=== PATIENT | female | born 1965 | race Caucasian/White ===

== ENCOUNTER 2019-04-19 10:48 | Emergency (ER) | payer BC, SELFPAY ==
[2019-04-19 10:52] VITALS: BP 185/75; PULSE 90; RESP 20; TEMP 36.4; O2SAT 97; BMI 39.1
--- NOTE | 2019-04-19 11:04 | ED_ITS ---
Entered by Malia Gaviria, acting as scribe for Leandra Rodriges MD Apr 19, 2019 10:48 HPI - Chest Pain General: Chief Complaint: Chest Pain Stated Complaint: CP Time Seen by Provider: 04/19/19 11:04 Source: patient and RN notes reviewed Mode of arrival: ambulatory Limitations: no limitations History of Present Illness: HPI narrative: 54 yo female presents to ED with complaints of chest pain. The patient was at work when she suddenly became hot from the feet up, her fingers began tingling, short of breath, chest tightness, headache, and very weak. She said this occurred at about 1015. She said her symptoms stopped but then they returned. She denies nausea. She gets panic attacks but she said this feels different. The patient has no personal cardiac h istory (only high blood pressure) but she has a strong family history cardiac disease. She states she smoked for 30 years but she vapes now. She said she pre- diabetic. She said at present she has dizziness and chest discomfort. MD complaint: chest pain and chest heaviness Pertinent past history: other (prior smoker, current vaper) Onset (ago): minute(s) (45 (at 1020)) Timing of current episode: episodic Prior episodes: No Onset: during rest Pain location: substernal Pain radiation: none Severity: moderate Quality: tightness Relieving factors: nothing Exacerbating factors: nothing Associated symptoms: Reports dyspnea; Deny abdominal pain, diaphoresis, fever(s), nausea or vomiting Treatment prior to arrival: none Risk Factors: Coronary artery disease risk factors: diabetes (pre-diabetic), smoking history (smoked in the past, vapes now), hypertension and family history of CAD before age 50 Thoracic aortic dissection risk factors: none Review of Systems Const: Denies: fever, chills, change in appetite, night sweats or diaphoresis Eyes: Denies: change in vision ENMT: Denies: throat pain or ear pain Card: Denies: swelling of feet/ankles, shortness of breath on exertion or shortness of breath when lying down Resp: Reports: shortness of breath GI: Denies: abdominal pain, nausea, vomiting, diarrhea or constipation : Denies: flank pain or difficulty urinating Musc: Denies: back pain Skin/Breast: Denies: rash Neuro: Denies: headache, numbness in extremities or weakness in extremities Psych: Denies: depression Endo: Denies: excessive thirst Alfonso/Lymph: Denies: easy bruising PFSH ED PFSH: Social History Smoking and tobacco status: never smoked Physical Exam Const: COMMON NORMALS: no apparent distress, oriented x3 and alert GENERAL APPEARANCE: cooperative and well developed; not in distress and not diaphoretic ORIENTATION/CONSCIOUSNESS: Yes awake, Yes oriented to person, Yes oriented to place and Yes oriented to time HENMT: COMMON NORMALS: normocephalic, head/scalp atraumatic, external ears normal, external nose normal and moist oral mucous membranes HEAD & SCALP: normocephalic and atraumatic FACE & SINUS: normal facial exam; no facial tenderness NOSE: external nose normal EXTERNAL EAR: Yes external ears normal MOUTH: oral and palatal mucosa normal, lip normal and tongue normal TEETH & GINGIVA: no abnormal tooth and associated gingiva THROAT: posterior oropharynx normal and uvula midline Eye: COMMON NORMALS: PERRL and EOMs intact bilaterally PUPIL: Yes PERRL Neck/C-Spine: COMMON NORMALS: full ROM, supple and no JVD GENERAL: Yes normal visual inspection and Yes trachea midline CERVICAL SPINE: No cervical spine tenderness Lymph: LYMPHATIC: no lymphadenopathy noted Chest: COMMONS NORMALS: inspection of chest normal Resp: COMMON NORMALS: normal respiratory effort, no use of accessory muscles and clear to auscultation bilaterally EFFORT & INSPECTION: Yes able to speak in complete sentences and Yes symmetric chest movement AUSCULTATION: clear to auscultation bilaterally Cardio: COMMON NORMALS: no JVD, regular rate, regular rhythm, no gallops, no murmurs and peripheral pulses 2+ throughout RATE: regular rate RHYTHM: regular rhythm PERIPHERAL PULSES: pulses 2+ throughout GI: COMMON NORMALS: normal to inspection, nondistended, normoactive bowel sounds, soft to palpation and non-tender PALPATION: Yes soft Back/Pelvis: COMMON NORMALS: thoracic and lumbar spine normal to inspection and thoraco-lumbar ROM normal Extremity: COMMON NORMALS: normal to inspection, full ROM and normal capillary refill Neuro: COMMON NORMALS: oriented x3, CN's II-XII intact bilaterally, moves all extremities, no focal motor deficits and no sensory deficits noted SENSORIUM/ORIENTATION: Yes alert, Yes oriented to person, Yes oriented to place and Yes oriented to time Psych: COMMON NORMALS: mental status grossly normal, thought process normal, cooperative, affect normal, speech normal and activity/motor behavior normal SPEECH: Yes normal speech THOUGHT PROCESS: normal thought process Skin: COMMON NORMALS: no rashes or lesions noted and skin turgor normal GENERAL SKIN EXAM: no rashes or lesions noted and turgor normal Course ED course: Patient with atypical chest pain but multiple risk factors. Work up neg including delta troponin. She wants to go home and will follow up with her doctor. Vital Signs: Vital signs: Vital Signs Temperature 97.5 F L 04/19/19 10:52 Pulse Rate 79 04/19/19 14:30 Respiratory Rate 18 04/19/19 14:30 Blood Pressure 137/66 04/19/19 14:30 Pulse Oximetry 95 04/19/19 14:30 MDM - Chest Pain Lab Data: Labs: Lab Results 04/19/19 04/19/19 04/19/19 Range/Units 11:15 11:39 11:39 WBC 10.8 H (4.0-10.0) 10^3/ uL RBC 4.73 (4.1-5.3) 10^6/u L Hgb 13.9 (11.5-15.3) g/dL Hct 41.6 (37.0-47.0) % MCV 87.9 (81-99) fL MCH 29.4 (28.0-34.0) pg MCHC 33.4 (30.0-36.0) g/dL RDW 11.7 L (12.1-15.1) % Plt Count 433 H (130-400) 10^3/c mm MPV 9.0 (7.4-10.4) fL Neut % (Auto) 62.4 % Lymph % (Auto) 26.6 % [place] % (Auto) 6.9 % Eos % (Auto) 2.9 % Baso % (Auto) 0.7 % Neut # (Auto) 6.7 (1.8-7.7) 10^3/u L Lymph # (Auto) 2.9 (0.8-4.8) 10^3/u L [place] # (Auto) 0.8 (0.2-0.9) 10^3/u L Eos # (Auto) 0.3 (0.0-0.8) 10^3/u L Baso # (Auto) 0.1 (0.0-0.1) 10^3/u L Nucleated RBC % (a uto) 0 % Nucleated RBCs # 0.0 /100WBC PT (10.5-13.3) SECO NDS INR (0.8-1.2) D-Dimer (0-0.59) ug/mIFE U Sodium 136 (136-145) mmol/L Potassium 4.2 (3.5-5.1) mmol/L Chloride 98 (98-107) mmol/L Carbon Dioxide 25 (22-29) mmol/L Anion Gap 17.2 (5-19) BUN 11 (6-20) mg/dL Creatinine 0.7 (0.5-0.9) mg/dL GFR Calculation 86.9 L (90-130) mL/min Glucose 94 (65-115) mg/dL Calcium 9.8 (8.5-10.5) mg/dL Total Bilirubin 0.4 (0.15-1.2) mg/dL AST 23 (0-32) U/L ALT 26 (0-33) U/L Alkaline Phosphata se 80 (35-105) IU/L Troponin T Baselin e 7 (0-10) ng/mL Troponin T 120 Min [place] (0-10) ng/mL Delta Troponin T (0-10) ABS# NT-Pro-B Natriuret Pep 26 (0-125) pg/mL Total Protein 7.8 (6.6-8.7) g/dL Albumin 4.8 (3.5-5.2) g/dL Globulin 3.0 (1.3-4.6) g/dL Lipase 33 (13-60) U/L Urine Color (Yellow) Urine Appearance (CLEAR) Urine pH (5-7) Ur Specific Gravit y (1.005-1.030) Urine Protein (Negative) Urine Glucose (UA) (Normal) Urine Ketones (Negative) Urine Occult Blood (Negative) Urine Nitrate (Negative) Urine Bilirubin (NEGATIVE) Urine Urobilinogen (Negative) mg/dL Ur Leukocyte Jeanne ase (Negative) 04/19/19 04/19/19 04/19/19 Range/Units 11:39 12:50 13:54 WBC (4.0-10.0) 10^3/ uL RBC (4.1-5.3) 10^6/u L Hgb (11.5-15.3) g/dL Hct (37.0-47.0) % MCV (81-99) fL MCH (28.0-34.0) pg MCHC (30.0-36.0) g/dL RDW (12.1-15.1) % Plt Count (130-400) 10^3/c mm MPV (7.4-10.4) fL Neut % (Auto) % Lymph % (Auto) % [place] % (Auto) % Eos % (Auto) % Baso % (Auto) % Neut # (Auto) (1.8-7.7) 10^3/u L Lymph # (Auto) (0.8-4.8) 10^3/u L [place] # (Auto) (0.2-0.9) 10^3/u L Eos # (Auto) (0.0-0.8) 10^3/u L Baso # (Auto) (0.0-0.1) 10^3/u L Nucleated RBC % (a uto) % Nucleated RBCs # /100WBC PT 13.30 (10.5-13.3) SECO NDS INR 0.98 (0.8-1.2) D-Dimer <= 0.27 (0-0.59) ug/mIFE U Sodium (136-145) mmol/L Potassium (3.5-5.1) mmol/L Chloride (98-107) mmol/L Carbon Dioxide (22-29) mmol/L Anion Gap (5-19) BUN (6-20) mg/dL Creatinine (0.5-0.9) mg/dL GFR Calculation (90-130) mL/min Glucose (65-115) mg/dL Calcium (8.5-10.5) mg/dL Total Bilirubin (0.15-1.2) mg/dL AST (0-32) U/L ALT (0-33) U/L Alkaline Phosphata se (35-105) IU/L Troponin T Baselin e (0-10) ng/mL Troponin T 120 Min [place] 6.68 (0-10) ng/mL Delta Troponin T -0.32 L (0-10) ABS# NT-Pro-B Natriuret Pep (0-125) pg/mL Total Protein (6.6-8.7) g/dL Albumin (3.5-5.2) g/dL Globulin (1.3-4.6) g/dL Lipase (13-60) U/L Urine Color Yellow (Yellow) Urine Appearance Clear (CLEAR) Urine pH 6.0 (5-7) Ur Specific Gravit y 1.010 (1.005-1.030) Urine Protein Neg (Negative) Urine Glucose (UA) Norm (Normal) Urine Ketones Negative (Negative) Urine Occult Blood Neg (Negative) Urine Nitrate Negative (Negative) Urine Bilirubin Neg (NEGATIVE) Urine Urobilinogen Norm (Negative) mg/dL Ur Leukocyte Jeanne ase Negative (Negative) Imaging Data^: CXR: Radiologist's impression: [place] [address] XRay Report Signed Patient: Tristan Yusuf #: [id number] : 1965Acct#:[id number] Age/Sex: 54 / FADM Date: 04/19/19 [facility] Attending Dr: Ordering Provider/Ordering MD: Leandra Rodriges MD Date of Service: 04/19/19 Procedure(s): XR chest 1V portable [id number] Accession Number(s): [id number] Report Number: [id number] WS: [id number] PORTABLE CHEST HISTORY: chest pain COMPARISON: 05/09/2015 Lungs are clear and well expanded. No pleural effusion or pneumothorax. Cardiac size: Normal. Mediastinum/Aorta: Normal mediastinum. No osseous abnormality seen. XR/XR chest 1V portable [id number] IMPRESSION: Unremarkable portable chest. Dictated By:Bibiana Sandy DO Signed By:Bibiana Sandy DOSigned Date/Time:04/19/19 1131 DD/ EKG Data^: EKG 1: EKG interpretation date: 04/19/19 EKG interpretation time: 11:06 Interpretation: Normal EKG, [address] changes Discharge Plan Discharge Patient Disposition: Home, Self-Care Clinical Impression: Chest pain, Panic attack Condition: Stable Prescriptions: No Action losartan 50 mg tablet 50 mg PO DAILY RF: 0 citalopram 40 mg tablet 40 mg PO DAILY RF: 0 tizanidine 4 mg tablet 4 mg PO BEDTIME RF: 0 hydroxyzine HCl 25 mg tablet 25 mg PO TID PRN (Reason: Anxiety) RF: 0 aripiprazole 5 mg tablet 5 mg PO DAILY RF: 0 Discharge Orders: Discharge Order (Routine); Ordered 04/19/19 Ordered By: Leandra Rodriges Referrals: Karine Mckenna MD [Referring] - 4-7 days Patient Instructions: Chest Pain (ED), Panic Attack Discharge Date/Time: 04/19/19 14:31 Coding Level of Care Code 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
--- NOTE | 2019-04-19 11:11 | ECG_ITS ---
Measurements Intervals [place] Rate: 81 P: 34 MN: 153 QRS: 46 QRSD: 90 T: 36 QT: 370 QTc: 430 SINUS RHYTHM INTERPRETATION BASED ON A DEFAULT AGE OF 40 YEARS No previous ECG available for comparison Electronically Signed On 04-19-2019 20:47:49 TERRAZZO MECHANIC by Beatrice Newman M.D. [id number]
--- NOTE | 2019-04-19 11:11 | XR_ITS ---
WS: [id number] PORTABLE CHEST HISTORY: chest pain COMPARISON: 05/09/2015 Lungs are clear and well expanded. No pleural effusion or pneumothorax. Cardiac size: Normal. Mediastinum/Aorta: Normal mediastinum. No osseous abnormality seen. XR/XR chest 1V portable [id number] IMPRESSION: Unremarkable portable chest.
[2019-04-19 11:22] VITALS: BP 156/71; PULSE 85; RESP 18; O2SAT 94
[2019-04-19 11:23] LABS: Basophils # 0.1 10^3/uL (0.0-0.1); Basophils % 0.7 %; Eosinophils # 0.3 10^3/uL (0.0-0.8); Eosinophils % 2.9 %; Hematocrit 41.6 % (37.0-47.0); Hemoglobin 13.9 g/dL (11.5-15.3); Lymphocytes # 2.9 10^3/uL (0.8-4.8); Lymphocytes % 26.6 %; Mean Corpuscular HGB Conc 33.4 g/dL (30.0-36.0); Mean Corpuscular Hemoglobin 29.4 pg (28.0-34.0); Mean Corpuscular Volume 87.9 fL (81-99); Monocytes # 0.8 10^3/uL (0.2-0.9); Monocytes % 6.9 %; Neutrophils # 6.7 10^3/uL (1.8-7.7); Neutrophils % 62.4 %; Nucleated Red Blood Cells % 0 %; Platelet Count 433 10^3/cmm (130-400); Red Blood Count 4.73 10^6/uL (4.1-5.3); Red Cell Distribution Width 11.7 % (12.1-15.1); White Blood Count 10.8 10^3/uL (4.0-10.0)
[2019-04-19 11:58] LABS: INR 0.98 (0.8-1.2)
[2019-04-19 12:01] LABS: D Dimer <= 0.27 ug/mIFEU (0-0.59)
[2019-04-19 12:09] LABS: Troponin(5th) Baseline 7 ng/mL (0-10)
[2019-04-19 12:18] LABS: Alanine Aminotransferase 26 U/L (0-33); Albumin Level 4.8 g/dL (3.5-5.2); Alkaline Phosphatase 80 IU/L (35-105); Anion Gap 17.2 (5-19); Aspartate Amino Transferase 23 U/L (0-32); Blood Urea Nitrogen 11 mg/dL (6-20); Calcium 9.8 mg/dL (8.5-10.5); Carbon Dioxide 25 mmol/L (22-29); Chloride 98 mmol/L (98-107); Glomerular Filtration Rate 86.9 mL/min (90-130); Glucose 94 mg/dL (65-115); Lipase 33 U/L (13-60); NT Pro B Type Natriuretic Pept 26 pg/mL (0-125); Potassium 4.2 mmol/L (3.5-5.1); Sodium 136 mmol/L (136-145); Total Bilirubin 0.4 mg/dL (0.15-1.2); Total Protein 7.8 g/dL (6.6-8.7)
[2019-04-19] MEDS: aspirin 81 mg Chew Tablet 324 MG PO (12:23)
[2019-04-19 12:59] LABS: Add Urine Microscopic? NO
[2019-04-19 13:06] LABS: Bilirubin Urine Neg (NEGATIVE); Blood Urine Neg (Negative); Glucose Urine UA Norm (Normal); Ketones Urine Negative (Negative); Leukocyte Esterase Urine Negative (Negative); Nitrate Urine Negative (Negative); Protein Urine Neg (Negative); Urine Appearance Clear (CLEAR); Urine Color Yellow (Yellow); Urobilinogen Urine Norm (Negative)
[2019-04-19 14:05] VITALS: BP 139/73; PULSE 78; RESP 18; O2SAT 95
[2019-04-19 14:15] LABS: Troponin 5 2HR 6.68 ng/mL (0-10)
[2019-04-19 14:22] LABS: Troponin 5 2HR Delta -0.32 ABS# (0-10)
[2019-04-19 14:30] VITALS: BP 137/66; PULSE 79; RESP 18; O2SAT 95
--- NOTE | 2019-04-19 17:11 | ECG_ITS ---
Measurements Intervals [place] Rate: 73 P: 171 UT: 151 QRS: 149 QRSD: 89 T: 173 QT: 396 QTc: 437 SINUS RHYTHM ARM LEADS REVERSED [INVERTED P AND QRS IN I] ATYPICAL ECG No previous ECG available for comparison Electronically Signed On 04-19-2019 20:51:57 SALES AND SERVICE SPECIALIST by Beatrice Newman M.D. [id number]
== END 2019-04-19 14:31 | disposition home or self-care (01) ==
PROVIDERS: Emergency Provider Emergency Medicine
DX: R07.9 Chest pain, unspecified (principal); F41.0 Panic disorder [episodic paroxysmal anxiety]; R73.03 Prediabetes; I10 Essential (primary) hypertension; Z87.891 Personal history of nicotine dependence; Z82.49 Family history of ischemic heart disease and other diseases of the circulatory system
CPT/HCPCS: 36415; 71045; 80053; 81003; 83690; 83880; 84484; 85025; 85378; 85610; 93005; 99282; 99284

== ENCOUNTER 2019-07-23 17:20 | Outpatient (CLI) | payer BC, SELFPAY ==
--- NOTE | 2019-07-23 | XRR_ITS ---
PROCEDURE INFORMATION: Exam: XR Right Foot Complete Exam date and time: 07/23/2019 5:50 PM Age: 54 years old Clinical indication: Injury or trauma; Fall; Initial encounter; Sprain or strain; Ankle and foot; Right; Injury date: 07/20/19; Additional info: Foot pain TECHNIQUE: Imaging protocol: XR Right foot. Views: 3 or more views. COMPARISON: No relevant prior studies available. FINDINGS: Bones/joints: Hindfoot -midfoot and midfoot-forefoot articulations normal. Metatarsals and phalanges without an acute process. Subtalar and tibiotalar joint normal. Moderate degenerative changes at the first metatarsal phalangeal joint. Spur formation at the insertion of the Achilles' tendon and plantar aponeurosis. Soft tissues: Normal. XR/XR foot RT min 3V* [id number] IMPRESSION: 1. Moderate degenerative changes at the first metatarsal phalangeal joint. 2. Spur formation at the insertion of the Achilles' tendon and plantar aponeurosis.
--- NOTE | 2019-07-23 | XRR_ITS ---
PROCEDURE INFORMATION: Exam: XR Right Ankle Exam date and time: 07/23/2019 5:50 PM Age: 54 years old Clinical indication: Injury or trauma; Injury history: Fall and twisted ankle; Initial encounter; Sprain or strain; Ankle and foot; Right; Injury date: 07/20/19; Additional info: Joint pain TECHNIQUE: Imaging protocol: XR Right ankle. Views: 3 or more views. COMPARISON: No relevant prior studies available. FINDINGS: Bones/joints: Medial and lateral malleoli are normal. Ankle mortise is symmetrical. No fracture. Hindfoot is unremarkable. Tibiotalar joint and the subtalar joint appears normal. Spur formation at the insertion of the Achilles' tendon and plantar aponeurosis. Soft tissues: Normal. XR/XR ankle RT min 3V* [id number] IMPRESSION: Spur formation at the insertion of the Achilles' tendon and plantar aponeurosis.
== END 2019-07-23 17:21 | disposition home or self-care (01) ==
LOC: RAD 17:22
PROVIDERS: Visit Provider Nurse Practitioner Family
DX: M25.571 Pain in right ankle and joints of right foot (principal); M79.671 Pain in right foot; M76.61 Achilles tendinitis, right leg
CPT/HCPCS: 73610; 73630

== ENCOUNTER 2020-01-19 11:12 | Emergency (ER) | payer BC, SELFPAY ==
[2020-01-19] VITALS (12 sets, daily range): BP systolic 149–167; BP diastolic 62–77; PULSE 77–98; RESP 16–30; TEMP 36.3; O2SAT 89–93; BMI 41.3
--- NOTE | 2020-01-19 11:15 | XRR_ITS ---
PROCEDURE INFORMATION: Exam: XR Chest, 1 View Exam date and time: 01/19/2020 1:28 PM Age: 54 years old Clinical indication: Pain; Pleuordynia; Additional info: Cp TECHNIQUE: Imaging protocol: XR of the chest Views: 1 view. COMPARISON: CR XR chest 1V portable [id number] 04/19/2019 11:18 AM FINDINGS: Lungs: Unremarkable. No consolidation. Pleural space: Unremarkable. No pleural effusion. No pneumothorax. Heart/Mediastinum: Unremarkable. No cardiomegaly. Bones/joints: Unremarkable. XR/XR chest 1V portable [id number] IMPRESSION: No acute findings.
--- NOTE | 2020-01-19 11:15 | ECG_ITS ---
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 Measurements Intervals [place] Rate: 95 P: 35 CA: 150 QRS: 65 QRSD: 84 T: 44 QT: 328 QTc: 413 Interpretive Statements SINUS RHYTHM WITH OCCASIONAL VENTRICULAR PREMATURE COMPLEXES LOW QRS VOLTAGE IN PRECORDIAL LEADS [QRS DEFLECTION < 1.0 mV IN CHEST LEADS] Compared to ECG 04/19/2019 13:03:54 Ventricular premature complex(es) now present Low QRS voltage now present Electronically Signed On 01-19-2020 21:12:56 LADIES LOCKER ROOM ATTENDANT by Dawit Walls M.D. [email or web address][id number]
[2020-01-19 11:40] LABS: Basophils # 0.1 10^3/uL (0.0-0.1); Basophils % 0.7 %; Eosinophils # 0.3 10^3/uL (0.0-0.8); Hematocrit 36.2 % (37.0-47.0); Hemoglobin 11.7 g/dL (11.5-15.3); Lymphocytes # 2.5 10^3/uL (0.8-4.8); Lymphocytes % 20.6 %; Mean Corpuscular HGB Conc 32.3 g/dL (30.0-36.0); Mean Corpuscular Hemoglobin 28.7 pg (28.0-34.0); Mean Corpuscular Volume 88.7 fL (81-99); Mean Platelet Volume 9.3 fL (7.4-10.4); Monocytes # 0.8 10^3/uL (0.2-0.9); Monocytes % 6.6 %; Neutrophils # 8.53 10^3/uL (1.8-7.7); Neutrophils % 69.7 %; Nucleated Red Blood Cells % 0 %; Platelet Count 469 10^3/cmm (130-400); Red Blood Count 4.08 10^6/uL (4.1-5.3); Red Cell Distribution Width 12.7 % (12.1-15.1); White Blood Count 12.2 10^3/uL (4.0-10.0)
[2020-01-19 12:03] LABS: Alanine Aminotransferase 20 U/L (0-33); Albumin Level 4.2 g/dL (3.5-5.2); Alkaline Phosphatase 102 IU/L (35-105); Anion Gap 14.3 (5-19); Aspartate Amino Transferase 15 U/L (0-32); Blood Urea Nitrogen 14 mg/dL (6-20); Calcium 9.2 mg/dL (8.5-10.5); Carbon Dioxide 26 mmol/L (22-29); Chloride 104 mmol/L (98-107); Globulin 2.3 g/dL (1.3-4.6); Glomerular Filtration Rate 86.9 mL/min (90-130); Glucose 106 mg/dL (65-115); Osmolality Calculated 291 mOsm/kg (285-295); Potassium 4.3 mmol/L (3.5-5.1); Sodium 140 mmol/L (136-145); Total Bilirubin 0.3 mg/dL (0.15-1.2); Total Protein 6.5 g/dL (6.6-8.7)
[2020-01-19 12:05] LABS: Troponin(5th) Baseline 6 ng/L (0-10)
--- NOTE | 2020-01-19 12:11 | W.ED.CHESTPA ---
HPI - Chest Pain General: Chief Complaint: Chest Pain Stated Complaint: CP Time Seen by Provider: 01/19/20 11:16 Source: patient Mode of arrival: ambulatory Limitations: no limitations History of Present Illness: HPI narrative: 54-year-old female states she has been having chest pain started today. States the center of her chest and radiates to her back. She states it is a pressure type pain. She states is not severe in nature and rates it a 5 out of 10. She states that pretty much only when she has a deep inspirations. She states that she has no pain without inspiration. Associated symptoms: Deny abdominal pain, dyspnea, fever(s), nausea or vomiting Review of Systems Const: Denies: fever(s), chills, body aches or change in appetite Eyes: Denies: blurry vision or eye discomfort ENMT: Denies: throat pain or dental pain Card: Reports: chest pain Resp: Denies: dyspnea GI: Denies: abdominal pain, nausea, vomiting or diarrhea : Denies: dysuria Musc: Denies: neck pain or back pain Skin/Breast: Denies: rash Neuro: Denies: headache(s) Psych: Denies: depression Alfonso/Lymph: Denies: easy bruising All/Imm: Denies: urticaria PFSH ED PFSH: Social History Smoking and tobacco status: never smoked Physical Exam Const: COMMON NORMALS: no acute distress, patient oriented x3 and healthy appearing HENMT: COMMON NORMALS: normocephalic and atraumatic HEAD & SCALP: normocephalic and atraumatic Eye: COMMON NORMALS: Equal, round and reactive pupils present and EOMs intact bilaterally PUPIL: Yes Equal, round and reactive pupils present Neck/C-Spine: COMMON NORMALS: full ROM and supple Chest: COMMONS NORMALS: normal inspection of the chest and normal palpation of entire chest wall Resp: COMMON NORMALS: normal respiratory effort, No retractions, No use of accessory muscles and clear to auscultation bilaterally AUSCULTATION: clear to auscultation bilaterally Cardio: COMMON NORMALS: regular rate, regular rhythm and No murmurs present (Cardio) RATE: regular rate RHYTHM: regular rhythm GI: COMMON NORMALS: Normal to inspection, nondistended, normoactive bowel sounds present, Soft to palpation, non-tender and no masses PALPATION: Yes Soft to palpation Extremity: COMMON NORMALS: normal to inspection and full ROM Neuro: COMMON NORMALS: patient oriented x3, moves all extremities and no focal motor deficits Psych: COMMON NORMALS: mental status grossly normal, Normal thought process present and cooperative THOUGHT PROCESS: Normal thought process present Skin: COMMON NORMALS: no rashes or lesions noted and no wounds GENERAL SKIN EXAM: no rashes or lesions noted Course Vital Signs: Vital signs: Vital Signs Temperature 97.3 F L 01/19/20 11:19 Pulse Rate 96 01/19/20 11:19 Respiratory Rate 18 01/19/20 11:19 Blood Pressure 167/62 01/19/20 11:19 Pulse Oximetry 91 01/19/20 11:19 MDM - Chest Pain MDM Narrative: Medical decision making narrative: Patient presents here with chest pain that is atypical in nature. Likely pleuritic pain as it is inspirational. Patient's x-ray and blood work here are all normal. She has no signs of acute coronary syndrome or pulmonary bruising. Patient is stable for discharge is to follow-up with PCP in 3 to 5 days return if worsening. Lab Data: Labs: Lab Results 01/19/20 01/19/20 01/19/20 Range/Units 11:31 11:31 11:31 WBC 12.2 H (4.0-10.0) 10^3/ uL RBC 4.08 L (4.1-5.3) 10^6/u L Hgb 11.7 (11.5-15.3) g/dL Hct 36.2 L (37.0-47.0) % MCV 88.7 (81-99) fL MCH 28.7 (28.0-34.0) pg MCHC 32.3 (30.0-36.0) g/dL RDW 12.7 (12.1-15.1) % Plt Count 469 H (130-400) 10^3/c mm MPV 9.3 (7.4-10.4) fL Neut % (Auto) 69.7 % Lymph % (Auto) 20.6 % [place] % (Auto) 6.6 % Eos % (Auto) 2.0 % Baso % (Auto) 0.7 % Neut # (Auto) 8.53 H (1.8-7.7) 10^3/u L Lymph # (Auto) 2.5 (0.8-4.8) 10^3/u L [place] # (Auto) 0.8 (0.2-0.9) 10^3/u L Eos # (Auto) 0.3 (0.0-0.8) 10^3/u L Baso # (Auto) 0.1 (0.0-0.1) 10^3/u L Nucleated RBC % (a uto) 0 % Nucleated RBCs # 0.0 /100WBC D-Dimer (0-0.59) ug/mIFE U Sodium 140 (136-145) mmol/L Potassium 4.3 (3.5-5.1) mmol/L Chloride 104 (98-107) mmol/L Carbon Dioxide 26 (22-29) mmol/L Anion Gap 14.3 (5-19) BUN 14 (6-20) mg/dL Creatinine 0.7 (0.5-0.9) mg/dL GFR Calculation 86.9 L (90-130) mL/min Glucose 106 (65-115) mg/dL Calculated Osmolal ity 291 (285-295) mOsm/k g Calcium 9.2 (8.5-10.5) mg/dL Total Bilirubin 0.3 (0.15-1.2) mg/dL AST 15 (0-32) U/L ALT 20 (0-33) U/L Alkaline Phosphata se 102 (35-105) IU/L Troponin T Baselin e 6 (0-10) ng/L Troponin T 120 Min [place] (0-10) ng/L Delta Troponin T (0-10) ABS# Total Protein 6.5 L (6.6-8.7) g/dL Albumin 4.2 (3.5-5.2) g/dL Globulin 2.3 (1.3-4.6) g/dL 01/19/20 01/19/20 Range/Units 11:31 13:52 WBC (4.0-10.0) 10^3/ uL RBC (4.1-5.3) 10^6/u L Hgb (11.5-15.3) g/dL Hct (37.0-47.0) % MCV (81-99) fL MCH (28.0-34.0) pg MCHC (30.0-36.0) g/dL RDW (12.1-15.1) % Plt Count (130-400) 10^3/c mm MPV (7.4-10.4) fL Neut % (Auto) % Lymph % (Auto) % [place] % (Auto) % Eos % (Auto) % Baso % (Auto) % Neut # (Auto) (1.8-7.7) 10^3/u L Lymph # (Auto) (0.8-4.8) 10^3/u L [place] # (Auto) (0.2-0.9) 10^3/u L Eos # (Auto) (0.0-0.8) 10^3/u L Baso # (Auto) (0.0-0.1) 10^3/u L Nucleated RBC % (a uto) % Nucleated RBCs # /100WBC D-Dimer 0.30 (0-0.59) ug/mIFE U Sodium (136-145) mmol/L Potassium (3.5-5.1) mmol/L Chloride (98-107) mmol/L Carbon Dioxide (22-29) mmol/L Anion Gap (5-19) BUN (6-20) mg/dL Creatinine (0.5-0.9) mg/dL GFR Calculation (90-130) mL/min Glucose (65-115) mg/dL Calculated Osmolal ity (285-295) mOsm/k g Calcium (8.5-10.5) mg/dL Total Bilirubin (0.15-1.2) mg/dL AST (0-32) U/L ALT (0-33) U/L Alkaline Phosphata se (35-105) IU/L Troponin T Baselin e (0-10) ng/L Troponin T 120 Min [place] 6.00 (0-10) ng/L Delta Troponin T 0 (0-10) ABS# Total Protein (6.6-8.7) g/dL Albumin (3.5-5.2) g/dL Globulin (1.3-4.6) g/dL Imaging Data^: CXR: Attestation: I personally reviewed and interpreted this imaging study as follows: Radiologist's impression: no acute abnormality EKG Data^: EKG 1: Attestation: I personally reviewed and interpreted this EKG as follows: EKG interpretation date: 01/19/20 EKG interpretation time: 11:20 Interpretation: nsr hr [address] or t wave abnormalities qrs 84 qtc 380 EKG 2: Attestation: I personally reviewed and interpreted this EKG as follows: EKG interpretation date: 01/19/20 EKG interpretation time: 13:39 Interpretation: nsr hr [address] or t wave abnormalties qrs 88 qtc 404 Discharge Plan Discharge Patient Disposition: Home Clinical Impression: Chest pain Qualifiers: Chest pain type: unspecified Qualified Code(s): R07.9 - Chest pain, unspecified Condition: Stable Prescriptions: New Naprosyn 500 mg tablet 500 mg PO BID PRN (Reason: pain) Qty: 20 RF: 0 No Action losartan 50 mg tablet 50 mg PO DAILY RF: 0 citalopram 40 mg tablet 40 mg PO DAILY RF: 0 tizanidine 4 mg tablet 4 mg PO BEDTIME RF: 0 hydroxyzine HCl 25 mg tablet 25 mg PO TID PRN (Reason: Anxiety) RF: 0 aripiprazole 5 mg tablet 5 mg PO DAILY RF: 0 Discharge Orders: Discharge Order (Routine); Ordered 01/19/20 Ordered By: Erinn Oscar Discharge Diet: Advance as tolerated Discharge Activity: Resume usual activity Patient Instructions: Chest Pain (ED) Stand Alone Forms: Work/School Release Coding Level of Care Code ED Medical Assisting Instructor for Rasheedag Fwd Exam Comprehensive
--- NOTE | 2020-01-19 13:15 | ECG_ITS ---
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 Measurements Intervals [place] Rate: 75 P: 33 IA: 148 QRS: 49 QRSD: 88 T: 12 QT: 375 QTc: 421 Interpretive Statements SINUS RHYTHM Compared to ECG 01/19/2020 11:20:26 Ventricular premature complex(es) no longer present Electronically Signed On 01-19-2020 21:23:44 FLARE MAN by Dawit Walls M.D. [email or web address] hospitalGousto/store/OM/[id number]
[2020-01-19] MEDS: ketorolac 30 mg/mL INJ 15 MG IVP (13:20)
[2020-01-19 14:41] LABS: Troponin 5 2HR Delta 0 ABS# (0-10)
--- NOTE | 2020-01-19 15:08 | PC.NURSE ---
Read and agree with assessment.
== END 2020-01-19 15:07 | disposition home or self-care (01) ==
PROVIDERS: Emergency Provider Emergency Medicine
DX: R07.9 Chest pain, unspecified (principal)
CPT/HCPCS: 12345; 71045; 80053; 84484; 85025; 85378; 93005; 96374; 99282; 99284; J1885

== ENCOUNTER 2020-02-26 15:08 | Outpatient (CLI) | payer BC, SELFPAY ==
--- NOTE | 2020-02-26 15:12 | MM_ITS ---
WS: [id number] SCREENING DIGITAL MAMMOGRAM WITH CAD HISTORY: SCREENING COMPARISON: None available. Bilateral CC and MLO views submitted. Computer aided detection analyzed. Breast composition: There are scattered areas of fibroglandular density. No suspicious masses, microc alcifications or architectural distortion. Benign calcification in the central LEFT breast. MM/[id number] IMPRESSION: BI-RADS: 2-Benign FOLLOW UP: 1 Year Follow-up
== END 2020-02-26 15:09 | disposition home or self-care (01) ==
LOC: RADSHAW 15:10
PROVIDERS: PCP Nurse Practitioner Family; Visit Provider Nurse Practitioner Family
DX: Z12.31 Encounter for screening mammogram for malignant neoplasm of breast (principal)
CPT/HCPCS: 77067

== ENCOUNTER → 2020-03-26 10:08 | Outpatient (BNVA) | payer BC, SELFPAY | PROVIDERS: PCP Nurse Practitioner Family; Visit Provider Specialist | DX: G43.711 Chronic migraine without aura, intractable, with status migrainosus (principal); G47.30 Sleep apnea, unspecified; R01.1 Cardiac murmur, unspecified | CPT/HCPCS: 99204; J1885 ==

== ENCOUNTER → 2020-06-04 14:33 | Outpatient (BNVA) | payer BC, SELFPAY | PROVIDERS: PCP Nurse Practitioner Family; Visit Provider Specialist | DX: G43.711 Chronic migraine without aura, intractable, with status migrainosus (principal); G47.33 Obstructive sleep apnea (adult) (pediatric); R01.1 Cardiac murmur, unspecified | CPT/HCPCS: 99213; 99214 ==

== ENCOUNTER → 2020-06-24 14:53 | Outpatient (BNVA) | payer BC, SELFPAY | PROVIDERS: PCP Nurse Practitioner Family; Visit Provider Specialist | DX: G43.711 Chronic migraine without aura, intractable, with status migrainosus (principal) | CPT/HCPCS: 96372; J1885 ==

== ENCOUNTER → 2020-09-10 14:13 | Outpatient (BNVA) | payer BC, SELFPAY | PROVIDERS: PCP Nurse Practitioner Family; Visit Provider Specialist | DX: G43.711 Chronic migraine without aura, intractable, with status migrainosus (principal); G47.33 Obstructive sleep apnea (adult) (pediatric); R01.1 Cardiac murmur, unspecified; F17.290 Nicotine dependence, other tobacco product, uncomplicated | CPT/HCPCS: 96372; 99214; 99215; J1885 ==

== ENCOUNTER 2020-10-01 20:00 | Outpatient (CLI) | payer BC, SELFPAY | END 2020-10-01 20:01 | disposition home or self-care (01) | LOC: SLEEP 10-02 09:15 | PROVIDERS: PCP Nurse Practitioner Family; Visit Provider Specialist | DX: G47.30 Sleep apnea, unspecified (principal) | CPT/HCPCS: 95810 ==

== ENCOUNTER → 2020-10-06 13:34 | Outpatient (BNVA) | payer BC, SELFPAY | PROVIDERS: PCP Nurse Practitioner Family; Visit Provider Specialist | DX: G43.711 Chronic migraine without aura, intractable, with status migrainosus (principal); G47.33 Obstructive sleep apnea (adult) (pediatric); R01.1 Cardiac murmur, unspecified | CPT/HCPCS: 64615; 96372; J0585; J1885; J2405 ==

== ENCOUNTER → 2020-10-26 09:30 | Outpatient (BNVA) | payer BC, SELFPAY | PROVIDERS: PCP Nurse Practitioner Family; Visit Provider Specialist | DX: G43.711 Chronic migraine without aura, intractable, with status migrainosus (principal) | CPT/HCPCS: 96372 ==

== ENCOUNTER → 2020-12-31 14:50 | Outpatient (BNVA) | payer BC, SELFPAY | PROVIDERS: PCP Nurse Practitioner Family; Visit Provider Specialist | DX: G43.711 Chronic migraine without aura, intractable, with status migrainosus (principal); G47.33 Obstructive sleep apnea (adult) (pediatric); R01.1 Cardiac murmur, unspecified; E66.9 Obesity, unspecified; Z68.41 Body mass index [BMI] 40.0-44.9, adult; F17.290 Nicotine dependence, other tobacco product, uncomplicated | CPT/HCPCS: 64615; 99213; 99214; J0585 ==

== ENCOUNTER → 2021-02-02 15:32 | Outpatient (BNVA) | payer BC, SELFPAY | PROVIDERS: PCP Nurse Practitioner Family; Visit Provider Specialist | DX: G43.711 Chronic migraine without aura, intractable, with status migrainosus (principal); Z71.89 Other specified counseling | CPT/HCPCS: 96372; J1885; J2405 ==

== ENCOUNTER 2021-04-05 07:00 | Emergency (ER) | payer BC, SELFPAY ==
[2021-04-05 07:07] VITALS: BP 154/92; BP 163/68; BP 170/91; PULSE 81; PULSE 83; PULSE 93
--- NOTE | 2021-04-05 07:07 | ECG_ITS ---
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 f
[2021-04-05 07:20] VITALS: BP 162/86; PULSE 85; RESP 18; TEMP 36.7; O2SAT 91; BMI 38.9
--- NOTE | 2021-04-05 07:54 | ED_ITS ---
HPI - Dizziness General: Chief Complaint: Dizziness Stated Complaint: DIZZY, CONFUSED, H/A Time Seen by Provider: 04/05/21 07:06 Source: patient Mode of arrival: ambulatory Limitations: no limitations History of Present Illness: HPI Narrative: 56-year-old female presents emergency room complaining of headaches confusion and dizziness. She has a history of chronic migraine she has gotten Botox for months seem to have been effective they have not really done it on a regular b asis yet. She states she woke up this morning with a bit of a headache confusion just states she is generally kind of feels off. The only focal mention she makes is she feels like she has a little difficult time with speech. She does not take any blood thinners or aspirin. She does have a history of hypertension. Is not noticed anything that exacerbates or worsens her symptoms. She been very unsteady on her feet but no vertiginous-like symptoms. No vomiting. MD elicited complaint: lightheadedness Pertinent past history: other (headache) Onset (ago): hour(s) Timing: sudden onset Severity: moderate Description: lightheadedness and off-balance History of similar symptoms: Yes Exacerbating factors: nothing Relieving factors: nothing Associated symptoms: Reports headache(s) and weakness; Denies change in hearing, chest pain, chills, cough, diaphoresis, ear discharge, ear pressure, fevers/chills, malaise, nausea, nasal congestion, palpitations, rash, short of breath, syncope, tinnitus or vomiting Associated neuro symptoms: Reports confusion and difficulty speaking; Deny dysphagia, diplopia, extremity weakness, facial numbness, facial weakness, gait changes, numbness in extremities or visual changes Review of Systems Const: Denies: chills, malaise or diaphoresis ENMT: Denies: ear discharge, change in hearing, tinnitus or nasal congestion Card: Denies: chest pain, palpitations or syncope Resp: Denies: dyspnea, productive cough or non-productive cough GI: Denies: nausea, vomiting or dysphagia : Denies: flank pain, difficulty voiding, dysuria, urinary frequency or urinary urgency Skin/Breast: Denies: rash or pruritus Neuro: Reports: headache(s) and confusion; Denies: numbness in extremities PFSH ED PFSH: Medical History Chronic migraine without aura, intractable, with status migrainosus Heart murmur, systolic Obstructive sleep apnea Social History Smoking and tobacco status: current every day smoker (Vape) History of recent travel: No Physical Exam Const: COMMON NORMALS: no acute distress and patient oriented x3 GENERAL APPEARANCE: cooperative, comfortable and well kempt NUTRITIONAL APPEARANCE: obese ORIENTATION/CONSCIOUSNESS: Yes awake, Yes oriented to person, Yes oriented to place and Yes oriented to time HENMT: COMMON NORMALS: normocephalic, atraumatic, hearing grossly normal bilaterally, external ears normal, EAC's normal, TM's normal bilaterally, Normal nasal mucous membranes and turbinates present, moist oral mucous membranes and oropharynx normal HEAD & SCALP: normocephalic and atraumatic NOSE: Normal nasal mucous membranes and turbinates present EXTERNAL EAR: Yes external ears normal EXTERNAL AUDITORY CANAL: EAC's normal TYMPANIC MEMBRANE: TM's normal bilaterally MOUTH: Normal oral and palatal mucosa present, lip normal and tongue normal THROAT: posterior oropharynx normal and tonsils normal Eye: COMMON NORMALS: Equal, round and reactive pupils present, EOMs intact bilaterally, conjunctivae normal and no scleral icterus CONJUNCTIVA: Yes conjunctivae normal PUPIL: Yes Equal, round and reactive pupils present Neck/C-Spine: COMMON NORMALS: full ROM, no lymphadenopathy, supple, no meningeal signs, no JVD and Thyroid normal THYROID: Thyroid normal and asymmetrical Lymph: LYMPHATIC: no lymphadenopathy noted Resp: COMMON NORMALS: normal respiratory effort, No retractions, No use of accessory muscles and clear to auscultation bilaterally AUSCULTATION: clear to auscultation bilaterally Cardio: COMMON NORMALS: no JVD, regular rate, regular rhythm and No murmurs present (Cardio) RATE: regular rate RHYTHM: regular rhythm HEART SOUNDS: no murmurs GI: COMMON NORMALS: Soft to palpation and No hepatosplenomegaly present AUSCULTATION: Yes normoactive bowel sounds PALPATION: Yes Soft to palpation, No Tenderness to palpation present (GI), No Guarding due to palpation present (GI) and Yes No hepatosplenomegaly present : COMMON NORMALS: Yes no CVA tenderness BLADDER/KIDNEY EXAM: Yes no CVA tenderness Back/Pelvis: COMMON NORMALS: no CVA tenderness LUMBAR SPINE/LOWER BACK: Yes normal to inspection Extremity: COMMON NORMALS: normal to inspection, capillary refill normal, no clubbing, cyanosis or edema, no calf tenderness and no pedal edema Neuro: COMMON NORMALS: patient oriented x3 SENSORIUM/ORIENTATION: Yes oriented to person, Yes oriented to place and Yes oriented to time MENINGEAL SIGNS: Yes no meningeal signs Psych: APPEARANCE: Yes well kempt Skin: COMMON NORMALS: no rashes or lesions noted GENERAL SKIN EXAM: no rashes or lesions noted Course Vital Signs: Vital signs: Vital Signs Temperature 98.1 F 04/05/21 07:20 Pulse Rate 80 04/05/21 09:15 Respiratory Rate 16 04/05/21 09:15 Blood Pressure 170/88 04/05/21 09:15 Pulse Oximetry 91 04/05/21 09:15 MDM - Dizziness MDM Narrative Medical decision making narrative: Patient still improving. She has no focal neurologic deficits her NIH score would be 0. Blood pressure is slightly elevated gave her promethazine and ketorolac as well as some IV fluids for headache we will discharge her home increase her amlodipine meclizine to use as needed follow-up with your primary care return if worsens. Medical Records Attestation: I reviewed the patient's medical records. Lab Data Attestation: I reviewed the patient's lab results. Result diagrams: 04/05/21 07:50 04/05/21 07:50 Labs: Radiology Impressions Chest X-Ray 04/05/21 07:57 IMPRESSION: No acute chest abnormality. Head CT 04/05/21 07:57 IMPRESSION: 1. No evidence of intracranial hemorrhage or mass effect. 2. Normal hernandez-white differentiation 3. Incidental cerebellar tonsillar ectopia. 4. No acute intracranial findings. Laboratory Results WBC 10.8 10^3/uL (4.0-10.0) H 04/05/21 07:50 RBC 5.28 10^6/uL (4.1-5.3) 04/05/21 07:50 Hgb 13.2 g/dL (11.5-15.3) 04/05/21 07:50 Hct 42.5 % (37.0-47.0) 04/05/21 07:50 MCV 80.5 fl (81-99) L 04/05/21 07:50 MCH 25.0 pg (28.0-34.0) L 04/05/21 07:50 MCHC 31.1 g/dL (30.0-36.0) 04/05/21 07:50 RDW 16.4 % (12.1-15.1) H 04/05/21 07:50 Plt Count 483 10^3/cmm (130-400) H 04/05/21 07:50 MPV 9.3 fL (7.4-10.4) 04/05/21 07:50 Neut % (Auto) 77.3 % 04/05/21 07:50 Lymph % (Auto) 13.1 % 04/05/21 07:50 Thurston % (Auto) 7.1 % 04/05/21 07:50 Eos % (Auto) 1.5 % 04/05/21 07:50 Baso % (Auto) 0.5 % 04/05/21 07:50 Neut # (Auto) 8.35 10^3/uL (1.8-7.7) H 04/05/21 07:50 Lymph # (Auto) 1.4 10^3/uL (0.8-4.8) 04/05/21 07:50 Thurston # (Auto) 0.8 10^3/uL (0.2-0.9) 04/05/21 07:50 Eos # (Auto) 0.2 10^3/uL (0.0-0.8) 04/05/21 07:50 Baso # (Auto) 0.1 10^3/uL (0.0-0.1) 04/05/21 07:50 Nucleated RBC % (auto) 0 % 04/05/21 07:50 Nucleated RBCs # 0.0 /100WBC 04/05/21 07:50 Sodium 138 mmol/L (136-145) 04/05/21 07:50 Potassium 4.2 mmol/L (3.5-5.1) 04/05/21 07:50 Chloride 101 mmol/L (98-107) 04/05/21 07:50 Carbon Dioxide 24 mmol/L (22-29) 04/05/21 07:50 Anion Gap 17.2 (5-19) 04/05/21 07:50 BUN 12 mg/dL (6-20) 04/05/21 07:50 Creatinine 0.8 mg/dL (0.5-0.9) 04/05/21 07:50 GFR Calculation 73.9 mL/min (90-130) L 04/05/21 07:50 Glucose 139 mg/dL (65-115) H 04/05/21 07:50 Calculated Osmolality 288 mOsm/kg (285-295) 04/05/21 07:50 Calcium 9.9 mg/dL (8.5-10.5) 04/05/21 07:50 Total Bilirubin 0.5 mg/dL (0.15-1.2) 04/05/21 07:50 AST 15 U/L (0-32) 04/05/21 07:50 ALT 13 U/L (0-33) 04/05/21 07:50 Alkaline Phosphatase 101 IU/L (35-105) 04/05/21 07:50 Total Protein 7.3 g/dL (6.6-8.7) 04/05/21 07:50 Albumin 4.4 g/dL (3.5-5.2) 04/05/21 07:50 Globulin 2.9 g/dL (1.3-4.6) 04/05/21 07:50 Discharge Plan Discharge Patient Disposition: Home Clinical Impression: Headache, Dizziness, Hypertension Condition: Stable Prescriptions: New meclizine 25 mg tablet 25 mg PO QID PRN (Reason: dizziness) Qty: 24 0RF Changed amlodipine 5 mg tablet 10 mg PO BEDTIME Qty: 0 0RF No Action rizatriptan [Maxalt] 10 mg tablet See Rx Instructions PO .COMPLEX Qty: 9 3RF Rx Instructions: take 1 tab at onset of headache; if no relief may repeat 1 tab after at least 2 hrs; max = 3 tabs/24 hr PO simvastatin 20 mg tablet 20 mg PO DAILY 0RF Benadryl Allergy 25 mg Tablet 25 mg PO Q6H PRN (Reason: Allergy Symptoms) 0RF albuterol sulfate 90 mcg/actuation HFA aerosol inhaler 2 puff INHALATION QID PRN (Reason: Shortness Of Breath) 0RF losartan 100 mg tablet 100 mg PO BEDTIME 0RF citalopram 40 mg tablet 40 mg PO BEDTIME 0RF tizanidine 4 mg tablet 4 mg PO BEDTIME 0RF aripiprazole 5 mg tablet 5 mg PO BEDTIME 0RF naproxen [Naprosyn] 500 mg tablet 500 mg PO BID PRN (Reason: pain) Qty: 20 0RF Discharge Orders: Discharge ED (Routine); Ordered 04/05/21 Ordered By: Ayaan Maldonado Referrals: Toñito Edgar NP [Primary Care Provider] - Discharge Diet: Usual diet Patient Instructions: Opioid Safety Activity Restrictions/Additional Instructions: Use meclizine as needed. May use Tylenol or ibuprofen or the rizatriptan. Follow-up with your primary care doctor within the next week. Coding Level of Care Code ED Craps Manager for Chg Fwd Exam Comprehensive
--- NOTE | 2021-04-05 07:57 | XR_ITS ---
WS: [id number] XR chest 1V portable [id number] REASON FOR EXAM: dyspnea/cough FINDINGS: The chest is unchanged compared to 01/19/2020. The heart and mediastinum are within normal limits. Calcified granulomatous disease in both hemithoraces. No acute pulmonary parenchymal or pleural disease. Mild changes of degenerative spondylosis in the mid and lower thoracic spine. XR/XR chest 1V portable [id number] IMPRESSION: No acute chest abnormality.
--- NOTE | 2021-04-05 07:57 | CT_ITS ---
WS: [id number] CT HEAD TECHNIQUE: Noncontrast CT of the head obtained from the skullbase to the vertex. CLINICAL INFORMATION: headache/htn/confusion COMPARISON: None. DLP: 839.[address] scans at [facility] use at least one of these dose optimization techniques: automated e xposure control; mA and/or kV adjustment per patient size (includes targeted exams where dose is matc hed to clinical indication); or iterative reconstruction. FINDINGS: No evidence of intracranial hemorrhage or mass effect. Ventricular system and basal cisterns are laws nt. No extra-axial fluid collections. No evidence of mass or mass effect. Normal hernandez-white different iation. Incidental slightly low-lying cerebellar tonsils. No hydrocephalus. Paranasal sinuses and mastoid air cells are well aerated. .Normal visualized soft tissues. CT/CT head wo con* [id number] IMPRESSION: 1. No evidence of intracranial hemorrhage or mass effect. 2. Normal hernandez-white differentiation 3. Incidental cerebellar tonsillar ectopia. 4. No acute intracranial findings.
[2021-04-05 08:00] VITALS: O2SAT 93
[2021-04-05 08:05] LABS: Basophils # 0.1 10^3/uL (0.0-0.1); Basophils % 0.5 %; Eosinophils # 0.2 10^3/uL (0.0-0.8); Eosinophils % 1.5 %; Hematocrit 42.5 % (37.0-47.0); Hemoglobin 13.2 g/dL (11.5-15.3); Lymphocytes # 1.4 10^3/uL (0.8-4.8); Lymphocytes % 13.1 %; Mean Corpuscular HGB Conc 31.1 g/dL (30.0-36.0); Mean Corpuscular Volume 80.5 fl (81-99); Mean Platelet Volume 9.3 fL (7.4-10.4); Monocytes # 0.8 10^3/uL (0.2-0.9); Monocytes % 7.1 %; Neutrophils # 8.35 10^3/uL (1.8-7.7); Neutrophils % 77.3 %; Nucleated Red Blood Cells % 0 %; Platelet Count 483 10^3/cmm (130-400); Red Blood Count 5.28 10^6/uL (4.1-5.3); Red Cell Distribution Width 16.4 % (12.1-15.1); White Blood Count 10.8 10^3/uL (4.0-10.0)
[2021-04-05 08:31] LABS: Alanine Aminotransferase 13 U/L (0-33); Albumin Level 4.4 g/dL (3.5-5.2); Alkaline Phosphatase 101 IU/L (35-105); Anion Gap 17.2 (5-19); Aspartate Amino Transferase 15 U/L (0-32); Blood Urea Nitrogen 12 mg/dL (6-20); Calcium 9.9 mg/dL (8.5-10.5); Carbon Dioxide 24 mmol/L (22-29); Chloride 101 mmol/L (98-107); Globulin 2.9 g/dL (1.3-4.6); Glomerular Filtration Rate 73.9 mL/min (90-130); Glucose 139 mg/dL (65-115); Osmolality Calculated 288 mOsm/kg (285-295); Potassium 4.2 mmol/L (3.5-5.1); Sodium 138 mmol/L (136-145); Total Bilirubin 0.5 mg/dL (0.15-1.2); Total Protein 7.3 g/dL (6.6-8.7)
[2021-04-05 09:15] VITALS: BP 170/88; PULSE 80; RESP 16; O2SAT 91
[2021-04-05] MEDS: ketorolac 30 mg/mL INJ IVP (10:55)
[2021-04-05] MEDS: LORazepam 2 mg/mL INJ 1 mL 1 MG IVP (10:56)
[2021-04-05] MEDS: sodium chloride 0.9% 500 ML 999 ML IV (11:01)
[2021-04-05] MEDS: promethazine 25 mg/mL SDV 1 mL IM (11:02)
[2021-04-05 17:28] LABS: Hepatitis B Surface Antigen Non-Reactive (Nonreactive); Hepatitis C Virus Antibody Non-Reactive (Nonreactive)
--- NOTE | 2021-04-05 19:11 | PC.NURSE ---
Gave pt. 05.ml Ativan at 1056am. Wasted 0.5ml with Francis Manzanares RN.
[2021-04-05 20:02] LABS: HIV 1 & 2 Antibody Non-Reactive (Non-Reactiv); HIV 1 & 2 Antigen Non-Reactive (Non-Reactiv)
== END 2021-04-05 13:55 | disposition home or self-care (01) ==
PROVIDERS: Emergency Provider Family Medicine; PCP Nurse Practitioner Family
DX: R51.9 Headache, unspecified (principal); R42 Dizziness and giddiness; I10 Essential (primary) hypertension; G47.33 Obstructive sleep apnea (adult) (pediatric); F17.290 Nicotine dependence, other tobacco product, uncomplicated
CPT/HCPCS: 70450; 71045; 80053; 85025; 86803; 87340; 87806; 93005; 96372; 96374; 96375; 99284; J1885; J2060; J2550; J7040

== ENCOUNTER 2021-07-01 09:02 | Outpatient (CLI) | payer BC, SELFPAY ==
--- NOTE | 2021-07-01 09:30 | MR_ITS ---
WS: [id number] MRI HEAD WITHOUT CONTRAST TECHNIQUE: Sagittal T1, T2 axial, T2 axial FLAIR, axial and coronal T1 images, axial susceptibility w eighted imaging, axial diffusion weighted images, and coronal T2 images were obtained. CLINICAL INFORMATION: G45.9 - Transient cerebral ischemic attack, unspecified COMPARISON: CT April 05, 2021 FINDINGS: No evidence of restricted diffusion to suggest acute ischemia. Ventricular system and basal cisterns are patent. Mild periventricular supratentorial white matter changes likely due to small vessel disea se in a patient this age. This can also be seen with migraine headaches and demyelinating disease. Co rpus callosum is normal in appearance. Low-lying cerebellar tonsils unchanged from the prior CT. Mild crowding at the foramen magnum. Brain stem signal is normal. Normal 4th ventricle. Normal vascular flow voids at the skull base. No extra-axial fluid collections. No mass or mass effec t. Mild mucosal thickening in the paranasal sinuses. Mastoid air cells well aerated. No hemosiderin o n the susceptibly weighted images. Normal optic chiasm and pituitary infundibulum. Temporal lobes and hippocampal formations are normal in appearance. Normal cavernous sinuses and Meckel's cave. MR/MR head wo con* [id number] IMPRESSION: 1. No evidence of restricted diffusion to suggest acute ischemia. 2. Mild mainly periventricular supratentorial white matter changes likely smal l vessel in a patient this age. This can also be seen with migraine headaches a nd demyelinating disease. No significant parenchymal volume loss. 3. Cerebellar tonsillar ectopia. Mild crowding at the foramen magnum. Brain st em signal is normal. 4. Normal optic chiasm and pituitary infundibulum. 5. No hemosiderin on the susceptibly weighted images. 6. Mild inflammatory changes in the paranasal sinuses. 7. No other significant findings.
== END 2021-07-01 09:03 | disposition home or self-care (01) ==
PROVIDERS: PCP Nurse Practitioner Family; Visit Provider Specialist
DX: G45.9 Transient cerebral ischemic attack, unspecified (principal)
CPT/HCPCS: 70551

== ENCOUNTER 2021-10-11 20:00 | Outpatient (CLI) | payer BC, SELFPAY | END 2021-10-11 20:01 | disposition home or self-care (01) | LOC: SLEEP 10-12 08:07 | PROVIDERS: PCP Nurse Practitioner Family; Visit Provider Pediatrics | DX: G47.33 Obstructive sleep apnea (adult) (pediatric) (principal) | CPT/HCPCS: 95811 ==

== ENCOUNTER → 2022-01-30 18:15 | Outpatient (BNVA) | payer BC, SELFPAY | PROVIDERS: PCP Family Medicine; Visit Provider Registered Nurse Neonatal Intensive Care | DX: R50.9 Fever, unspecified (principal) | CPT/HCPCS: 87400 ==

== ENCOUNTER 2022-06-03 15:20 | Outpatient (CLI) | payer BC, SELFPAY ==
--- NOTE | 2022-06-03 15:28 | MM_ITS ---
WS: [id number] BILATERAL 3D TOMOSYNTHESIS DIGITAL SCREENING MAMMOGRAPHY WITH CAD CLINICAL INFORMATION: SCREENING HISTORY: Screening mammogram. No current complaints. COMPARISON: 2020 TECHNIQUE: Bilateral CC and MLO views. FINDINGS: Scattered fibroglandular densities bilaterally. No suspicious focal mass, asymmetry, calcifications, or architectural distortion. No evidence of malignancy. A few incidental punctate calcifications. MM/[place] [id number] IMPRESSION: BI-RADS: 2-Benign FOLLOW UP: 1 Year Follow-up Recommend return to annual screening mammography.
--- NOTE | 2022-06-03 15:56 | XR_ITS ---
WS: [id number] XR knee LT 3V* [id number] REASON FOR EXAM: PAIN IN LEFT KNEE FINDINGS: No fracture or focal bone lesion. Mild narrowing of the medial knee joint space with mild subchondral sclerosis and small osteophytosis . Lateral knee joint space intact and well preserved. Patellofemoral joint space is intact and well preserved. XR/XR knee LT 3V* [id number] IMPRESSION: Mild osteoarthritis of the left knee as above.
== END 2022-06-03 15:21 | disposition home or self-care (01) ==
PROVIDERS: PCP Family Medicine; Visit Provider Family Medicine
DX: Z12.31 Encounter for screening mammogram for malignant neoplasm of breast (principal); M17.12 Unilateral primary osteoarthritis, left knee
CPT/HCPCS: 73562; 77063; 77067

== ENCOUNTER 2022-06-13 14:39 | Outpatient (CLI) | payer BC, SELFPAY ==
--- NOTE | 2022-06-13 14:49 | USCV_ITS ---
Rosenda Yusuf Age: 57 Gender: F : 1965 Exam Date: 06/13/2022 15:05 Ordering Phys: Samanta Kapoor DO Technologist: Exam Location: [facility] [place] Indication: sob BP: 135 / 75 HR: 88 Rhythm: Sinus Technical Quality: Adequate MEASUREMENTS (Male / Female) Normal Values 2D ECHO LV Diastolic Diameter PLAX 4.3 cm 4.2 - 5.9 / 3.9 - 5.3 cm LV Systolic Diameter PLAX 2.4 cm IVS Diastolic Thickness 1.2 cm 0.6 - 1.0 / 0.6 - 0.9 cm IVS Systolic Thickness 1.6 cm LVPW Diastolic Thickness 1.0 cm 0.6 - 1.0 / 0.6 - 0.9 cm LVPW Systolic Thickness 1.4 cm LVOT Diameter 2.1 cm LV Ejection Fraction 2D Teich 75.4 % LV Ejection Fraction MOD 2C 66.3 % LV Ejection Fraction 2C AL 66.3 % LA Diameter 4.5 cm Aorta at Sinotubular Diameter 2.4 cm DOPPLER AV Peak Velocity 244.0 cm/s LVOT Peak Velocity 117.0 cm/s AV Area Cont Eq vti 2.0 cm squared AV Area Cont Eq pk 1.7 cm squared MV Area PHT 4.0 cm squared Mitral E to A Ratio 0.9 MV E' Velocity 48.5 cm/s Mitral E to MV E' Ratio 7.0 Mitral E to LV E' Lateral Ratio 7.7 Mitral E to LV E' Septal Ratio 6.4 TR Peak Velocity 163.0 cm/s TR Peak Gradient 10.6 mmHg TV Peak E Velocity 103.0 cm/s Right Atrial Pressure 3.0 mmHg Pulmonary Artery Systolic Pressu 13.6 mmHg PV Peak Velocity 114.0 cm/s FINDINGS Left Ventricle Normal left ventricular size and systolic function, EF 69 %. No regional wall motion abnormalities. Right Ventricle The right ventricle is normal in size and function. Right Atrium The right atrium is normal in size. Left Atrium Mildly increased left atrial size. Mitral Valve Mild mitral annular calcification. Aortic Valve Thickened aortic valve. Mild aortic valve stenosis, mean gradient 10.6 mmHg, PETER 2 cm squared. Tricuspid Valve Trace tricuspid valve regurgitation. Pulmonic Valve Pulmonic valve not well visualized. Pericardium No pericardial effusion. Aorta Normal aortic annulus size. IVC The inferior vena cava appears normal. CONCLUSIONS Normal left ventricular size and systolic function, EF 69 %. No regional wall motion abnormalities. Mildly increased left atrial size. Thickened aortic valve. Mild aortic valve stenosis, mean gradient 10.6 mmHg, PETER 2 cm squared. Trace tricuspid valve regurgitation. Estimated pulmonary peak systolic pressure of 14 mmHg. There is no pericardial effusion. There are no intracardiac masses. Technically difficult study because of the poor ultrasonic window. Dr Dawit Walls MD FAC (Electronically Signed) Final Date: 13 June 2022 19:00 S
== END 2022-06-13 14:40 | disposition home or self-care (01) ==
LOC: RAD 14:43
PROVIDERS: PCP Family Medicine; Visit Provider Family Medicine
DX: R01.1 Cardiac murmur, unspecified (principal); I35.8 Other nonrheumatic aortic valve disorders
CPT/HCPCS: 93306

== ENCOUNTER 2022-08-11 21:05 | Emergency (ER) | payer BC, SELFPAY ==
[2022-08-11 21:11] VITALS: BP 149/74; PULSE 82; RESP 14; TEMP 36.7; O2SAT 94
[2022-08-11 21:14] VITALS: BP 166/83; PULSE 88; RESP 16; O2SAT 96
--- NOTE | 2022-08-11 21:35 | ED_ITS ---
HPI - Dizziness General: Chief Complaint: Dizziness Stated Complaint: migraine Time Seen by Provider: 08/11/22 21:11 History of Present Illness: HPI Narrative: Patient presents to the ER with complaints of migraine that started 2 days ago. Patient did go to her doctor today and got a shot which made her migraine ease of a little bit but since then she has had a sharp pain on the right side of her head felt nauseated dizzy and vomited x1. MD elicited complaint: dizziness (Nausea, migraine) Onset (ago): day(s) (2 to 3 days ago) Timing: gradual onset Severity: moderate History of similar symptoms: Yes Associated symptoms: Reports no associated symptoms Associated neuro symptoms: Reports no associated symptoms Review of Systems General: Reports: 10 or more systems reviewed and unremarkable except in HPI and below PFSH ED PFSH: Medical History Chronic migraine without aura, intractable, with status migrainosus Heart murmur, systolic Obstructive sleep apnea Social History Smoking and tobacco status: never smoked Physical Exam Const: COMMON NORMALS: no acute distress HENMT: COMMON NORMALS: normocephalic, atraumatic, hearing grossly normal raymundo aterally, external ears normal, Normal external nose present and moist oral mucous membranes HEAD & SCALP: normocephalic and atraumatic NOSE: Normal external nose present EXTERNAL EAR: Yes external ears normal Eye: COMMON NORMALS: Equal, round and reactive pupils present, EOMs intact bilaterally, conjunctivae normal and no scleral icterus CONJUNCTIVA: Yes conjunctivae normal PUPIL: Yes Equal, round and reactive pupils present Neck/C-Spine: COMMON NORMALS: full ROM, no lymphadenopathy, supple, no meningeal signs, no JVD and Thyroid normal THYROID: Thyroid normal Lymph: LYMPHATIC: no lymphadenopathy noted Chest: COMMONS NORMALS: normal inspection of the chest and normal palpation of entire chest wall Resp: COMMON NORMALS: normal respiratory effort, No retractions, No use of accessory muscles and clear to auscultation bilaterally AUSCULTATION: clear to auscultation bilaterally Cardio: COMMON NORMALS: no JVD, regular rate, regular rhythm, S1 normal heart sound present, S2 normal heart sound present, No gallops present (Cardio), No clicks present (Cardio) and No murmurs present (Cardio) RATE: regular rate RHYTHM: regular rhythm HEART SOUNDS: S1 normal heart sound present and S2 normal heart sound present GI: COMMON NORMALS: Normal to inspection, nondistended, normoactive bowel sounds present, Soft to palpation, non-tender, No hepatosplenomegaly present and no masses PALPATION: Yes Soft to palpation and Yes No hepatosplenomegaly present : COMMON NORMALS: Yes no CVA tenderness BLADDER/KIDNEY EXAM: Yes no CVA tenderness Back/Pelvis: COMMON NORMALS: no CVA tenderness Neuro: MENINGEAL SIGNS: Yes no meningeal signs Course Vital Signs: Vital signs: Vital Signs Temperature 98.1 F 08/11/22 21:11 Pulse Rate 83 08/12/22 00:30 Respiratory Rate 16 08/12/22 00:30 Blood Pressure 177/99 08/12/22 00:30 Pulse Oximetry 90 08/12/22 00:30 Oxygen Delivery Me thod Room Air 08/11/22 21:44 MDM - Dizziness Medical Decision Making Patient presents to the ER with a complaint of right-sided head pain. Patient does have a history of migraines and was seen today and given a shot of Toradol which helped. Patient said this pain is a little different this is int ermittently sharp and stabbing on the right side. Patient was given 1 L normal saline, 10 mg Reglan, 10 mg of Decadron, 50 mg of Benadryl IV with little relief. Patient was then given 4 mg of morphine IV along with 30 mg of Toradol IV and head CT was obtained. Plan discharge after head CT is resulted. Patient should follow back up with her neurologist and/or family practice doctor in the next week or sooner as needed. Differential Diagnosis Unlikely adverse reaction to drug, benign paroxysmal positional vertigo, orthostatic hypotension, vertebral basilar insufficiency, cerebrovascular accident, acute vestibular neuronitis or transient cerebral ischemia Medical Records I reviewed the patient's medical records. Lab Data I reviewed the patient's lab results. 08/11/22 21:45 08/11/22 21:[address] 08/11/22 22:55 IMPRESSION: 1. No acute intracranial findings. 2. Other chronic/incidental findings as described above. Laboratory Results WBC 12.2 10^3/uL (4.0-10.0) H 08/11/22 21:45 RBC 4.82 10^6/uL (4.1-5.3) 08/11/22 21:45 Hgb 13.6 g/dL (11.5-15.3) 08/11/22 21:45 Hct 41.3 % (37.0-47.0) 08/11/22 21:45 MCV 85.7 fl (81-99) 08/11/22 21:45 MCH 28.2 pg (28.0-34.0) 08/11/22 21:45 MCHC 32.9 g/dL (30.0-36.0) 08/11/22 21:45 RDW 12.4 % (12.1-15.1) 08/11/22 21:45 Plt Count 349 10^3/cmm (130-400) 08/11/22 21:45 MPV 9.3 fL (7.4-10.4) 08/11/22 21:45 Neut % (Auto) 60.9 % 08/11/22 21:45 Lymph % (Auto) 28.1 % 08/11/22 21:45 Grayson % (Auto) 7.5 % 08/11/22 21:45 Eos % (Auto) 2.6 % 08/11/22 21:45 Baso % (Auto) 0.6 % 08/11/22 21:45 Neut # (Auto) 7.41 10^3/uL (1.8-7.7) 08/11/22 21:45 Lymph # (Auto) 3.4 10^3/uL (0.8-4.8) 08/11/22 21:45 Grayson # (Auto) 0.9 10^3/uL (0.2-0.9) 08/11/22 21:45 Eos # (Auto) 0.3 10^3/uL (0.0-0.8) 08/11/22 21:45 Baso # (Auto) 0.1 10^3/uL (0.0-0.1) 08/11/22 21:45 Nucleated RBC % (auto) 0 % 08/11/22 21:45 Nucleated RBCs # 0.0 /100WBC 08/11/22 21:45 Sodium 137 mmol/L (136-145) 08/11/22 21:45 Potassium 3.8 mmol/L (3.5-5.1) 08/11/22 21:45 Chloride 102 mmol/L (98-107) 08/11/22 21:45 Carbon Dioxide 23 mmol/L (22-29) 08/11/22 21:45 Anion Gap 15.8 (5-19) 08/11/22 21:45 BUN 22 mg/dL (6-20) H 08/11/22 21:45 Creatinine 1.0 mg/dL (0.5-0.9) H 08/11/22 21:45 GFR Calculation 56.9 mL/min (90-130) L 08/11/22 21:45 Glucose 97 mg/dL (65-115) 08/11/22 21:45 Calculated Osmolality 287 mOsm/kg (285-295) 08/11/22 21:45 Calcium 9.1 mg/dL (8.5-10.5) 08/11/22 21:45 Total Bilirubin 0.5 mg/dL (0.15-1.2) 08/11/22 21:45 AST 21 U/L (0-32) 08/11/22 21:45 ALT 21 U/L (0-33) 08/11/22 21:45 Alkaline Phosphatase 104 U/L (35-105) 08/11/22 21:45 C-Reactive Protein 3.0 mg/L (0.0-4.9) 08/11/22 21:45 Total Protein 6.7 g/dL (6.6-8.7) 08/11/22 21:45 Albumin 4.1 g/dL (3.5-5.2) 08/11/22 21:45 Globulin 2.6 g/dL (1.3-4.6) 08/11/22 21:45 Discharge Plan Discharge Patient Disposition: Home Clinical Impression: Chronic migraine without aura, intractable, with status migrainosus Condition: Stable Prescriptions: No Action Ubrelvy 100 mg tablet 100 mg PO ONCE Qty: 16 3RF Rx Instructions: Take 1 tab as needed for migraine rizatriptan 10 mg tablet See Rx Instructions .ROUTE .COMPLEX Qty: 9 1RF Dose Instruction: TAKE 1 TAB AT ONSET OF HEADACHE IF NO RELIEF MAY REPEAT 1 TAB AFTER AT LEAST 2 HRS MAX3 TABS/24 HRS Rx Instructions: TAKE 1 TAB AT ONSET OF HEADACHE IF NO RELIEF MAY REPEAT 1 TAB AFTER AT LEAST 2 HRS MAX3 TABS/24 HRS simvastatin 20 mg tablet 20 mg PO DAILY Benadryl Allergy 25 mg Tablet 25 mg PO Q6H PRN (Reason: Allergy Symptoms) albuterol sulfate 90 mcg/actuation HFA aerosol inhaler 2 puff INHALATION QID PRN (Reason: Shortness Of Breath) losartan 100 mg tablet 100 mg PO BEDTIME meclizine 25 mg tablet 25 mg PO QID PRN (Reason: dizziness) Qty: 24 0RF amlodipine 5 mg tablet 10 mg PO BEDTIME Qty: 0 0RF citalopram 40 mg tablet 40 mg PO BEDTIME tizanidine 4 mg tablet 4 mg PO BEDTIME aripiprazole 5 mg tablet 5 mg PO BEDTIME naproxen [Naprosyn] 500 mg tablet 500 mg PO BID PRN (Reason: pain) Qty: 20 0RF Discharge Orders: Discharge ED (Routine); Ordered 08/11/22 Ordered By: Angel Mejia Referrals: Samanta Kapoor DO [Primary Care Provider] - Patient Instructions: Headache - Migraine (Adult) Activity Restrictions/Additional Instructions: Please follow-up with your family practice doctor and/or neurologist within the next 1 week or as needed. To the ER if your signs and symptoms worsen. Coding Level of Care Code ED Ekg Monitor Tech for Annette Cordova
[2022-08-11] MEDS: sodium chloride 0.9% 1,000 ML 999 ML IV (21:36)
[2022-08-11] MEDS: metoclopramide 5 mg/mL SDV 2 mL 10 MG IVP (21:38)
[2022-08-11] MEDS: dexamethasone 10 mg/mL INJ IVP (21:40)
[2022-08-11] MEDS: diphenhydrAMINE 50 mg/mL SDV 1mL IVP (21:40)
[2022-08-11 21:44] VITALS: BP 166/83; PULSE 86; RESP 16; O2SAT 94
[2022-08-11 21:59] LABS: Basophils # 0.1 10^3/uL (0.0-0.1); Basophils % 0.6 %; Eosinophils # 0.3 10^3/uL (0.0-0.8); Eosinophils % 2.6 %; Hematocrit 41.3 % (37.0-47.0); Hemoglobin 13.6 g/dL (11.5-15.3); Lymphocytes # 3.4 10^3/uL (0.8-4.8); Lymphocytes % 28.1 %; Mean Corpuscular HGB Conc 32.9 g/dL (30.0-36.0); Mean Corpuscular Hemoglobin 28.2 pg (28.0-34.0); Mean Corpuscular Volume 85.7 fl (81-99); Mean Platelet Volume 9.3 fL (7.4-10.4); Monocytes # 0.9 10^3/uL (0.2-0.9); Monocytes % 7.5 %; Neutrophils # 7.41 10^3/uL (1.8-7.7); Neutrophils % 60.9 %; Nucleated Red Blood Cells % 0 %; Platelet Count 349 10^3/cmm (130-400); Red Blood Count 4.82 10^6/uL (4.1-5.3); Red Cell Distribution Width 12.4 % (12.1-15.1); White Blood Count 12.2 10^3/uL (4.0-10.0)
[2022-08-11 22:14] LABS: Alanine Aminotransferase 21 U/L (0-33); Albumin Level 4.1 g/dL (3.5-5.2); Alkaline Phosphatase 104 U/L (35-105); Blood Urea Nitrogen 22 mg/dL (6-20); Calcium 9.1 mg/dL (8.5-10.5); Carbon Dioxide 23 mmol/L (22-29); Chloride 102 mmol/L (98-107); Globulin 2.6 g/dL (1.3-4.6); Glomerular Filtration Rate 56.9 mL/min (90-130); Glucose 97 mg/dL (65-115); Osmolality Calculated 287 mOsm/kg (285-295); Sodium 137 mmol/L (136-145); Total Bilirubin 0.5 mg/dL (0.15-1.2); Total Protein 6.7 g/dL (6.6-8.7)
[2022-08-11 22:34] LABS: Anion Gap 15.8 (5-19); Aspartate Amino Transferase 21 U/L (0-32); Potassium 3.8 mmol/L (3.5-5.1)
[2022-08-11 22:44] VITALS: BP 150/87; PULSE 85; RESP 18; O2SAT 96
--- NOTE | 2022-08-11 22:55 | CTR_ITS ---
PROCEDURE INFORMATION: Exam: CT Head Without Contrast Exam date and time: 08/11/2022 11:02 PM Age: 57 years old Clinical indication: Pain; Headache; Patient HX: RT sided migraine; Additional info: Right sided headache TECHNIQUE: Imaging protocol: Computed tomography of the head without contrast. Radiation optimization: All CT scans at this facility use at least one of these dose optimization techniques: automated exposure control; mA and/or kV adjustment per patient size (includes targeted exams where dose is matched to clinical indication); or iterative reconstruction. REPORTING DATA: Count of CT and Cardiac NM exams in prior 12 months: This patient has received 0 known CTs and 0 known cardiac nuclear medicine studies in the 12 months prior to the current study. COMPARISON: MR head wo con* [id number] 07/01/2021 9:26 AM RADIATION DOSE METRICS: Total DLP (mGy-cm): 1064.18 FINDINGS: Brain: No acute intracranial hemorrhage, abnormal extra-axial fluid collection, mass effect, or midline shift. Cerebral ventricles: The ventricular system is within normal limits of variation for the patient's age. Paranasal sinuses: Visualized paranasal sinuses are grossly unremarkable. No fluid levels. Mastoid air cells: Visualized mastoid air cells are well aerated. Bones/joints: No acute fracture. Soft tissues: Grossly unremarkable. Vasculature: Atheromatous changes are seen within the bilateral carotid siphons. CT/CT head wo con* [id number] IMPRESSION: 1. No acute intracranial findings. 2. Other chronic/incidental findings as described above.
[2022-08-11] MEDS: morphine 4 mg/mL SDV 1 mL IVP (23:13)
[2022-08-11] MEDS: ketorolac 30 mg/mL INJ IVP (23:14)
[2022-08-12] VITALS: BP 160/92; PULSE 83; O2SAT 89
[2022-08-12 00:30] VITALS: BP 177/99; PULSE 83; RESP 16; O2SAT 90
== END 2022-08-12 00:33 | disposition home or self-care (01) ==
PROVIDERS: Emergency Provider Emergency Medicine; PCP Family Medicine
DX: G43.011 Migraine without aura, intractable, with status migrainosus (principal)
CPT/HCPCS: 70450; 80053; 85025; 86140; 96361; 96374; 96375; 99285; J1100; J1200; J1885; J2270; J2765; J7030

== ENCOUNTER 2023-01-02 16:12 | Outpatient (CLI) | payer BC, SELFPAY ==
--- NOTE | 2023-01-02 16:18 | XRR_ITS ---
PROCEDURE INFORMATION: Exam: XR Left Ankle Exam date and time: 01/02/2023 4:36 PM Age: 57 years old Clinical indication: Pain; Ankle; Left; Additional info: Left ankle pain TECHNIQUE: Imaging protocol: Radiologic exam of the left ankle. Views: 3 or more views. COMPARISON: CR XR knee LT 3V* [id number] 06/03/2022 3:57 PM FINDINGS: Bones/joints: The ankle mortise is normally aligned. No acute fracture is seen. Calcaneal plantar and Achilles enthesophytes. Soft tissues: Unremakable. XR/XR ankle LT min 3V* [id number] IMPRESSION: 1. No fracture. 2. Calcaneal plantar and Achilles enthesophytes.
== END 2023-01-02 16:13 | disposition home or self-care (01) ==
LOC: RAD 16:15
PROVIDERS: PCP Family Medicine; Visit Provider Family Medicine
DX: M25.572 Pain in left ankle and joints of left foot (principal); M77.52 Other enthesopathy of left foot and ankle
CPT/HCPCS: 73610

== ENCOUNTER 2023-03-15 15:11 | Emergency (ER) | payer BC, SELFPAY ==
[2023-03-15 15:22] VITALS: BP 129/76; PULSE 72; RESP 16; TEMP 36.9; O2SAT 96; BMI 42.0
--- NOTE | 2023-03-15 17:32 | ED_ITS ---
HPI - Headache General: Chief Complaint: Headache Stated Complaint: headache Time Seen by Provider: 03/15/23 17:21 History of Present Illness: 58-year-old female comes in today with m igraine headache. Patient has a chronic history of migraine headaches. Patient had received a shot of Toradol yesterday in the office and a repeat injection today with minimal to no relief. Patient reports that the headache is similar to her prior migraines. Patient has been to the ER in the past for similar migraines. Patient reports no other significant illness. Patient appears nontoxic. Patient appears in moderate pain. Review of Systems General: Reports: 10 or more systems reviewed and unremarkable except in HPI and below Neuro: Reports: headache(s) PFSH ED PFSH: Medical History Chronic migraine without aura, intractable, with status migrainosus Heart murmur, systolic Obstructive sleep apnea Social History Smoking and tobacco/nicotine status: never used tobacco/nicotine Physical Exam Const: COMMON NORMALS: alert HENMT: COMMON NORMALS: normocephalic HEAD & SCALP: normocephalic Neck/C-Spine: COMMON NORMALS: full ROM Resp: COMMON NORMALS: normal respiratory effort and clear to auscultation raymundo aterally AUSCULTATION: clear to auscultation bilaterally Cardio: COMMON NORMALS: regular rate and regular rhythm RATE: regular rate RHYTHM: regular rhythm GI: COMMON NORMALS: non-tender : COMMON NORMALS: Yes no CVA tenderness BLADDER/KIDNEY EXAM: Yes no CVA tenderness Back/Pelvis: COMMON NORMALS: no CVA tenderness and thoracic and lumbar spine normal to inspection Extremity: COMMON NORMALS: normal to inspection and no pedal edema Neuro: SENSORIUM/ORIENTATION: Yes alert Skin: COMMON NORMALS: turgor normal GENERAL SKIN EXAM: turgor normal Course Vital Signs: Vital signs: Vital Signs Temperature 98.5 F 03/15/23 15:22 Pulse Rate 72 03/15/23 15:22 Respiratory Rate 18 03/15/23 17:49 Blood Pressure 129/76 03/15/23 15:22 Pulse Oximetry 96 03/15/23 15:22 Oxygen Delivery Me thod Room Air, Nasal C annula 03/15/23 15:22 MDM - Headache Medical Decision Making Patient comes in for persistent headache for 3 days. Patient has been seen in primary care office twice and given injections of ketorolac. Patient reports minimal relief. Last injection of ketorolac was this afternoon. On exam respirations are even lungs are clear to auscultation. No focal neural deficits. Vital signs are normal. Patient reports migraine is similar to prior episodes. Differential diagnosis includes but not limited to malingering, migraine headache, tension headache, sinusitis. Patient was treated for migraine headache with 10 dexamethasone, 4 morphine, and 10 Reglan. Patient tolerated well. Patient had resolution of symptoms and released to home. No radiology studies performed this visit Discharge Plan Discharge Patient Disposition: Home Clinical Impression: Migraine Qualifiers: Migraine type: unspecified Status migrainosus presence: without status migrainosus Intractability: intractable Qualified Code(s): G43.919 - Migraine, unspecified, intractable, without status migrainosus Condition: Stable Prescriptions: No Action Ubrelvy 100 mg tablet 100 mg PO ONCE Qty: 16 3RF Rx Instructions: Take 1 tab as needed for migraine rizatriptan 10 mg tablet See Rx Instructions .ROUTE .COMPLEX Qty: 9 1RF Dose Instruction: TAKE 1 TAB AT ONSET OF HEADACHE IF NO RELIEF MAY REPEAT 1 TAB AFTER AT LEAST 2 HRS MAX3 TABS/24 HRS Rx Instructions: TAKE 1 TAB AT ONSET OF HEADACHE IF NO RELIEF MAY REPEAT 1 TAB AFTER AT LEAST 2 HRS MAX3 TABS/24 HRS simvastatin 20 mg tablet 20 mg PO DAILY Benadryl Allergy 25 mg Tablet 25 mg PO Q6H PRN (Reason: Allergy Symptoms) albuterol sulfate 90 mcg/actuation HFA aerosol inhaler 2 puff INHALATION QID PRN (Reason: Shortness Of Breath) losartan 100 mg tablet 100 mg PO BEDTIME meclizine 25 mg tablet 25 mg PO QID PRN (Reason: dizziness) Qty: 24 0RF amlodipine 5 mg tablet 10 mg PO BEDTIME Qty: 0 0RF citalopram 40 mg tablet 40 mg PO BEDTIME tizanidine 4 mg tablet 4 mg PO BEDTIME aripiprazole 5 mg tablet 5 mg PO BEDTIME naproxen [Naprosyn] 500 mg tablet 500 mg PO BID PRN (Reason: pain) Qty: 20 0RF Discharge Orders: Discharge ED (Routine); Ordered 03/15/23 Ordered By: Gordy March Referrals: Samanta Kapoor DO [Primary Care Provider] - Discharge Diet: Usual diet Discharge Activity: Increase activity as tolerated Patient Instructions: Migraine Headache (ED) Activity Restrictions/Additional Instructions: Home and rest. Drink plenty water and fluids. Activity as tolerated. Follow- up with primary care. Coding Level of Care Code ED Balloon Sander for Annette Cordova
[2023-03-15 17:49] VITALS: RESP 18
[2023-03-15] MEDS: morphine 4 mg/mL SDV 1 mL IM (17:49)
[2023-03-15] MEDS: dexamethasone 10 mg/mL INJ IM (17:50)
[2023-03-15] MEDS: metoclopramide 5 mg/mL SDV 2 mL 10 MG IVP (17:53)
== END 2023-03-15 18:34 | disposition home or self-care (01) ==
PROVIDERS: Emergency Provider Nurse Practitioner Family; PCP Family Medicine
DX: G43.919 Migraine, unspecified, intractable, without status migrainosus (principal)
CPT/HCPCS: 96372; 96374; 99284; J1100; J2270; J2765

== ENCOUNTER 2023-04-07 05:36 | Emergency (ER) | payer BC, SELFPAY ==
[2023-04-07 05:41] VITALS: BP 159/69; PULSE 84; RESP 16; TEMP 36.9; O2SAT 96; BMI 42.0
--- NOTE | 2023-04-07 05:46 | ED_ITS ---
Documented by User: Angel Mejia DO 04/07/23 05:50 HPI - Headache General: Chief Complaint: Headache Stated Complaint: migraine, Nauses Time Seen by Provider: 04/07/23 05:39 History of Present Illness: Patient presents to the ER with complaints of a migraine headache. Patient states his headache started on the right side of her head and now developed all over her head. Patient has nausea but no vomiting. Patient does have photophobia. Patient does have a history of migraines and she said this is a similar migraine to the one she had in the past. Patient has tried rizatriptan and it did not help. Patient has been to the ER several times and gets various cocktails of medications which seem to work. Review of Systems General: Reports: 10 or more systems reviewed and unremarkable except in HPI and below PFSH ED PFSH: Medical History Heart murmur, systolic Obstructive sleep apnea Chronic migraine without aura, intractable, with status migrainosus Social History Smoking and tobacco/nicotine status: never used tobacco/nicotine Physical Exam Const: COMMON NORMALS: no acute distress, average body habitus, patient oriented x3, no limitations, healthy appearing, alert and well nourished HENMT: COMMON NORMALS: normocephalic, atraumatic, hearing grossly normal bilaterally, external ears normal, Normal external nose present, moist oral mucous membranes and oropharynx normal HEAD & SCALP: normocephalic and atraumatic NOSE: Normal external nose present EXTERNAL EAR: Yes external ears normal Eye: COMMON NORMALS: Equal, round and reactive pupils present, EOMs intact bilaterally, conjunctivae normal and no scleral icterus CONJUNCTIVA: Yes conjunctivae normal PUPIL: Yes Equal, round and reactive pupils present Neck/C-Spine: COMMON NORMALS: full ROM, no lymphadenopathy, supple, no meningeal signs, no JVD and Thyroid normal THYROID: Thyroid normal Chest: COMMONS NORMALS: normal inspection of the chest and normal palpation of entire chest wall Resp: COMMON NORMALS: normal respiratory effort, No retractions, No use of accessory muscles and clear to auscultation bilaterally AUSCULTATION: clear to auscultation bilaterally Cardio: COMMON NORMALS: no JVD, regular rate, regular rhythm, S1 normal heart sound present, S2 normal heart sound present, No gallops present (Cardio), No clicks present (Cardio), No murmurs present (Cardio) and No rub (Cardio) RATE: regular rate RHYTHM: regular rhythm HEART SOUNDS: S1 normal heart sound present and S2 normal heart sound present Neuro: COMMON NORMALS: patient oriented x3 SENSORIUM/ORIENTATION: Yes alert MENINGEAL SIGNS: Yes no meningeal signs Course Vital Signs: Vital signs: Vital Signs Temperature 98.4 F 04/07/23 05:41 Pulse Rate 76 04/07/23 07:36 Respiratory Rate 16 04/07/23 06:33 Blood Pressure 109/70 04/07/23 07:36 Pulse Oximetry 96 04/07/23 07:36 Oxygen Delivery Me thod Room Air 04/07/23 06:33 MDM - Headache Differential Diagnosis Likely migraine Discharge Plan Discharge Patient Disposition: Home Clinical Impression: Migraine Condition: Stable Prescriptions: No Action Ubrelvy 100 mg tablet 100 mg PO ONCE Qty: 16 3RF Rx Instructions: Take 1 tab as needed for migraine rizatriptan 10 mg tablet See Rx Instructions .ROUTE .COMPLEX Qty: 9 1RF Dose Instruction: TAKE 1 TAB AT ONSET OF HEADACHE IF NO RELIEF MAY REPEAT 1 TAB AFTER AT LEAST 2 HRS MAX3 TABS/24 HRS Rx Instructions: TAKE 1 TAB AT ONSET OF HEADACHE IF NO RELIEF MAY REPEAT 1 TAB AFTER AT LEAST 2 HRS MAX3 TABS/24 HRS simvastatin 20 mg tablet 20 mg PO DAILY Benadryl Allergy 25 mg Tablet 25 mg PO Q6H PRN (Reason: Allergy Symptoms) albuterol sulfate 90 mcg/actuation HFA aerosol inhaler 2 puff INHALATION QID PRN (Reason: Shortness Of Breath) losartan 100 mg tablet 100 mg PO BEDTIME meclizine 25 mg tablet 25 mg PO QID PRN (Reason: dizziness) Qty: 24 0RF amlodipine 5 mg tablet 10 mg PO BEDTIME Qty: 0 0RF citalopram 40 mg tablet 40 mg PO BEDTIME tizanidine 4 mg tablet 4 mg PO BEDTIME aripiprazole 5 mg tablet 5 mg PO BEDTIME naproxen [Naprosyn] 500 mg tablet 500 mg PO BID PRN (Reason: pain) Qty: 20 0RF Discharge Orders: Discharge ED (Routine); Ordered 04/07/23 Ordered By: Ayaan Maldonado Referrals: Samanta Kapoor DO [Primary Care Provider] - Discharge Diet: Usual diet Discharge Activity: Increase activity as tolerated Patient Instructions: Opioid Safety, Pain Management Activity Restrictions/Additional Instructions: Thank you for choosing [facility] for your healthcare needs today. Please realize this is an emergency room and that we are providing you with a medical screening exam and this may not be complete and all inclusive of all the testing and or work up that you may need to determine your ailment or severity of your illness. It is very important that you follow up as instructed or that you return to the Emergency Department should you have concerns or if your condition changes or worsens in any way. Continue current medications as previously prescribed Coding Level of Care Code ED Diet Assistant for Chg Fwd Documented by User: Ayaan Maldonado DO 04/07/23 09:23 HPI - Headache General: Chief Complaint: Headache Stated Complaint: migraine, Nauses Time Seen by Provider: 04/07/23 05:39 [facility] ED PFSH: Medical History Heart murmur, systolic Obstructive sleep apnea Chronic migraine without aura, intractable, with status migrainosus Social History Smoking and tobacco/nicotine status: never used tobacco/nicotine Course Vital Signs: Vital signs: Vital Signs Temperature 98.4 F 04/07/23 05:41 Pulse Rate 76 04/07/23 07:36 Respiratory Rate 16 04/07/23 06:33 Blood Pressure 109/70 04/07/23 07:36 Pulse Oximetry 96 04/07/23 07:36 Oxygen Delivery Me thod Room Air 04/07/23 06:33 MDM - Headache Medical Decision Making Care assumed from Dr. Mejia at change of shift. Patient states her headache is improved some. Repeat exam no focal neurologic deficits are noted we will discharge patient home continue take current medications follow-up with primary care return if has further problems Medical Records I reviewed the patient's medical records. Lab Data I reviewed the patient's lab results. No radiology studies performed this visit Discharge Plan Discharge Patient Disposition: Home Clinical Impression: Migraine Condition: Stable Prescriptions: No Action Ubrelvy 100 mg tablet 100 mg PO ONCE Qty: 16 3RF Rx Instructions: Take 1 tab as needed for migraine rizatriptan 10 mg tablet See Rx Instructions .ROUTE .COMPLEX Qty: 9 1RF Dose Instruction: TAKE 1 TAB AT ONSET OF HEADACHE IF NO RELIEF MAY REPEAT 1 TAB AFTER AT LEAST 2 HRS MAX3 TABS/24 HRS Rx Instructions: TAKE 1 TAB AT ONSET OF HEADACHE IF NO RELIEF MAY REPEAT 1 TAB AFTER AT LEAST 2 HRS MAX3 TABS/24 HRS simvastatin 20 mg tablet 20 mg PO DAILY Benadryl Allergy 25 mg Tablet 25 mg PO Q6H PRN (Reason: Allergy Symptoms) albuterol sulfate 90 mcg/actuation HFA aerosol inhaler 2 puff INHALATION QID PRN (Reason: Shortness Of Breath) losartan 100 mg tablet 100 mg PO BEDTIME meclizine 25 mg tablet 25 mg PO QID PRN (Reason: dizziness) Qty: 24 0RF amlodipine 5 mg tablet 10 mg PO BEDTIME Qty: 0 0RF citalopram 40 mg tablet 40 mg PO BEDTIME tizanidine 4 mg tablet 4 mg PO BEDTIME aripiprazole 5 mg tablet 5 mg PO BEDTIME naproxen [Naprosyn] 500 mg tablet 500 mg PO BID PRN (Reason: pain) Qty: 20 0RF Discharge Orders: Discharge ED (Routine); Ordered 04/07/23 Ordered By: Ayaan Maldonado Referrals: Samanta Kapoor DO [Primary Care Provider] - Discharge Diet: Usual diet Discharge Activity: Increase activity as tolerated Patient Instructions: Opioid Safety, Pain Management Activity Restrictions/Additional Instructions: Thank you for choosing [facility] for your healthcare needs today. Please realize this is an emergency room and that we are providing you with a medical screening exam and this may not be complete and all inclusive of all the testing and or work up that you may need to determine your ailment or severity of your illness. It is very important that you follow up as instructed or that you return to the Emergency Department should you have concerns or if your condition changes or worsens in any way. Continue current medications as previously prescribed Coding Level of Care Code ED Diet Assistant for Annette Cordova
[2023-04-07] MEDS: metoclopramide 5 mg/mL SDV 2 mL 10 MG IVP (06:09)
[2023-04-07] MEDS: ketorolac 30 mg/mL INJ IVP (06:09)
[2023-04-07] MEDS: diphenhydrAMINE 50 mg/mL SDV 1mL 25 MG IVP (06:09)
[2023-04-07] MEDS: sodium chloride 0.9% 1,000 ML 999 ML IV (06:10)
[2023-04-07 06:33] VITALS: BP 113/51; PULSE 68; RESP 16; O2SAT 94
[2023-04-07 07:36] VITALS: BP 109/70; PULSE 76; O2SAT 96
== END 2023-04-07 07:37 | disposition home or self-care (01) ==
PROVIDERS: Emergency Provider Family Medicine; PCP Family Medicine
DX: G43.909 Migraine, unspecified, not intractable, without status migrainosus (principal)
CPT/HCPCS: 96374; 96375; 99284; J1200; J1885; J2765; J7030

== ENCOUNTER 2023-06-17 22:16 | Emergency (ER) | payer BC, SELFPAY ==
[2023-06-17 22:23] VITALS: BP 177/80; PULSE 88; RESP 18; TEMP 36.6; O2SAT 94; BMI 40.4
--- NOTE | 2023-06-18 00:28 | W.ED.WOUNDLC ---
Documented by User: KARYN Freitas 06/18/23 00:32 HPI - Wound/Laceration General: Chief Complaint: Wound/Laceration Stated Complaint: animal bite Time Seen by Provider: 06/17/23 23:48 Source: patient Mode of arrival: ambulatory Limitations: no limitations History of Present Illness: Patient is a 58-year-old female presenting to the emergency department complaining of cat scratch to left lower extremity onset prior to arrival. Patient notes she was trying to break up a fight between her own cat and a feral cat, and was scratched in the left vicente and left middle finger in the process. She is not up-to-date on tetanus, and states the scratches are all superficial though painful. She is unable to quarantine the cat or monitor its rabies status. She denies any fevers, nausea or vomiting, or any other symptoms at this time. Onset (ago): hour(s) Extremity Location: Left: lower leg Place: home Patient tetanus UTD: No Context: accidental Associated symptoms: Reports no associated symptoms; Denies chills, fever(s), nausea or vomiting Review of Systems General: Reports: 10 or more systems reviewed and unremarkable except in HPI and below Const: Denies: fever(s), chills or fatigue Eyes: Denies: change in vision ENMT: Denies: throat pain, ear or mastoid pain or nasal discharge Card: Denies: chest pain, palpitations, swelling of feet/ankles or lightheadedness Resp: Denies: dyspnea, productive cough or wheezing GI: Denies: abdominal pain, nausea, vomiting, diarrhea or constipation : Denies: flank pain, difficulty voiding, dysuria or urinary frequency Musc: Denies: neck pain, back pain or joint pain Skin/Breast: Reports: new lesions (Abrasions to left lower extremity); Denies: rash Neuro: Denies: headache(s), numbness in extremities or weakness in extremities PFSH ED PFSH: Medical History Heart murmur, systolic Obstructive sleep apnea Chronic migraine without aura, intractable, with status migrainosus Social History Smoking and tobacco/nicotine status: never used tobacco/nicotine Alcohol intake: never Physical Exam Const: COMMON NORMALS: no acute distress, patient oriented x3 and no limitations GENERAL APPEARANCE: cooperative, comfortable and well developed ORIENTATION/CONSCIOUSNESS: Yes awake, Yes oriented to person, Yes oriented to place and Yes oriented to time HENMT: COMMON NORMALS: normocephalic, atraumatic and hearing grossly normal bilaterally HEAD & SCALP: normocephalic and atraumatic Eye: COMMON NORMALS: Equal, round and reactive pupils present, EOMs intact bilaterally and conjunctivae normal CONJUNCTIVA: Yes conjunctivae normal PUPIL: Yes Equal, round and reactive pupils present Neck/C-Spine: COMMON NORMALS: full ROM, supple and no JVD Resp: COMMON NORMALS: normal respiratory effort, No retractions, No use of accessory muscles and clear to auscultation bilaterally AUSCULTATION: clear to auscultation bilaterally Cardio: COMMON NORMALS: no JVD, regular rate, regular rhythm, No clicks present (Cardio), No murmurs present (Cardio) and No rub (Cardio) RATE: regular rate RHYTHM: regular rhythm Extremity: COMMON NORMALS: full ROM and capillary refill normal NARRATIVE EXTREMITY EXAM: Scattered linear abrasions noted to the lateral left vicente, giving the presence of cat scratch. No surrounding erythema or significant edema. No active bleeding or drainage. There is a small superficial cut to the finger pad of the left middle finger that is also not bleeding or draining. Neuro: COMMON NORMALS: patient oriented x3, moves all extremities, no focal motor deficits and no sensory deficits noted SENSORIUM/ORIENTATION: Yes oriented to person, Yes oriented to place and Yes oriented to time Psych: COMMON NORMALS: mental status grossly normal and Normal thought process present THOUGHT PROCESS: Normal thought process present Skin: NARRATIVE SKIN EXAM: See extremity exam Course Vital Signs: Vital signs: Vital Signs Temperature 97.9 F 06/17/23 22:23 Pulse Rate 88 06/17/23 22:23 Respiratory Rate 18 06/17/23 22:23 Blood Pressure 177/80 06/17/23 22:23 Pulse Oximetry 94 06/17/23 22:23 Oxygen Delivery Me thod Room Air 06/17/23 22:23 MDM - Wound/Laceration Medical Decision Making This patient was seen and evaluated in the emergency department due to cat scratch onset prior to arrival. Cat unable to be quarantined. Patient's vitals stable. Exam revealed the abrasions to the lateral left vicente. Her tetanus is not up-to-date so this will be updated for her. She will also begin rabies vaccination series with immunoglobulin and rabies vaccine. To treat for cat scratch disease prophylactically, she will be given doxycycline and informed to return if any signs of infection arise. Patient agrees with this plan and other return precautions given. No radiology studies performed this visit Discharge Plan Discharge Patient Disposition: Home Clinical Impression: Cat scratch of left lower leg Qualifiers: Encounter type: initial encounter Qualified Code(s): S80.812A - Abrasion, left lower leg, initial encounter Condition: Stable Prescriptions: New doxycycline hyclate 100 mg tablet 100 mg PO BID 10 Days Qty: 20 0RF No Action fluoxetine [Prozac] 40 mg capsule 40 mg PO DAILY Ubrelvy 100 mg tablet 100 mg PO ONCE Qty: 16 3RF Rx Instructions: Take 1 tab as needed for migraine rizatriptan 10 mg tablet See Rx Instructions .ROUTE .COMPLEX Qty: 9 1RF Dose Instruction: TAKE 1 TAB AT ONSET OF HEADACHE IF NO RELIEF MAY REPEAT 1 TAB AFTER AT LEAST 2 HRS MAX3 TABS/24 HRS Rx Instructions: TAKE 1 TAB AT ONSET OF HEADACHE IF NO RELIEF MAY REPEAT 1 TAB AFTER AT LEAST 2 HRS MAX3 TABS/24 HRS simvastatin 20 mg tablet 20 mg PO DAILY Benadryl Allergy 25 mg Tablet 25 mg PO Q6H PRN (Reason: Allergy Symptoms) albuterol sulfate 90 mcg/actuation HFA aerosol inhaler 2 puff INHALATION QID PRN (Reason: Shortness Of Breath) losartan 100 mg tablet 100 mg PO BEDTIME amlodipine 5 mg tablet 10 mg PO BEDTIME Qty: 0 0RF tizanidine 4 mg tablet 4 mg PO BEDTIME aripiprazole 5 mg tablet 5 mg PO BEDTIME naproxen [Naprosyn] 500 mg tablet 500 mg PO BID PRN (Reason: pain) Qty: 20 0RF Discharge Orders: Discharge ED (Routine); Ordered 06/18/23 Ordered By: Leon Lizarraga Referrals: Samanta Kapoor DO [Primary Care Provider] - Discharge Diet: Usual diet Discharge Activity: Increase activity as tolerated Patient Instructions: Cat Scratch Disease (ED) Activity Restrictions/Additional Instructions: Your tetanus was updated today. You were given first dose of rabies vaccination series, please return in 3 days for second dose. Doxycycline as prescribed. Please return if you develop any worsening signs of infection such as increased redness or pain. Otherwise, you may follow-up with your primary care provider as needed. Coding Level of Care Code ED [employer] Specialist for Annette Fwd Documented by User: Ayaan Maldonado DO 06/18/23 06:23 HPI - Wound/Laceration General: Chief Complaint: Wound/Laceration Stated Complaint: animal bite Time Seen by Provider: 06/17/23 23:48 [facility] ED PFSH: Medical History Heart murmur, systolic Obstructive sleep apnea Chronic migraine without aura, intractable, with status migrainosus Social History Smoking and tobacco/nicotine status: never used tobacco/nicotine Alcohol intake: never Course Vital Signs: Vital signs: Vital Signs Temperature 97.9 F 06/17/23 22:23 Pulse Rate 88 06/17/23 22:23 Respiratory Rate 18 06/17/23 22:23 Blood Pressure 177/80 06/17/23 22:23 Pulse Oximetry 94 06/17/23 22:23 Oxygen Delivery Me thod Room Air 06/17/23 22:23 MDM - Wound/Laceration Medical Decision Making This patient was seen and evaluated in the emergency department due to cat scratch onset prior to arrival. Cat unable to be quarantined. Patient's vitals stable. Exam revealed the abrasions to the lateral left vicente. Her tetanus is not up-to-date so this will be updated for her. She will also begin rabies vaccination series with immunoglobulin and rabies vaccine. To treat for cat scratch disease prophylactically, she will be given doxycycline and informed to return if any signs of infection arise. Patient agrees with this plan and other return precautions given. Chart reviewed Discharge Plan Discharge Patient Disposition: Home Clinical Impression: Cat scratch of left lower leg Qualifiers: Encounter type: initial encounter Qualified Code(s): S80.812A - Abrasion, left lower leg, initial encounter Condition: Stable Prescriptions: New doxycycline hyclate 100 mg tablet 100 mg PO BID 10 Days Qty: 20 0RF No Action fluoxetine [Prozac] 40 mg capsule 40 mg PO DAILY Ubrelvy 100 mg tablet 100 mg PO ONCE Qty: 16 3RF Rx Instructions: Take 1 tab as needed for migraine rizatriptan 10 mg tablet See Rx Instructions .ROUTE .COMPLEX Qty: 9 1RF Dose Instruction: TAKE 1 TAB AT ONSET OF HEADACHE IF NO RELIEF MAY REPEAT 1 TAB AFTER AT LEAST 2 HRS MAX3 TABS/24 HRS Rx Instructions: TAKE 1 TAB AT ONSET OF HEADACHE IF NO RELIEF MAY REPEAT 1 TAB AFTER AT LEAST 2 HRS MAX3 TABS/24 HRS simvastatin 20 mg tablet 20 mg PO DAILY Benadryl Allergy 25 mg Tablet 25 mg PO Q6H PRN (Reason: Allergy Symptoms) albuterol sulfate 90 mcg/actuation HFA aerosol inhaler 2 puff INHALATION QID PRN (Reason: Shortness Of Breath) losartan 100 mg tablet 100 mg PO BEDTIME amlodipine 5 mg tablet 10 mg PO BEDTIME Qty: 0 0RF tizanidine 4 mg tablet 4 mg PO BEDTIME aripiprazole 5 mg tablet 5 mg PO BEDTIME naproxen [Naprosyn] 500 mg tablet 500 mg PO BID PRN (Reason: pain) Qty: 20 0RF Discharge Orders: Discharge ED (Routine); Ordered 06/18/23 Ordered By: Leon Lizarraga Referrals: Samanta Kapoor DO [Primary Care Provider] - Discharge Diet: Usual diet Discharge Activity: Increase activity as tolerated Patient Instructions: Cat Scratch Disease (ED) Activity Restrictions/Additional Instructions: Your tetanus was updated today. You were given first dose of rabies vaccination series, please return in 3 days for second dose. Doxycycline as prescribed. Please return if you develop any worsening signs of infection such as increased redness or pain. Otherwise, you may follow-up with your primary care provider as needed. Coding Level of Care Code ED [employer] Specialist for Annette Cordova
[2023-06-18] MEDS: tetanus-dipt-pertussis 0.5 mL SDV IM (01:01)
[2023-06-18] MEDS: rabies vaccine 2.5 unit SDV IM (01:03)
[2023-06-18] MEDS: doxycycline 100 mg Tablet PO (01:07)
[2023-06-18] MEDS: rabies IG 300 unit/mL SDV 1 mL 2070 UNIT IM (01:08)
== END 2023-06-18 01:31 | disposition home or self-care (01) ==
PROVIDERS: Emergency Provider Physician Assistant; PCP Family Medicine
DX: S80.812A Abrasion, left lower leg, initial encounter (principal); S61.213A Laceration without foreign body of left middle finger without damage to nail, initial encounter; W55.03XA Scratched by cat, initial encounter; Z23 Encounter for immunization; Z20.3 Contact with and (suspected) exposure to rabies; Z29.14 Encounter for prophylactic rabies immune globulin
CPT/HCPCS: 90375; 90471; 90675; 90715; 96372; 99283

== ENCOUNTER → 2023-06-26 15:43 | Outpatient (BNVA) | payer BC, SELFPAY | PROVIDERS: PCP Family Medicine; Visit Provider Nurse Practitioner | DX: M25.522 Pain in left elbow (principal); M25.571 Pain in right ankle and joints of right foot; M25.471 Effusion, right ankle | CPT/HCPCS: 73070; 73610 ==

== ENCOUNTER 2023-06-30 08:05 | Oncology outpatient (recurring) (ONCR) | payer BC, SELFPAY ==
[2023-06-20] MEDS: rabies vaccine 2.5 unit SDV IM (14:45)
[2023-06-20 14:48] VITALS: BP 161/78; PULSE 88; RESP 16; O2SAT 93
[2023-06-23 07:45] VITALS: BP 146/76; PULSE 80; RESP 16; TEMP 36.5; O2SAT 98
[2023-06-23] MEDS: rabies vaccine 2.5 unit SDV IM (07:48)
[2023-06-30] MEDS: rabies vaccine 2.5 unit SDV IM (08:18)
[2023-06-30 08:19] VITALS: BP 146/78; PULSE 82; TEMP 36.4; O2SAT 94
== END 2023-07-04 23:59 | disposition home or self-care (01) ==
PROVIDERS: PCP Family Medicine; Visit Provider Emergency Medicine
DX: Z53.9 Procedure and treatment not carried out, unspecified reason (principal); Z23 Encounter for immunization; Z29.14 Encounter for prophylactic rabies immune globulin
CPT/HCPCS: 90471; 90675

== ENCOUNTER → 2023-07-13 15:50 | Outpatient (BNVA) | payer BC, SELFPAY | PROVIDERS: PCP Family Medicine; Visit Provider Podiatrist Foot & Ankle Surgery | DX: S82.56 Nondisplaced fracture of medial malleolus of unspecified tibia; X58.XXXD Exposure to other specified factors, subsequent encounter | CPT/HCPCS: 73610 ==

== ENCOUNTER 2023-07-13 16:37 | Outpatient (CLI) | payer BC, SELFPAY | END 2023-07-13 16:38 | disposition home or self-care (01) | LOC: SPT 16:37 | PROVIDERS: PCP Family Medicine; Visit Provider Podiatrist Foot & Ankle Surgery | DX: Z46.89 Encounter for fitting and adjustment of other specified devices (principal); S82.56 Nondisplaced fracture of medial malleolus of unspecified tibia; X58.XXXD Exposure to other specified factors, subsequent encounter | CPT/HCPCS: 97760; L1902 ==

== ENCOUNTER 2023-10-05 15:05 | Outpatient (CLI) | payer BC, SELFPAY ==
--- NOTE | 2023-10-05 15:17 | XR_ITS ---
WS: [id number] Right knee, 3 views, 10/05/2023 Clinical Data: PAIN IN RIGHT KNEE Comparison: None. Findings: No fractures or dislocations are seen. There is medial joint compartment narrowing with spurs of the medial tibial plateau and medial femoral condyle. The patella is intact with no spurs. The soft tiss ues are unremarkable. XR/XR knee RT 3V* [id number] Impression: Minimal narrowing of medial joint compartment of the right knee. Kellgren-Zain Classification: grade 1 (doubtful): doubtful joint space narr owing and possible osteophytic lipping
== END 2023-10-05 15:06 | disposition home or self-care (01) ==
PROVIDERS: PCP Family Medicine; Visit Provider Family Medicine
DX: M25.861 Other specified joint disorders, right knee (principal); M25.761 Osteophyte, right knee; M25.561 Pain in right knee
CPT/HCPCS: 73562

== ENCOUNTER 2023-11-04 06:14 | Emergency (ER) | payer BC, SELFPAY ==
[2023-11-04 06:19] VITALS: BP 148/63; PULSE 76; RESP 18; TEMP 36.7; O2SAT 97; BMI 39.4
[2023-11-04 06:40] VITALS: RESP 16
[2023-11-04 06:52] VITALS: BP 131/70; PULSE 70; RESP 18; O2SAT 94
[2023-11-04] MEDS: diphenhydrAMINE 50 mg/mL SDV 1mL IVP (07:08)
[2023-11-04] MEDS: ketorolac 30 mg/mL INJ IVP (07:09)
[2023-11-04] MEDS: dexamethasone 10 mg/mL INJ IM (07:09)
[2023-11-04] MEDS: sodium chloride 0.9% 1,000 ML 999 ML IV (07:10)
[2023-11-04] MEDS: valproic acid inj 500 MG in sodium chloride 0.9% 50 ML 55 MG IV (07:11)
--- NOTE | 2023-11-04 07:13 | W.ED.HA ---
HPI - Headache General: Chief Complaint: Headache Stated Complaint: Headache Time Seen by Provider: 11/04/23 06:20 History of Present Illness: 58-year-old female presents to the emergency room complaining of frontal headache. She has a history of migraines. She states that this is similar to migraines that she has had in the past slightly more intense she has tried the regular medications that she usually takes at home such as rizatriptan without relief. Patient has photophobia and photophobia and no nausea or vomiting. Associated symptoms: Deny chest pain, fever(s) or rash Related Data Home Medications Medication Instructions Recorded Confirmed aripiprazole 5 mg tablet 5 mg PO BEDTIME 04/19/19 08/01/23 tizanidine 4 mg tablet 4 mg PO BEDTIME 04/19/19 08/01/23 albuterol sulfate 90 mcg/actuation 2 puff inhalation QID PRN 04/05/21 08/01/23 aerosol inhaler Shortness Of Breath diphenhydramine HCl 25 mg tablet 25 mg PO Q6H PRN Allergy Symptoms 04/05/21 08/01/23 (Benadryl Allergy) losartan 100 mg tablet 100 mg PO BEDTIME 04/05/21 08/01/23 simvastatin 20 mg tablet 20 mg PO DAILY 04/05/21 08/01/23 fluoxetine 40 mg capsule (Prozac) 40 mg PO DAILY 06/11/23 08/01/23 Previous Rx's Medication Instructions Recorded naproxen 500 mg tablet (Naprosyn) 500 mg PO BID PRN pain #20 tabs 01/19/20 amlodipine 5 mg tablet 10 mg (2 x 5 mg) PO BEDTIME #0 tabs 04/05/21 ubrogepant 100 mg tablet (Ubrelvy) 100 mg PO ONCE #16 tabs 08/09/21 rizatriptan 10 mg tablet See Rx Instructions .Route 11/15/21 .COMPLEX #9 tabs Walking Boot #1 ea 06/26/23 ASO brace #1 ea 07/13/23 Allergies Allergy/AdvReac Type Severity Reaction Status Date / Time cephalexin [From Keflex] Allergy ADR-Itching Verified 08/01/23 15:11 ciprofloxacin [From Cipro] Allergy ALGY-Difficulty Verified 08/01/23 15:11 Breathing erythromycin base Allergy ALGY-Difficulty Verified 08/01/23 15:11 Breathing Penicillins Allergy ALGY-Difficulty Verified 08/01/23 15:11 Breathing Review of Systems Const: Denies: fever(s) or chills Card: Denies: chest pain Resp: Denies: dyspnea GI: Denies: abdominal pain : Denies: dysuria, urinary frequency or urinary urgency Musc: Denies: neck pain or back pain Skin/Breast: Denies: rash Neuro: Reports: headache(s) PFSH ED PFSH: Medical History Heart murmur, systolic Obstructive sleep apnea Chronic migraine without aura, intractable, with status migrainosus Social History Smoking and tobacco/nicotine status: never used tobacco/nicotine Alcohol intake: never Physical Exam Const: GENERAL APPEARANCE: cooperative ORIENTATION/CONSCIOUSNESS: Yes awake, Yes oriented to person, Yes oriented to place and Yes oriented to time HENMT: COMMON NORMALS: normocephalic, atraumatic and hearing grossly normal bilaterally HEAD & SCALP: normocephalic and atraumatic Resp: COMMON NORMALS: normal respiratory effort, No retractions, No use of accessory muscles and clear to auscultation bilaterally AUSCULTATION: clear to auscultation bilaterally Cardio: COMMON NORMALS: regular rate, regular rhythm and No murmurs present (Cardio) RATE: regular rate RHYTHM: regular rhythm GI: COMMON NORMALS: Soft to palpation and No hepatosplenomegaly present AUSCULTATION: Yes normoactive bowel sounds PALPATION: Yes Soft to palpation, No Tenderness to palpation present (GI), No Guarding due to palpation present (GI) and Yes No hepatosplenomegaly present Extremity: COMMON NORMALS: normal to inspection, capillary refill normal, no clubbing, cyanosis or edema, no calf tenderness and no pedal edema Neuro: SENSORIUM/ORIENTATION: Yes oriented to person, Yes oriented to place and Yes oriented to time Skin: COMMON NORMALS: no rashes or lesions noted GENERAL SKIN EXAM: no rashes or lesions noted Course Vital Signs: Vital signs: Vital Signs Temperature 98.0 F 11/04/23 06:19 Pulse Rate 73 11/04/23 09:03 Respiratory Rate 18 11/04/23 06:52 Blood Pressure 133/80 11/04/23 09:03 Pulse Oximetry 93 11/04/23 09:03 Oxygen Delivery Me thod Room Air 11/04/23 06:52 MDM - Headache Medical Decision Making Headache improved with medications given. This from a recurring issue for her. This is similar to previous headaches just more intense when she has these she usually ends up seeking out assistance emergency room. She has been seen by her primary care has maintenance medicines for headache prophylaxis as well as rescue meds that just were not adequate at this time. After medications given she has significantly is discharged home follow-up with her family care doctor. Medical Records I reviewed the patient's medical records. Lab Data I reviewed the patient's lab results. All radiology interpretation(s) finalized by discharge Discharge Plan Discharge Patient Disposition: Home Clinical Impression: Migraine Condition: Stable Prescriptions: No Action (DME) Walking Boot See Rx Instructions .Route .MEDSUPPLY Qty: 1 0RF Rx Instructions: As directed (DME) ASO brace See Rx Instructions .Route .MEDSUPPLY Qty: 1 0RF Rx Instructions: As directed promethazine [Phenergan] 25 mg/mL solution 25 mg IM ONCE Qty: 1 0RF ketorolac 30 mg/mL solution 60 mg IM ONCE Qty: 2 0RF fluoxetine [Prozac] 40 mg capsule 40 mg PO DAILY Ubrelvy 100 mg tablet 100 mg PO ONCE Qty: 16 3RF Rx Instructions: Take 1 tab as needed for migraine rizatriptan 10 mg tablet See Rx Instructions .ROUTE .COMPLEX Qty: 9 1RF Dose Instruction: TAKE 1 TAB AT ONSET OF HEADACHE IF NO RELIEF MAY REPEAT 1 TAB AFTER AT LEAST 2 HRS MAX3 TABS/24 HRS Rx Instructions: TAKE 1 TAB AT ONSET OF HEADACHE IF NO RELIEF MAY REPEAT 1 TAB AFTER AT LEAST 2 HRS MAX3 TABS/24 HRS simvastatin 20 mg tablet 20 mg PO DAILY Benadryl Allergy 25 mg Tablet 25 mg PO Q6H PRN (Reason: Allergy Symptoms) albuterol sulfate 90 mcg/actuation HFA aerosol inhaler 2 puff INHALATION QID PRN (Reason: Shortness Of Breath) losartan 100 mg tablet 100 mg PO BEDTIME amlodipine 5 mg tablet 10 mg PO BEDTIME Qty: 0 0RF tizanidine 4 mg tablet 4 mg PO BEDTIME aripiprazole 5 mg tablet 5 mg PO BEDTIME naproxen [Naprosyn] 500 mg tablet 500 mg PO BID PRN (Reason: pain) Qty: 20 0RF Discharge Orders: Discharge ED (Routine); Ordered 11/04/23 Ordered By: Ayaan Maldonado Referrals: Samanta Kapoor DO [Primary Care Provider] - Discharge Diet: Usual diet Discharge Activity: Resume usual activity Patient Instructions: Migraine Headache (ED), Opioid Safety, Pain Management Activity Restrictions/Additional Instructions: Thank you for choosing [facility] for your healthcare needs today. It is very important that you follow up as instructed or that you return to the Emergency Department should you have concerns or if your condition changes or worsens in any way. Coding Level of Care Code ED Ward Assistant for Annette Cordova
[2023-11-04 07:43] VITALS: BP 116/63; PULSE 63; O2SAT 95
[2023-11-04 09:03] VITALS: BP 133/80; PULSE 73; O2SAT 93
== END 2023-11-04 09:06 | disposition home or self-care (01) ==
PROVIDERS: Emergency Provider Family Medicine; PCP Family Medicine
DX: G43.909 Migraine, unspecified, not intractable, without status migrainosus (principal)
CPT/HCPCS: 96365; 96375; 99284; J1100; J1200; J1885; J3490; J7030

== ENCOUNTER → 2023-12-22 17:06 | Outpatient (BNVA) | payer BC, SELFPAY | PROVIDERS: PCP Family Medicine; Visit Provider Nurse Practitioner | DX: J02.9 Acute pharyngitis, unspecified (principal) | CPT/HCPCS: 87880 ==

== ENCOUNTER 2024-03-29 14:55 | Outpatient (CLI) | payer BC, SELFPAY ==
--- NOTE | 2024-03-29 14:56 | MM_ITS ---
WS: [id number] BILATERAL 3D TOMOSYNTHESIS DIGITAL SCREENING MAMMOGRAPHY WITH CAD CLINICAL INFORMATION: SCREENING HISTORY: Screening mammogram. No current complaints. COMPARISON: 2022 TECHNIQUE: Bilateral CC and MLO views. FINDINGS: Scattered fibroglandular densities bilaterally. No suspicious focal mass, asymmetry, calcifications, or architectural distortion. No evidence of malignancy. Incidental punctate calcifications. MM/MM [facility] tomosynthesis [id number] IMPRESSION: DENSITY: There are scattered areas of fibroglandular density. BI-RADS: 2 - Benign. FOLLOW UP: 1 Year Follow-up Recommend return to annual screening mammography.
== END 2024-03-29 14:56 | disposition home or self-care (01) ==
LOC: RAD 14:55
PROVIDERS: PCP Family Medicine; Visit Provider Family Medicine
DX: Z12.31 Encounter for screening mammogram for malignant neoplasm of breast (principal); R92.323 Mammographic fibroglandular density, bilateral breasts; R92.1 Mammographic calcification found on diagnostic imaging of breast
CPT/HCPCS: 77063; 77067

== ENCOUNTER 2024-04-02 08:08 | Emergency (ER) | payer BC, SELFPAY ==
[2024-04-02] VITALS (7 sets, daily range): BP systolic 136–178; BP diastolic 63–87; PULSE 64–82; RESP 14–16; TEMP 36.4; O2SAT 90–95; BMI 39.4
--- NOTE | 2024-04-02 08:13 | XR_ITS ---
WS: [id number] Exam: XR chest 1V portable [id number] Date/Time of Exam: 04/02/2024 8:25 AM Reason For Exam: dyspnea/cough Comparison 04/05/2021. Lungs are fully expanded and clear. Normal cardiomediastinal silhouette and regional bony elements. N o pleural effusion. XR/XR chest 1V portable [id number] IMPRESSION: 1. Negative chest.
--- NOTE | 2024-04-02 08:14 | ECG_ITS ---
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 Measurements Intervals [place] Rate: 67 P: 52 NC: 151 QRS: 80 QRSD: 92 T: 16 QT: 374 QTc: 395 Interpretive Statements SINUS RHYTHM LOW QRS VOLTAGE IN PRECORDIAL LEADS [QRS DEFLECTION < 1.0 mV IN CHEST LEADS] Compared to ECG 04/05/2021 07:36:11 Low QRS voltage now present Electronically Signed On 04-04-2024 11:24:48 [employer] by Dariusz English M.D. [email or web address]
--- NOTE | 2024-04-02 08:15 | ED_ITS ---
HPI - Chest Pain 2 General: Chief Complaint: Chest Pain Stated Complaint: chest pain Time Seen by Provider: 04/02/24 08:13 History of Present Illness: 59-year-old female presents emergency ro om complaining of right-sided chest pain. It has been going on for the last couple of hours since she first woke up and then she continued to notice it while she was at work she has a rather sedentary job and not been doing anything exertional. She has had some shortness of breath no diaphoresis pain radiates to the right side of her chest from the right parasternal area it also radiates into her right arm. She does have a history of some mild aortic stenosis. About 10 years ago she tells me that she had a stress test while she lived in [place] that with reported to her as normal she has no known heart disease. She does vape when she has impaired glucose tolerance. No recent fever sweats chills cough or flulike symptoms Associated symptoms: Deny abdominal pain, dyspnea or fever(s) Related Data Home Medications Medication Instructions Recorded Confirmed tizanidine 4 mg tablet 4 mg PO BEDTIME 04/19/19 04/02/24 losartan 100 mg tablet 100 mg PO BEDTIME 04/05/21 04/02/24 fluoxetine 40 mg capsule (Prozac) 40 mg PO DAILY 06/11/23 04/02/24 amlodipine 10 mg tablet 10 mg PO DAILY 04/02/24 04/02/24 aripiprazole 2 mg tablet 2 mg PO DAILY 04/02/24 04/02/24 hydroxyzine HCl 25 mg tablet 25 mg PO DAILY 04/02/24 04/02/24 simvastatin 40 mg tablet 40 mg PO QPM 04/02/24 04/02/24 topiramate 100 mg tablet 100 mg PO BID 04/02/24 04/02/24 Previous Rx's Medication Instructions Recorded naproxen 500 mg tablet (Naprosyn) 500 mg PO BID PRN pain #20 tabs 01/19/20 rizatriptan 10 mg tablet See Rx Instructions .Route 11/15/21 .COMPLEX #9 tabs Walking Boot #1 ea 06/26/23 ASO brace #1 ea 07/13/23 metoprolol succinate 25 mg 12.5 mg (1/2 x 25 mg) PO DAILY #45 12/25/23 tablet,extended release 24 hr tabs ranolazine 500 mg tablet,extended 500 mg PO BID #60 tabs 03/28/24 release,12 hr Allergies Allergy/AdvReac Type Severity Reaction Status Date / Time cephalexin [From Keflex] Allergy ADR-Itching Verified 03/26/24 10:40 ciprofloxacin [From Cipro] Allergy ALGY-Difficulty Verified 03/26/24 10:40 Breathing erythromycin base Allergy ALGY-Difficulty Verified 03/26/24 10:40 Breathing Penicillins Allergy ALGY-Difficulty Verified 03/26/24 10:40 Breathing Review of Systems 2 Const: Denies: fever(s) or chills Card: Reports: chest pain Resp: Denies: dyspnea GI: Denies: abdominal pain : Denies: dysuria, urinary frequency or urinary urgency Musc: Reports: extremity pain; Denies: neck pain or back pain Skin/Breast: Denies: rash PFSH ED 2 PFSH: Medical History Heart murmur, systolic Obstructive sleep apnea Chronic migraine without aura, intractable, with status migrainosus Social History Smoking and tobacco/nicotine status: current every day tobacco/nicotine user Alcohol intake: never Physical Exam 2 Const: COMMON NORMALS: no acute distress GENERAL APPEARANCE: cooperative and comfortable ORIENTATION/CONSCIOUSNESS: Yes awake, Yes oriented to person, Yes oriented to place and Yes oriented to time HENMT: COMMON NORMALS: normocephalic, atraumatic and hearing grossly normal bilaterally HEAD & SCALP: normocephalic and atraumatic Resp: COMMON NORMALS: normal respiratory effort, No retractions, No use of accessory muscles and clear to auscultation bilaterally AUSCULTATION: clear to auscultation bilaterally Cardio: COMMON NORMALS: regular rate, regular rhythm and No murmurs present (Cardio) RATE: regular rate RHYTHM: regular rhythm GI: COMMON NORMALS: Soft to palpation and No hepatosplenomegaly present A USCULTATION: Yes normoactive bowel sounds PALPATION: Yes Soft to palpation, No Tenderness to palpation present (GI), No Guarding due to palpation present (GI) and Yes No hepatosplenomegaly present Extremity: COMMON NORMALS: normal to inspection, capillary refill normal, no clubbing, cyanosis or edema, no calf tenderness and no pedal edema Neuro: SENSORIUM/ORIENTATION: Yes oriented to person, Yes oriented to place and Yes oriented to time Skin: COMMON NORMALS: no rashes or lesions noted GENERAL SKIN EXAM: no rashes or lesions noted Course 2 Vital Signs: Vital signs: Vital Signs Temperature 97.6 F 04/02/24 08:13 Pulse Rate 74 04/02/24 08:50 Respiratory Rate 15 04/02/24 08:50 Blood Pressure 136/87 04/02/24 08:50 Pulse Oximetry 93 04/02/24 08:50 Oxygen Delivery Me thod Room Air 04/02/24 08:13 MDM - Chest Pain Medical Decision Making Patient's symptoms have resolved. Her cardiac enzymes are negative. She has not been tachycardic she is not having any further pain or discomfort chest x- ray is normal EKG does not show any acute changes. Will discharge her home have her follow-up with her outpatient stress test as scheduled return if she has further chest pain Medical Records I reviewed the patient's medical records. Lab Data I reviewed the patient's lab results. 04/02/24 08:41 04/02/24 08:41 Radiology Impressions Chest X-Ray 04/02/24 08:13 IMPRESSION: 1. Negative chest. Laboratory Results WBC 8.74 10^3/uL (3.29-11.43) 04/02/24 08:41 RBC 4.96 10^6/uL (3.85-5.65) 04/02/24 08:41 Hgb 14.70 g/dL (11.27-16.99) 04/02/24 08:41 Hct 44.2 % (36-47) 04/02/24 08:41 MCV 89.1 fl (85-98) 04/02/24 08:41 MCH 29.6 pg (27-33) 04/02/24 08:41 MCHC 33.3 g/dL (30-55) 04/02/24 08:41 RDW 12.3 % (12.1-15.1) 04/02/24 08:41 Plt Count 340 10^3/cmm (157-399) 04/02/24 08:41 MPV 8.8 fL (7.4-10.4) 04/02/24 08:41 Neut % (Auto) 69.5 % 04/02/24 08:41 Lymph % (Auto) 20.3 % 04/02/24 08:41 [place] % (Auto) 6.1 % 04/02/24 08:41 Eos % (Auto) 3.0 % 04/02/24 08:41 Baso % (Auto) 0.8 % 04/02/24 08:41 Neut # (Auto) 6.08 10^3/uL (1.8-7.7) 04/02/24 08:41 Lymph # (Auto) 1.8 10^3/uL (0.8-4.8) 04/02/24 08:41 [place] # (Auto) 0.5 10^3/uL (0.2-0.9) 04/02/24 08:41 Eos # (Auto) 0.3 10^3/uL (0.0-0.8) 04/02/24 08:41 Baso # (Auto) 0.1 10^3/uL (0.0-0.1) 04/02/24 08:41 Nucleated RBC % (auto) 0 % 04/02/24 08:41 Nucleated RBCs # 0.0 /100WBC 04/02/24 08:41 Sodium 139 mmol/L (136-145) 04/02/24 08:41 Potassium 4.2 mmol/L (3.5-5.1) 04/02/24 08:41 Chloride 103 mmol/L (98-107) 04/02/24 08:41 Carbon Dioxide 22 mmol/L (22-29) 04/02/24 08:41 Anion Gap 18.2 (5-19) 04/02/24 08:41 BUN 15 mg/dL (8-23) 04/02/24 08:41 Creatinine 0.9 mg/dL (0.5-0.9) 04/02/24 08:41 GFR Calculation 63.9 mL/min (90-130) L 04/02/24 08:41 Glucose 109 mg/dL (65-115) 04/02/24 08:41 Calculated Osmolality 289 mOsm/kg (285-295) 04/02/24 08:41 Calcium 9.2 mg/dL (8.5-10.5) 04/02/24 08:41 Total Bilirubin 0.6 mg/dL (0.15-1.2) 04/02/24 08:41 AST 21 U/L (0-32) 04/02/24 08:41 ALT 24 U/L (0-33) 04/02/24 08:41 Alkaline Phosphatase 86 U/L (35-105) 04/02/24 08:41 Troponin T Baseline 7 ng/L (0-10) 04/02/24 08:41 Troponin T 120 Minute 6.00 ng/L (0-10) 04/02/24 10:56 Delta Troponin T -1.00 ABS# (0-10) L 04/02/24 10:56 Total Protein 7.0 g/dL (6.6-8.7) 04/02/24 08:41 Albumin 4.5 g/dL (3.5-5.2) 04/02/24 08:41 Globulin 2.5 g/dL (1.3-4.6) 04/02/24 08:41 All radiology interpretation(s) finalized by discharge Discharge Plan Discharge Patient Disposition: Home Clinical Impression: Atypical chest pain Condition: Stable Prescriptions: No Action (DME) Walking Boot See Rx Instructions .Route .MEDSUPPLY Qty: 1 0RF Rx Instructions: As directed (DME) ASO brace See Rx Instructions .Route .MEDSUPPLY Qty: 1 0RF Rx Instructions: As directed metoprolol succinate 25 mg tablet extended release 24 hr 12.5 mg PO DAILY Qty: 45 1RF ranolazine 500 mg tablet extended release 12 hr 500 mg PO BID Qty: 60 1RF fluoxetine [Prozac] 40 mg capsule 40 mg PO DAILY rizatriptan 10 mg tablet See Rx Instructions .ROUTE .COMPLEX Qty: 9 1RF Dose Instruction: TAKE 1 TAB AT ONSET OF HEADACHE IF NO RELIEF MAY REPEAT 1 TAB AFTER AT LEAST 2 HRS MAX3 TABS/24 HRS Rx Instructions: TAKE 1 TAB AT ONSET OF HEADACHE IF NO RELIEF MAY REPEAT 1 TAB AFTER AT LEAST 2 HRS MAX3 TABS/24 HRS losartan 100 mg tablet 100 mg PO BEDTIME tizanidine 4 mg tablet 4 mg PO BEDTIME naproxen [Naprosyn] 500 mg tablet 500 mg PO BID PRN (Reason: pain) Qty: 20 0RF simvastatin 40 mg tablet 40 mg PO QPM amlodipine 10 mg tablet 10 mg PO DAILY hydroxyzine HCl 25 mg tablet 25 mg PO DAILY topiramate 100 mg tablet 100 mg PO BID aripiprazole 2 mg tablet 2 mg PO DAILY Discharge Orders: Discharge ED (Routine); Ordered 04/02/24 Ordered By: Ayaan Maldonado Referrals: Samanta Kapoor DO [Primary Care Provider] - Discharge Diet: Usual diet Discharge Activity: Increase activity as tolerated Patient Instructions: Opioid Safety, Pain Management Activity Restrictions/Additional Instructions: Thank you for choosing [facility] for your healthcare needs today. It is very important that you follow up as instructed or that you return to the Emergency Department should you have concerns or if your condition changes or worsens in any way. You were seen in the emergency room with complaints of chest discomfort. Your cardiac enzymes were negative and EKG does not show any acute changes. Keep the appointment with Dr. Regan as planned including a stress test she is scheduled as an outpatient. 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
[2024-04-02] MEDS: aspirin 81 mg Chew Tablet 324 MG PO (08:39)
[2024-04-02 08:59] LABS: Basophils # 0.1 10^3/uL (0.0-0.1); Basophils % 0.8 %; Eosinophils # 0.3 10^3/uL (0.0-0.8); Hematocrit 44.2 % (36-47); Lymphocytes # 1.8 10^3/uL (0.8-4.8); Lymphocytes % 20.3 %; Mean Corpuscular HGB Conc 33.3 g/dL (30-55); Mean Corpuscular Hemoglobin 29.6 pg (27-33); Mean Corpuscular Volume 89.1 fl (85-98); Mean Platelet Volume 8.8 fL (7.4-10.4); Monocytes # 0.5 10^3/uL (0.2-0.9); Monocytes % 6.1 %; Neutrophils # 6.08 10^3/uL (1.8-7.7); Neutrophils % 69.5 %; Nucleated Red Blood Cells % 0 %; Platelet Count 340 10^3/cmm (157-399); Red Blood Count 4.96 10^6/uL (3.85-5.65); Red Cell Distribution Width 12.3 % (12.1-15.1); White Blood Count 8.74 10^3/uL (3.29-11.43)
[2024-04-02 09:21] LABS: Troponin(5th) Baseline 7 ng/L (0-10)
[2024-04-02 09:57] LABS: Alanine Aminotransferase 24 U/L (0-33); Albumin Level 4.5 g/dL (3.5-5.2); Alkaline Phosphatase 86 U/L (35-105); Anion Gap 18.2 (5-19); Aspartate Amino Transferase 21 U/L (0-32); Blood Urea Nitrogen 15 mg/dL (8-23); Calcium 9.2 mg/dL (8.5-10.5); Carbon Dioxide 22 mmol/L (22-29); Chloride 103 mmol/L (98-107); Globulin 2.5 g/dL (1.3-4.6); Glomerular Filtration Rate 63.9 mL/min (90-130); Glucose 109 mg/dL (65-115); Osmolality Calculated 289 mOsm/kg (285-295); Potassium 4.2 mmol/L (3.5-5.1); Sodium 139 mmol/L (136-145); Total Bilirubin 0.6 mg/dL (0.15-1.2)
--- NOTE | 2024-04-02 10:21 | ECG_ITS ---
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 Measurements Intervals [place] Rate: 67 P: 54 LA: 166 QRS: 77 QRSD: 90 T: 33 QT: 405 QTc: 428 Interpretive Statements SINUS RHYTHM LOW QRS VOLTAGE IN PRECORDIAL LEADS [QRS DEFLECTION < 1.0 mV IN CHEST LEADS] Compared to ECG 04/02/2024 08:13:11 No significant changes Electronically Signed On 04-06-2024 13:49:22 INFORMATICA by Dariusz English M.D. [id number]
== END 2024-04-02 12:46 | disposition home or self-care (01) ==
PROVIDERS: Emergency Provider Family Medicine; PCP Family Medicine
DX: R07.89 Other chest pain (principal); Z72.0 Tobacco use
CPT/HCPCS: 36415; 71045; 80053; 84484; 85025; 93005; 99285

== ENCOUNTER 2024-04-19 08:41 | Outpatient (CLI) | payer BC, SELFPAY ==
[2024-04-19 08:44] VITALS: BMI 38.0
--- NOTE | 2024-04-19 08:45 | ECG_ITS ---
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 Interpretive Statements Lung unchanged pre/post procedure; Intraprocedure shortess of breath; Symptoms resoled by discharge PROCEDURE: At the baseline, the EKG revealed normal sinus rhythm with a normal ST Ts.. The baseline heart was 70 bpm with a blood pressue of 162/77 mm of Hg Lexiscan was infused over a period of 20 seconds. A total of 0.4 milligrams of Lexiscan was infused. The stress phase was continued for a total of 5 minutes. Heart rate at the end of the stress phase was 80 bpm with a blood pressure 163/64 mm of Hg. The EKG at the peak infusion revealed no significant changes. Sestamibi was injected 20 seconds after the Lexiscan infusion. Heart rate at the end of the recovery phase was 85 bpm with a blood pressure of 150/60 mm of Hg. CONCLUSION: 1. No significant EKG changes with the LexiScan infusion 2. No LexiScan induced chest pain or cardiac arrhythmia 3. Normal blood pressure and heart rate response 4. Sestamibi/sestamibi perfusion scan pending; see separate report. Electronically Signed On 04-22-2024 06:57:39 REVIEW RN by Dawit Walls M.D. [id number]
--- NOTE | 2024-04-19 08:45 | NMCV_ITS ---
NM nita perf SPECT r/s* [id number] Rosenda Yusuf Age: 59 Gender: F : 1965 Exam Date: 04/19/2024 08:45 Ordering Phys: Maria Teresa Parada NP Technologist: ANGELIQUE Stephens Exam Location: [facility] Indications: cp STRESS TEST Please see separate stress test report in [facility] for full findings IMAGE PROTOCOL Rest/Stress 1 Lexiscan Day Radiopharmaceutical Dose (mCi) Administration Site Administered by Rest: Tc-99m 11 IV Vianey Facundo, ROTARY FURNACE TENDER Sestamibi Stress:Tc-99m 37.7 IV Vianey Facundo, ROTARY FURNACE TENDER Sestamibi Rest: 19-Apr-2024 60 Discovery 630 Stress: 19-Apr-2024 30 Discovery 630 0.4mg Lexiscan. Images obtained in supine and prone position. SPECT RESULTS Technical Quality: Good Raw Data Analysis: Breast attenuation Image Corrections: No attenuation or motion correction applied Summed Stress Score: 3 Summed Rest Score: 0 Summed Difference Score: 3 PERFUSION FINDINGS Small area of minimal to moderate decrease tracer uptake involving the mid inferolateral and apical lateral region. Significant reversibility was noted with the supine imaging however with the prone imaging, no significant perfusion abnormalities were noted FUNCTIONAL RESULTS (calculated via Gated SPECT) Stress Image LV EF (%): 86 Stress EDV (mL):63 TID: 0.96 Stress ESV (mL):9 FUNCTIONAL FINDINGS: Segmental wall motion analysis revealing no gross wall motion abnormalities IMPRESSIONS 1. Myocardial perfusion imaging revealing small area of minimal to moderate ischemia involving the mid inferolateral and apical lateral segments suggesting ischemia in the distribution of the left circumflex artery. However because of the inconsistency with the prone imaging, reliability is questionable. Clinical correlation is recommended 2. Normal LV ejection fraction 86% 3. LV wall motion analysis revealing no gross wall motion abnormalities. 4. Normal LV volume No similar previous studies are available for comparison Dr Dawit Walls MD [facility] (Electronically Signed) Final Date: 19 April 2024 13:40 S
[2024-04-19] MEDS: regadenoson 0.4 Mg/5 ml Syringe IVP (10:29)
[2024-04-19 10:44] VITALS: BP 150/60; PULSE 85
--- NOTE | 2024-04-19 13:30 | USCV_ITS ---
Rosenda Yusuf Age: 59 Gender: F : 1965 Exam Date: 04/19/2024 13:29 Ordering Phys: Maria Teresa Parada NP Technologist: Maurilio Zarate [place] [facility] [place]: chf BP: 176 / 76 HR: 77 Rhythm: Sinus Technical Quality: Adequate MEASUREMENTS (Male / Female) Normal Values 2D ECHO LV Diastolic Diameter PLAX 5.2 cm 4.2 - 5.9 / 3.9 - 5.3 cm IVS Diastolic Thickness 1.1 cm 0.6 - 1.0 / 0.6 - 0.9 cm IVS Systolic Thickness 1.8 cm LVPW Diastolic Thickness 1.4 cm 0.6 - 1.0 / 0.6 - 0.9 cm LVPW Systolic Thickness 1.8 cm LVOT Diameter 2.1 cm LV Ejection Fraction 2D Teich 67.5 % LV Ejection Fraction MOD 4C 74.1 % LV Ejection Fraction MOD 2C 71.4 % LV Ejection Fraction 2C AL 73.3 % LA Diameter 3.3 cm RA Systolic Volume 4C AL 19.0 ml RA Systolic Volume 4C MOD 19.7 ml LA Sys Volume AL 35.2 cm cubed LA Sys Volume Index AL 16.0 cm cubed/m squared Aorta at Sinotubular Diameter 1.7 cm IVC Diameter 1.6 cm M-MODE LA Ao Ratio MM 1.8 AV Cusp Separation MM 1.3 cm DOPPLER AV Peak Velocity 276.0 cm/s LVOT Peak Velocity 129.0 cm/s AV Area Cont Eq vti 1.6 cm squared AV Area Cont Eq pk 1.7 cm squared MV Peak Velocity 111.0 cm/s MV Area PHT 5.9 cm squared Mitral E to A Ratio 0.8 TV Peak Velocity 264.5 cm/s TR Peak Velocity 302.0 cm/s TR Peak Gradient 36.5 mmHg TR Mean Velocity 234.0 cm/s TR Mean Gradient 24.0 mmHg TR Velocity Time Integral 63.5 cm PV Peak Velocity 143.0 cm/s RV Ejection Time 0.3 s FINDINGS Left Ventricle Normal left ventricular size, systolic function and wall thickness, with no regional wall motion abnormalities. Left ventricular ejection fraction is estimated at 60 %. Grade I/IV diastolic dysfunction (abnormal relaxation filling pattern), normal to mildly elevated filling pressures. Right Ventricle The right ventricle is normal in size and function. Right Atrium The right atrium is normal in size. Left Atrium The left atrium is normal in size. Mitral Valve Mildly thickened mitral valve. No mitral valve stenosis. Mild mitral valve regurgitation. Aortic Valve Moderate aortic valve calcification. No aortic valve stenosis. Trace aortic valve regurgitation. Tricuspid Valve Structurally normal tricuspid valve without significant stenosis or regurgitation. Pulmonary artery systolic pressure is normal. Pulmonic Valve Structurally normal pulmonic valve without significant stenosis. There is no pulmonic regurgitation. Pericardium Normal pericardium without effusion. Aorta Normal ascending aorta dimension. IVC The inferior vena cava appears normal. CONCLUSIONS Normal left ventricular size, systolic function and wall thickness, with no regional wall motion abnormalities. Left ventricular ejection fraction is estimated at 60 %. Grade I/IV diastolic dysfunction (abnormal relaxation filling pattern), normal to mildly elevated filling pressures. Moderate aortic valve calcification. No aortic valve stenosis. Trace aortic valve regurgitation. Mildly thickened mitral valve. No mitral valve stenosis. Mild mitral valve regurgitation. There is no pericardial effusion. Right atrial pressure is around 5 mm of mercury. Beatrice Newman MD (Electronically Signed) Final Date: 19 April 2024 17:16 S
== END 2024-04-19 08:42 | disposition home or self-care (01) ==
PROVIDERS: PCP Family Medicine; Visit Provider Nurse Practitioner Family
DX: R01.1 Cardiac murmur, unspecified (principal); R07.9 Chest pain, unspecified; R93.1 Abnormal findings on diagnostic imaging of heart and coronary circulation; I34.0 Nonrheumatic mitral (valve) insufficiency; I35.8 Other nonrheumatic aortic valve disorders
CPT/HCPCS: 36415; 78452; 93017; 93306; 96374; A9500; J2785

== ENCOUNTER 2024-05-29 13:47 | Outpatient (CLI) | payer BC, SELFPAY ==
--- NOTE | 2024-05-29 13:52 | CT_ITS ---
WS: [id number] CT ABDOMEN PELVIS TECHNIQUE: Contrast-enhanced CT of the abdomen and pelvis with coronal and sagittal reformatted images. CLINICAL INFORMATION: PELVIC PAIN COMPARISON: None. DLP: 898.[address] scans at [facility] [place] use at least one of these dose optimization techniques: automated exposure control; mA and/or kV adjustment per patient size (includes targeted exams where dose is matched to clinical indication); or iterative reconstruction. FINDINGS: Hepatomegaly. Hepatic steatosis. Normal portal vein and splenic vein. Normal GE junction. Mild fatty atrophy of the pancreas. Adrenal glands are normal. Normal renal parenchymal enhancement. No hydronephrosis in either kidney. Lung bases are well aerated. Celiac and SMA are patent. Moderate aortic atheromatous disease. No aneurysm. Mural thrombus with mild to moderate narrowing of the distal abdominal aorta. Fat-containing RIGHT periumbilical hernia. Prior cholecystectomy and hysterectomy. Prior appendectomy. CT/CT abdomen pelvis w con* [id number] IMPRESSION: 1. Hepatomegaly with fatty infiltration. 2. Cholecystectomy. 3. No hydronephrosis in either kidney. 4. Fat-containing umbilical and RIGHT periumbilical hernias. No herniated andrew l. 5. Prior hysterectomy. Prior cholecystectomy. 6. Mural thrombus with mild to moderate narrowing of the distal abdominal aort a. No aneurysm. 7. No other acute findings.
[2024-05-29] MEDS: iohexol 350 mg/mL 500 mL Btl (per mL) PO (14:52)
[2024-05-29 15:50] LABS: Blood Urea Nitrogen 11 mg/dL (8-23); Glomerular Filtration Rate 63.9 mL/min (90-130)
[2024-05-29] MEDS: iohexol 350 mg/mL 500 mL Btl (per mL) IV (16:15)
== END 2024-05-29 13:48 | disposition home or self-care (01) ==
PROVIDERS: PCP Family Medicine; Visit Provider Family Medicine
DX: R10.2 Pelvic and perineal pain (principal); R16.0 Hepatomegaly, not elsewhere classified; K76.0 Fatty (change of) liver, not elsewhere classified; Z90.49 Acquired absence of other specified parts of digestive tract; K42.9 Umbilical hernia without obstruction or gangrene; Z90.710 Acquired absence of both cervix and uterus; I74.19 Embolism and thrombosis of other parts of aorta; K86.89 Other specified diseases of pancreas; I70.0 Atherosclerosis of aorta; Z98.890 Other specified postprocedural states
CPT/HCPCS: 74177; 82565; 84520

== ENCOUNTER 2024-05-31 10:48 | Outpatient (CLI) | payer BC, SELFPAY ==
--- NOTE | 2024-05-31 10:52 | CT_ITS ---
WS: [id number] CTA ABDOMINAL AORTA WITH RUNOFF TECHNIQUE: Contrast enhanced CTA of the abdominal aorta with bilateral lower extremity runoff. Multiplanar reformatted images were obtained. MIP reformats were also reviewed. CLINICAL INFORMATION: AORTIC MURAL THROMBUS/LOWER ABDOMINAL PAIN COMPARISON: None. DLP: 1694.[address] scans at [facility] use at least one of these dose optimization techniques: automated exposure control; mA and/or kV adjustment per patient size (includes targeted exams where dose is matched to clinical indication); or iterative reconstruction. FINDINGS: No abdominal aortic aneurysm. 50% narrowing in the mid abdominal aorta with peripheral mural thrombus. Distal aorta remains patent. Celiac and SMA are patent. Proximal renal arteries are patent. Fatty liver. Hepatomegaly. Cholecystectomy clips. Normal portal vein and splenic vein. Fat-containing umbilical and periumbilical hernias. RIGHT: RIGHT common iliac artery is patent with mild calcification. Internal/external iliac arteries are patent. Common femoral and superficial femoral arteries are patent. Deep femoral artery is patent. Normal popliteal artery. Normal three-vessel runoff to the ankle. Somewhat diminutive peroneal artery. LEFT: LEFT common iliac artery is patent. External and internal iliac arteries are patent. Common femoral and superficial femoral arteries are patent. Deep femoral artery and popliteal arteries are patent. Three-vessel runoff to the ankle. CT/CT angio abd aorta runof [id number] IMPRESSION: 1. Moderate aortic atheromatous disease. No aneurysm. 2. Peripheral mural thrombus in the mid and distal abdominal aorta with approx imately 50% narrowing in the mid infrarenal abdominal aorta.. Distal aorta teresita ins patent. 3. Celiac and SMA are patent. Proximal renal arteries are patent. 4. Normal bilateral lower extremity runoff.
[2024-05-31] MEDS: iohexol 350 mg/mL 500 mL Btl (per mL) IV (11:37)
== END 2024-05-31 10:49 | disposition home or self-care (01) ==
LOC: RAD 10:51
PROVIDERS: PCP Family Medicine; Visit Provider Family Medicine
DX: I51.3 Intracardiac thrombosis, not elsewhere classified (principal); I70.0 Atherosclerosis of aorta; I74.09 Other arterial embolism and thrombosis of abdominal aorta; K76.0 Fatty (change of) liver, not elsewhere classified; R16.0 Hepatomegaly, not elsewhere classified; Z90.49 Acquired absence of other specified parts of digestive tract; K42.9 Umbilical hernia without obstruction or gangrene; I70.8 Atherosclerosis of other arteries
CPT/HCPCS: 75635

== ENCOUNTER 2024-06-04 10:33 | Emergency (ER) | payer BC, SELFPAY ==
[2024-06-04 10:40] VITALS: BP 137/66; PULSE 84; RESP 18; TEMP 35.9; O2SAT 93; BMI 40.0
--- NOTE | 2024-06-04 11:24 | W.ED.EXTPRO ---
HPI - Extremity Problem General: Chief complaint: Extremity Problem,Nontraumatic Stated complaint: R hip and leg pain Time Seen by Provider: 06/04/24 11:03 History of Present Illness: 59-year-old female presents emergency room complaining of back and right leg pain pain radiating to the buttock down to the posterior thigh not to the level of the knee. No recent trauma or falls. Patient has had back problems in the past. She had an abdominal aortic runoff because of a previously abnormal CT of the abdomen showed a mural thrombus infrarenal with no occlusion of any arteries she is concerned that this may be precipitating her leg pain. She has no intermittent claudication or pain in the leg. No cyanosis in the leg now. No fecal incontinence no urinary retention. No claudication. Associated symptoms: Deny chest pain, fever(s) or rash Related Data Home Medications ?Medication ?Instructions ?Recorded ?Confirmed tizanidine 4 mg tablet 4 mg PO BEDTIME 04/19/19 06/04/24 losartan 100 mg tablet 100 mg PO BEDTIME 04/05/21 06/04/24 fluoxetine 40 mg capsule (Prozac) 40 mg PO DAILY 06/11/23 06/04/24 amlodipine 10 mg tablet 10 mg PO DAILY 04/02/24 06/04/24 aripiprazole 2 mg tablet 2 mg PO DAILY 04/02/24 06/04/24 hydroxyzine HCl 25 mg tablet 25 mg PO DAILY 04/02/24 06/04/24 simvastatin 40 mg tablet 40 mg PO QPM 04/02/24 06/04/24 topiramate 100 mg tablet 100 mg PO BID 04/02/24 06/04/24 albuterol sulfate 2.5 mg/3 mL 2.5 mg continuous nebulization Q6H 06/04/24 06/04/24 (0.083 %) solution for nebulization semaglutide 14 mg tablet (Rybelsus) 14 mg PO DAILY 06/04/24 06/04/24 Previous Rx's ?Medication ?Instructions ?Recorded rizatriptan 10 mg tablet See Rx Instructions .Route 11/15/21 .COMPLEX #9 tabs metoprolol succinate 25 mg 12.5 mg (1/2 x 25 mg) PO DAILY #45 12/25/23 tablet,extended release 24 hr tabs ranolazine 500 mg tablet,extended 500 mg PO BID #180 tabs 05/24/24 release,12 hr methylprednisolone 4 mg tablets in See Rx Instructions PO .COMPLEX 06/04/24 a dose pack (Medrol (Mainor)) #21 ea tizanidine 4 mg tablet 4 mg PO Q6H PRN muscle spasticity 06/04/24 #20 tabs tramadol 50 mg tablet 50 mg PO Q6H PRN pain #10 tabs 06/04/24 Allergies Allergy/AdvReac Type Severity Reaction Status Date / Time cephalexin (From Keflex) Allergy ADR-Itching Verified 06/04/24 10:44 ciprofloxacin (From Cipro) Allergy ALGY-Difficulty Verified 06/04/24 10:44 Breathing erythromycin base Allergy ALGY-Difficulty Verified 06/04/24 10:44 Breathing Penicillins Allergy ALGY-Difficulty Verified 06/04/24 10:44 Breathing Review of Systems Const: Denies: fever(s) or chills Card: Denies: chest pain Resp: Denies: dyspnea GI: Denies: abdominal pain : Denies: dysuria, urinary frequency or urinary urgency Musc: Denies: neck pain or back pain Skin/Breast: Denies: rash PFSH ED PFSH: Medical History Heart murmur, systolic Obstructive sleep apnea Chronic migraine without aura, intractable, with status migrainosus Social History Smoking and tobacco/nicotine status: current every day tobacco/nicotine user Alcohol intake: never Physical Exam Const: COMMON NORMALS: no acute distress GENERAL APPEARANCE: cooperative and comfortable ORIENTATION/CONSCIOUSNESS: Yes awake, Yes oriented to person, Yes oriented to place and Yes oriented to time HENMT: COMMON NORMALS: normocephalic, atraumatic and hearing grossly normal bilaterally HEAD & SCALP: normocephalic and atraumatic Resp: COMMON NORMALS: normal respiratory effort, No retractions, No use of accessory muscles and clear to auscultation bilaterally AUSCULTATION: clear to auscultation bilaterally Cardio: COMMON NORMALS: regular rate, regular rhythm and No murmurs present (Cardio) RATE: regular rate RHYTHM: regular rhythm GI: COMMON NORMALS: Soft to palpation and No hepatosplenomegaly present AUSCULTATION: Yes normoactive bowel sounds PALPATION: Yes Soft to palpation, No Tenderness to palpation present (GI), No Guarding due to palpation present (GI) and Yes No hepatosplenomegaly present Extremity: COMMON NORMALS: normal to inspection, capillary refill normal, no clubbing, cyanosis or edema, no calf tenderness and no pedal edema Neuro: SENSORIUM/ORIENTATION: Yes oriented to person, Yes oriented to place and Yes oriented to time OTHER: No foot drop lower extremities strength 5 of 5 in lower extremities Skin: COMMON NORMALS: no rashes or lesions noted GENERAL SKIN EXAM: no rashes or lesions noted Course Vital Signs: Vital signs: Vital Signs Temperature 96.7 F L 06/04/24 10:40 Pulse Rate 72 06/04/24 12:44 Respiratory Rate 16 06/04/24 12:44 Blood Pressure 172/102 06/04/24 12:44 Pulse Oximetry 98 06/04/24 12:44 Oxygen Delivery Me thod Room Air 06/04/24 10:40 MDM - Extremity (Nontraumatic) Medical Decision Making Patient has good pulses there is no sign of any shower of emboli no cyanotic digits. She is not having any claudication to her legs the pain she is referring to is more radicular in nature it radiates from the buttock along the posterior lateral right thigh nearly to the level of the knee. No recent trauma or fall she has had some back problems in the past and has some mild back discomfort now. She is able to stand and walk on exam she has no focal deficits no signs of any foot drop she has not had any fecal incontinence or urinary retention. Will treat with tramadol steroid taper and tizanidine keep her appointment with vascular surgery tomorrow. Patient has good pulses lower extremity this time I did review the case with Dr. English is on-call he does not recommend any anticoagulation recommends leave that to the vascular consultation tomorrow. Reviewed this with the patient she has no signs of thromboembolism at this time said and she understands plan she is comfortable with this plan Medical Records I reviewed the patient's medical records. Lab Data I reviewed the patient's lab results. 06/04/24 11:16 06/04/24 11:16 Laboratory Results WBC 9.28 10^3/uL (3.29-11.43) 06/04/24 11:16 RBC 4.86 10^6/uL (3.85-5.65) 06/04/24 11:16 Hgb 14.20 g/dL (11.27-16.99) 06/04/24 11:16 Hct 42.7 % (36-47) 06/04/24 11:16 MCV 87.9 fl (85-98) 06/04/24 11:16 MCH 29.2 pg (27-33) 06/04/24 11:16 MCHC 33.3 g/dL (30-55) 06/04/24 11:16 RDW 12.0 % (12.1-15.1) L 06/04/24 11:16 Plt Count 349 10^3/cmm (157-399) 06/04/24 11:16 MPV 9.0 fL (7.4-10.4) 06/04/24 11:16 Neut % (Auto) 67.0 % 06/04/24 11:16 Lymph % (Auto) 22.0 % 06/04/24 11:16 [place] % (Auto) 7.4 % 06/04/24 11:16 Eos % (Auto) 2.8 % 06/04/24 11:16 Baso % (Auto) 0.6 % 06/04/24 11:16 Neut # (Auto) 6.21 10^3/uL (1.8-7.7) 06/04/24 11:16 Lymph # (Auto) 2.0 10^3/uL (0.8-4.8) 06/04/24 11:16 [place] # (Auto) 0.7 10^3/uL (0.2-0.9) 06/04/24 11:16 Eos # (Auto) 0.3 10^3/uL (0.0-0.8) 06/04/24 11:16 Baso # (Auto) 0.1 10^3/uL (0.0-0.1) 06/04/24 11:16 Nucleated RBC % (auto) 0 % 06/04/24 11:16 Nucleated RBCs # 0.0 /100WBC 06/04/24 11:16 PT 11.80 SECONDS (12.1-14.9) L 06/04/24 11:16 INR 0.81 (0.8-1.2) 06/04/24 11:16 Sodium 139 mmol/L (136-145) 06/04/24 11:16 Potassium 4.0 mmol/L (3.5-5.1) 06/04/24 11:16 Chloride 104 mmol/L (98-107) 06/04/24 11:16 Carbon Dioxide 23 mmol/L (22-29) 06/04/24 11:16 Anion Gap 16.0 (5-19) 06/04/24 11:16 BUN 14 mg/dL (8-23) 06/04/24 11:16 Creatinine 0.9 mg/dL (0.5-0.9) 06/04/24 11:16 GFR Calculation 63.9 mL/min (90-130) L 06/04/24 11:16 Glucose 100 mg/dL (65-115) 06/04/24 11:16 Calculated Osmolality 289 mOsm/kg (285-295) 06/04/24 11:16 Calcium 8.9 mg/dL (8.5-10.5) 06/04/24 11:16 Total Bilirubin 0.4 mg/dL (0.15-1.2) 06/04/24 11:16 AST 15 U/L (0-32) 06/04/24 11:16 ALT 17 U/L (0-33) 06/04/24 11:16 Alkaline Phosphatase 85 U/L (35-105) 06/04/24 11:16 Total Protein 7.1 g/dL (6.6-8.7) 06/04/24 11:16 Albumin 4.4 g/dL (3.5-5.2) 06/04/24 11:16 Globulin 2.7 g/dL (1.3-4.6) 06/04/24 11:16 No radiology studies performed this visit Discharge Plan Discharge Patient Disposition: Home Clinical Impression: Lumbar radiculopathy, right, Aortic mural thrombus Condition: Stable Prescriptions: New tizanidine 4 mg tablet 4 mg PO Q6H PRN (Reason: muscle spasticity) Qty: 20 0RF Rx Instructions: do not exceed 3 doses per 24 hrs methylprednisolone [Medrol (Mainor)] 4 mg tablets,dose pack See Rx Instructions .ROUTE .COMPLEX Qty: 21 0RF Rx Instructions: orally per package directions tramadol 50 mg tablet 50 mg PO Q6H PRN (Reason: pain) Qty: 10 0RF No Action metoprolol succinate 25 mg tablet extended release 24 hr 12.5 mg PO DAILY Qty: 45 1RF fluoxetine [Prozac] 40 mg capsule 40 mg PO DAILY rizatriptan 10 mg tablet See Rx Instructions .ROUTE .COMPLEX Qty: 9 1RF Dose Instruction: TAKE 1 TAB AT ONSET OF HEADACHE IF NO RELIEF MAY REPEAT 1 TAB AFTER AT LEAST 2 HRS MAX3 TABS/24 HRS Rx Instructions: TAKE 1 TAB AT ONSET OF HEADACHE IF NO RELIEF MAY REPEAT 1 TAB AFTER AT LEAST 2 HRS MAX3 TABS/24 HRS ranolazine 500 mg tablet extended release 12 hr 500 mg PO BID Qty: 180 3RF losartan 100 mg tablet 100 mg PO BEDTIME tizanidine 4 mg tablet 4 mg PO BEDTIME albuterol sulfate 2.5 mg /3 mL (0.083 %) solution for nebulization 2.5 mg continuous nebulization Q6H Rybelsus 14 mg tablet 14 mg PO DAILY simvastatin 40 mg tablet 40 mg PO QPM amlodipine 10 mg tablet 10 mg PO DAILY hydroxyzine HCl 25 mg tablet 25 mg PO DAILY topiramate 100 mg tablet 100 mg PO BID aripiprazole 2 mg tablet 2 mg PO DAILY Discharge Orders: Discharge ED (Routine); Ordered 06/04/24 Ordered By: Ayaan Maldonado Referrals: Samanta Kapoor DO [Primary Care Provider] - Discharge Diet: Usual diet Discharge Activity: Resume usual activity Patient Instructions: Opioid Safety, Pain Management Activity Restrictions/Additional Instructions: Thank you for choosing [facility] [place] for your healthcare needs today. It is very important that you follow up as instructed or that you return to the Emergency Department should you have concerns or if your condition changes or worsens in any way. You were seen in the emergency room with complaints of pain radiating from the low back into the right leg. Your description of symptoms and exam are consistent with a L4 V nerve root irritation. There is no sign of compression of the spinal cord or nerve root at this time. Recommend a steroid taper you can also use muscle relaxers tizanidine as needed and tramadol as needed. Based on your exam and history the symptoms do not appear to be related to the CTA finding of the thrombus in the distal aorta that was done recently. I have reviewed that case with her on-call vp marketing he recommends no treatment at this time and follow-up with the vascular surgery consult tomorrow as planned. Print Language: Turkish Coding Level of Care Code ED Adjuster Arbitrator for Annette Cordova
[2024-06-04 11:25] LABS: Basophils # 0.1 10^3/uL (0.0-0.1); Basophils % 0.6 %; Eosinophils # 0.3 10^3/uL (0.0-0.8); Eosinophils % 2.8 %; Hematocrit 42.7 % (36-47); Mean Corpuscular HGB Conc 33.3 g/dL (30-55); Mean Corpuscular Hemoglobin 29.2 pg (27-33); Mean Corpuscular Volume 87.9 fl (85-98); Monocytes # 0.7 10^3/uL (0.2-0.9); Monocytes % 7.4 %; Neutrophils # 6.21 10^3/uL (1.8-7.7); Nucleated Red Blood Cells % 0 %; Platelet Count 349 10^3/cmm (157-399); Red Blood Count 4.86 10^6/uL (3.85-5.65); White Blood Count 9.28 10^3/uL (3.29-11.43)
[2024-06-04 11:28] VITALS: BP 137/66; PULSE 78; O2SAT 92
[2024-06-04 11:44] LABS: Alanine Aminotransferase 17 U/L (0-33); Albumin Level 4.4 g/dL (3.5-5.2); Alkaline Phosphatase 85 U/L (35-105); Aspartate Amino Transferase 15 U/L (0-32); Blood Urea Nitrogen 14 mg/dL (8-23); Calcium 8.9 mg/dL (8.5-10.5); Carbon Dioxide 23 mmol/L (22-29); Chloride 104 mmol/L (98-107); Creatinine Clr Calc Pharmacy 76.0223; Globulin 2.7 g/dL (1.3-4.6); Glomerular Filtration Rate 63.9 mL/min (90-130); Glucose 100 mg/dL (65-115); Osmolality Calculated 289 mOsm/kg (285-295); Sodium 139 mmol/L (136-145); Total Bilirubin 0.4 mg/dL (0.15-1.2); Total Protein 7.1 g/dL (6.6-8.7)
[2024-06-04 11:45] LABS: INR 0.81 (0.8-1.2)
[2024-06-04 12:44] VITALS: BP 172/102; PULSE 72; RESP 16; O2SAT 98
== END 2024-06-04 12:44 | disposition home or self-care (01) ==
PROVIDERS: Emergency Provider Family Medicine; PCP Family Medicine
DX: M54.16 Radiculopathy, lumbar region (principal); I21.9 Acute myocardial infarction, unspecified; Z72.0 Tobacco use
CPT/HCPCS: 36415; 80053; 85025; 85610; 99283

== ENCOUNTER 2024-06-18 14:51 | Outpatient (CLI) | payer BC, SELFPAY ==
--- NOTE | 2024-06-18 14:58 | XRR_ITS ---
PROCEDURE INFORMATION: Exam: XR Lumbosacral Spine Exam date and time: 06/18/2024 3:40 PM Age: 59 years old Clinical indication: Low back pain TECHNIQUE: Imaging protocol: Radiologic exam of the lumbosacral spine. Views: 2 or 3 views. COMPARISON: CT abdomen pelvis w con* [id number] 05/29/2024 4:04 PM FINDINGS: Bones/joints: Normal. No acute fracture. Normal alignment. Soft tissues: Unremarkable. XR/XR lumbar spine 2-3V* [id number] IMPRESSION: No acute findings.
== END 2024-06-18 14:52 | disposition home or self-care (01) ==
PROVIDERS: PCP Family Medicine; Visit Provider Family Medicine
DX: M54.50 Low back pain, unspecified (principal)
CPT/HCPCS: 72100

== ENCOUNTER → 2024-07-02 16:33 | Outpatient (BNVA) | payer BC, SELFPAY | PROVIDERS: PCP Family Medicine; Visit Provider Internal Medicine Cardiovascular Disease | DX: R01.1 Cardiac murmur, unspecified (principal); R06.02 Shortness of breath; R94.39 Abnormal result of other cardiovascular function study; R07.9 Chest pain, unspecified; R58 Hemorrhage, not elsewhere classified | CPT/HCPCS: 36415; 80048; 85025; 85610 ==

== ENCOUNTER 2024-07-09 08:18 | Outpatient (CLI) | payer BC, SELFPAY ==
[2024-07-09] VITALS (23 sets, daily range): BP systolic 93–184; BP diastolic 48–98; PULSE 59–96; RESP 14–25; TEMP 36.7–36.8; O2SAT 94–100; BMI 40.0
[2024-07-09] MEDS: diphenhydrAMINE 50 mg Capsule PO (08:55)
[2024-07-09] MEDS: aspirin 325 mg Tablet PO (08:55)
--- NOTE | 2024-07-09 09:00 | XACV_ITS ---
Exam Room: 2 Ht: 160 cm Wt: 103 kg BSA: 2.19 m2 Gender: Female : 1965 Any Known Allergies: Other Exam Priority: Routine Procedure(s): Procedure Description: Diagnostic procedure Procedure Description: PCI procedure Procedure Description: Drug Eluting Coronary Stent Procedure Description: PTCA Procedure Description: Miscellaneous Procedure Description: ACT Procedure Description: [facility]; Diagnostic Cath Status: Elective Diagnostic Findings * Left Anterior Descending has luminal irregularity. * Right Coronary Artery has luminal irregularity. * Left Main has no disease. * Proximal Circumflex: severe 90% stenosis, BENJI: 3 flow. * Coronary angiography shows right dominance. PCI Status: Elective PCI Indication: New Onset Angina <= 2 months Interventional Findings * Proximal Circumflex: 90% stenosis treated with a AB TREK 2.50X12 RX BALLOON, GIL Howard MARIPOSA 3.0X15 RICH, and MDVero RICE EUPHORA RX [id number] BALLOON. 0% residual stenosis, BENJI: 3 flow. Conclusions 1. There is severe coronary artery disease with one vessel disease. 2. Proximal Circumflex was treated with a Balloon, Drug Eluting Stent, and Balloon. Recommendations * 1-Return to inpatient for close monitoring and routine cath care 2-Risk factor modification for secondary prevention 3-Statin and aspirin 81 mg life-long, if tolerated 4-Patient was pre-loaded with 600 mg of Plavix, continue Plavix 75mg p.o. daily for at least one year. We will assess at the end of one year again to continue if further or not 5-Continue optimal medical management 6-Follow up with Dr. Newman in four weeks and your primary care in 10 days . Diagnostic RX Recommendation: PCI w/o planned CABG Pressures Phase:Rest AO : 130 / 75 ( 93 ) @ 11:59:00 AM 111 / 89 ( 100 ) @ 12:09:00 PM 129 / 93 ( 111 ) @ 12:16:00 PM Clinical Evaluation EBL: 5mL-10mL Procedural Details Procedure Consent Obtained. Pre-Procedure Time Out. Identified patient by full name and date of as verbalized by the patient/guarantor. Does the consent match the physician's order: Yes. Accurate & Complete Informed Consent: Yes. Inpatient/Outpatient History & Physical on Chart: Yes. If H&P is completed, is and addenduem needed: No. Visualize and Verify Site with Patient/Guarantor: N/A. Relevant Radiology Images available: Yes. The risks, benefits, and alternatives of sedation and/or procedure were discussed by physician. The patient agrees to continue. Procedure started. HA Clinical Fraility Score: 3: Managing Well. Doctor Of Medicine Indications: New Onset Angina/Positive stress test. Chest Pain Symptom Assessment: Typical Angina Symptoms. Cardiovascular Instability: No. Correct patient, site and procedure confirmed by cath team. PERRLA. Strong, equal hand cinnamon grinder bilaterally. Lungs clear x 5 lobes. IV Site on Arrival: 20 gauge in the right anticubital. IV Fluids: 0.9% NaCl at KVO. 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 Pre Procedural Pulses: bilateral dorsalis pedis was 3+. Pre Procedural Pulses: bilateral posterior tibial was 3+. Pre Procedural Pulses: bilateral radial was 3+. Oxygen started at 2liters/min via nasal canula. right groin was prepped with chloroprep then draped in the usual sterile fashion. right radial was prepped with chloroprep then draped in the usual sterile fashion. Physician notified. Baseline sample Acquired. HR: 72 BPM. Patient's family in CPRU room #4. Dr. Newman will update a the completion of the procedure. Equipment: 6F - Radial. Cardiac Cath Pack. ACIST Manifold Kit Model BT 2000. Heparinized Saline (2 units/mL), 1000 mL bag. Physician arrived. Physician scrubbed in. Immediate Pre-Procedure Time Out. Correct Patient: Yes; Correct Procedure: Yes; Correct Site: Yes; Correct Patient Position: Yes; Correct Supplies: Yes; Dried Flammable Prep: Yes; Blood Products Available: N/A;. Lidocaine 1% infiltrated to the right radial. Arterial access obtained. A 5 micronesian Eligio catheter in over the exchange J wire. Multiple views taken of right coronary artery. Catheter redirected to the LCA. Multiple views taken of left coronary artery. Catheter removed over the exchange J wire. 6 micronesian XB 3 guide catheter was inserted over the exchange J wire. Runthrough guidewire was advanced through the guide catheter to LAD. A 2nd Runthrough guidewire was advanced through the guide catheter to lesion in the prox Circ. Inflation number : 1 A AB TREK 2.50X12 RX BALLOON was prepped and advanced across the Prox CX , then inflated to 8 TAYA for 0:06 seconds. Inflation number: 2 The AB TREK 2.50X12 RX BALLOON was reinflated across the Prox CX, to 12 TAYA for 0:11 seconds. Inflation number: 3 The AB TREK 2.50X12 RX BALLOON was reinflated across the Prox CX, to 18 TAYA for 0:11 seconds. Inflation number: 4 The AB TREK 2.50X12 RX BALLOON was reinflated across the Prox CX, to 14 TAYA for 0:07 seconds. Inflation number: 5 The AB TREK 2.50X12 RX BALLOON was reinflated across the Prox CX, to 14 TAYA for 0:07 seconds. Inflation number: 6 The AB TREK 2.50X12 RX BALLOON was reinflated across the Prox CX, to 14 TAYA for 0:13 seconds. Balloon out. Inflation Number : 7 A GIL Howard MARIPOSA 3.0X15 RICH -Lot Number# [id number] Exp. was prepped and advanced across the Prox CX. The stent was deployed at 12 TAYA for 0:13 seconds. Stent balloon and wire out. Inflation number : 8 A GIL RICE EUPHORA RX [id number] BALLOON was prepped and advanced across the Prox CX , then inflated to 14 TAYA for 0:12 seconds. Inflation number: 9 The MDT NC EUPHORA RX [id number] BALLOON was reinflated across the Prox CX, to 14 TAYA for 0:11 seconds. Inflation number: 10 The MDT NC EUPHORA RX [id number] BALLOON was reinflated across the Prox CX, to 14 TAYA for 0:13 seconds. Balloon out. Results checked. Wire out. ACT drawn. Results 390 seconds. Therapeutic limits - pre-heparin administration 90-150 seconds and monitoring heparin during a vascular procedure >250 seconds. Guide catheter out over the exchange J wire. Dr. Newman scrubbed out. A TR Band was successful obtaining hemostatsis at the Right Radial artery insertion site. Post Procedure: Pulses reassessed and unchanged. PERRLA. Strong, equal hand cinnamon grinder bilaterally. No VTE prophylaxis required. Medication's Wasted: Lidocaine 1% = 18 mL. Medication's Wasted: Nitro = 49.75 mg. Medication's Wasted: Other = Fentanyl 75 mcg. Total IV fluids: 75 mL. Post-op diagnosis: Severe Prox CX disease S/P one RICH. Complications: none. Estimated blood loss: 5mL-10mL. Responsiveness - Normal response to verbal stimuli; alert and oriented, PERRLA. Airway - Unaffected, no intervention required; spontaneous ventilation. Circulation: W/N/L, pulses unchanged. Nausea/Vomiting: No. Procedure completed. Patient transferred by wheelchair to CPRU. Vital chart was stopped. Access Site Site: Right Radial artery Sheath Size: 6 Fr Hemostasis Method: TR Band Hemostasis Success: Successful Procedure Medications Start: 10:49 AM Stop: 10:49 AM Medication: Versed Amount: 1 mg Route: I.V. Start: 10:49 AM Stop: 10:49 AM Medication: Fentanyl Amount: 50 mcg Route: I.V. Start: 10:51 AM Stop: 10:51 AM Medication: Versed Amount: 1 mg Route: I.V. Start: 10:52 AM Stop: 10:52 AM Medication: Fentanyl Amount: 25 mcg Route: I.V. Start: 10:55 AM Stop: 10:55 AM Medication: Nitrogylcerin Amount: 50 mcg Route: S.Q. Start: 10:57 AM Stop: 10:57 AM Medication: Nitrogylcerin Amount: 200 mcg Route: I.A. Start: 11:01 AM Stop: 11:01 AM Medication: Heparin Amount: 5000 units Route: I.V. Start: 11:05 AM Stop: 11:05 AM Medication: Heparin Amount: 4000 units Route: I.V. Start: 11:10 AM Stop: 11:10 AM Medication: Versed Amount: 1 mg Route: I.V. Start: 11:10 AM Stop: 11:10 AM Medication: Fentanyl Amount: 25 mcg Route: I.V. Start: 11:09 AM Stop: 11:09 AM Medication: Plavix Amount: 600 mg Route: P.O. Start: 11:17 AM Stop: 11:17 AM Medication: Versed Amount: 1 mg Route: I.V. Start: 11:22 AM Stop: 11:22 AM Medication: Fentanyl Amount: 25 mcg Route: I.V. I, the attending physician, have reviewed and verified all procedure medications. Yes, all medications given per verbal order History/Risk Factors Hypertension: Yes Dyslipidemia: No Peripheral Arterial Disease (PAD): No Myocardial Infarction (CO): No Obesity: Yes Renal Disease: No Tobacco Use: Current/Recent(w/in 1 year) Prior Interventions PCI: No CABG: No Valve Surgery: No Report Signatures Finalized by Beatrice Newman MD on 07/09/2024 11:49 AM
--- NOTE | 2024-07-09 10:45 | W.PM.OPSUD ---
Surgery/Procedure H&P Update DATE OF PROCEDURE: July 09, 2024 DATE H&P PERFORMED: 07/02/24 H&P UPDATE INFORMATION: I have reviewed H&P completed within last 30 days, I have examined patient prior to procedure and No changes to prior documentation PREOP DIAGNOSIS: Chest pain/unstable angina PLANNED PROCEDURE: Operation Date: 07/09/24 10:00 Proposed Procedures p Cardiac Catheterization - C w/wo Lv & Coros(Left) - Beatrice Newman MD PATIENT REASSESSED PRIOR TO SEDATION, WITH NO CHANGE NOTED: Yes PHYSICAL EXAM: alert, oriented x 3, clear to auscultation bilaterally, regular rate & rhythm and operative site marked AIRWAY EVAL/ANESTHESIA PLAN: ASA II, Risks, benefits & alternatives of sedation and/or procedure discussed and Patient agrees to continue as planned ADDITIONAL INFORMATION: Patient has been explained all risk-benefit and alternative for the procedure patient understand 2% risk of stroke major bleed, patient understands explained risk of infection hematoma contrast-induced nephropathy urgent emergent vascular bypass surgery. Patient agrees to it.
[2024-07-09] MEDS: sodium chloride 0.9% 1,000 ML 100 ML IV (11:45)
[2024-07-09] MEDS: hyDRALAzine 20 mg/mL INJ 1 mL 10 MG IVP (11:50)
[2024-07-09] MEDS: amlodipine 10 mg Tablet PO (12:58)
[2024-07-09] MEDS: metoprolol succinate ER (24 HR) 25 mg Tablet 12.5 MG PO (13:00)
[2024-07-09] MEDS: FUROsemide 10 mg/mL SDV 4mL 40 MG IVP (13:24)
--- NOTE | 2024-07-09 13:26 | PC.NURSE ---
Patient c/o SOB and chronic headaches. Called Dr. Newman and was given order for lasix 40 mg IVP once and to give PRN hydrocodone for headache. Orders read back and verified.
[2024-07-09] MEDS: HYDROcodone-acetaminophen 5-325 mg Tablet 1 TAB PO (13:40)
[2024-07-09] MEDS: atorvastatin 40 mg Tablet 20 MG PO (17:40)
[2024-07-09] MEDS: topiramate 100 mg Tablet PO (17:41)
[2024-07-09] MEDS: ranolazine (12HR) 500 mg Tablet PO (17:41)
[2024-07-09] MEDS: acetaminophen 325 mg Tablet 650 MG PO (19:47)
[2024-07-09] MEDS: atorvastatin 40 mg Tablet 80 MG PO (21:10)
[2024-07-09] MEDS: temazepam 15 mg Capsule PO (21:10)
[2024-07-09] MEDS: tizanidine 4 mg Tablet PO (21:10)
[2024-07-09] MEDS: losartan 50 mg Tablet 100 MG PO (21:11)
[2024-07-09] MEDS: albuterol 2.5 MG/0.5 ML NEB INHALATION (21:46)
[2024-07-10 02:00] VITALS: PULSE 64; RESP 18; O2SAT 96
[2024-07-10 02:46] LABS: Basophils # 0.1 10^3/uL (0.0-0.1); Basophils % 0.8 %; Eosinophils # 0.3 10^3/uL (0.0-0.8); Eosinophils % 2.7 %; Hematocrit 39.6 % (36-47); Lymphocytes # 2.4 10^3/uL (0.8-4.8); Lymphocytes % 22.3 %; Mean Corpuscular HGB Conc 33.3 g/dL (30-55); Mean Corpuscular Hemoglobin 29.5 pg (27-33); Mean Corpuscular Volume 88.6 fl (85-98); Monocytes # 1.1 10^3/uL (0.2-0.9); Monocytes % 9.9 %; Neutrophils # 6.73 10^3/uL (1.8-7.7); Neutrophils % 63.8 %; Nucleated Red Blood Cells % 0 %; Platelet Count 322 10^3/cmm (157-399); Red Blood Count 4.47 10^6/uL (3.85-5.65); Red Cell Distribution Width 12.2 % (12.1-15.1); White Blood Count 10.56 10^3/uL (3.29-11.43)
[2024-07-10 03:18] LABS: Anion Gap 15.8 (5-19); Blood Urea Nitrogen 20 mg/dL (8-23); Carbon Dioxide 24 mmol/L (22-29); Chloride 104 mmol/L (98-107); Creatinine Clr Calc Pharmacy 57.0167; Glomerular Filtration Rate 45.8 mL/min (90-130); Glucose 100 mg/dL (65-115); Osmolality Calculated 293 mOsm/kg (285-295); Potassium 3.8 mmol/L (3.5-5.1); Sodium 140 mmol/L (136-145)
[2024-07-10] MEDS: albuterol 2.5 MG/0.5 ML NEB INHALATION ×2 (03:23→07:34)
[2024-07-10 04:15] VITALS: BP 116/46; PULSE 60; RESP 15; TEMP 36.6; O2SAT 95
[2024-07-10 07:36] VITALS: PULSE 71; RESP 16; O2SAT 100
--- NOTE | 2024-07-10 07:36 | ECG_ITS ---
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 Measurements Intervals [place] Rate: 68 P: 47 NE: 164 QRS: 66 QRSD: 93 T: 12 QT: 411 QTc: 438 Interpretive Statements SINUS RHYTHM Compared to ECG 04/02/2024 10:21:34 No significant changes Electronically Signed On 07-10-2024 17:43:04 CDT by Dawit Walls M.D. [email or web address]
[2024-07-10 07:44] VITALS: PULSE 78; O2SAT 95
[2024-07-10] MEDS: alum-mag-hydroxide-sime 30 mL UDC PO (07:44)
[2024-07-10] MEDS: nitroglycerin 0.4 mg sublingual Tablet SUBLINGUAL (08:05)
--- NOTE | 2024-07-10 08:05 | PC.NURSE ---
nitro sublingual given for chest pain. EKG performed - which showed NSR. Patient was also given Maalox because originally she thought it might be gastrointestinal pain.
[2024-07-10] MEDS: ARIPiprazole 2 mg Tablet PO (08:07)
[2024-07-10] MEDS: metoprolol succinate ER (24 HR) 25 mg Tablet 12.5 MG PO (08:07)
[2024-07-10] MEDS: topiramate 100 mg Tablet PO (08:08)
[2024-07-10] MEDS: ranolazine (12HR) 500 mg Tablet PO (08:08)
[2024-07-10] MEDS: fluoxetine 20 mg Capsule 40 MG PO (08:08)
[2024-07-10] MEDS: aspirin 81 mg EC Tablet PO (08:08)
[2024-07-10] MEDS: amlodipine 10 mg Tablet PO (08:08)
[2024-07-10] MEDS: ezetimibe 10 mg Tablet PO (08:08)
[2024-07-10] MEDS: clopidogrel 75 mg Tablet PO (08:08)
[2024-07-10] MEDS: hyDROXYzine 25 mg Capsule PO (08:08)
[2024-07-10 08:38] VITALS: BP 141/54; PULSE 87; RESP 14; TEMP 36.9; O2SAT 93
[2024-07-10] MEDS: isosorbide mononitrate ER 30 mg Tablet PO (09:53)
--- NOTE | 2024-07-10 10:46 | P.DS_ITS ---
<Statement entered by Beatrice Newman MD - 07/10/24 20:55> Patient was evaluated and cared for in conjunction with an advanced practice practitioner. I personally examined the patient and reviewed the chart and all pertinent data including imaging, telemetry, and laboratory results. I discussed the patient in detail with the advanced practice practitioner. Please see their note for complete H&P testing result and agreed upon plan of care for the patient. Discharge Providers Date of Admission: 07/09/2024 Date of Discharge: July 10, 2024 Attending Provider at Admission: Beatrice Newman MD Attending Provider at Discharge: Beatrice Newman MD Primary Care Provider: Samanta Kapoor DO Reason for Visit Reason for Visit: R079 Brief History: 58-year-old female past medical history significant up with hypertension hyperlipidemia strong family's of coronary disease TIA migraines continues tobacco abuse now vaping presenting with worsening of shortness of breath and chest pressure upon [id number] exertion. Patient was brought in for coronary angiogram today due to continued episodes of nocturnal chest pain relieved by nitroglycerin. Hospital Course Hospital Course Coronary angiogram yesterday showed significant stenosis of the left circumflex treated with RICH x 1. She had an episode of chest pain overnight, with no changes in her EKG, again relieved by nitroglycerin. She was then started on long-acting nitrate, and has not had any chest pain since. She did develop a small hematoma at the right radial site, has some mild swelling in the right hand this morning. Right radial pulse easily palpable, no pain noted. Physical Exam Const: COMMON NORMALS: no acute distress and patient oriented x3 GENERAL APPEARANCE: cooperative ORIENTATION/CONSCIOUSNESS: Yes awake, Yes oriented to person, Yes oriented to place and Yes oriented to time Chest: COMMONS NORMALS: normal inspection of the chest and normal palpation of entire chest wall CHEST: Yes Symmetrical chest wall rise Resp: COMMON NORMALS: normal respiratory effort, No retractions, No use of accessory muscles and clear to auscultation bilaterally AUSCULTATION: clear to auscultation bilaterally Cardio: COMMON NORMALS: regular rate, regular rhythm, S1 normal heart sound present, S2 normal heart sound present, No gallops present (Cardio), No clicks present (Cardio) and No rub (Cardio) RATE: regular rate RHYTHM: regular rhythm HEART SOUNDS: S1 normal heart sound present, S2 normal heart sound present and Murmur heart sound present systolic Intensity: II/ PERIPHERAL PULSES: radial pulses present positive right 2+ and femoral pulses present positive right 2+ Neuro: COMMON NORMALS: patient oriented x3 and moves all extremities SENSORIUM/ORIENTATION: Yes oriented to person, Yes oriented to place and Yes oriented to time Skin: WOUNDS: Yes surgical site (Small hematoma right radial site) Details: no odor Discharge Data Studies Completed and Pending Completed Studies During Hospitalization Category Date Time 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 Routine Exams 07/09/24 09:00 Completed Laboratory Results WBC 10.56 10^3/uL (3.29-11.43) 07/10/24 02:32 RBC 4.47 10^6/uL (3.85-5.65) 07/10/24 02:32 Hgb 13.20 g/dL (11.27-16.99) 07/10/24 02:32 Hct 39.6 % (36-47) 07/10/24 02:32 MCV 88.6 fl (85-98) 07/10/24 02:32 MCH 29.5 pg (27-33) 07/10/24 02:32 MCHC 33.3 g/dL (30-55) 07/10/24 02:32 RDW 12.2 % (12.1-15.1) 07/10/24 02:32 Plt Count 322 10^3/cmm (157-399) 07/10/24 02:32 MPV 9.0 fL (7.4-10.4) 07/10/24 02:32 Neut % (Auto) 63.8 % 07/10/24 02:32 Lymph % (Auto) 22.3 % 07/10/24 02:32 [place] % (Auto) 9.9 % 07/10/24 02:32 Eos % (Auto) 2.7 % 07/10/24 02:32 Baso % (Auto) 0.8 % 07/10/24 02:32 Neut # (Auto) 6.73 10^3/uL (1.8-7.7) 07/10/24 02:32 Lymph # (Auto) 2.4 10^3/uL (0.8-4.8) 07/10/24 02:32 [place] # (Auto) 1.1 10^3/uL (0.2-0.9) H 07/10/24 02:32 Eos # (Auto) 0.3 10^3/uL (0.0-0.8) 07/10/24 02:32 Baso # (Auto) 0.1 10^3/uL (0.0-0.1) 07/10/24 02:32 Nucleated RBC % (auto) 0 % 07/10/24 02:32 Nucleated RBCs # 0.0 /100WBC 07/10/24 02:32 Sodium 140 mmol/L (136-145) 07/10/24 02:32 Potassium 3.8 mmol/L (3.5-5.1) 07/10/24 02:32 Chloride 104 mmol/L (98-107) 07/10/24 02:32 Carbon Dioxide 24 mmol/L (22-29) 07/10/24 02:32 Anion Gap 15.8 (5-19) 07/10/24 02:32 BUN 20 mg/dL (8-23) 07/10/24 02:32 Creatinine 1.2 mg/dL (0.5-0.9) H 07/10/24 02:32 GFR Calculation 45.8 mL/min (90-130) L 07/10/24 02:32 Glucose 100 mg/dL (65-115) 07/10/24 02:32 Calculated Osmolality 293 mOsm/kg (285-295) 07/10/24 02:32 Calcium 9.0 mg/dL (8.5-10.5) 07/10/24 02:32 Vitals Last Vital Signs Temp 98.4 F 07/10/24 08:38 Pulse 87 07/10/24 08:38 Resp 14 07/10/24 08:38 BP 141/54 07/10/24 08:38 Pulse Ox 93 07/10/24 08:38 O2 Del Method Room Air 07/10/24 08:38 O2 Flow Rate 2 07/10/24 07:36 Discharge Plan Discharge Patient Disposition: Home Prescriptions: New furosemide 20 mg tablet 20 mg PO DAILY Qty: 30 3RF atorvastatin [Lipitor] 40 mg tablet 40 mg PO DAILY Qty: 30 3RF Discontinued simvastatin 40 mg tablet 40 mg PO QPM No Action metoprolol succinate 25 mg tablet extended release 24 hr 12.5 mg PO DAILY Qty: 45 1RF fluoxetine [Prozac] 40 mg capsule 40 mg PO DAILY ezetimibe [Zetia] 10 mg tablet 10 mg PO DAILY isosorbide mononitrate 30 mg tablet extended release 24 hr 30 mg PO DAILY Qty: 90 3RF nitroglycerin 0.4 mg tablet, sublingual 0.4 mg sublingual Q5M PRN (Reason: chest pain) Qty: 25 2RF Rx Instructions: do not exceed 3 doses per episode rizatriptan 10 mg tablet See Rx Instructions .ROUTE .COMPLEX Qty: 9 1RF Dose Instruction: TAKE 1 TAB AT ONSET OF HEADACHE IF NO RELIEF MAY REPEAT 1 TAB AFTER AT LEAST 2 HRS MAX3 TABS/24 HRS Rx Instructions: TAKE 1 TAB AT ONSET OF HEADACHE IF NO RELIEF MAY REPEAT 1 TAB AFTER AT LEAST 2 HRS MAX3 TABS/24 HRS ranolazine 500 mg tablet extended release 12 hr 500 mg PO BID Qty: 180 3RF losartan 100 mg tablet 100 mg PO BEDTIME tizanidine 4 mg tablet 4 mg PO BEDTIME albuterol sulfate 2.5 mg /3 mL (0.083 %) solution for nebulization 2.5 mg continuous nebulization Q6H Rybelsus 14 mg tablet 14 mg PO DAILY tizanidine 4 mg tablet 4 mg PO Q6H PRN (Reason: muscle spasticity) Qty: 20 0RF Rx Instructions: do not exceed 3 doses per 24 hrs albuterol sulfate 90 mcg/actuation Hfa Aerosol Inhaler 2 puff INHALATION 6XD PRN (Reason: Shortness Of Breath Or Wheezing) amlodipine 10 mg tablet 10 mg PO DAILY hydroxyzine HCl 25 mg tablet 25 mg PO DAILY topiramate 100 mg tablet 100 mg PO BID aripiprazole 2 mg tablet 2 mg PO DAILY Discharge Orders: Discharge Order (Routine); Ordered 07/10/24 Ordered By: Sandra Hernandez Referrals: Maria Teresa Parada NP [Nurse Practitioner, Cardiology] - 07/17/24 2:00 pm Diet: Advance as tolerated Activity: Resume usual activity Patient Instructions: Coronary Angioplasty (DC) Activity Restrictions/Additional Instructions: No lifting, pushing or pulling with the right arm for 1 week. If the swelling in the right hand gets worse, call our office. Please elevate the right hand on a pillow when seated for the next 2 days. Monitor for oozing or bleeding from the right radial access site. If noted, hold pressure on the site with your fingers. If it continues to bleed, call 911. Print Language: Croatian Discharge Attestations Time Spent in Discharge Care*: less than 30 min Quality Metrics Clinical Quality Measures [ No reported AMI, CVA or VTE this stay] Coding Level of Care Code Acute Code for Rasheeda Tasha
== END 2024-07-10 11:33 | disposition home or self-care (01) ==
LOC: CCL 08:19 → CSU 14:45
PROVIDERS: PCP Family Medicine; Visit Provider Internal Medicine Cardiovascular Disease
DX: I25.10 Atherosclerotic heart disease of native coronary artery without angina pectoris (principal); I10 Essential (primary) hypertension; E66.9 Obesity, unspecified; Z68.41 Body mass index [BMI] 40.0-44.9, adult; G47.33 Obstructive sleep apnea (adult) (pediatric); I71.9 Aortic aneurysm of unspecified site, without rupture; R01.1 Cardiac murmur, unspecified; Z82.49 Family history of ischemic heart disease and other diseases of the circulatory system; F17.290 Nicotine dependence, other tobacco product, uncomplicated; M79.81 Nontraumatic hematoma of soft tissue; E78.5 Hyperlipidemia, unspecified
CPT/HCPCS: 36415; 80048; 85025; 85347; 93005; 93454; 94640; 96374; 96376; 99152; 99153; C1725; C1769; C1874; C1887; C1894; C9600; J0360; J1644; J1938; J1940; J2250; J3010; J3490; J7030; J7611; J9999; Q0163; Q9967

== ENCOUNTER 2024-07-14 12:38 | Inpatient (IN) | payer BC, SELFPAY ==
[2024-07-14] VITALS (7 sets, daily range): BP systolic 128–183; BP diastolic 58–75; PULSE 81–94; RESP 16–24; TEMP 36.5–36.9; O2SAT 91–98; BMI 40.0; BMI 41.6
--- NOTE | 2024-07-14 12:38 | ECG_ITS ---
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 Measurements Intervals [place] Rate: 86 P: 62 FL: 154 QRS: 75 QRSD: 94 T: 55 QT: 381 QTc: 457 Interpretive Statements SINUS RHYTHM NONSPECIFIC ST & T-WAVE ABNORMALITY Compared to ECG 07/10/2024 07:39:55 T-wave abnormality now present Electronically Signed On 07-14-2024 21:08:59 CDT by Dawit Walls M.D. [email or web address]
--- NOTE | 2024-07-14 12:38 | XRR_ITS ---
PROCEDURE INFORMATION: Exam: XR Chest Exam date and time: 07/14/2024 1:06 PM Age: 59 years old Clinical indication: Pain; Chest pressure; Prior surgery; Surgery date: 3-7 days post-operative; Surgery type: Cardiac stent; Additional info: Cp TECHNIQUE: Imaging protocol: Radiologic exam of the chest. Views: 1 view. COMPARISON: CR XR chest 1V portable [id number] 04/02/2024 8:27 AM FINDINGS: Lungs: Streaky opacities at the lung bases, likely secondary to atelectasis and/or scarring. No consolidation. Pleural spaces: Unremarkable. No pleural effusion. No pneumothorax. Heart/Mediastinum: Unremarkable. No cardiomegaly. Bones/joints: No acute osseous abnormality. Mild degenerative changes. XR/XR chest 1V portable [id number] IMPRESSION: No acute radiographic findings.
--- NOTE | 2024-07-14 12:48 | PC.NURSE ---
PATIENT STATES ALSO TAKES PLAVIX.
--- NOTE | 2024-07-14 12:49 | USR_ITS ---
PROCEDURE INFORMATION: Exam: US Duplex Lower Extremity Veins, Bilateral Exam date and time: 07/14/2024 1:39 PM Age: 59 years old Clinical indication: Pain; Leg, lower; Bilateral; Additional info: Bilateral lower extremity pain and swelling. TECHNIQUE: Imaging protocol: Real-time duplex ultrasound of the bilateral extremities with 2-D hernandez scale, color Doppler flow and spectral waveform analysis including responses to compression and other maneuvers (when performed) with image documentation. Complete exam focused on the lower extremity veins. COMPARISON: CT angio abd aorta runof [id number] 05/31/2024 11:24 AM FINDINGS: Right deep veins: Unremarkable. The common femoral, femoral, proximal profunda femoral, popliteal, posterior tibial and peroneal veins are patent without thrombus. Normal Doppler waveforms. Normal compressibility and/or augmentation response. Left deep veins: Unremarkable. The common femoral, femoral, proximal profunda femoral, popliteal, posterior tibial and peroneal veins are patent without thrombus. Normal Doppler waveforms. Normal compressibility and/or augmentation response. Superficial veins: Greater saphenous veins at the saphenofemoral junctions are patent bilaterally without thrombus. Soft tissues: Unremarkable. US/[place] [id number] IMPRESSION: No sonographic evidence of deep venous thrombosis.
--- NOTE | 2024-07-14 12:53 | W.ED.CHESTPA ---
HPI - Chest Pain General: Chief Complaint: Chest Pain Stated Complaint: chest pain Time Seen by Provider: 07/14/24 12:47 History of Present Illness: 59-year-old female with a history of obesity, hypertension and hyperlipidemia and recently diagnosed coronary artery disease with a stent placed on Monday during an outpatient cardiac catheterization who presents to the emergency room with chest pain and lower extremity swelling. This started over the last couple days is a feels like a spasm in her central chest. She has been taking some nitro to relieve the pain. No increased work of breathing. No altered mental status. No fevers. No cough. She had a drug-eluting stent to the left circumflex. Related Data Home Medications ?Medication ?Instructions ?Recorded ?Confirmed tizanidine 4 mg tablet 4 mg PO BEDTIME 04/19/19 07/14/24 losartan 100 mg tablet 100 mg PO BEDTIME 04/05/21 07/14/24 fluoxetine 40 mg capsule (Prozac) 40 mg PO DAILY 06/11/23 07/14/24 amlodipine 10 mg tablet 10 mg PO DAILY 04/02/24 07/14/24 aripiprazole 2 mg tablet 2 mg PO DAILY 04/02/24 07/14/24 hydroxyzine HCl 25 mg tablet 25 mg PO BEDTIME PRN Sleep 04/02/24 07/14/24 topiramate 100 mg tablet 100 mg PO BID 04/02/24 07/14/24 albuterol sulfate 2.5 mg/3 mL 2.5 mg continuous nebulization Q6H 06/04/24 07/14/24 (0.083 %) solution for nebulization PRN Shortness Of Breath ezetimibe 10 mg tablet (Zetia) 10 mg PO QPM 07/02/24 07/14/24 albuterol sulfate 90 mcg/actuation 2 puff inhalation 6XD PRN 07/08/24 07/14/24 aerosol inhaler Shortness Of Breath Or Wheezing atorvastatin 40 mg tablet (Lipitor) 40 mg PO QPM 07/14/24 07/14/24 fluticasone propionate 50 2 spray intranasal DAILY PRN 07/14/24 07/14/24 mcg/actuation nasal allergies spray,suspension meloxicam 15 mg tablet 15 mg PO DAILY PRN Pain 07/14/24 07/14/24 promethazine 25 mg tablet 25 mg PO TID PRN Nausea And 07/14/24 07/14/24 Vomiting tizanidine 4 mg tablet 4 mg PO Q12H PRN muscle spasticity 07/14/24 07/14/24 Previous Rx's ?Medication ?Instructions ?Recorded rizatriptan 10 mg tablet See Rx Instructions .Route 11/15/21 .COMPLEX #9 tabs metoprolol succinate 25 mg 12.5 mg (1/2 x 25 mg) PO DAILY #45 12/25/23 tablet,extended release 24 hr tabs ranolazine 500 mg tablet,extended 500 mg PO BID #180 tabs 05/24/24 release,12 hr isosorbide mononitrate 30 mg 30 mg PO DAILY #90 tabs 07/02/24 tablet,extended release 24 hr nitroglycerin 0.4 mg sublingual 0.4 mg sublingual Q5M PRN chest 07/02/24 tablet pain #25 tabs clopidogrel 75 mg tablet 75 mg PO DAILY #90 tabs 07/10/24 furosemide 20 mg tablet 20 mg PO DAILY #30 tabs 07/10/24 Allergies Allergy/AdvReac Type Severity Reaction Status Date / Time cephalexin (From Keflex) Allergy ADR-Itching Verified 07/09/24 08:56 ciprofloxacin (From Cipro) Allergy ALGY-Difficulty Verified 07/09/24 08:56 Breathing erythromycin base Allergy ALGY-Difficulty Verified 07/09/24 08:56 Breathing Penicillins Allergy ALGY-Difficulty Verified 07/09/24 08:56 Breathing Review of Systems Narrative: Constitutional symptoms: Negative except as documented in HPI. Skin symptoms: Negative except as documented in HPI. Eye symptoms: Negative except as documented in HPI. ENMT symptoms: Negative except as documented in HPI. Respiratory symptoms: Negative except as documented in HPI. Cardiovascular symptoms: Negative except as documented in HPI. Gastrointestinal symptoms: Negative except as documented in HPI. Genitourinary symptoms: Negative except as documented in HPI. Musculoskeletal symptoms: Negative except as documented in HPI. Neurologic symptoms: Negative except as documented in HPI. Psychiatric symptoms: Negative except as documented in HPI. Endocrine symptoms: Negative except as documented in HPI. [facility] ED PFSH: Medical History Heart murmur, systolic Obstructive sleep apnea Chronic migraine without aura, intractable, with status migrainosus Social History Smoking and tobacco/nicotine status: current every day tobacco/nicotine user (vaping) Alcohol intake: never Physical Exam Narrative: EXAM NARRATIVE: General: Alert, no acute distress. Skin: Warm, dry. Head: Normocephalic, atraumatic. Neck: Supple, trachea midline. Eye: Extraocular movements are intact. Ears, nose, mouth and throat: mucosa moist. Cardiovascular: Regular, Normal peripheral perfusion. Respiratory: Lungs are clear to auscultation, respirations are non-labored, breath sounds are equal, Symmetrical chest wall expansion. Gastrointestinal: Soft, Nontender, Non distended Musculoskeletal: Normal ROM, no deformity. Neurological: Alert and oriented, No focal neurological deficit observed. Psychiatric: Cooperative, appropriate mood & affect. Course Vital Signs: Vital signs: Vital Signs Temperature 98.5 F 07/14/24 12:40 Pulse Rate 85 07/14/24 14:24 Respiratory Rate 17 07/14/24 14:24 Blood Pressure 128/58 07/14/24 14:24 Pulse Oximetry 93 07/14/24 14:24 Oxygen Delivery Me thod Room Air 07/14/24 12:40 MDM - Chest Pain Medical Decision Making Differential diagnosis for patient with chest pain includes but is not limited to and based on the above HPI, review of systems and physical exam: Pneumonia. unstable angina. angina. Acute coronary syndrome / DC. Pulmonary embolism. Costochondritis / musculoskeletal. Pleurisy. Pericarditis. Esophageal spasm. Pancreatis. Cholecystitis. Orders placed to evaluate differential diagnosis based on the above differential, HPI and physical exam Chest x-ray: No acute process. No infiltrate. No pneumothorax. This was reviewed and interpreted by myself the emergency room physician. I also reviewed the radiology report. Ultrasound of the lower extremities: No DVT. This was reviewed and interpreted by myself the emergency room physician. I also reviewed the radiology report. Lab Review: Laboratory results were reviewed and interpreted by myself the emergency room physician. No leukocytosis. No anemia. No renal failure. Initial troponin is 13. proBNP is mildly elevated at 165. D-dimer is negative. I reviewed the patient's medical record. Reviewed discharge summary after cardiac catheterization Consultation: I spoke with Dr. Newman who had The patient. He recommends admission and consultation to Dr. Walls who is on-call for inpatient cardiology at this time. Also recommends echo. Consultation: I spoke with Dr. Walls who is on-call for cardiology. He will evaluate the patient. Reexamination: Patient remained stable. No increased work of breathing. No altered mental status. No focal motor deficits. Consultation: I spoke with Dr. Lopez who is on-call for the hospitalist service who agrees to admission Assessment and plan: Chest pain Edema Coronary artery disease ?Echocardiogram ordered out of the emergency room. -I discussed the patient with the hospitalist on-call who is admitting the patient. - Discussed findings and plan with patient. Answered any questions. - All laboratory values were reviewed and interpreted personally by myself, the ER physician - All imaging was reviewed and interpreted personally by myself, the ER physician. - Evaluation and treatment of this problem were appropriate in the emergency setting Lab Data 07/14/24 12:54 07/14/24 12:54 Radiology Impressions Chest X-Ray 07/14/24 12:38 IMPRESSION: No acute radiographic findings. Venous Duplex 07/14/24 12:49 IMPRESSION: No sonographic evidence of deep venous thrombosis. Laboratory Results WBC 10.64 10^3/uL (3.29-11.43) 07/14/24 12:54 RBC 4.35 10^6/uL (3.85-5.65) 07/14/24 12:54 Hgb 12.70 g/dL (11.27-16.99) 07/14/24 12:54 Hct 38.1 % (36-47) 07/14/24 12:54 MCV 87.6 fl (85-98) 07/14/24 12:54 MCH 29.2 pg (27-33) 07/14/24 12:54 MCHC 33.3 g/dL (30-55) 07/14/24 12:54 RDW 12.1 % (12.1-15.1) 07/14/24 12:54 Plt Count 343 10^3/cmm (157-399) 07/14/24 12:54 MPV 9.1 fL (7.4-10.4) 07/14/24 12:54 Neut % (Auto) 68.4 % 07/14/24 12:54 Lymph % (Auto) 20.5 % 07/14/24 12:54 [place] % (Auto) 7.4 % 07/14/24 12:54 Eos % (Auto) 2.4 % 07/14/24 12:54 Baso % (Auto) 0.8 % 07/14/24 12:54 Neut # (Auto) 7.27 10^3/uL (1.8-7.7) 07/14/24 12:54 Lymph # (Auto) 2.2 10^3/uL (0.8-4.8) 07/14/24 12:54 [place] # (Auto) 0.8 10^3/uL (0.2-0.9) 07/14/24 12:54 Eos # (Auto) 0.3 10^3/uL (0.0-0.8) 07/14/24 12:54 Baso # (Auto) 0.1 10^3/uL (0.0-0.1) 07/14/24 12:54 Nucleated RBC % (auto) 0 % 07/14/24 12:54 Nucleated RBCs # 0.0 /100WBC 07/14/24 12:54 D-Dimer 0.42 ug/mLFEU (0-0.59) 07/14/24 12:54 Sodium 140 mmol/L (136-145) 07/14/24 12:54 Potassium 3.3 mmol/L (3.5-5.1) L 07/14/24 12:54 Chloride 106 mmol/L (98-107) 07/14/24 12:54 Carbon Dioxide 22 mmol/L (22-29) 07/14/24 12:54 Anion Gap 15.3 (5-19) 07/14/24 12:54 BUN 16 mg/dL (8-23) 07/14/24 12:54 Creatinine 1.0 mg/dL (0.5-0.9) H 07/14/24 12:54 GFR Calculation 56.6 mL/min (90-130) L 07/14/24 12:54 Glucose 111 mg/dL (65-115) 07/14/24 12:54 Calculated Osmolality 292 mOsm/kg (285-295) 07/14/24 12:54 Calcium 8.7 mg/dL (8.5-10.5) 07/14/24 12:54 Total Bilirubin 0.5 mg/dL (0.15-1.2) 07/14/24 12:54 AST 21 U/L (0-32) 07/14/24 12:54 ALT 23 U/L (0-33) 07/14/24 12:54 Alkaline Phosphatase 99 U/L (35-105) 07/14/24 12:54 Troponin T Baseline 13 ng/L (0-10) H 07/14/24 12:54 NT-Pro-B Natriuret Pep 165 pg/mL (0-125) H 07/14/24 12:54 Total Protein 6.5 g/dL (6.6-8.7) L 07/14/24 12:54 Albumin 4.4 g/dL (3.5-5.2) 07/14/24 12:54 Globulin 2.1 g/dL (1.3-4.6) 07/14/24 12:54 Lipase 40 U/L (13-60) 07/14/24 12:54 All radiology interpretation(s) finalized by discharge Discharge Plan Discharge Patient Disposition: Placed in Observation Clinical Impression: Chest pain, Coronary artery disease, Edema Coding Level of Care Code 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
[2024-07-14 12:59] LABS: Basophils # 0.1 10^3/uL (0.0-0.1); Basophils % 0.8 %; Eosinophils # 0.3 10^3/uL (0.0-0.8); Eosinophils % 2.4 %; Hematocrit 38.1 % (36-47); Lymphocytes # 2.2 10^3/uL (0.8-4.8); Lymphocytes % 20.5 %; Mean Corpuscular HGB Conc 33.3 g/dL (30-55); Mean Corpuscular Hemoglobin 29.2 pg (27-33); Mean Corpuscular Volume 87.6 fl (85-98); Mean Platelet Volume 9.1 fL (7.4-10.4); Monocytes # 0.8 10^3/uL (0.2-0.9); Monocytes % 7.4 %; Neutrophils # 7.27 10^3/uL (1.8-7.7); Neutrophils % 68.4 %; Nucleated Red Blood Cells % 0 %; Platelet Count 343 10^3/cmm (157-399); Red Blood Count 4.35 10^6/uL (3.85-5.65); Red Cell Distribution Width 12.1 % (12.1-15.1); White Blood Count 10.64 10^3/uL (3.29-11.43)
[2024-07-14 13:13] LABS: D Dimer 0.42 ug/mLFEU (0-0.59)
[2024-07-14 13:20] LABS: Troponin(5th) Baseline 13 ng/L (0-10)
[2024-07-14 13:22] LABS: Alanine Aminotransferase 23 U/L (0-33); Albumin Level 4.4 g/dL (3.5-5.2); Alkaline Phosphatase 99 U/L (35-105); Anion Gap 15.3 (5-19); Aspartate Amino Transferase 21 U/L (0-32); Blood Urea Nitrogen 16 mg/dL (8-23); Calcium 8.7 mg/dL (8.5-10.5); Carbon Dioxide 22 mmol/L (22-29); Chloride 106 mmol/L (98-107); Creatinine Clr Calc Pharmacy 68.4201; Globulin 2.1 g/dL (1.3-4.6); Glomerular Filtration Rate 56.6 mL/min (90-130); Glucose 111 mg/dL (65-115); Lipase 40 U/L (13-60); Osmolality Calculated 292 mOsm/kg (285-295); Potassium 3.3 mmol/L (3.5-5.1); Sodium 140 mmol/L (136-145); Total Bilirubin 0.5 mg/dL (0.15-1.2); Total Protein 6.5 g/dL (6.6-8.7)
[2024-07-14 13:37] LABS: NT Pro B Type Natriuretic Pept 165 pg/mL (0-125)
--- NOTE | 2024-07-14 13:59 | USCV_ITS ---
Paramjit Rosenda Age: 59 Gender: F : 1965 Exam Date: 07/14/2024 15:09 Ordering Phys: Deb Dowling MD Technologist: BUBBA [place] [facility] [place]: new onset edema BP: 128 / 58 HR: 83 Rhythm: Sinus Technical Quality: Adequate MEASUREMENTS (Male / Female) Normal Values 2D ECHO LV Diastolic Diameter PLAX 4.6 cm 4.2 - 5.9 / 3.9 - 5.3 cm IVS Diastolic Thickness 1.3 cm 0.6 - 1.0 / 0.6 - 0.9 cm IVS Systolic Thickness 1.8 cm LVPW Diastolic Thickness 1.4 cm 0.6 - 1.0 / 0.6 - 0.9 cm LVPW Systolic Thickness 2.3 cm LVOT Diameter 2.1 cm LV Ejection Fraction 2D Teich 79.2 % LV Ejection Fraction MOD 4C 75.3 % LV Ejection Fraction MOD 2C 79.2 % LV Ejection Fraction 2C AL 79.9 % LA Diameter 3.1 cm RA Systolic Volume 4C AL 29.9 ml RA Systolic Volume 4C MOD 30.2 ml LA Sys Volume AL 38.2 cm cubed LA Sys Volume Index AL 17.4 cm cubed/m squared Aorta at Sinotubular Diameter 1.8 cm IVC Diameter 1.6 cm M-MODE LA Ao Ratio MM 1.8 AV Cusp Separation MM 1.7 cm DOPPLER AV Peak Velocity 285.7 cm/s LVOT Peak Velocity 147.0 cm/s AV Area Cont Eq vti 2.0 cm squared AV Area Cont Eq pk 1.9 cm squared MV Peak Velocity 121.0 cm/s MV Area PHT 4.2 cm squared Mitral E to A Ratio 0.8 TR Peak Velocity 205.0 cm/s TR Peak Gradient 16.8 mmHg TR Mean Velocity 180.0 cm/s TR Mean Gradient 13.1 mmHg TR Velocity Time Integral 51.9 cm PV Peak Velocity 162.0 cm/s RV Ejection Time 0.3 s FINDINGS Left Ventricle Normal left ventricular size and systolic function, EF 79%.no regional wall motion abnormalities. Right Ventricle The right ventricle is normal in size and function. Right Atrium The right atrium is normal in size. Left Atrium The left atrium is normal in size. Mitral Valve Mild mitral annular calcification. Aortic Valve Mild aortic valve stenosis, with a valve area of 2 cm squared. Peak velocity of 2.9 m/s with a peak gradient of 34 and a mean gradient of 18 mmHg. Tricuspid Valve No gross abnormalities noted Pulmonic Valve No gross abnormalities noted Pericardium Normal pericardium without effusion. Aorta Normal ascending aorta dimension. IVC Normal inferior vena cava. CONCLUSIONS Normal left ventricular size and systolic function, EF 79%.no regional wall motion abnormalities. Mild aortic valve stenosis, with a valve area of 2 cm squared. Peak velocity of 2.9 m/s with a peak gradient of 34 and a mean gradient of 18 mmHg. Mild mitral annular calcification. There is no pericardial effusion. There are no intracardiac masses. Compared to the study from 04/19/2024, there may not be a significant change Dr Dawit Walls MD FACC (Electronically Signed) Final Date: 14 Jul 2024 17:42 S
--- NOTE | 2024-07-14 14:41 | ECG_ITS ---
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 Measurements Intervals [place] Rate: 75 P: 53 [place]: 165 QRS: 72 QRSD: 98 T: 52 QT: 410 QTc: 461 Interpretive Statements SINUS RHYTHM NONSPECIFIC ST & T-WAVE ABNORMALITY Compared to ECG 07/14/2024 12:42:07 No significant changes Electronically Signed On 07-14-2024 21:20:20 CDT by Dawit Walls M.D. [email or web address]
[2024-07-14 14:55] LABS: Troponin 5 2HR 12.18 ng/L (0-10)
[2024-07-14 14:57] LABS: Troponin 5 2HR Delta -0.82 ABS# (0-10)
--- NOTE | 2024-07-14 15:04 | P.HP_ITS ---
Providers/Chief Complaint 2 Primary Care Provider: Samanta Kapoor DO Chief Complaint: chest pain History of Present Illness Rosenda Yusuf is a 59 year old female With past medical history of CAD status post PCI times stent to circumflex, hypertension, chronic migraine, obstructive sleep apnea, current smoker, history of right medial malleolus fracture 2023, COPD presented to the hospital today for complaint of chest pain. She had an outpatient coronary angiogram performed on 07/09 and was discharged home. There was a stent placed to the circumflex. She states nitro has been relieving the pain. Denies shortness of breath fever cough. She does complain of bilateral lower extremity swelling. She says ever since she had the angiogram she has been feeling a chest tightness and feeling of suffocation. She hold her chest with a fist. Denies it being a pressure. She states it is more of a spasm/tightness. Denies diaphoresis or nausea associated with it. Has been reporting some shortness of breath as well. Exertion slightly worsens it. Nitro does somewhat relieve it. Medications/Allergies Home Medications ?Medication ?Instructions ?Recorded ?Confirmed ?Last Taken ?Type tizanidine 4 mg tablet 4 mg PO BEDTIME 04/19/1901/2807/13/24 History losartan 100 mg tablet 100 mg PO BEDTIME 04/05/21 0 07/14/24 07/13/24 History rizatriptan 10 mg tablet See Rx Instructions .Route 0 11/15/21 07/14/24 07/08/24 21:00 Rx .COMPLEX #9 tabs fluoxetine 40 mg capsule (Prozac) 40 mg PO DAILY 06/1007/14/24 07/14/24 History metoprolol succinate 25 mg 12.5 mg (1/2 x 25 mg) PO DA IRVING #45 12/25/23 07/14/24 07/14/24 Rx tablet,extended release 24 hr tabs amlodipine 10 mg tablet 10 mg PO DAILY 04/02/2407/0407/14/24 History aripiprazole 2 mg tablet 2 mg PO DAILY 04/02/2407/1407/14/24 History hydroxyzine HCl 25 mg tablet 25 mg PO BEDTIME PRN Slee p 04/02/24 07/14/24 07/08/24 21:00 History topiramate 100 mg tablet 100 mg PO BID 04/02/2407/1407/14/24 History ranolazine 500 mg tablet,extended 500 mg PO BID #180 t abs 05/24/24 07/14/24 07/14/24 Rx release,12 hr albuterol sulfate 2.5 mg/3 mL 2.5 mg continuous nebuli zation Q6H 06/04/24 07/14/24 07/08/24 21:00 History (0.083 %) solution for nebulization PRN Shortness Of B reath ezetimibe 10 mg tablet (Zetia) 10 mg PO QPM 07/02/24 0 07/14/24 07/13/24 History isosorbide mononitrate 30 mg 30 mg PO DAILY #90 tabs 0 07/02/24 07/14/24 07/14/24 Rx tablet,extended release 24 hr nitroglycerin 0.4 mg sublingual 0.4 mg sublingual Q5M PRN chest 07/02/24 07/14/24 Unknown Rx tablet pain #25 tabs albuterol sulfate 90 mcg/actuation 2 puff inhalation 6 XD PRN 07/08/24 07/14/24 Unknown History aerosol inhaler Shortness Of Breath Or Wheez ing clopidogrel 75 mg tablet 75 mg PO DAILY #90 tabs 05/0 09/2707/14/24 07/14/24 Rx furosemide 20 mg tablet 20 mg PO DAILY #30 tabs 05/0 09/2707/14/24 07/14/24 Rx atorvastatin 40 mg tablet (Lipitor) 40 mg PO QPM 07/1407/14/24 07/13/24 History fluticasone propionate 50 2 spray intranasal DAILY PRN 07/14/24 07/14/24 Unknown History mcg/actuation nasal allergies spray,suspension meloxicam 15 mg tablet 15 mg PO DAILY PRN Pain 07/0407/14/24 Unknown History promethazine 25 mg tablet 25 mg PO TID PRN Nausea And 07/14/24 07/14/24 Unknown History Vomiting tizanidine 4 mg tablet 4 mg PO Q12H PRN muscle spas ticity 07/14/24 07/14/24 Unknown History Allergies Allergy/AdvReac Type Severity Reaction Status Date / Time cephalexin (From Keflex) Allergy ADR-Itching Verified 07/09/24 08:56 ciprofloxacin (From Cipro) Allergy ALGY-Difficulty Verified 07/09/24 08:56 Breathing erythromycin base Allergy ALGY-Difficulty Verified 07/09/24 08:56 Breathing Penicillins Allergy ALGY-Difficulty Verified 07/09/24 08:56 Breathing PFSH Acute 2 PFSH: Medical History Heart murmur, systolic Obstructive sleep apnea Chronic migraine without aura, intractable, with status migrainosus Social History Smoking and tobacco/nicotine status: current every day tobacco/nicotine user (vaping) Alcohol intake: never Vitals/I&O/Wt Last Vital Signs Temp 98.5 F 07/14/24 12:40 Pulse 85 07/14/24 14:24 Resp 17 07/14/24 14:24 BP 128/58 07/14/24 14:24 Pulse Ox 93 07/14/24 14:24 O2 Del Method Room Air 07/14/24 12:40 Weight last 48 hrs Weight 102.512 kg Physical Exam 2 Narrative: General: Alert oriented x3, patient seen in ER, HEENT: Normocephalic, atraumatic, EOMI, breathing room air Cardio: Regular rate rhythm, normal S1-S2, Respiratory: Good bilateral air entry, no wheezes no rhonchi appreciated GI: Abdomen soft, nontender, nondistended, bowel sounds + Behavior: Appropriate and cooperative Extremities: 1-2+ b/l LE Data 07/14/24 12:54 07/14/24 12:54 A&P Assessment and plan (1) Chest pain: (2) Coronary artery disease: (3) Chronic migraine without aura, intractable, with status migrainosus: (4) Shortness of breath: (5) Edema: (6) Diastolic heart failure: (7) Stented coronary artery: (8) Hypokalemia: Plan #Chest pain/tightness/spasm, possibly unstable angina # Bilateral lower extremity edema #Acute on chronic diastolic heart failure #CAD status post PCI with stent to circumflex 07/09/2024 #Hypertension #Chronic migraines #Obstructive sleep apnea #Current smoker #COPD ? Continue patient on ranolazine, Plavix, atorvastatin, I do not see aspirin on home medications however patient states that she has been taking baby aspirin off the counter. She has been compliant with aspirin and Plavix. - Recheck echo - Last echo apr 2024: normal EF, diastolic dysfunction present - start lasix 40 iv daily - Continue imdur, fluoxetine 40 daily - Start heparin drip - continue losartan, amlodipine, atorvastatin - Continue topiramate - consult cardiology - Order potassium 40 x1 - trop 02.20. will anticoagulate. discussed with cardiology - keep npo tonscotty incase of angiogram planned, talked with mail handler equipment operator - I believe patient's symptoms may be due to early pulmonary edema. I will place on Lasix 40 IV twice daily for diuresis. She does have bilateral lower extremity edema up to knees. ? BNP 165. However patient is obese and this may be falsely low. ? Will await further input by mail handler equipment operator. ? Repeat echo Full Code Dvt ppx: on heparin drip PDMP PDMP Reviewed: Not Reviewed Attestations 2 Medical Necessity Statement*: chest pain, > 2 midnight stay for HF exacerbation and unstable angina Diagnoses Chest pain R07.9 Coronary artery disease I25.10 Chronic migraine without aura, intractable, with status migrainosus G43.711 Shortness of breath R06.02 Edema R60.9 Diastolic heart failure I50.30 Stented coronary artery Z95.5 Hypokalemia E87.6
[2024-07-14 16:29] LABS: Estmated Average Glucose 111; Hemoglobin A1C 5.5 % (4.0-6.0)
[2024-07-14] MEDS: heparin 5,000 unit/mL INJ 1 mL IVP (16:36)
[2024-07-14] MEDS: heparin drip 25,000 UNIT/500 ML PREMIX 28 UNIT IV (16:40)
--- NOTE | 2024-07-14 17:53 | PC.NURSE ---
pt admitted in to room 112-2 from er via w/c at 1735.report received.pt is alert and oriented x 4.sr on monitor.denies chest pain of sob at present.oriented to room environment.instructed to notify staff for any chest pain,sob,or for any concerns at all.pt verb understanding of instructions
--- NOTE | 2024-07-14 19:06 | PM.CONSULT ---
Providers/Reason For Consult Consulting Physician/Specialty*: DAVID Walls MD/cardiology Reason for Consult*: Patient with recent PCI, presenting with a peripheral edema Requesting Physician: Dr. Lopez Attending Physician: Annemarie Lopez MD Primary Care Provider: Samanta Kapoor DO History of Present Illness History of Present Illness Rosenda Yusuf is a 59 year old female, is admitted to the hospital to the emergency room where she presented with complaints of chest pain and leg swelling. This patient had a recent PCI of the circumflex artery by Dr. Newman. This patient has a history of hypertension, dyslipidemia , glucose intolerance and smoking abuse. She presented with unstable angina symptoms. Underwent a cardiac sensation by Dr. Pop on 07/09/2024. She was found to have a high-grade lesion in the proximal circumflex artery for which he underwent primary stenting. She had an uneventful postprocedure course. However she was complaining of some chest discomfort/chest pain, following the procedure. She was started on long-acting nitrates. She did not have any more chest pain during the hospital stay. But according the patient, at home she started having chest pain/spasms at home with no rhyme or reason. She was using sublingual nitro on a as needed basis. According the patient, there is no significant improvement of the symptoms. She also been noticing more swelling in the lower extremities. The time of previous hospital discharge, she was taken off the simvastatin and is was placed on Lipitor. She also was started on Lasix 20 mg p.o. daily. Denies any fever or chills. No cough. No similar shortness of breath. No abdominal pain or dysuria. No other specific complaints. Review of Systems Narrative: CONSTITUTIONAL: No fever or chills. EYES: No blurring of vision or other visual disturbances lately. ENT: No hoarseness of voice, auditory disturbances or sore throat. CARDIOVASCULAR: As mentioned above. RESPIRATORY: No significant cough. GASTROINTESTINAL: No hematemesis or melena. GENITOURINARY: No dysuria or hematuria. INTEGUMENTARY: No skin rashes or history of skin cancer. NEURO: No transient ischemic attacks or amaurosis. PSYCHIATRIC: No history of psychosis or major depression. HEMATOLOGIC: No bleeding disorders or significant anemia. ENDOCRINE: No history of polyuria or polydipsia. MUSCULOSKELETAL: Bilateral lower extremity edema ALLERGY/IMMUNOLOGY: As mentioned above. Medications/Allergies Home Medications ?Medication ?Instructions ?Recorded ?Confirmed ?Last Taken ?Type tizanidine 4 mg tablet 4 mg PO BEDTIME 04/19/19 07/14/24 07/13/24 History losartan 100 mg tablet 100 mg PO BEDTIME 04/05/21 07/14/24 07/13/24 History rizatriptan 10 mg tablet See Rx Instructions .Route 11/15/21 07/14/24 07/08/24 21:00 Rx .COMPLEX #9 tabs fluoxetine 40 mg capsule (Prozac) 40 mg PO DAILY 06/11/23 07/14/24 07/14/24 History metoprolol succinate 25 mg 12.5 mg (1/2 x 25 mg) PO DAILY #45 12/25/23 07/14/24 07/14/24 Rx tablet,extended release 24 hr tabs amlodipine 10 mg tablet 10 mg PO DAILY 04/02/24 07/14/24 07/14/24 History aripiprazole 2 mg tablet 2 mg PO DAILY 04/02/24 07/14/24 07/14/24 History hydroxyzine HCl 25 mg tablet 25 mg PO BEDTIME PRN Sleep 04/02/24 07/14/24 07/08/24 21:00 History topiramate 100 mg tablet 100 mg PO BID 04/02/24 07/14/24 07/14/24 History ranolazine 500 mg tablet,extended 500 mg PO BID #180 tabs 05/24/24 07/14/24 07/14/24 Rx release,12 hr albuterol sulfate 2.5 mg/3 mL 2.5 mg continuous nebulization Q6H 06/04/24 07/14/24 07/08/24 21:00 History (0.083 %) solution for nebulization PRN Shortness Of Breath ezetimibe 10 mg tablet (Zetia) 10 mg PO QPM 07/02/24 07/14/24 07/13/24 History isosorbide mononitrate 30 mg 30 mg PO DAILY #90 tabs 07/02/24 07/14/24 07/14/24 Rx tablet,extended release 24 hr nitroglycerin 0.4 mg sublingual 0.4 mg sublingual Q5M PRN chest 07/02/24 07/14/24 Unknown Rx tablet pain #25 tabs albuterol sulfate 90 mcg/actuation 2 puff inhalation 6XD PRN 07/08/24 07/14/24 Unknown History aerosol inhaler Shortness Of Breath Or Wheezing clopidogrel 75 mg tablet 75 mg PO DAILY #90 tabs 07/10/24 07/14/24 07/14/24 Rx furosemide 20 mg tablet 20 mg PO DAILY #30 tabs 07/10/24 07/14/24 07/14/24 Rx atorvastatin 40 mg tablet (Lipitor) 40 mg PO QPM 07/14/24 07/14/24 07/13/24 History fluticasone propionate 50 2 spray intranasal DAILY PRN 07/14/24 07/14/24 Unknown History mcg/actuation nasal allergies spray,suspension meloxicam 15 mg tablet 15 mg PO DAILY PRN Pain 07/14/24 07/14/24 Unknown History promethazine 25 mg tablet 25 mg PO TID PRN Nausea And 07/14/24 07/14/24 Unknown History Vomiting tizanidine 4 mg tablet 4 mg PO Q12H PRN muscle spasticity 07/14/24 07/14/24 Unknown History Allergies Allergy/AdvReac Type Severity Reaction Status Date / Time cephalexin (From Keflex) Allergy ADR-Itching Verified 07/09/24 08:56 ciprofloxacin (From Cipro) Allergy ALGY-Difficulty Verified 07/09/24 08:56 Breathing erythromycin base Allergy ALGY-Difficulty Verified 07/09/24 08:56 Breathing Penicillins Allergy ALGY-Difficulty Verified 07/09/24 08:56 Breathing Current Medications Generic Name Dose Route Start Last Admin Trade Name Freq PRN Reason Stop Dose Admin Heparin Sodium/Sodium Chloride 25,000 unit in 500 mls @ 0 mls/hr 07/14/24 16:15 07/14/24 16:40 Heparin Drip IV 13.66 unit/kg/hr CONT NAHOMY 28 mls/hr Protocol Administration Per Protocol PFSH Acute PFSH: Medical History Aortic aneurysm Heart murmur, systolic Obstructive sleep apnea Chronic migraine without aura, intractable, with status migrainosus Social History Smoking and tobacco/nicotine status: current every day tobacco/nicotine user (vaping) Alcohol intake: never Vitals/I&O/Wt Last Vital Signs Temp 98.5 F 07/14/24 12:40 Pulse 82 07/14/24 17:28 Resp 24 H 07/14/24 16:11 BP 160/75 07/14/24 17:28 Pulse Ox 94 07/14/24 17:28 O2 Del Method Room Air 07/14/24 17:48 Weight last 48 hrs Weight 235 lb 2 oz Weight 226 lb Physical Exam Narrative: GENERAL: The patient is alert and oriented times three. Not in any acute distress. HEENT: No significant pallor, icterus or lymphadenopathy.Oral cavity: There are no mucous membrane lesions. NECK: Trachea appears to be central. No masses noted. No JVD or thyromegaly appreciated. RESPIRATORY: Chest is symmetrical. No intercostals muscle retraction or any accessory muscle activation. There is no chest wall tenderness. Breath sounds are heard bilaterally. No rales or rhonchi heard. No evidence of any consolidation. BREASTS: Deferred. HEART: The heart sounds are normal. No S3 or S4. Ejection systolic murmur grade 3/6 in the aortic area. No diastolic murmurs.. No pericardial rub ABDOMEN: No vessel pulsations or distention. No tenderness. No organomegaly appreciated. Bowel sounds are normally heard. : Deferred. RECTAL: Deferred. LYMPHATIC: No lymphadenopathy noted in the neck. EXTREMITIES: 2+ edema both lower extremities with no cyanosis. MUSCULOSKELETAL: No acute joint deformities or swelling SKIN: There are no significant rashes or ecchymosis NEUROPSYCHIATRIC: The patient is alert and oriented x3. Appears to be in a good mood. No tremors or rigidity noted. Data 07/15/24 06:18 07/15/24 06:18 Other Labs: Laboratory Last Values WBC 10.64 10^3/uL (3.29-11.43) 07/14/24 12:54 RBC 4.35 10^6/uL (3.85-5.65) 07/14/24 12:54 Hgb 12.70 g/dL (11.27-16.99) 07/14/24 12:54 Hct 38.1 % (36-47) 07/14/24 12:54 MCV 87.6 fl (85-98) 07/14/24 12:54 MCH 29.2 pg (27-33) 07/14/24 12:54 MCHC 33.3 g/dL (30-55) 07/14/24 12:54 RDW 12.1 % (12.1-15.1) 07/14/24 12:54 Plt Count 343 10^3/cmm (157-399) 07/14/24 12:54 MPV 9.1 fL (7.4-10.4) 07/14/24 12:54 Neut % (Auto) 68.4 % 07/14/24 12:54 Lymph % (Auto) 20.5 % 07/14/24 12:54 Tama % (Auto) 7.4 % 07/14/24 12:54 Eos % (Auto) 2.4 % 07/14/24 12:54 Baso % (Auto) 0.8 % 07/14/24 12:54 Neut # (Auto) 7.27 10^3/uL (1.8-7.7) 07/14/24 12:54 Lymph # (Auto) 2.2 10^3/uL (0.8-4.8) 07/14/24 12:54 Tama # (Auto) 0.8 10^3/uL (0.2-0.9) 07/14/24 12:54 Eos # (Auto) 0.3 10^3/uL (0.0-0.8) 07/14/24 12:54 Baso # (Auto) 0.1 10^3/uL (0.0-0.1) 07/14/24 12:54 Nucleated RBC % (auto) 0 % 07/14/24 12:54 Nucleated RBCs # 0.0 /100WBC 07/14/24 12:54 D-Dimer 0.42 ug/mLFEU (0-0.59) 07/14/24 12:54 Sodium 140 mmol/L (136-145) 07/14/24 12:54 Potassium 3.3 mmol/L (3.5-5.1) L 07/14/24 12:54 Chloride 106 mmol/L (98-107) 07/14/24 12:54 Carbon Dioxide 22 mmol/L (22-29) 07/14/24 12:54 Anion Gap 15.3 (5-19) 07/14/24 12:54 BUN 16 mg/dL (8-23) 07/14/24 12:54 Creatinine 1.0 mg/dL (0.5-0.9) H 07/14/24 12:54 GFR Calculation 56.6 mL/min (90-130) L 07/14/24 12:54 Glucose 111 mg/dL (65-115) 07/14/24 12:54 Estimat Average Glucose 111 07/14/24 12:54 Hemoglobin A1c 5.5 % (4.0-6.0) 07/14/24 12:54 Calculated Osmolality 292 mOsm/kg (285-295) 07/14/24 12:54 Calcium 8.7 mg/dL (8.5-10.5) 07/14/24 12:54 Total Bilirubin 0.5 mg/dL (0.15-1.2) 07/14/24 12:54 AST 21 U/L (0-32) 07/14/24 12:54 ALT 23 U/L (0-33) 07/14/24 12:54 Alkaline Phosphatase 99 U/L (35-105) 07/14/24 12:54 Troponin T Baseline 13 ng/L (0-10) H 07/14/24 12:54 Troponin T 120 Minute 12.18 ng/L (0-10) H 07/14/24 14:29 Delta Troponin T -0.82 ABS# (0-10) L 07/14/24 14:29 NT-Pro-B Natriuret Pep 165 pg/mL (0-125) H 07/14/24 12:54 Total Protein 6.5 g/dL (6.6-8.7) L 07/14/24 12:54 Albumin 4.4 g/dL (3.5-5.2) 07/14/24 12:54 Globulin 2.1 g/dL (1.3-4.6) 07/14/24 12:54 Lipase 40 U/L (13-60) 07/14/24 12:54 Other data: Echocardiogram today Normal left ventricular size and systolic function, EF 79%.no regional wall motion abnormalities. Mild aortic valve stenosis, with a valve area of 2 cm squared. Peak velocity of 2.9 m/s with a peak gradient of 34 and a mean gradient of 18 mmHg. Mild mitral annular calcification. There is no pericardial effusion. There are no intracardiac masses. Compared to the study from 04/19/2024, there may not be a significant change Categorization on 07/09/2024 Left Anterior Descending has luminal irregularity. * Right Coronary Artery has luminal irregularity. * Left Main has no disease. * Proximal Circumflex: severe 90% stenosis, BENJI: 3 flow. * Coronary angiography shows right dominance. PCI Status: Elective PCI Indication: New Onset Angina <= 2 months Interventional Findings * Proximal Circumflex: 90% stenosis treated with a AB TREK 2.50X12 RX BALLOON, GIL Howard MARIPOSA 3.0X15 RICH, and GIL RICE EUPHORA RX [id number] BALLOON. 0% residual stenosis, BENJI: 3 flow. A&P Assessment and plan (1) Atherosclerotic heart disease of [place] coronary artery with other forms of angina pectoris: Patient's chest pain is somewhat atypical. I reviewed the cardiac catheterization data from 07/09/2024. She had the stenting of the proximal circumflex artery. There was jailing of the recurrent atrial branch coming off the stented region. Probably this might be causing the amount of pain. Her EKG shows some nonspecific ST T changes with prolonged QTc. Possibility of stent occlusion cannot be excluded but my clinical suspicion may be low. There is no evidence of myocardial injury. At this point, I may continue the aspirin, Plavix and the nitrates. Increase the isosorbide to 60 mg p.o. daily (2) Hypokalemia: This needs to be corrected. (3) Aortic valve stenosis: This appears to be mild based on echocardiogram. At this point, patient may not require any specific intervention. (4) Leg edema: The etiology is unclear. She has no evidence of any thromboembolism. D-dimer is within normal limits. The venous duplex of the lower extremities revealed no evidence of any DVT. Her GFR is low. She also is on amlodipine. So this could be a combination of all of these. At this point, I may treat her carefully with diuretics. If there is no improvement, may need to discontinue the amlodipine. There is a borderline elevation of BNP. I may discontinue the p.o. Lasix. Started her on IV Lasix 40 mg every 8 hours x 3 along with potassium 20 mg p.o. every 6 hours x 4 (5) Benign hypertension: The blood pressures are stage II. Try to optimize the antihypertensive medications. Plan The other problems are Overweight Dyslipidemia History of TIA Check TSH level Careful IV diuresis. Isosorbide mononitrate 60 mg p.o. daily Based on the the patient's clinical progress and the results of the above tests, further recommendations will be made. Thank you for the opportunity to evaluate this patient and make these recommendations PDMP PDMP Reviewed: Not Reviewed Coding Level of Care Code 66084 Diagnoses Atherosclerotic heart disease of [place] coronary artery with other forms of angina pectoris I25.118 Hypokalemia E87.6 Nonrheumatic aortic valve stenosis I35.0 Cardiac valve disease etiology: nonrheumatic Leg edema R60.0 Benign hypertension I10
[2024-07-14] MEDS: losartan 50 mg Tablet 100 MG PO (20:20)
[2024-07-14] MEDS: atorvastatin 40 mg Tablet PO (20:20)
[2024-07-14] MEDS: ranolazine (12HR) 500 mg Tablet PO (20:21)
[2024-07-14] MEDS: topiramate 100 mg Tablet PO (20:21)
[2024-07-14] MEDS: potassium chloride ER 20 mEq Tablet 40 MEQ PO (20:21)
[2024-07-14] MEDS: FUROsemide 10 mg/mL SDV 4mL 40 MG IVP (20:22)
[2024-07-14 20:44] LABS: Thyroid Stimulating Hormone 2.06 uIU/mL (0.27-4.20)
[2024-07-14] MEDS: isosorbide mononitrate ER 60 mg Tablet PO (20:48)
[2024-07-14] MEDS: temazepam 15 mg Capsule PO (23:10)
[2024-07-15] VITALS (61 sets, daily range): BP systolic 124–160; BP diastolic 52–87; PULSE 69–90; RESP 18–20; TEMP 36.2–36.6; O2SAT 91–97
[2024-07-15 00:34] LABS: Partial Thromboplastin Time 94.3 SECONDS (23.9-36.7)
[2024-07-15 06:45] LABS: Basophils # 0.1 10^3/uL (0.0-0.1); Eosinophils # 0.3 10^3/uL (0.0-0.8); Eosinophils % 3.6 %; Hematocrit 40.7 % (36-47); Lymphocytes # 2.6 10^3/uL (0.8-4.8); Mean Corpuscular HGB Conc 32.9 g/dL (30-55); Mean Corpuscular Hemoglobin 29.9 pg (27-33); Mean Corpuscular Volume 90.8 fl (85-98); Mean Platelet Volume 9.2 fL (7.4-10.4); Monocytes # 0.7 10^3/uL (0.2-0.9); Monocytes % 7.7 %; Neutrophils # 5.46 10^3/uL (1.8-7.7); Neutrophils % 59.3 %; Nucleated Red Blood Cells % 0 %; Platelet Count 345 10^3/cmm (157-399); Red Blood Count 4.48 10^6/uL (3.85-5.65); Red Cell Distribution Width 12.4 % (12.1-15.1); White Blood Count 9.21 10^3/uL (3.29-11.43)
[2024-07-15 06:58] LABS: Partial Thromboplastin Time 67.3 SECONDS (23.9-36.7)
[2024-07-15 07:04] LABS: Alanine Aminotransferase 21 U/L (0-33); Albumin Level 4.2 g/dL (3.5-5.2); Alkaline Phosphatase 96 U/L (35-105); Anion Gap 17.2 (5-19); Aspartate Amino Transferase 20 U/L (0-32); Blood Urea Nitrogen 16 mg/dL (8-23); Calcium 9.5 mg/dL (8.5-10.5); Carbon Dioxide 21 mmol/L (22-29); Chloride 109 mmol/L (98-107); Globulin 2.6 g/dL (1.3-4.6); Glomerular Filtration Rate 63.9 mL/min (90-130); Glucose 116 mg/dL (65-115); Magnesium 2.3 mg/dL (1.7-2.3); Osmolality Calculated 298 mOsm/kg (285-295); Potassium 4.2 mmol/L (3.5-5.1); Sodium 143 mmol/L (136-145); Total Bilirubin 0.5 mg/dL (0.15-1.2); Total Protein 6.8 g/dL (6.6-8.7)
[2024-07-15] MEDS: FUROsemide 10 mg/mL SDV 4mL 40 MG IVP ×2 (08:28→16:06)
[2024-07-15] MEDS: pantoprazole DR 40 mg Tablet PO (08:29)
[2024-07-15] MEDS: topiramate 100 mg Tablet PO ×2 (08:29→17:31)
[2024-07-15] MEDS: ranolazine (12HR) 500 mg Tablet PO ×2 (08:29→17:31)
[2024-07-15] MEDS: fluoxetine 20 mg Capsule 40 MG PO (08:29)
[2024-07-15] MEDS: isosorbide mononitrate ER 60 mg Tablet PO (08:29)
[2024-07-15] MEDS: potassium chloride ER 20 mEq Tablet 40 MEQ PO (08:29)
[2024-07-15] MEDS: aspirin 81 mg EC Tablet PO (08:30)
[2024-07-15] MEDS: amlodipine 10 mg Tablet PO (08:30)
[2024-07-15] MEDS: ARIPiprazole 2 mg Tablet PO (08:30)
[2024-07-15] MEDS: clopidogrel 75 mg Tablet PO (08:30)
[2024-07-15] MEDS: metoprolol succinate ER (24 HR) 25 mg Tablet 12.5 MG PO (08:30)
--- NOTE | 2024-07-15 08:44 | PM.PN ---
Subjective Subjective: 2300 cc urine output overnight. Patient is 1.9 L negative since admission. Subjectively she states she feels better. Has not had another episode of chest tightness or shortness of breath. Currently on heparin drip. No labs on patient this morning. They are pending at this time. Vitals/I&O/Wt Last Vital Signs Temp 97.8 F 07/15/24 04:00 Pulse 69 07/15/24 06:00 Resp 18 07/14/24 20:00 BP 130/52 07/15/24 04:00 Pulse Ox 92 07/15/24 04:00 O2 Del Method Nasal Cannula 07/15/24 04:00 07/14/24 07/15/24 07/15/24 22:59 06:59 14:59 Intake Total 236.6 / 236.6 150.8 / 150.8 Output Total 1949 400 / 2350 Balance -1949 / -1949 -163.4 / -2113.4 150.8 / 150.8 Weight last 48 hrs Weight 107.955 kg Weight 106.651 kg Weight 102.512 kg Physical Exam Narrative: General: Alert oriented x3, patient seen in ER, HEENT: Normocephalic, atraumatic, EOMI, breathing room air Cardio: Regular rate rhythm, normal S1-S2, Respiratory: Good bilateral air entry, no wheezes no rhonchi appreciated GI: Abdomen soft, nontender, nondistended, bowel sounds + Behavior: Appropriate and cooperative Extremities: 2+ bilateral lower extremity edema present. Data 07/15/24 06:18 07/15/24 06:18 A&P Assessment and plan (1) Chest pain: (2) Coronary artery disease: (3) Chronic migraine without aura, intractable, with status migrainosus: (4) Shortness of breath: (5) Edema: (6) Diastolic heart failure: (7) Stented coronary artery: (8) Hypokalemia: Plan #Chest pain/tightness/spasm, possibly unstable angina # Bilateral lower extremity edema #Acute on chronic diastolic heart failure #CAD status post PCI with stent to circumflex 07/09/2024 #Hypertension #Chronic migraines #Obstructive sleep apnea #Current smoker #COPD ? Continue patient on ranolazine, Plavix, atorvastatin, I do not see aspirin on home medications however patient states that she has been taking baby aspirin off the counter. She has been compliant with aspirin and Plavix. - Recheck echo - Last echo apr 2024: normal EF, diastolic dysfunction present - start lasix 40 iv daily - Continue imdur, fluoxetine 40 daily - Start heparin drip - continue losartan, amlodipine, atorvastatin - Continue topiramate - consult cardiology - Order potassium 40 x1 - trop 12, 12.18. will anticoagulate. discussed with cardiology - keep npo tonight incase of angiogram planned, talked with word processing machine operator - I believe patient's symptoms may be due to early pulmonary edema. I will place on Lasix 40 IV twice daily for diuresis. She does have bilateral lower extremity edema up to knees. ? BNP 165. However patient is obese and this may be falsely low. ? Will await further input by word processing machine operator. ? Repeat echo Full Code Dvt ppx: on heparin drip 07/15/2024 Diastolic heart failure exacerbation ? Continue Lasix 40 IV twice daily ? Continue potassium 40 oral daily ? Await labs from this morning and replete electrolytes as needed ? Patient does subjectively feel better and has not had another episode of chest pain. As documented in my note from admission I believe her symptoms may be secondary to heart failure rather than coronary ischemia however that is not ruled out. She has been anticoagulated after discussion with cardiology. ? Will await for further recommendations regarding potential of repeat angiogram. ? Patient n.p.o. since midnight for potential procedure. ? Repeat echo pending ? Continue current treatment as above. -Patient is on 2 L nasal cannula. Wean oxygen off as able. - Will check another BMP at 4 PM PDMP PDMP Reviewed: Not Reviewed Attestations Medical Necessity Statement*: Diastolic heart failure exacerbation, chest pain Diagnoses Chest pain R07.9 Coronary artery disease I25.10 Chronic migraine without aura, intractable, with status migrainosus G43.711 Shortness of breath R06.02 Edema R60.9 Diastolic heart failure I50.30 Stented coronary artery Z95.5 Hypokalemia E87.6
--- NOTE | 2024-07-15 09:05 | PC.CHAP ---
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 [] Patient/Family/Request visit [] Outpatient visit [] Follow-up visit [] Physician referral [] Code/Alert [x] Routine visit [] Staff referral [] Actively dying [] Patient sleeping [] Family support [] [] Out of room [] Palliative care [] [] Receiving care in room [] Pre-surgical visit [] Trauma [] Long length of stay [] ICU visit [] Other: Relational/Emotional Strength [] Patient feels connected with others/family/visitors/staff [] Distress [] Loneliness/isolation [] Abandonment Spirituality of Patient [x] Person of Adry [] Attends Synagogue of their Adry [x] Believes in Prayer [] Reads Bible or Roman Catholic materials [] There are Spiritual issues to be addressed Inspector Health Care Facilities Interventions [x] Prayer [x] Active listening [] Non-anxious presence [] Spiritual/emotional support [] Crisis/trauma care [] Spiritual counseling [] Bereavement support [] Provided bereavement packet [x] Provided Bible/devotional materials [] Provided toy/stuffed animal, coloring book to patient or family member [] Provided Communion [] Anointing/[place] [] Salvation [x] Completed spiritual assessment [] Other: Impact on Illness or Injury [] Angry [] Fearful [] Anxious [] Often cries [] Exhaustion [] Unable to work [] Unable to attend zoroastrianism [] Unable to walk/stand [] Unable to read [] Unable to drive [] Unable to eat/drink [] Unable to sleep [] Unable to be with family [] Patient intubated [] Other: Summary Time spent with patient 5 min
--- NOTE | 2024-07-15 11:29 | P.PN_ITS ---
<Statement entered by Beatrice Newman MD - 07/15/24 20:45> Patient was evaluated and cared for in conjunction with an advanced practice practitioner. I personally examined the patient and reviewed the chart and all pertinent data including imaging, telemetry, and laboratory results. I discussed the patient in detail with the advanced practice practitioner. Please see their note for complete H&P testing result and agreed upon plan of care for the patient. Patient denies any more chest pain after diuresis overall feeling fine from a cardiac perspective GENERAL: Patient is alert, awake and oriented x3. HEART: Regular S1 and S2. No murmur, rub or gallop. LUNGS: Clear to auscultate bilaterally. CENTRAL NERVOUS SYSTEM: Grossly nonfocal. EXTREMITIES: Lower extremities with out edema bilaterally. Assessment and plan Coronary artery disease Acute decompensated diastolic heart failure Hypertension Continue IV Lasix 40 mg twice daily for effective diuresis Replenish potassium and electrolytes Optimize medical management and switch to carvedilol for better blood pressure control and heart failure Once euvolemic May can be discharged home Subjective 2 Subjective: Chest pain is improved overnight seems to be more volume overload related, she diuresed 2 L yesterday. Troponin series: 13->12->10 yesterday. LVEF 79%. Vitals/I&O/Wt Last Vital Signs Temp 97.5 F L 07/15/24 08:00 Pulse 90 07/15/24 08:00 Resp 18 07/15/24 08:00 BP 160/78 07/15/24 08:00 Pulse Ox 97 07/15/24 08:00 O2 Del Method Room Air 07/15/24 08:00 07/14/24 07/15/24 07/15/24 22:59 06:59 14:59 Intake Total 236.6 / 236.6 482.0 / 482.0 Output Total 1950 / 2350 400 / 2350 Balance -1950 / -2113.4 -163.4 / -2113.4 482.0 / 482.0 Weight last 48 hrs Weight 238 lb Weight 235 lb 2 oz Weight 226 lb Physical Exam 2 Const: COMMON NORMALS: no acute distress and patient oriented x3 GENERAL APPEARANCE: cooperative and comfortable ORIENTATION/CONSCIOUSNESS: Yes awake, Yes oriented to person, Yes oriented to place and Yes oriented to time Chest: COMMONS NORMALS: normal inspection of the chest and normal palpation of entire chest wall CHEST: Yes Symmetrical chest wall rise Resp: COMMON NORMALS: normal respiratory effort, No retractions, No use of accessory muscles and clear to auscultation bilaterally EFFORT & INSPECTION: Yes symmetric chest movement AUSCULTATION: clear to auscultation bilaterally Cardio: COMMON NORMALS: regular rate, regular rhythm, S1 normal heart sound present, S2 normal heart sound present, No gallops present (Cardio), No clicks present (Cardio), No murmurs present (Cardio) and No rub (Cardio) RATE: r egular rate RHYTHM: regular rhythm HEART SOUNDS: S1 normal heart sound present and S2 normal heart sound present PERIPHERAL PULSES: radial pulses present Extremity: GENERAL: Yes edema (1+ pitting pedal) Neuro: COMMON NORMALS: patient oriented x3 and moves all extremities S ENSORIUM/ORIENTATION: Yes oriented to person, Yes oriented to place and Yes oriented to time Data 07/15/24 06:18 07/15/24 06:18 A&P Assessment and plan (1) Coronary artery disease: (2) Diastolic heart failure: (3) Chest pain: (4) Benign hypertension: Plan Plan is to continue diuresis today with Lasix 40 IV twice daily. Transition metoprolol to carvedilol for better blood pressure control, add IV hydralazine for systolic blood pressure greater than 160 as needed. Continue losartan 100 mg daily, isosorbide mononitrate 60 mg daily. Continue aspirin, Plavix, atorvastatin, Ranexa. Possible discharge home tomorrow if she diuresis well and symptoms improved. PDMP PDMP Reviewed: Not Reviewed Attestations 2 Medical Necessity Statement*: Per hospitalist Coding Level of Care Code Acute Code for [facility] Fwd Diagnoses Coronary artery disease I25.10 Diastolic heart failure I50.30 Chest pain R07.9 Benign hypertension I10
[2024-07-15] MEDS: acetaminophen 325 mg Tablet 650 MG PO (13:48)
[2024-07-15 16:24] LABS: Blood Urea Nitrogen 16 mg/dL (8-23); Calcium 8.8 mg/dL (8.5-10.5); Carbon Dioxide 24 mmol/L (22-29); Chloride 107 mmol/L (98-107); Creatinine Clr Calc Pharmacy 70.4763; Glomerular Filtration Rate 56.6 mL/min (90-130); Glucose 118 mg/dL (65-115); Osmolality Calculated 298 mOsm/kg (285-295); Sodium 143 mmol/L (136-145)
[2024-07-15 16:26] LABS: Anion Gap 16.2 (5-19); Potassium 4.2 mmol/L (3.5-5.1)
[2024-07-15] MEDS: atorvastatin 40 mg Tablet PO (17:31)
[2024-07-15] MEDS: carvedilol 6.25 mg Tablet PO (17:31)
[2024-07-15] MEDS: losartan 50 mg Tablet 100 MG PO (20:23)
[2024-07-15] MEDS: ketorolac 30 mg/mL INJ IVP (20:24)
[2024-07-15] MEDS: tizanidine 4 mg Tablet PO (23:58)
[2024-07-16] VITALS (67 sets, daily range): BP systolic 79–154; BP diastolic 45–76; PULSE 53–83; RESP 10–17; TEMP 36.5–36.8; O2SAT 95–98
[2024-07-16 03:23] LABS: Basophils # 0.1 10^3/uL (0.0-0.1); Basophils % 0.6 %; Eosinophils # 0.3 10^3/uL (0.0-0.8); Eosinophils % 3.2 %; Hematocrit 36.3 % (36-47); Lymphocytes # 2.5 10^3/uL (0.8-4.8); Lymphocytes % 23.1 %; Mean Corpuscular HGB Conc 32.2 g/dL (30-55); Mean Corpuscular Hemoglobin 28.7 pg (27-33); Mean Platelet Volume 9.1 fL (7.4-10.4); Monocytes # 0.7 10^3/uL (0.2-0.9); Monocytes % 6.3 %; Neutrophils # 7.16 10^3/uL (1.8-7.7); Neutrophils % 66.3 %; Nucleated Red Blood Cells % 0 %; Platelet Count 325 10^3/cmm (157-399); Red Blood Count 4.08 10^6/uL (3.85-5.65); Red Cell Distribution Width 12.2 % (12.1-15.1); White Blood Count 10.78 10^3/uL (3.29-11.43)
[2024-07-16 03:45] LABS: Blood Urea Nitrogen 20 mg/dL (8-23); Calcium 8.2 mg/dL (8.5-10.5); Carbon Dioxide 23 mmol/L (22-29); Chloride 106 mmol/L (98-107); Creatinine Clr Calc Pharmacy 37.0928; Glucose 182 mg/dL (65-115); Osmolality Calculated 297 mOsm/kg (285-295); Sodium 140 mmol/L (136-145)
[2024-07-16 03:48] LABS: Anion Gap 15.1 (5-19); Potassium 4.1 mmol/L (3.5-5.1)
[2024-07-16] MEDS: sodium chloride 0.9% 1,000 ML 75 ML IV (08:02)
[2024-07-16] MEDS: pantoprazole DR 40 mg Tablet PO (08:03)
[2024-07-16] MEDS: isosorbide mononitrate ER 60 mg Tablet PO (08:03)
[2024-07-16] MEDS: topiramate 100 mg Tablet PO ×2 (08:03→17:48)
[2024-07-16] MEDS: carvedilol 6.25 mg Tablet PO ×2 (08:03→17:48)
[2024-07-16] MEDS: fluoxetine 20 mg Capsule 40 MG PO (08:03)
[2024-07-16] MEDS: aspirin 81 mg EC Tablet PO (08:03)
[2024-07-16] MEDS: ranolazine (12HR) 500 mg Tablet PO ×2 (08:03→17:48)
[2024-07-16] MEDS: clopidogrel 75 mg Tablet PO (08:03)
[2024-07-16] MEDS: ARIPiprazole 2 mg Tablet PO (08:04)
[2024-07-16] MEDS: amlodipine 10 mg Tablet PO (08:04)
--- NOTE | 2024-07-16 09:03 | P.PN_ITS ---
<Statement entered by Beatrice Newman MD - 07/16/24 19:18> Patient was evaluated and cared for in conjunction with an advanced practice practitioner. I personally examined the patient and reviewed the chart and all pertinent data including imaging, telemetry, and laboratory results. I discussed the patient in detail with the advanced practice practitioner. Please see their note for complete H&P testing result and agreed upon plan of care for the patient. Subjective 2 Subjective: She is sitting on the side of the bed this morning feeling well. Lower extremity edema has significantly improved. Creatinine increased to 1.9 this morning, suggest to hold Lasix for now. Vitals/I&O/Wt Last Vital Signs Temp 97.7 F 07/16/24 08:00 Pulse 72 07/16/24 08:00 Resp 12 07/16/24 08:00 BP 137/76 07/16/24 08:00 Pulse Ox 98 07/16/24 08:00 O2 Del Method Room Air 07/16/24 08:00 07/15/24 07/16/24 07/16/24 22:59 06:59 14:59 Intake Total 720 / 2042.0 480 / 2042.0 Output Total 500 / 2300 800 / 800 Balance 220 / -258.0 480 / -258.0 -800 / -800 Weight last 48 hrs Weight 236 lb Weight 238 lb Weight 235 lb 2 oz Weight 226 lb Physical Exam 2 Const: COMMON NORMALS: no acute distress and patient oriented x3 GENERAL APPEARANCE: cooperative and comfortable ORIENTATION/CONSCIOUSNESS: Yes awake, Yes oriented to person, Yes oriented to place and Yes oriented to time Chest: COMMONS NORMALS: normal inspection of the chest and normal palpation of entire chest wall CHEST: Yes Symmetrical chest wall rise Resp: COMMON NORMALS: normal respiratory effort, No retractions, No use of accessory muscles and clear to auscultation bilaterally EFFORT & INSPECTION: Yes symmetric chest movement AUSCULTATION: clear to auscultation bilaterally Cardio: COMMON NORMALS: regular rate, regular rhythm, S1 normal heart sound present, S2 normal heart sound present, No gallops present (Cardio), No clicks present (Cardio), No murmurs present (Cardio) and No rub (Cardio) RATE: r egular rate RHYTHM: regular rhythm HEART SOUNDS: S1 normal heart sound present and S2 normal heart sound present PERIPHERAL PULSES: radial pulses present Extremity: COMMON NORMALS: no pedal edema Neuro: COMMON NORMALS: patient oriented x3 and moves all extremities S ENSORIUM/ORIENTATION: Yes oriented to person, Yes oriented to place and Yes oriented to time Data 07/16/24 03:14 07/16/24 03:14 A&P Assessment and plan (1) Diastolic heart failure: (2) Benign hypertension: (3) Coronary artery disease: Plan Shortness of breath and chest pain have resolved. She may discharge home today if okay with hospitalist service. Recommend to recheck BMP in 3 days after discharge, holding Lasix until then. If creatinine has improved to normal she may then start Lasix 40 daily. Continue losartan 100 mg daily, carvedilol 6.25 mg twice a day, atorvastatin, Plavix, Ranexa, aspirin, amlodipine. PDMP PDMP Reviewed: Not Reviewed Attestations 2 Medical Necessity Statement*: Possible discharge today Coding Level of Care Code Acute Code for [facility] Fwd Diagnoses Diastolic heart failure I50.30 Benign hypertension I10 Coronary artery disease I25.10
--- NOTE | 2024-07-16 10:06 | PC.NURSE ---
Provider asked nursing to stop NS at [address] an order for a BMP to be drawn at 1400.
--- NOTE | 2024-07-16 12:40 | P.PN_ITS ---
Subjective 2 Subjective: seen this morning no acute events overnight cr 1,9 today pt 2.6L neg since admission Vitals/I&O/Wt Last Vital Signs Temp 97.7 F 07/16/24 08:00 Pulse 72 07/16/24 08:00 Resp 12 07/16/24 08:00 BP 137/76 07/16/24 08:00 Pulse Ox 98 07/16/24 08:00 O2 Del Method Room Air 07/16/24 08:00 07/15/24 07/16/24 07/16/24 22:59 06:59 14:59 Intake Total 720 / 1562.0 480 / 2042.0 213.75 / 213.75 Output Total 500 / 2000 800 / 800 Balance 220 / -438.0 480 / 42.0 -586.25 / -586.25 Weight last 48 hrs Weight 107.048 kg Weight 107.955 kg Weight 106.651 kg Physical Exam 2 Narrative: General: Alert oriented x3, patient seen in ER, HEENT: Normocephalic, atraumatic, EOMI, breathing room air Cardio: Regular rate rhythm, normal S1-S2, Respiratory: Good bilateral air entry, no wheezes no rhonchi appreciated GI: Abdomen soft, nontender, nondistended, bowel sounds + Behavior: Appropriate and cooperative Extremities: trace bilateral lower extremity edema present. significant improvement Data 07/16/24 03:14 07/16/24 03:14 A&P Assessment and plan (1) Chest pain: (2) Coronary artery disease: (3) Chronic migraine without aura, intractable, with status migrainosus: (4) Shortness of breath: (5) Edema: (6) Diastolic heart failure: (7) Stented coronary artery: (8) Hypokalemia: Plan #Chest pain/tightness/spasm, possibly unstable angina # Bilateral lower extremity edema #Acute on chronic diastolic heart failure #CAD status post PCI with stent to circumflex 07/09/2024 #Hypertension #Chronic migraines #Obstructive sleep apnea #Current smoker #COPD ? Continue patient on ranolazine, Plavix, atorvastatin, I do not see aspirin on home medications however patient states that she has been taking baby aspirin off the counter. She has been compliant with aspirin and Plavix. - Recheck echo - Last echo apr 2024: normal EF, diastolic dysfunction present - start lasix 40 iv daily - Continue imdur, fluoxetine 40 daily - Start heparin drip - continue losartan, amlodipine, atorvastatin - Continue topiramate - consult cardiology - Order potassium 40 x1 - trop 02.20. will anticoagulate. discussed with cardiology - keep npo tonight incase of angiogram planned, talked with loading and unloading supervisor - I believe patient's symptoms may be due to early pulmonary edema. I will place on Lasix 40 IV twice daily for diuresis. She does have bilateral lower extremity edema up to knees. ? BNP 165. However patient is obese and this may be falsely low. ? Will await further input by loading and unloading supervisor. ? Repeat echo Full Code Dvt ppx: on heparin drip 07/15/2024 Diastolic heart failure exacerbation ? Continue Lasix 40 IV twice daily ? Continue potassium 40 oral daily ? Await labs from this morning and replete electrolytes as needed ? Patient does subjectively feel better and has not had another episode of chest pain. As documented in my note from admission I believe her symptoms may be secondary to heart failure rather than coronary ischemia however that is not ruled out. She has been anticoagulated after discussion with cardiology. ? Will await for further recommendations regarding potential of repeat angiogram. ? Patient n.p.o. since midnight for potential procedure. ? Repeat echo pending ? Continue current treatment as above. -Patient is on 2 L nasal cannula. Wean oxygen off as able. - Will check another BMP at 4 PM 07/16/2024 hold further lasix and potassium echo reviewed, no change chest pain improved on room air now cr 1.9 today order NS @ 75 cc/hr for 3 hours then stop fluids rechcek creatinine at 2 pm if creatinine trending down, will consider dc to oupatient setting pt will continue to hold lasix for 3 days, recheck labs and resume lasix if creatinine does not show good downward trend, or trends up, then patient requires further inpatient hospitalization for STERLING discussed with cardiology PDMP PDMP Reviewed: Not Reviewed Attestations 2 Medical Necessity Statement*: STERLING, HF, Diagnoses Chest pain R07.9 Coronary artery disease I25.10 Chronic migraine without aura, intractable, with status migrainosus G43.711 Shortness of breath R06.02 Edema R60.9 Diastolic heart failure I50.30 Stented coronary artery Z95.5 Hypokalemia E87.6
[2024-07-16 14:22] LABS: Anion Gap 14.9 (5-19); Blood Urea Nitrogen 20 mg/dL (8-23); Carbon Dioxide 24 mmol/L (22-29); Chloride 105 mmol/L (98-107); Creatinine Clr Calc Pharmacy 58.4447; Glomerular Filtration Rate 45.8 mL/min (90-130); Glucose 105 mg/dL (65-115); Osmolality Calculated 293 mOsm/kg (285-295); Potassium 3.9 mmol/L (3.5-5.1); Sodium 140 mmol/L (136-145)
--- NOTE | 2024-07-16 16:17 | ECG_ITS ---
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[id number] Requested By: Annemarie Lopez Order Number: [id number] Delfin MD: MISTY CROWLEY Measurements Intervals [place] Rate: 68 P: 37 PA: 163 QRS: 59 QRSD: 85 T: 30 QT: 403 QTc: 432 Interpretive Statements SINUS RHYTHM LOW QRS VOLTAGE IN PRECORDIAL LEADS [QRS DEFLECTION < 1.0 mV IN CHEST LEADS] POSSIBLE RIGHT VENTRICULAR CONDUCTION DELAY [RSR (QR) IN V1/V2] Compared to ECG 07/14/2024 14:41:17 Low QRS voltage now present T-wave abnormality no longer present Electronically Signed On 07-18-2024 23:33:27 CDT by MISTY CROWLEY [email or web address]
--- NOTE | 2024-07-16 16:55 | PC.NURSE ---
Provider is updated that patient was complaining of chest pain/spasms. EKG is done, provider saw and ordered another troponin. Order entered.
[2024-07-16 17:46] LABS: Troponin T (5th) Once < 6 ng/L (0-10)
[2024-07-16] MEDS: atorvastatin 40 mg Tablet PO (17:48)
--- NOTE | 2024-07-16 18:47 | P.DS_ITS ---
Discharge Providers Date of Admission: 07/14/24 14:48 Date of Discharge: July 16, 2024 Attending Provider at Admission: Annemarie Lopez MD Attending Provider at Discharge: Annemarie Lopez MD Primary Care Provider: Samanta Kapoor DO Diagnoses at Discharge Discharge Diagnosis (1) Chest pain: Status: Resolved (2) Coronary artery disease: Status: Acute (3) Chronic migraine without aura, intractable, with status migrainosus: Status: Acute (4) Shortness of breath: Status: Resolved (5) Edema: Status: Resolved (6) Diastolic heart failure: Status: Acute (7) Stented coronary artery: Status: Acute (8) Hypokalemia: Status: Resolved Reason for Visit Reason for Visit: chest pain Hospital Course Hospital Course Patient presented to the hospital with chest pain tightness with bilateral lower extremity edema and was diagnosed with acute on chronic diastolic heart failure. She did have recent stent to circumflex 07/09/2024. She was diuresed in the hospital, cardiology was consulted. Repeat angiogram was not indicated. Patient was advised to hold Lasix at discharge for few days and once creatinine down trended to restart. She did develop STERLING during hospitalization. She was asked to follow-up with cardiology as an outpatient. She was sent home on aspirin Plavix. Med rec was done with cardiology. Physical Exam Narrative: General: Alert oriented x3, patient seen in ER, HEENT: Normocephalic, atraumatic, EOMI, breathing room air Cardio: Regular rate rhythm, normal S1-S2, Respiratory: Good bilateral air entry, no wheezes no rhonchi appreciated GI: Abdomen soft, nontender, nondistended, bowel sounds + Behavior: Appropriate and cooperative Extremities: trace bilateral lower extremity edema present. significant improvement Discharge Data Studies Completed and Pending Completed Studies During Hospitalization Category Date Time Status XR chest 1V portable [id number] Stat Exams 07/14/24 12:38 Completed CV. echo complete* [id number] Stat Ultrasound 07/14/24 13:59 Completed US venous duplex lower extremity bilat [CV venous Ultrasound 07/14/24 12:49 [place] [id number]] Stat Pending at discharge Category Date Time Status Complete Blood Count w/Auto AM LABS Lab 07/17/24 04:00 Ordered Magnesium AM LABS Lab 07/17/24 04:00 Ordered Radiology Impressions Chest X-Ray 07/14/24 12:38 IMPRESSION: No acute radiographic findings. Venous Duplex 07/14/24 12:49 IMPRESSION: No sonographic evidence of deep venous thrombosis. Laboratory Results WBC 10.78 10^3/uL (3.29-11.43) 07/16/24 03:14 RBC 4.08 10^6/uL (3.85-5.65) 07/16/24 03:14 Hgb 11.70 g/dL (11.27-16.99) 07/16/24 03:14 Hct 36.3 % (36-47) 07/16/24 03:14 MCV 89.0 fl (85-98) 07/16/24 03:14 MCH 28.7 pg (27-33) 07/16/24 03:14 MCHC 32.2 g/dL (30-55) 07/16/24 03:14 RDW 12.2 % (12.1-15.1) 07/16/24 03:14 Plt Count 325 10^3/cmm (157-399) 07/16/24 03:14 MPV 9.1 fL (7.4-10.4) 07/16/24 03:14 Neut % (Auto) 66.3 % 07/16/24 03:14 Lymph % (Auto) 23.1 % 07/16/24 03:14 [place] % (Auto) 6.3 % 07/16/24 03:14 Eos % (Auto) 3.2 % 07/16/24 03:14 Baso % (Auto) 0.6 % 07/16/24 03:14 Neut # (Auto) 7.16 10^3/uL (1.8-7.7) 07/16/24 03:14 Lymph # (Auto) 2.5 10^3/uL (0.8-4.8) 07/16/24 03:14 [place] # (Auto) 0.7 10^3/uL (0.2-0.9) 07/16/24 03:14 Eos # (Auto) 0.3 10^3/uL (0.0-0.8) 07/16/24 03:14 Baso # (Auto) 0.1 10^3/uL (0.0-0.1) 07/16/24 03:14 Nucleated RBC % (auto) 0 % 07/16/24 03:14 Nucleated RBCs # 0.0 /100WBC 07/16/24 03:14 APTT 67.3 SECONDS (23.9-36.7) H 07/15/24 06:18 D-Dimer 0.42 ug/mLFEU (0-0.59) 07/14/24 12:54 Sodium 140 mmol/L (136-145) 07/16/24 13:41 Potassium 3.9 mmol/L (3.5-5.1) 07/16/24 13:41 Chloride 105 mmol/L (98-107) 07/16/24 13:41 Carbon Dioxide 24 mmol/L (22-29) 07/16/24 13:41 Anion Gap 14.9 (5-19) 07/16/24 13:41 BUN 20 mg/dL (8-23) 07/16/24 13:41 Creatinine 1.2 mg/dL (0.5-0.9) H 07/16/24 13:41 GFR Calculation 45.8 mL/min (90-130) L 07/16/24 13:41 Glucose 105 mg/dL (65-115) 07/16/24 13:41 Estimat Average Glucose 111 07/14/24 12:54 Hemoglobin A1c 5.5 % (4.0-6.0) 07/14/24 12:54 Calculated Osmolality 293 mOsm/kg (285-295) 07/16/24 13:41 Calcium 9.0 mg/dL (8.5-10.5) 07/16/24 13:41 Magnesium 2.0 mg/dL (1.7-2.3) 07/16/24 03:14 Total Bilirubin 0.5 mg/dL (0.15-1.2) 07/15/24 06:18 AST 20 U/L (0-32) 07/15/24 06:18 ALT 21 U/L (0-33) 07/15/24 06:18 Alkaline Phosphatase 96 U/L (35-105) 07/15/24 06:18 Troponin T 5th Gen ng/L < 6 ng/L (0-10) 07/16/24 17:17 Troponin T Baseline 13 ng/L (0-10) H 07/14/24 12:54 Troponin T 120 Minute 12.18 ng/L (0-10) H 07/14/24 14:29 Delta Troponin T -0.82 ABS# (0-10) L 07/14/24 14:29 Troponin T Hi Sens 6Hr 10.90 ng/L (0-10) H 07/14/24 18:49 Troponin T Hi Sens 6Hr Delta -2.10 ng/L (0-12) L 07/14/24 18:49 NT-Pro-B Natriuret Pep 165 pg/mL (0-125) H 07/14/24 12:54 Total Protein 6.8 g/dL (6.6-8.7) 07/15/24 06:18 Albumin 4.2 g/dL (3.5-5.2) 07/15/24 06:18 Globulin 2.6 g/dL (1.3-4.6) 07/15/24 06:18 Lipase 40 U/L (13-60) 07/14/24 12:54 TSH 2.06 uIU/mL (0.27-4.20) 07/14/24 18:49 Vitals Last Vital Signs Temp 98.2 F 07/16/24 16:00 Pulse 83 07/16/24 16:00 Resp 13 07/16/24 16:00 BP 110/52 07/16/24 16:00 Pulse Ox 96 07/16/24 16:00 O2 Del Method Room Air 07/16/24 08:00 Discharge Plan Discharge Patient Disposition: Home Condition: Stable Prescriptions: New aspirin 81 mg Tablet,Delayed Release (Dr/Ec) 81 mg PO DAILY Qty: 30 0RF isosorbide mononitrate 60 mg Tablet Extended Release 24 Hr 60 mg PO DAILY Qty: 30 0RF potassium chloride [K-Tab] 20 mEq tablet extended release 20 meq PO DAILY Qty: 30 0RF Continued metoprolol succinate 25 mg tablet extended release 24 hr 12.5 mg PO DAILY Qty: 45 1RF fluoxetine [Prozac] 40 mg capsule 40 mg PO DAILY ezetimibe [Zetia] 10 mg tablet 10 mg PO QPM nitroglycerin 0.4 mg tablet, sublingual 0.4 mg sublingual Q5M PRN (Reason: chest pain) Qty: 25 2RF Rx Instructions: do not exceed 3 doses per episode rizatriptan 10 mg tablet See Rx Instructions .ROUTE .COMPLEX Qty: 9 1RF Dose Instruction: TAKE 1 TAB AT ONSET OF HEADACHE IF NO RELIEF MAY REPEAT 1 TAB AFTER AT LEAST 2 HRS MAX3 TABS/24 HRS Rx Instructions: TAKE 1 TAB AT ONSET OF HEADACHE IF NO RELIEF MAY REPEAT 1 TAB AFTER AT LEAST 2 HRS MAX3 TABS/24 HRS ranolazine 500 mg tablet extended release 12 hr 500 mg PO BID Qty: 180 3RF losartan 100 mg tablet 100 mg PO BEDTIME tizanidine 4 mg tablet 4 mg PO BEDTIME albuterol sulfate 2.5 mg /3 mL (0.083 %) solution for nebulization 2.5 mg continuous nebulization Q6H PRN (Reason: Shortness Of Breath) albuterol sulfate 90 mcg/actuation Hfa Aerosol Inhaler 2 puff INHALATION 6XD PRN (Reason: Shortness Of Breath Or Wheezing) clopidogrel 75 mg Tablet 75 mg PO DAILY Qty: 90 3RF amlodipine 10 mg tablet 10 mg PO DAILY hydroxyzine HCl 25 mg tablet 25 mg PO BEDTIME PRN (Reason: Sleep) topiramate 100 mg tablet 100 mg PO BID aripiprazole 2 mg tablet 2 mg PO DAILY tizanidine 4 mg tablet 4 mg PO Q12H PRN (Reason: muscle spasticity) Rx Instructions: do not exceed 3 doses per 24 hrs promethazine 25 mg tablet 25 mg PO TID PRN (Reason: Nausea And Vomiting) fluticasone propionate 50 mcg/actuation spray,suspension 2 spray INTRANASAL DAILY PRN (Reason: allergies) Changed furosemide 20 mg tablet 40 mg PO DAILY Qty: 30 3RF Discontinued isosorbide mononitrate 30 mg tablet extended release 24 hr 30 mg PO DAILY Qty: 90 3RF meloxicam 15 mg tablet 15 mg PO DAILY PRN (Reason: Pain) No Action [id number] [Bromfed DM] 2-30-10 mg/5 mL syrup 5 ml PO Q6H PRN (Reason: cold symptoms) Qty: 118 0RF furosemide 20 mg tablet 60 mg PO DAILY atorvastatin [Lipitor] 40 mg tablet 40 mg PO QPM Qty: 90 3RF Discharge Orders: Discharge Order (Routine); Ordered 07/16/24 Ordered By: Annemarie Lopez Other Ambulatory Orders: Basic Metabolic Panel (Q7D) Timeframe: 20240719 Facility: [facility] - Location: Lab - Main Lab Ordered By: Annemarie Lopez Basic Metabolic Panel (Q7D) Timeframe: 20240726 Facility: [facility] - Location: Lab - Main Lab Ordered By: Annemarie Lopez Referrals: Samanta Kapoor DO [Primary Care Provider, Family Practice] - 07/26/24 10:30 am Beatrice Newman MD [Physician, Cardiology] - 09/04/24 4:00 pm Referral Note: Sandra Hernandez FNP [Nurse Practitioner, Cardiology] - 07/31/24 8:00 am Referral Note: Discharge Diet: Cardiac Patient Instructions: Potassium Chloride (By mouth), Aspirin (By mouth), Isosorbide Mononitrate (By mouth) (Imdur, Imdur ER, Ismo), Hypertension, Aortic Stenosis (DC), Chest Pain Stoplight, Opioid Safety, Pain Management Discharge Attestations Time Spent in Discharge Care*: greater than 30 min Quality Metrics Clinical Quality Measures [ No reported AMI, CVA or VTE this stay] Coding Level of Care Code Acute Code for [facility] Fwd Diagnoses Chest pain R07.9 Coronary artery disease I25.10 Chronic migraine without aura, intractable, with status migrainosus G43.711 Shortness of breath R06.02 Edema R60.9 Diastolic heart failure I50.30 Stented coronary artery Z95.5 Hypokalemia E87.6
--- NOTE | 2024-07-16 20:04 | PC.NURSE ---
Patiend educated on discharge paperwork, vitals taken, and IV discontinued. [id number]-[id number] picking up patient. All questions answered.
== END 2024-07-16 20:00 | disposition home or self-care (01) | DRG 291 ==
LOC: ER 15:30 → CSU 15:44
PROVIDERS: Emergency Medicine; Internal Medicine Cardiovascular Disease; Admitting Provider Internal Medicine; Emergency Provider Emergency Medicine; PCP Family Medicine; Visit Provider Internal Medicine
DX: I11.0 Hypertensive heart disease with heart failure (principal); I50.33 Acute on chronic diastolic (congestive) heart failure; N17.9 Acute kidney failure, unspecified; Z68.41 Body mass index [BMI] 40.0-44.9, adult; I25.10 Atherosclerotic heart disease of native coronary artery without angina pectoris; G43.701 Chronic migraine without aura, not intractable, with status migrainosus; E87.6 Hypokalemia; E66.9 Obesity, unspecified; E78.5 Hyperlipidemia, unspecified; G47.33 Obstructive sleep apnea (adult) (pediatric); F17.290 Nicotine dependence, other tobacco product, uncomplicated; J44.9 Chronic obstructive pulmonary disease, unspecified; I35.0 Nonrheumatic aortic (valve) stenosis; R07.9 Chest pain, unspecified; Z79.82 Long term (current) use of aspirin; Z79.02 Long term (current) use of antithrombotics/antiplatelets; Z86.73 Personal history of transient ischemic attack (TIA), and cerebral infarction without residual deficits; Z95.5 Presence of coronary angioplasty implant and graft
CPT/HCPCS: 36415; 71045; 80048; 80053; 83036; 83690; 83735; 83880; 84443; 84484; 85025; 85378; 85730; 93005; 93306; 93970; 96365; 96375; 99285; J1644; J1885; J1938; J7030; J9999

== ENCOUNTER → 2024-07-30 13:44 | Outpatient (BNVA) | payer BC, SELFPAY | PROVIDERS: PCP Family Medicine; Visit Provider Emergency Medicine | DX: B34.9 Viral infection, unspecified (principal) | CPT/HCPCS: 87400; 87420; 87426 ==

== ENCOUNTER 2024-08-05 11:17 | Outpatient (CLI) | payer BC, SELFPAY ==
--- NOTE | 2024-08-05 11:23 | XR_ITS ---
WS: [id number] XR chest 2V* [id number] REASON FOR EXAM: ACUTE COUGH FINDINGS: Chest is unchanged compared to 07/14/2024. Heart and mediastinum are within normal limits. Calcified granulomas disease bilaterally. No acute pulmonary parenchymal or pleural abnormality. Mild degenerative spondylosis in the mid and lower thoracic spine. XR/XR chest 2V* [id number] IMPRESSION: Stable chest without acute abnormality.
== END 2024-08-05 11:18 | disposition home or self-care (01) ==
PROVIDERS: PCP Family Medicine; Visit Provider Family Medicine
DX: R05.1 Acute cough (principal); J84.10 Pulmonary fibrosis, unspecified; M47.894 Other spondylosis, thoracic region
CPT/HCPCS: 71046

== ENCOUNTER 2024-08-18 11:34 | Emergency (ER) | payer BC, SELFPAY ==
[2024-08-18 11:36] VITALS: BP 134/74; PULSE 78; RESP 16; TEMP 36.4; O2SAT 95; BMI 40.9
--- NOTE | 2024-08-18 11:45 | ECG_ITS ---
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 Measurements Intervals [place] Rate: 74 P: 28 MA: 155 QRS: 61 QRSD: 92 T: 27 QT: 378 QTc: 420 Interpretive Statements SINUS RHYTHM Compared to ECG 07/16/2024 16:27:02 No significant changes Electronically Signed On 08-18-2024 21:29:44 CDT by Dawit Walls M.D. [email or web address] [id number]
--- NOTE | 2024-08-18 11:47 | XRR_ITS ---
PROCEDURE INFORMATION: Exam: XR Chest Exam date and time: 08/18/2024 1:26 PM Age: 59 years old Clinical indication: Chest pressure; Prior surgery; Surgery date: 6+ months; Surgery type: Cardiac stent; Chest pain TECHNIQUE: Imaging protocol: Radiologic exam of the chest. Views: 1 view. COMPARISON: CR XR chest 2V* [id number] 08/05/2024 11:31 AM FINDINGS: Lungs: There is no consolidation. Pleural spaces: There is no pleural effusion or pneumothorax. Heart/Mediastinum: Cardiomediastinal contours are unremarkable. Bones/joints: Bones are unremarkable. XR/XR chest 1V portable [id number] IMPRESSION: No acute findings.
[2024-08-18 12:38] LABS: Basophils # 0.1 10^3/uL (0.0-0.1); Basophils % 0.9 %; Eosinophils # 0.2 10^3/uL (0.0-0.8); Hematocrit 41.2 % (36-47); Lymphocytes # 2.2 10^3/uL (0.8-4.8); Lymphocytes % 24.8 %; Mean Corpuscular HGB Conc 32.3 g/dL (30-55); Mean Corpuscular Hemoglobin 28.4 pg (27-33); Mean Platelet Volume 8.7 fL (7.4-10.4); Monocytes # 0.9 10^3/uL (0.2-0.9); Monocytes % 10.3 %; Neutrophils # 5.43 10^3/uL (1.8-7.7); Neutrophils % 61.8 %; Nucleated Red Blood Cells % 0 %; Platelet Count 396 10^3/cmm (157-399); Red Blood Count 4.68 10^6/uL (3.85-5.65); Red Cell Distribution Width 12.9 % (12.1-15.1)
[2024-08-18 12:56] LABS: Alanine Aminotransferase 17 U/L (0-33); Albumin Level 4.4 g/dL (3.5-5.2); Alkaline Phosphatase 102 U/L (35-105); Aspartate Amino Transferase 16 U/L (0-32); Blood Urea Nitrogen 15 mg/dL (8-23); Carbon Dioxide 22 mmol/L (22-29); Chloride 104 mmol/L (98-107); Creatinine Clr Calc Pharmacy 74.1935; Globulin 2.5 g/dL (1.3-4.6); Glomerular Filtration Rate 63.9 mL/min (90-130); Glucose 76 mg/dL (65-115); Lipase 34 U/L (13-60); Osmolality Calculated 286 mOsm/kg (285-295); Sodium 138 mmol/L (136-145); Total Bilirubin 0.4 mg/dL (0.15-1.2); Total Protein 6.9 g/dL (6.6-8.7)
[2024-08-18 12:58] LABS: Troponin(5th) Baseline < 6 ng/L (0-10)
--- NOTE | 2024-08-18 13:31 | W.ED.CHESTPA ---
HPI - Chest Pain General: Chief Complaint: Chest Pain Stated Complaint: chest pain Time Seen by Provider: 08/18/24 13:23 Source: patient Mode of arrival: ambulatory Limitations: no limitations History of Present Illness: 59-year-old female has a history of coronary artery disease along with congestive heart failure states that she been having some chest pain shortness of breath since last night. States she has had some increased swelling in her legs she is on 40 mg of Lasix states the pain is mild in nature denies any fevers Associated symptoms: Reports dyspnea; Deny abdominal pain, fever(s), nausea or vomiting Related Data Home Medications ?Medication ?Instructions ?Recorded ?Confirmed tizanidine 4 mg tablet 4 mg PO BEDTIME 04/19/19 08/11/24 losartan 100 mg tablet 100 mg PO BEDTIME 04/05/21 08/11/24 fluoxetine 40 mg capsule (Prozac) 40 mg PO DAILY 06/11/23 08/11/24 amlodipine 10 mg tablet 10 mg PO DAILY 04/02/24 08/11/24 aripiprazole 2 mg tablet 2 mg PO DAILY 04/02/24 08/11/24 hydroxyzine HCl 25 mg tablet 25 mg PO BEDTIME PRN Sleep 04/02/24 08/11/24 topiramate 100 mg tablet 100 mg PO BID 04/02/24 08/11/24 albuterol sulfate 2.5 mg/3 mL 2.5 mg continuous nebulization Q6H 06/04/24 08/11/24 (0.083 %) solution for nebulization PRN Shortness Of Breath ezetimibe 10 mg tablet (Zetia) 10 mg PO QPM 07/02/24 08/11/24 albuterol sulfate 90 mcg/actuation 2 puff inhalation 6XD PRN 07/08/24 08/11/24 aerosol inhaler Shortness Of Breath Or Wheezing fluticasone propionate 50 2 spray intranasal DAILY PRN 07/14/24 08/11/24 mcg/actuation nasal allergies spray,suspension promethazine 25 mg tablet 25 mg PO TID PRN Nausea And 07/14/24 08/11/24 Vomiting tizanidine 4 mg tablet 4 mg PO Q12H PRN muscle spasticity 07/14/24 08/11/24 furosemide 20 mg tablet 60 mg PO DAILY 07/30/24 08/11/24 Previous Rx's ?Medication ?Instructions ?Recorded rizatriptan 10 mg tablet See Rx Instructions .Route 11/15/21 .COMPLEX #9 tabs metoprolol succinate 25 mg 12.5 mg (1/2 x 25 mg) PO DAILY #45 12/25/23 tablet,extended release 24 hr tabs ranolazine 500 mg tablet,extended 500 mg PO BID #180 tabs 05/24/24 release,12 hr nitroglycerin 0.4 mg sublingual 0.4 mg sublingual Q5M PRN chest 07/02/24 tablet pain #25 tabs clopidogrel 75 mg tablet 75 mg PO DAILY #90 tabs 07/10/24 aspirin 81 mg tablet,delayed 81 mg PO DAILY #30 tabs 07/16/24 release furosemide 20 mg tablet 40 mg (2 x 20 mg) PO DAILY #30 tabs 07/16/24 Held on 07/30/24. Instructions: Doctor's Order isosorbide mononitrate 60 mg 60 mg PO DAILY #30 tabs 07/16/24 tablet,extended release 24 hr potassium chloride 20 mEq 20 meq PO DAILY #30 tabs 07/16/24 tablet,extended release (K-Tab) uwnwiufepbsngzy-ckgupyelwnewwfi-JE 5 ml PO Q6H PRN cold symptoms #118 07/30/24 2 mg-30 mg-10 mg/5 mL oral syrup mL (Bromfed DM) atorvastatin 40 mg tablet (Lipitor) 40 mg PO QPM #90 tabs 08/02/24 Allergies Allergy/AdvReac Type Severity Reaction Status Date / Time cephalexin (From Keflex) Allergy ADR-Itching Verified 08/11/24 11:11 ciprofloxacin (From Cipro) Allergy ALGY-Difficulty Verified 08/11/24 11:11 Breathing erythromycin base Allergy ALGY-Difficulty Verified 08/11/24 11:11 Breathing Penicillins Allergy ALGY-Difficulty Verified 08/11/24 11:11 Breathing Review of Systems Const: Denies: fever(s), chills, body aches or change in appetite ENMT: Denies: throat pain or dental pain Card: Reports: chest pain Resp: Reports: dyspnea GI: Denies: abdominal pain, nausea, vomiting or diarrhea Musc: Denies: neck pain or back pain Skin/Breast: Denies: rash Neuro: Denies: headache(s) PFSH ED PFSH: Medical History Aortic aneurysm Heart murmur, systolic Obstructive sleep apnea Chronic migraine without aura, intractable, with status migrainosus Social History Smoking and tobacco/nicotine status: current every day tobacco/nicotine user Alcohol intake: never Physical Exam Const: COMMON NORMALS: patient oriented x3 HENMT: COMMON NORMALS: normocephalic and atraumatic HEAD & SCALP: normocephalic and atraumatic Eye: COMMON NORMALS: conjunctivae normal CONJUNCTIVA: Yes conjunctivae normal Neck/C-Spine: COMMON NORMALS: full ROM and supple Chest: COMMONS NORMALS: normal inspection of the chest Resp: COMMON NORMALS: normal respiratory effort, No retractions, No use of accessory muscles and clear to auscultation bilaterally AUSCULTATION: clear to auscultation bilaterally Cardio: COMMON NORMALS: regular rate, regular rhythm and No murmurs present (Cardio) RATE: regular rate RHYTHM: regular rhythm GI: COMMON NORMALS: Normal to inspection, nondistended, normoactive bowel sounds present, Soft to palpation, non-tender and no masses PALPATION: Yes Soft to palpation Extremity: COMMON NORMALS: full ROM NARRATIVE EXTREMITY EXAM: 1+ edema Neuro: COMMON NORMALS: patient oriented x3, moves all extremities and no focal motor deficits Psych: COMMON NORMALS: mental status grossly normal, Normal thought process present and cooperative THOUGHT PROCESS: Normal thought process present Skin: COMMON NORMALS: no rashes or lesions noted and no wounds GENERAL SKIN EXAM: no rashes or lesions noted Course Vital Signs: Vital signs: Vital Signs Temperature 97.6 F 08/18/24 11:36 Pulse Rate 82 08/18/24 14:02 Respiratory Rate 16 08/18/24 11:36 Blood Pressure 151/85 08/18/24 14:02 Pulse Oximetry 97 08/18/24 14:02 Oxygen Delivery Me thod Room Air 08/18/24 11:36 MDM - Chest Pain Medical Decision Making Patient presents here with chest pain along with some shortness of breath patient's well-appearing here troponins are negative no signs of pulmonary edema did give her dose of Lasix she feels improved she stable for discharge 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 Medical Records I reviewed the patient's medical records. Lab Data I reviewed the patient's lab results. 08/18/24 12:30 08/18/24 12:30 Laboratory Results WBC 8.80 10^3/uL (3.29-11.43) 08/18/24 12:30 RBC 4.68 10^6/uL (3.85-5.65) 08/18/24 12:30 Hgb 13.30 g/dL (11.27-16.99) 08/18/24 12:30 Hct 41.2 % (36-47) 08/18/24 12:30 MCV 88.0 fl (85-98) 08/18/24 12: MCH 28.4 pg (27-33) 08/18/24 12: MCHC 32.3 g/dL (30-55) 08/18/24 12: RDW 12.9 % (12.1-15.1) 08/18/24 12: Plt Count 396 10^3/cmm (157-399) 08/18/24 12:30 MPV 8.7 fL (7.4-10.4) 08/18/24 12: Neut % (Auto) 61.8 % 08/18/24 12: Lymph % (Auto) 24.8 % 08/18/24 12: [place] % (Auto) 10.3 % 08/18/24 12: Eos % (Auto) 2.0 % 08/18/24 12: Baso % (Auto) 0.9 % 08/18/24 12: Neut # (Auto) 5.43 10^3/uL (1.8-7.7) 08/18/24 12:30 Lymph # (Auto) 2.2 10^3/uL (0.8-4.8) 08/18/24 12:30 [place] # (Auto) 0.9 10^3/uL (0.2-0.9) 08/18/24 12:30 Eos # (Auto) 0.2 10^3/uL (0.0-0.8) 08/18/24 12:30 Baso # (Auto) 0.1 10^3/uL (0.0-0.1) 08/18/24 12:30 Nucleated RBC % (auto) 0 % 08/18/24 12:30 Nucleated RBCs # 0.0 /100WBC 08/18/24 12:30 Sodium 138 mmol/L (136-145) 08/18/24 12:30 Potassium 4.0 mmol/L (3.5-5.1) 08/18/24 12:30 Chloride 104 mmol/L (98-107) 08/18/24 12:30 Carbon Dioxide 22 mmol/L (22-29) 08/18/24 12:30 Anion Gap 16.0 (5-19) 08/18/24 12:30 BUN 15 mg/dL (8-23) 08/18/24 12:30 Creatinine 0.9 mg/dL (0.5-0.9) 08/18/24 12:30 GFR Calculation 63.9 mL/min (90-130) L 08/18/24 12:30 Glucose 76 mg/dL (65-115) 08/18/24 12:30 Calculated Osmolality 286 mOsm/kg (285-295) 08/18/24 12:30 Calcium 9.0 mg/dL (8.5-10.5) 08/18/24 12:30 Total Bilirubin 0.4 mg/dL (0.15-1.2) 08/18/24 12:30 AST 16 U/L (0-32) 08/18/24 12:30 ALT 17 U/L (0-33) 08/18/24 12:30 Alkaline Phosphatase 102 U/L (35-105) 08/18/24 12:30 Troponin T Baseline < 6 ng/L (0-10) 08/18/24 12:30 Troponin T 120 Minute < 6.0 ng/L (0-10) 08/18/24 14:29 Delta Troponin T 0 ABS# (0-10) 08/18/24 14:29 NT-Pro-B Natriuret Pep 259 pg/mL (0-125) H 08/18/24 12:30 Total Protein 6.9 g/dL (6.6-8.7) 08/18/24 12:30 Albumin 4.4 g/dL (3.5-5.2) 08/18/24 12:30 Globulin 2.5 g/dL (1.3-4.6) 08/18/24 12:30 Lipase 34 U/L (13-60) 08/18/24 12:30 All radiology interpretation(s) finalized by discharge EKG Data EKG 1: I personally reviewed and interpreted this EKG as follows: EKG interpretation date: 08/18/24 EKG interpretation time: 11:36 Interpretation: nsr hr [address] elevation qrs 92 qtc 405 Discharge Plan Discharge Patient Disposition: Home Clinical Impression: Chest pain, Dyspnea Condition: Stable Prescriptions: No Action metoprolol succinate 25 mg tablet extended release 24 hr 12.5 mg PO DAILY Qty: 45 1RF ubznwndaqsdydxg-wobzjlfyn-LN [Bromfed DM] 2-30-10 mg/5 mL syrup 5 ml PO Q6H PRN (Reason: cold symptoms) Qty: 118 0RF fluoxetine [Prozac] 40 mg capsule 40 mg PO DAILY ezetimibe [Zetia] 10 mg tablet 10 mg PO QPM nitroglycerin 0.4 mg tablet, sublingual 0.4 mg sublingual Q5M PRN (Reason: chest pain) Qty: 25 2RF Rx Instructions: do not exceed 3 doses per episode rizatriptan 10 mg tablet See Rx Instructions .ROUTE .COMPLEX Qty: 9 1RF Dose Instruction: TAKE 1 TAB AT ONSET OF HEADACHE IF NO RELIEF MAY REPEAT 1 TAB AFTER AT LEAST 2 HRS MAX3 TABS/24 HRS Rx Instructions: TAKE 1 TAB AT ONSET OF HEADACHE IF NO RELIEF MAY REPEAT 1 TAB AFTER AT LEAST 2 HRS MAX3 TABS/24 HRS ranolazine 500 mg tablet extended release 12 hr 500 mg PO BID Qty: 180 3RF furosemide 20 mg tablet 60 mg PO DAILY atorvastatin [Lipitor] 40 mg tablet 40 mg PO QPM Qty: 90 3RF losartan 100 mg tablet 100 mg PO BEDTIME tizanidine 4 mg tablet 4 mg PO BEDTIME albuterol sulfate 2.5 mg /3 mL (0.083 %) solution for nebulization 2.5 mg continuous nebulization Q6H PRN (Reason: Shortness Of Breath) albuterol sulfate 90 mcg/actuation Hfa Aerosol Inhaler 2 puff INHALATION 6XD PRN (Reason: Shortness Of Breath Or Wheezing) clopidogrel 75 mg Tablet 75 mg PO DAILY Qty: 90 3RF amlodipine 10 mg tablet 10 mg PO DAILY hydroxyzine HCl 25 mg tablet 25 mg PO BEDTIME PRN (Reason: Sleep) topiramate 100 mg tablet 100 mg PO BID aripiprazole 2 mg tablet 2 mg PO DAILY tizanidine 4 mg tablet 4 mg PO Q12H PRN (Reason: muscle spasticity) Rx Instructions: do not exceed 3 doses per 24 hrs promethazine 25 mg tablet 25 mg PO TID PRN (Reason: Nausea And Vomiting) fluticasone propionate 50 mcg/actuation spray,suspension 2 spray INTRANASAL DAILY PRN (Reason: allergies) aspirin 81 mg Tablet,Delayed Release (Dr/Ec) 81 mg PO DAILY Qty: 30 0RF isosorbide mononitrate 60 mg Tablet Extended Release 24 Hr 60 mg PO DAILY Qty: 30 0RF furosemide 20 mg tablet 40 mg PO DAILY Qty: 30 3RF potassium chloride [K-Tab] 20 mEq tablet extended release 20 meq PO DAILY Qty: 30 0RF Discharge Orders: Discharge ED (Routine); Ordered 08/18/24 Ordered By: Erinn Oscar Referrals: Samanta Kapoor DO [Primary Care Provider, DIRECTOR BUSINESS INTELLIGENCE] Beatrice Newman MD [Physician, Cardiology] - 4-7 days Discharge Diet: Advance as tolerated Discharge Activity: Resume usual activity Patient Instructions: Chest Pain (ED), Dyspnea (ED) Print Language: Armenian Coding Level of Care Code 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
[2024-08-18 13:59] LABS: NT Pro B Type Natriuretic Pept 259 pg/mL (0-125)
[2024-08-18] MEDS: FUROsemide 10 mg/mL SDV 10mL 80 MG IVP (13:59)
[2024-08-18] MEDS: aspirin 81 mg Chew Tablet 324 MG PO (14:00)
[2024-08-18 14:02] VITALS: BP 151/85; PULSE 82; O2SAT 97
[2024-08-18] MEDS: acetaminophen 500 mg Tablet 1000 MG PO (14:52)
[2024-08-18 14:56] LABS: Troponin 5 2HR < 6.0 ng/L (0-10); Troponin 5 2HR Delta 0 ABS# (0-10)
[2024-08-18 15:19] VITALS: BP 133/63; PULSE 82; O2SAT 97
--- NOTE | 2024-08-18 17:47 | ECG_ITS ---
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 Measurements Intervals [place] Rate: 79 P: 32 OR: 159 QRS: 52 QRSD: 94 T: 28 QT: 400 QTc: 461 Interpretive Statements SINUS RHYTHM MODERATE ST DEPRESSION [0.05+ mV ST DEPRESSION] Compared to ECG 08/18/2024 11:36:23 ST (T wave) deviation now present Electronically Signed On 08-18-2024 21:41:31 CDT by Dawit Walls M.D. [id number] [id number]
== END 2024-08-18 15:21 | disposition home or self-care (01) ==
PROVIDERS: Emergency Provider Emergency Medicine; PCP Family Medicine
DX: R07.9 Chest pain, unspecified (principal); R06.00 Dyspnea, unspecified; Z79.02 Long term (current) use of antithrombotics/antiplatelets; Z79.82 Long term (current) use of aspirin; Z72.0 Tobacco use; I25.10 Atherosclerotic heart disease of native coronary artery without angina pectoris; I50.9 Heart failure, unspecified
CPT/HCPCS: 71045; 80053; 83690; 83880; 84484; 85025; 93005; 96374; 99285; J1938; J9999

== ENCOUNTER → 2024-08-21 10:57 | Outpatient (BNVA) | payer BC, SELFPAY | PROVIDERS: PCP Family Medicine; Visit Provider Nurse Practitioner Family | DX: I25.118 Atherosclerotic heart disease of native coronary artery with other forms of angina pectoris (principal); R94.31 Abnormal electrocardiogram [ECG] [EKG] | CPT/HCPCS: 93005 ==

== ENCOUNTER 2024-08-21 11:15 | Inpatient (IN) | payer BC, SELFPAY ==
[2024-08-21] VITALS (9 sets, daily range): BP systolic 102–169; BP diastolic 52–91; PULSE 68–91; RESP 16–25; TEMP 36.4–37.1; O2SAT 91–96; BMI 41.0
--- NOTE | 2024-08-21 11:17 | XR_ITS ---
WS: [id number] Portable AP upright chest, 08/21/2024 Clinical Data: cp Comparison: Portable chest, 08/18/2024 Findings: No nodules, masses or effusions are seen. The heart is normal. The pulmonary vascularity is not increased. No pneumonia or pneumothorax is seen. There are monitor leads on the chest wall. XR/XR chest 1V portable [id number] Impression: Negative chest.
--- NOTE | 2024-08-21 11:25 | ECG_ITS ---
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 Measurements Intervals [place] Rate: 81 P: 33 ID: 162 QRS: 57 QRSD: 80 T: 38 QT: 364 QTc: 423 Interpretive Statements SINUS RHYTHM Compared to ECG 08/21/2024 11:01:51 No significant changes Electronically Signed On 08-22-2024 06:03:10 CDT by Dawit Walls M.D. [id number] [id number]
--- NOTE | 2024-08-21 11:34 | ED_ITS ---
HPI - Chest Pain 2 General: Chief Complaint: Chest Pain Stated Complaint: sent from heart care, chest pain Time Seen by Provider: 08/21/24 11:17 Source: patient Mode of arrival: ambulatory Limitations: no limitations History of Present Illness: 59-year-old female has a history of deloris nary disease had a stent placed little over a month ago she was seen here 3 days ago for chest pain was cleared states she started having pain again this morning she is over at her cardiology office and they had sent her here she is taken nitro and aspirin today still with pain she rates it 3 out of 10 denies any shortness of breath denies any cough or fever. Associated symptoms: Deny abdominal pain, dyspnea, fever(s), nausea or vomiting Related Data Home Medications ?Medication ?Instructions ?Recorded ?Confirmed tizanidine 4 mg tablet 4 mg PO BEDTIME 04/19/19 losartan 100 mg tablet 100 mg PO BEDTIME 04/05/21 0 08/21/24 fluoxetine 40 mg capsule (Prozac) 40 mg PO DAILY 06/1008/21/24 amlodipine 10 mg tablet 10 mg PO DAILY 04/02/2408/04 aripiprazole 2 mg tablet 2 mg PO DAILY 04/02/2408/21 hydroxyzine HCl 25 mg tablet 25 mg PO BEDTIME PRN Slee p 04/02/24 08/21/24 topiramate 100 mg tablet 100 mg PO BID 04/02/2408/21 albuterol sulfate 2.5 mg/3 mL 2.5 mg continuous nebuli zation Q6H 06/04/24 08/21/24 (0.083 %) solution for nebulization PRN Shortness Of B reath ezetimibe 10 mg tablet (Zetia) 10 mg PO QPM 07/02/24 0 08/21/24 albuterol sulfate 90 mcg/actuation 2 puff inhalation 6 XD PRN 07/08/24 08/21/24 aerosol inhaler Shortness Of Breath Or Wheez ing fluticasone propionate 50 2 spray intranasal DAILY PRN 07/14/24 08/21/24 mcg/actuation nasal allergies spray,suspension tizanidine 4 mg tablet 4 mg PO Q12H PRN muscle spas ticity 07/14/24 08/21/24 Previous Rx's ?Medication ?Instructions ?Recorded rizatriptan 10 mg tablet See Rx Instructions .Route 0 11/15/21 .COMPLEX #9 tabs metoprolol succinate 25 mg 12.5 mg (1/2 x 25 mg) PO DA IRVING #45 12/25/23 tablet,extended release 24 hr tabs ranolazine 500 mg tablet,extended 500 mg PO BID #180 t abs 05/24/24 release,12 hr nitroglycerin 0.4 mg sublingual 0.4 mg sublingual Q5M PRN chest 07/02/24 tablet pain #25 tabs clopidogrel 75 mg tablet 75 mg PO DAILY #90 tabs 0509/27 furosemide 20 mg tablet 40 mg (2 x 20 mg) PO DAILY # 30 tabs 07/16/24 atorvastatin 40 mg tablet (Lipitor) 40 mg PO QPM #90 t abs 08/02/24 aspirin 81 mg tablet,delayed 81 mg PO DAILY #30 tabs 0 08/19/24 release isosorbide mononitrate 60 mg 60 mg PO DAILY #30 tabs 0 08/19/24 tablet,extended release 24 hr potassium chloride 20 mEq 20 meq PO DAILY #30 tabs tablet,extended release (K-Tab) Allergies Allergy/AdvReac Type Severity Reaction Status Date / Time cephalexin (From Keflex) Allergy ADR-Itching Verified 08/21/24 10:31 ciprofloxacin (From Cipro) Allergy ALGY-Difficulty Verified 08/21/24 10:31 Breathing erythromycin base Allergy ALGY-Difficulty Verified 08/21/24 10:31 Breathing Penicillins Allergy ALGY-Difficulty Verified 08/21/24 10:31 Breathing Review of Systems 2 Const: Denies: fever(s), chills, body aches or change in appetite ENMT: Denies: throat pain or dental pain Card: Reports: chest pain Resp: Denies: dyspnea GI: Denies: abdominal pain, nausea, vomiting or diarrhea Musc: Denies: neck pain or back pain Skin/Breast: Denies: rash Neuro: Denies: headache(s) PFSH ED 2 PFSH: Medical History Aortic aneurysm Heart murmur, systolic Obstructive sleep apnea Chronic migraine without aura, intractable, with status migrainosus Social History Smoking and tobacco/nicotine status: current every day tobacco/nicotine user Alcohol intake: never Physical Exam 2 Const: COMMON NORMALS: no acute distress, patient oriented x3 and healthy appearing HENMT: COMMON NORMALS: normocephalic and atraumatic HEAD & SCALP: n ormocephalic and atraumatic Eye: COMMON NORMALS: conjunctivae normal CONJUNCTIVA: Yes conjunctivae normal Neck/C-Spine: COMMON NORMALS: full ROM and supple Chest: COMMONS NORMALS: normal inspection of the chest and normal palpation of entire chest wall Resp: COMMON NORMALS: normal respiratory effort, No retractions, No use of accessory muscles and clear to auscultation bilaterally AUSCULTATION: clear to auscultation bilaterally Cardio: COMMON NORMALS: regular rate, regular rhythm and No murmurs present (Cardio) RATE: regular rate RHYTHM: regular rhythm GI: COMMON NORMALS: Normal to inspection, nondistended, normoactive bowel sounds present, Soft to palpation, non-tender and no masses PALPATION: Yes Soft to palpation Extremity: COMMON NORMALS: normal to inspection and full ROM Neuro: COMMON NORMALS: patient oriented x3, moves all extremities and no focal motor deficits Psych: COMMON NORMALS: mental status grossly normal, Normal thought process present and cooperative THOUGHT PROCESS: Normal thought process present Skin: COMMON NORMALS: no rashes or lesions noted and no wounds GENERAL SKIN EXAM: no rashes or lesions noted Course 2 Vital Signs: Vital signs: Vital Signs Temperature 97.6 F 08/21/24 11:20 Pulse Rate 84 08/21/24 11:32 Respiratory Rate 16 08/21/24 11:53 Blood Pressure 158/65 08/21/24 11:32 Pulse Oximetry 93 08/21/24 11:32 Oxygen Delivery Me thod Room Air 08/21/24 11:20 MDM - Chest Pain Medical Decision Making Patient presents here with chest pain she been having intermittent pains 3 days sent here from the cardiology clinic initial troponin is normal did speak to hospitalist will admit for ACS rule out as she has had a recent stent placed. Medical Records I reviewed the patient's medical records. Lab Data I reviewed the patient's lab results. 08/21/24 11:50 08/21/24 11:50 Radiology Impressions Chest X-Ray 08/21/24 11:17 Impression: Negative chest. Chest CTA 08/21/24 11:40 IMPRESSION: 1. No evidence of pulmonary embolus. 2. Lungs are well aerated. No acute pulmonary infiltrates. 3. No other acute findings Laboratory Results WBC 9.75 10^3/uL (3.29-11.43) 08/21/24 11:50 RBC 4.73 10^6/uL (3.85-5.65) 08/21/24 11:50 Hgb 13.60 g/dL (11.27-16.99) 08/21/24 11:50 Hct 40.6 % (36-47) 08/21/24 11:50 MCV 85.8 fl (85-98) 08/21/24 11:50 MCH 28.8 pg (27-33) 08/21/24 11:50 MCHC 33.5 g/dL (30-55) 08/21/24 11:50 RDW 12.8 % (12.1-15.1) 08/21/24 11:50 Plt Count 441 10^3/cmm (157-399) H 08/21/24 11:50 MPV 8.7 fL (7.4-10.4) 08/21/24 11:50 Neut % (Auto) 67.2 % 08/21/24 11:50 Lymph % (Auto) 22.4 % 08/21/24 11:50 [place] % (Auto) 6.9 % 08/21/24 11:50 Eos % (Auto) 2.4 % 08/21/24 11:50 Baso % (Auto) 0.7 % 08/21/24 11:50 Neut # (Auto) 6.56 10^3/uL (1.8-7.7) 08/21/24 11:50 Lymph # (Auto) 2.2 10^3/uL (0.8-4.8) 08/21/24 11:50 [place] # (Auto) 0.7 10^3/uL (0.2-0.9) 08/21/24 11:50 Eos # (Auto) 0.2 10^3/uL (0.0-0.8) 08/21/24 11:50 Baso # (Auto) 0.1 10^3/uL (0.0-0.1) 08/21/24 11:50 Nucleated RBC % (auto) 0 % 08/21/24 11:50 Nucleated RBCs # 0.0 /100WBC 08/21/24 11:50 Sodium 138 mmol/L (136-145) 08/21/24 11:50 Potassium 4.0 mmol/L (3.5-5.1) 08/21/24 11:50 Chloride 103 mmol/L (98-107) 08/21/24 11:50 Carbon Dioxide 22 mmol/L (22-29) 08/21/24 11:50 Anion Gap 17.0 (5-19) 08/21/24 11:50 BUN 18 mg/dL (8-23) 08/21/24 11:50 Creatinine 0.9 mg/dL (0.5-0.9) 08/21/24 11:50 GFR Calculation 63.9 mL/min (90-130) L 08/21/24 11:50 Glucose 114 mg/dL (65-115) 08/21/24 11:50 Calculated Osmolality 289 mOsm/kg (285-295) 08/21/24 11:50 Calcium 9.5 mg/dL (8.5-10.5) 08/21/24 11:50 Total Bilirubin 0.5 mg/dL (0.15-1.2) 08/21/24 11:50 AST 17 U/L (0-32) 08/21/24 11:50 ALT 18 U/L (0-33) 08/21/24 11:50 Alkaline Phosphatase 105 U/L (35-105) 08/21/24 11:50 Troponin T Baseline < 6 ng/L (0-10) 08/21/24 11:50 Total Protein 7.4 g/dL (6.6-8.7) 08/21/24 11:50 Albumin 4.7 g/dL (3.5-5.2) 08/21/24 11:50 Globulin 2.7 g/dL (1.3-4.6) 08/21/24 11:50 Lipase 39 U/L (13-60) 08/21/24 11:50 All radiology interpretation(s) finalized by discharge EKG Data EKG 1: I personally reviewed and interpreted this EKG as follows: EKG interpretation date: 08/21/24 EKG interpretation time: 11:25 Interpretation: nsr hr [address] elevation qrs 80 qtc 401 Discharge Plan Discharge Patient Disposition: Admitted As Inpatient Clinical Impression: Chest pain Condition: Stable Coding Level of Care Code 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
--- NOTE | 2024-08-21 11:40 | CT_ITS ---
WS: [id number] CTA OF THE CHEST WITH PULMONARY EMBOLISM PROTOCOL TECHNIQUE: High-resolution contrast enhanced CTA of the chest with coronal and sagittal reformatted images with pulmonary embolism protocol. MIP images are also reviewed. CLINICAL INFORMATION: cp COMPARISON: None. DLP: 474.[address] scans at [facility] use at least one of these dose optimization techniques: automated exposure control; mA and/or kV adjustment per patient size (includes targeted exams where dose is matched to clinical indication); or iterative reconstruction. FINDINGS: Proximal main pulmonary arteries are normal. Normal segmental and subsegmental pulmonary arteries. No evidence of pulmonary embolus. Normal caliber thoracic aorta. Aortic calcification. Coronary calcification. No mediastinal or hilar lymphadenopathy. No axillary lymphadenopathy. Cholecystectomy. Hepatomegaly. Adrenal glands are normal. Small esophageal hiatal hernia. Slight bibasilar atelectasis. CT/CT angio chest PE protcl [id number] IMPRESSION: 1. No evidence of pulmonary embolus. 2. Lungs are well aerated. No acute pulmonary infiltrates. 3. No other acute findings
[2024-08-21] MEDS: ondansetron 2 mg/ML SDV 2 mL 4 MG IVP (11:53)
[2024-08-21] MEDS: morphine 4 mg/mL SDV 1 mL IVP (11:53)
[2024-08-21 11:58] LABS: Basophils # 0.1 10^3/uL (0.0-0.1); Basophils % 0.7 %; Eosinophils # 0.2 10^3/uL (0.0-0.8); Eosinophils % 2.4 %; Hematocrit 40.6 % (36-47); Lymphocytes # 2.2 10^3/uL (0.8-4.8); Lymphocytes % 22.4 %; Mean Corpuscular HGB Conc 33.5 g/dL (30-55); Mean Corpuscular Hemoglobin 28.8 pg (27-33); Mean Corpuscular Volume 85.8 fl (85-98); Mean Platelet Volume 8.7 fL (7.4-10.4); Monocytes # 0.7 10^3/uL (0.2-0.9); Monocytes % 6.9 %; Neutrophils # 6.56 10^3/uL (1.8-7.7); Neutrophils % 67.2 %; Nucleated Red Blood Cells % 0 %; Platelet Count 441 10^3/cmm (157-399); Red Blood Count 4.73 10^6/uL (3.85-5.65); Red Cell Distribution Width 12.8 % (12.1-15.1); White Blood Count 9.75 10^3/uL (3.29-11.43)
[2024-08-21] MEDS: iohexol 350 mg/mL 500 mL Btl (per mL) IV (12:12)
[2024-08-21 12:15] LABS: Troponin(5th) Baseline < 6 ng/L (0-10)
[2024-08-21 12:18] LABS: Alanine Aminotransferase 18 U/L (0-33); Albumin Level 4.7 g/dL (3.5-5.2); Alkaline Phosphatase 105 U/L (35-105); Aspartate Amino Transferase 17 U/L (0-32); Blood Urea Nitrogen 18 mg/dL (8-23); Calcium 9.5 mg/dL (8.5-10.5); Carbon Dioxide 22 mmol/L (22-29); Chloride 103 mmol/L (98-107); Creatinine Clr Calc Pharmacy 74.1935; Globulin 2.7 g/dL (1.3-4.6); Glomerular Filtration Rate 63.9 mL/min (90-130); Glucose 114 mg/dL (65-115); Lipase 39 U/L (13-60); Osmolality Calculated 289 mOsm/kg (285-295); Sodium 138 mmol/L (136-145); Total Bilirubin 0.5 mg/dL (0.15-1.2); Total Protein 7.4 g/dL (6.6-8.7)
--- NOTE | 2024-08-21 12:59 | ECG_ITS ---
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 Measurements Intervals [place] Rate: 80 P: 21 SC: 151 QRS: 37 QRSD: 93 T: 12 QT: 392 QTc: 453 Interpretive Statements SINUS RHYTHM Compared to ECG 08/21/2024 11:25:08 No significant changes Electronically Signed On 08-22-2024 06:24:54 CDT by Dawit Walls M.D. [id number] [id number]
[2024-08-21] MEDS: nitroglycerin 0.4 mg sublingual Tablet SUBLINGUAL (13:05)
--- NOTE | 2024-08-21 13:36 | PM.HP ---
Providers/Chief Complaint Admitting Physician: Mamadou Overton MD Primary Care Provider: Samanta Kapoor DO Chief Complaint: sent from heart care, chest pain History of Present Illness Rosenda Ysuuf is a 59 year old female with a past medical history of CAD, recent history of balloon angioplasty and stenting to left circumflex, hypertension, hyperlipidemia, is compliant with aspirin Plavix, who presents to [facility] for chest pain. Patient was seen by cardiology today, she has been complaining of chest pain and shortness of breath, she was in the emergency room on 615 for similar symptoms, she was given Lasix, reports chest pain, radiating to the back, she is taken 2 nitroglycerin this morning with aspirin 325 with improvement of her systems, but currently the emergency room she continues to have episodes of chest pain, requiring nitroglycerin, currently alert oriented x 3, following all commands, blood pressure 158/65, she is 93% on room air, heart rate 80s Review of Systems Card: Reports: chest pain Resp: Reports: dyspnea Medications/Allergies Home Medications ?Medication ?Instructions ?Recorded ?Confirmed ?Last Taken ?Type losartan 100 mg tablet 100 mg PO BEDTIME 04/05/21 08/21/24 08/20/24 History rizatriptan 10 mg tablet See Rx Instructions .Route 11/15/21 08/21/24 07/08/24 21:00 Rx .COMPLEX #9 tabs fluoxetine 40 mg capsule (Prozac) 40 mg PO DAILY 06/11/23 08/21/24 08/21/24 History amlodipine 10 mg tablet 10 mg PO DAILY 04/02/24 08/21/24 08/21/24 History aripiprazole 2 mg tablet 2 mg PO DAILY 04/02/24 08/21/24 08/21/24 History hydroxyzine HCl 25 mg tablet 25 mg PO BEDTIME PRN Sleep 04/02/24 08/21/24 07/08/24 21:00 History topiramate 100 mg tablet 100 mg PO BID 04/02/24 08/21/24 08/21/24 History ranolazine 500 mg tablet,extended 500 mg PO BID #180 tabs 05/24/24 08/21/24 08/21/24 Rx release,12 hr albuterol sulfate 2.5 mg/3 mL 2.5 mg continuous nebulization Q6H 06/04/24 08/21/24 07/08/24 21:00 History (0.083 %) solution for nebulization PRN Shortness Of Breath ezetimibe 10 mg tablet (Zetia) 10 mg PO QPM 07/02/24 08/21/24 08/20/24 History nitroglycerin 0.4 mg sublingual 0.4 mg sublingual Q5M PRN chest 07/02/24 08/21/24 08/21/24 Rx tablet pain #25 tabs albuterol sulfate 90 mcg/actuation 2 puff inhalation 6XD PRN 07/08/24 08/21/24 Unknown History aerosol inhaler Shortness Of Breath Or Wheezing clopidogrel 75 mg tablet 75 mg PO DAILY #90 tabs 07/10/24 08/21/24 08/21/24 Rx fluticasone propionate 50 2 spray intranasal DAILY PRN 07/14/24 08/21/24 Unknown History mcg/actuation nasal allergies spray,suspension tizanidine 4 mg tablet 4 mg PO Q12H PRN muscle spasticity 07/14/24 08/21/24 Unknown History furosemide 20 mg tablet 40 mg (2 x 20 mg) PO DAILY #30 tabs 07/16/24 08/21/24 08/21/24 Rx atorvastatin 40 mg tablet (Lipitor) 40 mg PO QPM #90 tabs 08/02/24 08/21/24 08/20/24 Rx aspirin 81 mg tablet,delayed 81 mg PO DAILY #30 tabs 08/19/24 08/21/24 08/21/24 Rx release isosorbide mononitrate 60 mg 60 mg PO DAILY #30 tabs 08/19/24 08/21/24 08/21/24 Rx tablet,extended release 24 hr benzonatate 100 mg capsule 100 mg PO BID PRN Cough 08/21/24 08/21/24 Unknown History meloxicam 15 mg tablet 7.5 mg PO BID PRN Pain 08/21/24 08/21/24 Unknown History potassium chloride 20 mEq 20 meq PO DAILY 08/21/24 08/21/24 08/21/24 History tablet,extended release Allergies Allergy/AdvReac Type Severity Reaction Status Date / Time cephalexin (From Keflex) Allergy ADR-Itching Verified 08/21/24 10:31 ciprofloxacin (From Cipro) Allergy ALGY-Difficulty Verified 08/21/24 10:31 Breathing erythromycin base Allergy ALGY-Difficulty Verified 08/21/24 10:31 Breathing Penicillins Allergy ALGY-Difficulty Verified 08/21/24 10:31 Breathing PFSH Acute PFSH: Medical History Aortic aneurysm Heart murmur, systolic Obstructive sleep apnea Chronic migraine without aura, intractable, with status migrainosus Social History Smoking and tobacco/nicotine status: current every day tobacco/nicotine user Alcohol intake: never Vitals/I&O/Wt Last Vital Signs Temp 97.6 F 08/21/24 11:20 Pulse 84 08/21/24 11:32 Resp 16 08/21/24 11:53 BP 158/65 08/21/24 11:32 Pulse Ox 93 08/21/24 11:32 O2 Del Method Room Air 08/21/24 11:20 Weight last 48 hrs Weight 101.605 kg Physical Exam Const: COMMON NORMALS: no acute distress and patient oriented x3 HENMT: COMMON NORMALS: normocephalic HEAD & SCALP: normocephalic Neck/C-Spine: COMMON NORMALS: no JVD Resp: COMMON NORMALS: normal respiratory effort, No retractions and No use of accessory muscles AUSCULTATION: wheezes Cardio: COMMON NORMALS: no JVD, regular rate, regular rhythm, S1 normal heart sound present and S2 normal heart sound present RATE: regular rate RHYTHM: regular rhythm HEART SOUNDS: S1 normal heart sound present and S2 normal heart sound present GI: COMMON NORMALS: Normal to inspection, nondistended, normoactive bowel sounds present, Soft to palpation and non-tender Extremity: NARRATIVE EXTREMITY EXAM: 1+ edema Neuro: COMMON NORMALS: patient oriented x3 Psych: COMMON NORMALS: mental status grossly normal Data 08/21/24 11:50 08/21/24 11:50 A&P Assessment and plan (1) Unstable angina: (2) Stented coronary artery: (3) Atherosclerotic heart disease of [place] coronary artery with other forms of angina pectoris: Plan Unstable angina - Continues to have chest pain in the emergency room, she is status post 3 doses of nitroglycerin (2 at home, 1 in the emergency room) - Taken aspirin 325 this morning, took her Plavix any 5 mg - Troponin 6 - EKG no acute ST-T wave changes - CT angiogram the chest no pulmonary embolism - Plan - Admit to cardiac stepdown unit - Aspirin, statin, Plavix - Start nitroglycerin drip - Start heparin drip - Lasix 40 IV once -Cardiac echo - Cardiology consulted - Full code - Heparin drip for DVT prophylaxis PDMP PDMP Reviewed: Not Reviewed Attestations Medical Necessity Statement*: Patient requires hospitalization, inpatient, greater than 2 midnights, for unstable angina Diagnoses Unstable angina I20.0 Stented coronary artery Z95.5 Atherosclerotic heart disease of [place] coronary artery with other forms of angina pectoris I25.118
[2024-08-21 13:50] LABS: INR 0.86 (0.8-1.2)
[2024-08-21 14:21] LABS: Troponin 5 2HR < 6.0 ng/L (0-10); Troponin 5 2HR Delta 0 ABS# (0-10)
--- NOTE | 2024-08-21 15:08 | USCV_ITS ---
Rosenda Yusuf Age: 59 Gender: F : 1965 Exam Date: 08/21/2024 18:30 Ordering Phys: Mamadou Overton MD Technologist: Stan Gallagher Exam Location: [facility] [place] Indication: This is a limited exam per request: wall motion and EF History of CAD s/p stents and angioplasty. HTN HL BP: 154 / 91 HR: Rhythm: Sinus Technical Quality: Adequate MEASUREMENTS (Male / Female) Normal Values 2D ECHO LV Diastolic Diameter PLAX 4.3 cm 4.2 - 5.9 / 3.9 - 5.3 cm IVS Diastolic Thickness 1.5 cm 0.6 - 1.0 / 0.6 - 0.9 cm IVS Systolic Thickness 2.2 cm LVPW Diastolic Thickness 1.1 cm 0.6 - 1.0 / 0.6 - 0.9 cm LVPW Systolic Thickness 1.2 cm LV Ejection Fraction 2D Teich 66.5 % LV Ejection Fraction MOD 4C 65.8 % LV Ejection Fraction MOD 2C 64.9 % LV Ejection Fraction 2C AL 64.9 % FINDINGS Left Ventricle Normal left ventricular size and systolic function, EF 66%.no regional wall motion abnormalities. Mild left ventricular hypertrophy. Right Ventricle The right ventricle is normal in size and function. Right Atrium The right atrium is normal in size. Left Atrium The left atrium is normal in size. Mitral Valve Mild mitral annular calcification. Aortic Valve Thickened aortic valve. Tricuspid Valve No gross abnormalities noted Pulmonic Valve Pulmonic valve not well visualized. Pericardium Normal pericardium without effusion. Aorta Normal aortic annulus size. IVC Inferior vena cava not visualized. CONCLUSIONS Normal left ventricular size and systolic function, EF 66%.no regional wall motion abnormalities. Mild left ventricular hypertrophy. Mild mitral annular calcification. Thickened aortic valve. There is no pericardial effusion. There are no intracardiac masses. Compared to the study from 07/14/2024, no significant change in the 2D findings Dr Dawit Walls MD [facility] (Electronically Signed) Final Date: 21 August 2024 20:33 S
[2024-08-21] MEDS: FUROsemide 10 mg/mL SDV 4mL 40 MG IVP (15:27)
[2024-08-21] MEDS: heparin drip 25,000 UNIT/500 ML PREMIX 28 UNIT IV (15:28)
[2024-08-21] MEDS: heparin 5,000 unit/mL INJ 1 mL IVP (15:29)
[2024-08-21] MEDS: pantoprazole 40 mg SDV IVP (15:34)
[2024-08-21 15:44] LABS: Cholesterol 220 mg/dL (0-200); HDL Cholesterol 50 mg/dL (60-100); LDL Cholesterol Calculated 146 mg/dL (50-129); LDL HDL Ratio 2.92 RATIO (0.00-3.22); NT Pro B Type Natriuretic Pept 65 pg/mL (0-125); Triglycerides 119 mg/dL (0-150)
--- NOTE | 2024-08-21 17:12 | PM.CONSULT ---
Providers/Reason For Consult Consulting Physician/Specialty*: DAVID Walls MD/cardiology Reason for Consult*: Patient with a history of atherosclerotic heart diseas, recent PCI, presenting with chest pain and shortness of breath. Requesting Physician: Dr. Overton Attending Physician: Mamadou Overton MD Primary Care Provider: Samanta Kapoor DO History of Present Illness History of Present Illness Rosenda Yusuf is a 59 year old female with a history of atherosclerotic heart disease, status post recent PCI of the proximal circumflex artery lesion, is admitted to the hospital through the emergency room where she presented with complaints of increasing episodes of chest pain and shortness of breath. This patient underwent cardiac catheterization followed by PCI of the proximal circumflex artery by on 14 of July, this year. According to the patient, ever since the intervention, she has been having right-sided chest pain, radiating to the back. The intensity of the pain is moderate to severe. She may have these episodes lasting anywhere from few minutes to few hours. No definite precipitating factors. No changes with the respiratory or physical activities. She also has been noticing swelling of the lower extremities intermittently. She may have these episodes of chest pain almost every day, 3-4 times a day. This morning she had a prolonged episode of pain of moderate to severe intensity. She took a total of 2 sublingual nitro. The symptoms did not relieve. She was given another nitro in the emergency room. Currently at the time of my examination, patient is pain-free. So far her cardiac enzymes are negative for myocardial injury. Her BNP is within normal limits. This patient had a 3 or 4 emergency room visits within the last 1 month for these symptoms. This is the second hospital admission for chest pain and shortness of breath following intervention. She has a history of hypertension, dyslipidemia, reactive airway disease. None She has been smoking for 30+ years. For the last 5 years also, she been vaping. No alcohol abuse or any other substance abuse. Review of Systems Narrative: CONSTITUTIONAL: No fever or chills. EYES: No blurring of vision or other visual disturbances lately. ENT: No hoarseness of voice, auditory disturbances or sore throat. CARDIOVASCULAR: As mentioned above. RESPIRATORY: As mentioned above GASTROINTESTINAL: No hematemesis or melena. GENITOURINARY: No dysuria or hematuria. INTEGUMENTARY: No skin rashes or history of skin cancer. NEURO: No transient ischemic attacks or amaurosis. PSYCHIATRIC: No history of psychosis or major depression. HEMATOLOGIC: No bleeding disorders or significant anemia. ENDOCRINE: No history of polyuria or polydipsia. MUSCULOSKELETAL: No recent joint pain or swelling. ALLERGY/IMMUNOLOGY: As mentioned above. Medications/Allergies Home Medications ?Medication ?Instructions ?Recorded ?Confirmed ?Last Taken ?Type losartan 100 mg tablet 100 mg PO BEDTIME 04/05/21 08/21/24 08/20/24 History rizatriptan 10 mg tablet See Rx Instructions .Route 11/15/21 08/21/24 07/08/24 21:00 Rx .COMPLEX #9 tabs fluoxetine 40 mg capsule (Prozac) 40 mg PO DAILY 06/11/23 08/21/24 08/21/24 History amlodipine 10 mg tablet 10 mg PO DAILY 04/02/24 08/21/24 08/21/24 History aripiprazole 2 mg tablet 2 mg PO DAILY 04/02/24 08/21/24 08/21/24 History hydroxyzine HCl 25 mg tablet 25 mg PO BEDTIME PRN Sleep 04/02/24 08/21/24 07/08/24 21:00 History topiramate 100 mg tablet 100 mg PO BID 04/02/24 08/21/24 08/21/24 History ranolazine 500 mg tablet,extended 500 mg PO BID #180 tabs 05/24/24 08/21/24 08/21/24 Rx release,12 hr albuterol sulfate 2.5 mg/3 mL 2.5 mg continuous nebulization Q6H 06/04/24 08/21/24 07/08/24 21:00 History (0.083 %) solution for nebulization PRN Shortness Of Breath ezetimibe 10 mg tablet (Zetia) 10 mg PO QPM 07/02/24 08/21/24 08/20/24 History nitroglycerin 0.4 mg sublingual 0.4 mg sublingual Q5M PRN chest 07/02/24 08/21/24 08/21/24 Rx tablet pain #25 tabs albuterol sulfate 90 mcg/actuation 2 puff inhalation 6XD PRN 07/08/24 08/21/24 Unknown History aerosol inhaler Shortness Of Breath Or Wheezing clopidogrel 75 mg tablet 75 mg PO DAILY #90 tabs 07/10/24 08/21/24 08/21/24 Rx fluticasone propionate 50 2 spray intranasal DAILY PRN 07/14/24 08/21/24 Unknown History mcg/actuation nasal allergies spray,suspension tizanidine 4 mg tablet 4 mg PO Q12H PRN muscle spasticity 07/14/24 08/21/24 Unknown History furosemide 20 mg tablet 40 mg (2 x 20 mg) PO DAILY #30 tabs 07/16/24 08/21/24 08/21/24 Rx atorvastatin 40 mg tablet (Lipitor) 40 mg PO QPM #90 tabs 08/02/24 08/21/24 08/20/24 Rx aspirin 81 mg tablet,delayed 81 mg PO DAILY #30 tabs 08/19/24 08/21/24 08/21/24 Rx release isosorbide mononitrate 60 mg 60 mg PO DAILY #30 tabs 08/19/24 08/21/24 08/21/24 Rx tablet,extended release 24 hr benzonatate 100 mg capsule 100 mg PO BID PRN Cough 08/21/24 08/21/24 Unknown History meloxicam 15 mg tablet 7.5 mg PO BID PRN Pain 08/21/24 08/21/24 Unknown History potassium chloride 20 mEq 20 meq PO DAILY 08/21/24 08/21/24 08/21/24 History tablet,extended release Allergies Allergy/AdvReac Type Severity Reaction Status Date / Time cephalexin (From Keflex) Allergy ADR-Itching Verified 08/21/24 10:31 ciprofloxacin (From Cipro) Allergy ALGY-Difficulty Verified 08/21/24 10:31 Breathing erythromycin base Allergy ALGY-Difficulty Verified 08/21/24 10:31 Breathing Penicillins Allergy ALGY-Difficulty Verified 08/21/24 10:31 Breathing Current Medications Generic Name Dose Route Start Last Admin Trade Name Freq PRN Reason Stop Dose Admin Heparin Sodium/Sodium Chloride 25,000 unit in 500 mls @ 0 mls/hr 08/21/24 15:08/21/24 15:28 Heparin Drip IV 13.78 unit/kg/hr CONT NAHOMY 28 mls/hr Protocol Administration Per Protocol Pantoprazole Sodium 40 mg 08/21/24 15:08 08/21/24 15:34 Pantoprazole 40 Mg Sdv IVP 40 mg Q24H NAHOMY Administration PFSH Acute PFSH: Medical History Aortic aneurysm Heart murmur, systolic Obstructive sleep apnea Chronic migraine without aura, intractable, with status migrainosus Social History Smoking and tobacco/nicotine status: current every day tobacco/nicotine user Alcohol intake: never Vitals/I&O/Wt Last Vital Signs Temp 97.6 F 08/21/24 16:00 Pulse 85 08/21/24 16:00 Resp 16 08/21/24 16:00 BP 154/91 08/21/24 16:00 Pulse Ox 92 08/21/24 16:00 O2 Del Method Room Air 08/21/24 16:00 Weight last 48 hrs Weight 224 lb Physical Exam Narrative: GENERAL: The patient is alert and oriented times three. Not in any acute distress. HEENT: No significant pallor, icterus or lymphadenopathy.Oral cavity: There are no mucous membrane lesions. NECK: Trachea appears to be central. No masses noted. No JVD or thyromegaly appreciated. Bruit over the left carotid RESPIRATORY: Chest is symmetrical. No intercostals muscle retraction or any accessory muscle activation. There is no chest wall tenderness. Breath sounds are heard bilaterally. No rales or rhonchi heard. No evidence of any consolidation. BREASTS: Deferred. HEART: The heart sounds are normal. No S3 or S4. Ejection systolic murmur of grade 3/6 in the aortic area. No pericardial rub ABDOMEN: No vessel pulsations or distention. No tenderness. No organomegaly appreciated. Bowel sounds are normally heard. : Deferred. RECTAL: Deferred. LYMPHATIC: No lymphadenopathy noted in the neck. EXTREMITIES: No edema or cyanosis. No clubbing. MUSCULOSKELETAL: No acute joint deformities or swelling SKIN: There are no significant rashes or ecchymosis NEUROPSYCHIATRIC: The patient is alert and oriented x3. Appears to be in a good mood. No tremors or rigidity noted. Data 08/21/24 11:50 08/21/24 11:50 Other Labs: Laboratory Last Values WBC 9.75 10^3/uL (3.29-11.43) 08/21/24 11:50 RBC 4.73 10^6/uL (3.85-5.65) 08/21/24 11:50 Hgb 13.60 g/dL (11.27-16.99) 08/21/24 11:50 Hct 40.6 % (36-47) 08/21/24 11:50 MCV 85.8 fl (85-98) 08/21/24 11:50 MCH 28.8 pg (27-33) 08/21/24 11:50 MCHC 33.5 g/dL (30-55) 08/21/24 11:50 RDW 12.8 % (12.1-15.1) 08/21/24 11:50 Plt Count 441 10^3/cmm (157-399) H 08/21/24 11:50 MPV 8.7 fL (7.4-10.4) 08/21/24 11:50 Neut % (Auto) 67.2 % 08/21/24 11:50 Lymph % (Auto) 22.4 % 08/21/24 11:50 [place] % (Auto) 6.9 % 08/21/24 11:50 Eos % (Auto) 2.4 % 08/21/24 11:50 Baso % (Auto) 0.7 % 08/21/24 11:50 Neut # (Auto) 6.56 10^3/uL (1.8-7.7) 08/21/24 11:50 Lymph # (Auto) 2.2 10^3/uL (0.8-4.8) 08/21/24 11:50 [place] # (Auto) 0.7 10^3/uL (0.2-0.9) 08/21/24 11:50 Eos # (Auto) 0.2 10^3/uL (0.0-0.8) 08/21/24 11:50 Baso # (Auto) 0.1 10^3/uL (0.0-0.1) 08/21/24 11:50 Nucleated RBC % (auto) 0 % 08/21/24 11:50 Nucleated RBCs # 0.0 /100WBC 08/21/24 11:50 PT 12.30 SECONDS (12.1-14.9) 08/21/24 11:50 INR 0.86 (0.8-1.2) 08/21/24 11:50 Sodium 138 mmol/L (136-145) 08/21/24 11:50 Potassium 4.0 mmol/L (3.5-5.1) 08/21/24 11:50 Chloride 103 mmol/L (98-107) 08/21/24 11:50 Carbon Dioxide 22 mmol/L (22-29) 08/21/24 11:50 Anion Gap 17.0 (5-19) 08/21/24 11:50 BUN 18 mg/dL (8-23) 08/21/24 11:50 Creatinine 0.9 mg/dL (0.5-0.9) 08/21/24 11:50 GFR Calculation 63.9 mL/min (90-130) L 08/21/24 11:50 Glucose 114 mg/dL (65-115) 08/21/24 11:50 Calculated Osmolality 289 mOsm/kg (285-295) 08/21/24 11:50 Calcium 9.5 mg/dL (8.5-10.5) 08/21/24 11:50 Total Bilirubin 0.5 mg/dL (0.15-1.2) 08/21/24 11:50 AST 17 U/L (0-32) 08/21/24 11:50 ALT 18 U/L (0-33) 08/21/24 11:50 Alkaline Phosphatase 105 U/L (35-105) 08/21/24 11:50 Troponin T Baseline < 6 ng/L (0-10) 08/21/24 11:50 Troponin T 120 Minute < 6.0 ng/L (0-10) 08/21/24 13:50 Delta Troponin T 0 ABS# (0-10) 08/21/24 13:50 NT-Pro-B Natriuret Pep 65 pg/mL (0-125) 08/21/24 11:50 Total Protein 7.4 g/dL (6.6-8.7) 08/21/24 11:50 Albumin 4.7 g/dL (3.5-5.2) 08/21/24 11:50 Globulin 2.7 g/dL (1.3-4.6) 08/21/24 11:50 Triglycerides 119 mg/dL (0-150) 08/21/24 11:50 Cholesterol 220 mg/dL (0-200) H 08/21/24 11:50 LDL Cholesterol, Calc 146 mg/dL (50-129) H 08/21/24 11:50 HDL Cholesterol 50 mg/dL (60-100) L 08/21/24 11:50 LDL/HDL Ratio 2.92 RATIO (0.00-3.22) 08/21/24 11:50 Cholesterol/HDL Ratio 4.40 mg/dL (0.0-4.40) 08/21/24 11:50 Lipase 39 U/L (13-60) 08/21/24 11:50 Other data: The EKG Revealed normal sinus rhythm with some nonspecific T wave changes ECHO 07/14/24 Normal left ventricular size and systolic function, EF 79%.no regional wall motion abnormalities. Mild aortic valve stenosis, with a valve area of 2 cm squared. Peak velocity of 2.9 m/s with a peak gradient of 34 and a mean gradient of 18 mmHg. Mild mitral annular calcification. There is no pericardial effusion. There are no intracardiac masses. Compared to the study from 04/19/2024, there may not be a significant change 07/09/24 * Left Anterior Descending has luminal irregularity. * Right Coronary Artery has luminal irregularity. * Left Main has no disease. * Proximal Circumflex: severe 90% stenosis, BENJI: 3 flow. * Coronary angiography shows right dominance. PCI Status: Elective PCI Indication: New Onset Angina <= 2 months Interventional Findings * Proximal Circumflex: 90% stenosis treated with a AB TREK 2.50X12 RX BALLOON, MDVero Howard MARIPOSA 3.0X15 RICH, and MDT DWAYNE EUPHORA RX [id number] BALLOON. 0% residual stenosis, BENJI: 3 flow. A&P Assessment and plan (1) Atherosclerotic heart disease of [place] coronary artery with other forms of angina pectoris: The patient chest pain is somewhat atypical. However possibility of coronary ischemia causing this is a strong consideration. In view of her recurrent ER visits and hospital admissions for the same complaints, it may be appropriate to go ahead and do a repeat angiogram to reevaluate the coronary status and then decide on management. I will keep the patient on Lovenox and along with her current medications. (2) Aortic valve stenosis: Patient has mild aortic valve stenosis. She may not require any specific intervention at this point. (3) Benign hypertension: The antihypertensive medications need to be optimized today. (4) Diastolic heart failure: Currently the heart failure is compensated. The BNP is within normal limits. May continue on the current medications. (5) Dyslipidemia: Continue on the current medications. (6) Vaping nicotine dependence, tobacco product: Patient is strongly advised to quit vaping. Cardiovascular implications were discussed. (7) Carotid bruit: This is suggestive of carotid stenosis. For further evaluation, carotid duplex examination would be appropriate. Plan The other problems are Mural thrombus in the abdominal aorta Obstructive sleep apnea Continue on the medications as mentioned above. Keep n.p.o. after midnight. May consider cardiac evaluation tomorrow Based on the clinical progress, further recommendations will be made. Thank you for the opportunity to evaluate this patient and make these recommendations PDMP PDMP Reviewed: Not Reviewed Coding Level of Care Code 59074 Diagnoses Atherosclerotic heart disease of [place] coronary artery with other forms of angina pectoris I25.118 Nonrheumatic aortic valve stenosis I35.0 Cardiac valve disease etiology: nonrheumatic Benign hypertension I10 Acute diastolic heart failure I50.31 Heart failure chronicity: acute Dyslipidemia E78.5 Vaping nicotine dependence, tobacco product F17.290 Bruit of left carotid artery R09.89 Laterality: left
[2024-08-21] MEDS: ranolazine (12HR) 500 mg Tablet PO (17:45)
[2024-08-21] MEDS: ezetimibe 10 mg Tablet PO (17:46)
[2024-08-21] MEDS: topiramate 100 mg Tablet PO (17:46)
[2024-08-21] MEDS: atorvastatin 40 mg Tablet PO (17:46)
--- NOTE | 2024-08-21 18:03 | ECG_ITS ---
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 Measurements Intervals Mobile Rate: 84 P: 34 NE: 167 QRS: 57 QRSD: 90 T: 14 QT: 273 QTc: 324 Interpretive Statements SINUS RHYTHM NONSPECIFIC T-WAVE ABNORMALITY Compared to ECG 08/21/2024 12:59:20 T-wave abnormality now present Electronically Signed On 08-22-2024 06:24:15 CDT by Dawit Walls M.D. [email or web address]
[2024-08-21 18:12] LABS: Troponin 5 6HR < 6.0 ng/L (0-10); Troponin 5 6HR Delta 0 ng/L (0-12)
[2024-08-21] MEDS: morphine 4 mg/mL SDV 1 mL 2 MG IVP (20:07)
[2024-08-21 20:51] LABS: Glucose Point of Care 143 mg/dL (70-110)
--- NOTE | 2024-08-21 20:58 | USCV_ITS ---
Rosenda Yusuf Age: 59 Gender: F : 1965 Exam Date: 08/21/2024 21:14 Ordering Phys: Dawit Walls MD ([email or web address]) Technologist: ANDRES [place] [facility] [place]: Carotid stenosis Risk Factors: Unknown Previous Vascular Surgery: Unknown Right Brachial BP: 156 / 75 Left Brachial BP: / Right Left Velocity (cm/s) Spectral Plaque Velocity (cm/s) Spectral Plaque Syst/Diast Broadening Syst/Diast Broadening 139.50/16.10 Min Hetro Prox CCA 177.40/ 28.90 Min Hetro 150.10/30.30 Min Hetro Mid CCA 124.30/ 24.60 Min Hetro 114.30/17.10 Min Hetro Distal CCA 99.60 / 21.70 Min Hetro 97.30/ 27.10 Min Hetro Prox ICA 115.80/ 26.70 Min Hetro 64.80/ 24.50 Min Homo Mid ICA 97.00 / 30.40 Min Homo 108.20/26.40 Min Homo Distal ICA 78.80 / 30.80 Min Hetro 94.70 Min Homo ECA 137.10 Min Homo 0.90 ICA/CCA 1.20 Antegrade Vertebral Antegrade 59.60/ 16.80 cm/s 48.40/ 16.30 cm/s Bi Subclavian Tri 165.9 129.9 0 0 CONCLUSIONS Right ICA stenosis <50%. Mild atheromatous plaque right carotid bulb/ICA. Left ICA stenosis <50%. Mild atheromatous plaque left carotid bulb/ICA. Intimal thickening in the common carotid arteries and internal carotid arteries bilaterally. Normal antegrade Doppler flow noted in the right vertebral artery. Normal antegrade Doppler flow noted in the left vertebral artery. Jason Pérez MD (Electronically Signed) Final Date: 22 August 2024 14:25 S
[2024-08-21 21:12] LABS: Partial Thromboplastin Time 68.8 SECONDS (23.9-36.7)
[2024-08-21] MEDS: nitroglycerin 1 gm/inch oint Pkt 1 INCH TOPICAL (21:33)
[2024-08-21] MEDS: losartan 50 mg Tablet 100 MG PO (22:00)
[2024-08-22] VITALS (13 sets, daily range): BP systolic 96–146; BP diastolic 48–89; PULSE 65–91; RESP 11–19; TEMP 36.6–36.8; O2SAT 90–94
[2024-08-22] MEDS: hyDROXYzine 25 mg Capsule PO (00:32)
[2024-08-22] MEDS: nitroglycerin 1 gm/inch oint Pkt 1 INCH TOPICAL ×2 (02:08→09:12)
[2024-08-22 03:22] LABS: Basophils # 0.1 10^3/uL (0.0-0.1); Basophils % 0.7 %; Eosinophils # 0.2 10^3/uL (0.0-0.8); Eosinophils % 2.8 %; Hematocrit 39.9 % (36-47); Lymphocytes # 2.4 10^3/uL (0.8-4.8); Lymphocytes % 28.1 %; Mean Corpuscular HGB Conc 32.6 g/dL (30-55); Mean Corpuscular Hemoglobin 28.9 pg (27-33); Mean Corpuscular Volume 88.7 fl (85-98); Mean Platelet Volume 8.9 fL (7.4-10.4); Monocytes # 0.9 10^3/uL (0.2-0.9); Monocytes % 10.4 %; Neutrophils # 4.88 10^3/uL (1.8-7.7); Neutrophils % 57.5 %; Nucleated Red Blood Cells % 0 %; Platelet Count 390 10^3/cmm (157-399); Red Cell Distribution Width 12.9 % (12.1-15.1); White Blood Count 8.48 10^3/uL (3.29-11.43)
[2024-08-22 03:32] LABS: Partial Thromboplastin Time 68.2 SECONDS (23.9-36.7)
[2024-08-22 03:41] LABS: Anion Gap 15.8 (5-19); Blood Urea Nitrogen 21 mg/dL (8-23); Calcium 9.3 mg/dL (8.5-10.5); Carbon Dioxide 25 mmol/L (22-29); Chloride 102 mmol/L (98-107); Creatinine Clr Calc Pharmacy 55.6719; Glomerular Filtration Rate 45.8 mL/min (90-130); Glucose 103 mg/dL (65-115); Osmolality Calculated 291 mOsm/kg (285-295); Potassium 3.8 mmol/L (3.5-5.1); Sodium 139 mmol/L (136-145)
--- NOTE | 2024-08-22 09:02 | P.PN_ITS ---
Subjective 2 Subjective: Patient continues to have episodes of chest pain. The cardiac enzymes are negative for myocardial injury so far. EKG does not reveal any new changes. The vitals are remaining stable. Medications: Medication Review Details: Current Medications Acetaminophen (Acetaminophen 325 Mg Tablet) 650 mg PO Q6H PRN PRN Reason: Mild/Mod Pain Or Temp >/= 101 Amlodipine Besylate (Amlodipine 10 Mg Tablet) 10 mg PO DAILY [facility] Aripiprazole (Aripiprazole 2 Mg Tablet) 2 mg PO DAILY [facility] Aspirin (Aspirin 81 Mg Ec Tablet) 81 mg PO DAILY [facility] Atorvastatin Calcium (Atorvastatin 40 Mg Tablet) 40 mg PO QPM [facility] Last Admin: 08/21/24 17:46 Dose: 40 mg Clopidogrel Bisulfate (Clopidogrel 75 Mg Tablet) 75 mg PO DAILY [facility] Ezetimibe (Ezetimibe 10 Mg Tablet) 10 mg PO QPM [facility] Last Admin: 08/21/24 17:46 Dose: 10 mg Fluoxetine HCl (Fluoxetine 20 Mg Capsule) 40 mg PO DAILY [facility] Heparin Sodium (Porcine) (Heparin 5,000 Unit/Ml Inj 1 Ml) 0 unit IVP PRN PRN; Protocol PRN Reason: Heparin Weight Based Protocol -Subsequent Bolus Hydroxyzine Pamoate (Hydroxyzine 25 Mg Capsule) 25 mg PO BEDTIME PRN PRN Reason: SLEEP Last Admin: 08/22/24 00:32 Dose: 25 mg Heparin Sodium/Sodium Chloride (Heparin Drip) 25,000 unit in 500 mls @ 0 mls/hr IV CONT [facility]; Protocol Last Titration: 08/22/24 07:45 Dose: 13.78 unit/kg/hr, 28 mls/hr Nitroglycerin/Dextrose (Nitroglycerin Drip) 50 mg in 250 mls @ 0 mls/hr IV .Q0M [facility]; Protocol Losartan Potassium (Losartan 50 Mg Tablet) 100 mg PO BEDTIME [facility] Last Admin: 08/21/24 22:00 Dose: 100 mg Morphine Sulfate (Morphine 4 Mg/Ml Sdv 1 Ml) 2 mg IVP Q4H PRN PRN Reason: SEVERE PAIN Last Admin: 08/21/24 20:07 Dose: 2 mg Naloxone HCl (Naloxone 0.4 Mg/Ml Sdv) 0.1 mg IVP Q2M PRN PRN Reason: OPIATERV Nitroglycerin (Nitroglycerin 1 Gm/Inch Oint Pkt) 1 inch TOPICAL Q6H [facility] Last Admin: 08/22/24 02:08 Dose: 1 inch Ondansetron HCl (Ondansetron 2 Mg/Ml Sdv 2 Ml) 4 mg IVP Q8H PRN PRN Reason: vomiting, or N/V if npo Pantoprazole Sodium (Pantoprazole 40 Mg Sdv) 40 mg IVP Q24H [facility] Last Admin: 08/21/24 15:34 Dose: 40 mg Ranolazine (Ranolazine (12hr) 500 Mg Tablet) 500 mg PO BID [facility] Last Admin: 08/21/24 17:45 Dose: 500 mg Tizanidine HCl (Tizanidine 4 Mg Tablet) 4 mg PO Q12H PRN PRN Reason: muscle spasticity Topiramate (Topiramate 100 Mg Tablet) 100 mg PO BID [facility] Last Admin: 08/21/24 17:46 Dose: 100 mg Vitals/I&O/Wt Last Vital Signs Temp 97.8 F 08/22/24 07:58 Pulse 75 08/22/24 07:58 Resp 18 08/22/24 07:58 BP 112/52 08/22/24 07:58 Pulse Ox 94 08/22/24 07:58 O2 Del Method Nasal Cannula 08/22/24 07:58 O2 Flow Rate 2 08/22/24 07:58 08/21/24 08/22/24 08/22/24 22:59 06:59 14:59 Intake Total 884.267 / 884.267 485.0 / 1369.267 0 / 0 Output Total 550 / 550 Balance 884.267 / 884.267 -65.0 / 819.267 0 / 0 Weight last 48 hrs Weight 237 lb 8 oz Weight 224 lb 3 oz Weight 224 lb Physical Exam 2 Narrative: GENERAL: The patient is alert and oriented times three. Not in any acute distress. HEENT: No significant pallor, icterus or lymphadenopathy.Oral cavity: There are no mucous membrane lesions. NECK: Trachea appears to be central. No masses noted. No JVD or thyromegaly appreciated. Bruit over the left carotid RESPIRATORY: Chest is symmetrical. No intercostals muscle retraction or any accessory muscle activation. There is no chest wall tenderness. Breath sounds are heard bilaterally. No rales or rhonchi heard. No evidence of any consolidation. BREASTS: Deferred. HEART: The heart sounds are normal. No S3 or S4. Ejection systolic murmur of grade 3/6 in the aortic area. No pericardial rub ABDOMEN: No vessel pulsations or distention. No tenderness. No organomegaly appreciated. Bowel sounds are normally heard. : Deferred. RECTAL: Deferred. LYMPHATIC: No lymphadenopathy noted in the neck. EXTREMITIES: No edema or cyanosis. No clubbing. MUSCULOSKELETAL: No acute joint deformities or swelling SKIN: There are no significant rashes or ecchymosis NEUROPSYCHIATRIC: The patient is alert and oriented x3. Appears to be in a good mood. No tremors or rigidity noted. Data 08/22/24 02:53 08/22/24 02:53 Other Labs: Laboratory Last Values WBC 8.48 10^3/uL (3.29-11.43) 08/22/24 02:53 RBC 4.50 10^6/uL (3.85-5.65) 08/22/24 02:53 Hgb 13.00 g/dL (11.27-16.99) 08/22/24 02:53 Hct 39.9 % (36-47) 08/22/24 02:53 MCV 88.7 fl (85-98) 08/22/24 02:53 MCH 28.9 pg (27-33) 08/22/24 02:53 MCHC 32.6 g/dL (30-55) 08/22/24 02:53 RDW 12.9 % (12.1-15.1) 08/22/24 02:53 Plt Count 390 10^3/cmm (157-399) 08/22/24 02:53 MPV 8.9 fL (7.4-10.4) 08/22/24 02:53 Neut % (Auto) 57.5 % 08/22/24 02:53 Lymph % (Auto) 28.1 % 08/22/24 02:53 [place] % (Auto) 10.4 % 08/22/24 02:53 Eos % (Auto) 2.8 % 08/22/24 02:53 Baso % (Auto) 0.7 % 08/22/24 02:53 Neut # (Auto) 4.88 10^3/uL (1.8-7.7) 08/22/24 02:53 Lymph # (Auto) 2.4 10^3/uL (0.8-4.8) 08/22/24 02:53 [place] # (Auto) 0.9 10^3/uL (0.2-0.9) 08/22/24 02:53 Eos # (Auto) 0.2 10^3/uL (0.0-0.8) 08/22/24 02:53 Baso # (Auto) 0.1 10^3/uL (0.0-0.1) 08/22/24 02:53 Nucleated RBC % (auto) 0 % 08/22/24 02:53 Nucleated RBCs # 0.0 /100WBC 08/22/24 02:53 PT 12.30 SECONDS (12.1-14.9) 08/21/24 11:50 INR 0.86 (0.8-1.2) 08/21/24 11:50 APTT 68.2 SECONDS (23.9-36.7) H 08/22/24 02:53 Sodium 139 mmol/L (136-145) 08/22/24 02:53 Potassium 3.8 mmol/L (3.5-5.1) 08/22/24 02:53 Chloride 102 mmol/L (98-107) 08/22/24 02:53 Carbon Dioxide 25 mmol/L (22-29) 08/22/24 02:53 Anion Gap 15.8 (5-19) 08/22/24 02:53 BUN 21 mg/dL (8-23) 08/22/24 02:53 Creatinine 1.2 mg/dL (0.5-0.9) H 08/22/24 02:53 GFR Calculation 45.8 mL/min (90-130) L 08/22/24 02:53 Glucose 103 mg/dL (65-115) 08/22/24 02:53 POC Glucose 143 mg/dL (70-110) H 08/21/24 20:47 Calculated Osmolality 291 mOsm/kg (285-295) 08/22/24 02:53 Calcium 9.3 mg/dL (8.5-10.5) 08/22/24 02:53 Total Bilirubin 0.5 mg/dL (0.15-1.2) 08/21/24 11:50 AST 17 U/L (0-32) 08/21/24 11:50 ALT 18 U/L (0-33) 08/21/24 11:50 Alkaline Phosphatase 105 U/L (35-105) 08/21/24 11:50 Troponin T Baseline < 6 ng/L (0-10) 08/21/24 11:50 Troponin T 120 Minute < 6.0 ng/L (0-10) 08/21/24 13:50 Delta Troponin T 0 ABS# (0-10) 08/21/24 13:50 Troponin T Hi Sens 6Hr < 6.0 ng/L (0-10) 08/21/24 17:39 Troponin T Hi Sens 6Hr Delta 0 ng/L (0-12) 08/21/24 17:39 NT-Pro-B Natriuret Pep 65 pg/mL (0-125) 08/21/24 11:50 Total Protein 7.4 g/dL (6.6-8.7) 08/21/24 11:50 Albumin 4.7 g/dL (3.5-5.2) 08/21/24 11:50 Globulin 2.7 g/dL (1.3-4.6) 08/21/24 11:50 Triglycerides 119 mg/dL (0-150) 08/21/24 11:50 Cholesterol 220 mg/dL (0-200) H 08/21/24 11:50 LDL Cholesterol, Calc 146 mg/dL (50-129) H 08/21/24 11:50 HDL Cholesterol 50 mg/dL (60-100) L 08/21/24 11:50 LDL/HDL Ratio 2.92 RATIO (0.00-3.22) 08/21/24 11:50 Cholesterol/HDL Ratio 4.40 mg/dL (0.0-4.40) 08/21/24 11:50 Lipase 39 U/L (13-60) 08/21/24 11:50 A&P Assessment and plan (1) Atherosclerotic heart disease of [place] coronary artery with other forms of angina pectoris: The patient chest pain is somewhat atypical. However possibility of coronary ischemia causing this is a strong consideration. In view of her recurrent ER visits and hospital admissions for the same complaints, it may be appropriate to go ahead and do a repeat angiogram to reevaluate the coronary status and then decide on management. The risks and benefits were discussed. The risk of bleeding, hematoma, vascular injury, myocardial infarction, myocardial perforation, malignant cardiac arrhythmias ,CVA, renal failure and other concomitant complications were explained in detail. Patient understood this well and consented to proceed (2) Aortic valve stenosis: Patient has mild aortic valve stenosis. She may not require any specific intervention at this point. (3) Benign hypertension: The antihypertensive medications need to be optimized today. (4) Diastolic heart failure: Currently the heart failure is compensated. The BNP is within normal limits. May continue on the current medications. (5) Dyslipidemia: Continue on the current medications. (6) Vaping nicotine dependence, tobacco product: Patient is strongly advised to quit vaping. Cardiovascular implications were discussed. (7) Carotid bruit: This is suggestive of carotid stenosis. For further evaluation, carotid duplex examination would be appropriate. 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 Because of the scheduling conflicts, I asked my colleague Dr. Kebede to perform the procedure. Dr. Kebede agreed to do the angiogram and consider possible PCI if it is required. Based on the angiogram findings and patient's clinical progress, further recommendations will be made. PDMP PDMP Reviewed: Not Reviewed Attestations 2 Medical Necessity Statement*: Patient may require 1 midnight stay if she undergoes PCI Coding Level of Care Code 35903 Diagnoses Atherosclerotic heart disease of [place] coronary artery with other forms of angina pectoris I25.118 Nonrheumatic aortic valve stenosis I35.0 Cardiac valve disease etiology: nonrheumatic Benign hypertension I10 Acute diastolic heart failure I50.31 Heart failure chronicity: acute Dyslipidemia E78.5 Vaping nicotine dependence, tobacco product F17.290 Bruit of left carotid artery R09.89 Laterality: left
[2024-08-22] MEDS: clopidogrel 75 mg Tablet PO (09:11)
[2024-08-22] MEDS: aspirin 81 mg EC Tablet PO (09:11)
[2024-08-22] MEDS: topiramate 100 mg Tablet PO (09:11)
[2024-08-22] MEDS: ARIPiprazole 2 mg Tablet PO (09:12)
[2024-08-22] MEDS: amlodipine 10 mg Tablet PO (09:12)
[2024-08-22] MEDS: fluoxetine 20 mg Capsule 40 MG PO (09:12)
[2024-08-22] MEDS: ranolazine (12HR) 500 mg Tablet PO (09:12)
--- NOTE | 2024-08-22 09:43 | XACV_ITS ---
Exam Room: [facility] [place] Ht: 157 cm Wt: 108 kg BSA: 2.23 m2 Gender: Female : 1965 Performing Physician(s): Dr. Kebede Any Known Allergies: Other Exam Priority: Routine Procedure(s): Procedure Description: Diagnostic procedure Procedure Description: Coronary Angiography Diagnostic Cath Status: Urgent Diagnostic Findings * Left main: Mild 20% distal left main disease. * LAD: Mild 20-30% diffuse disease in the mid segment. Rest of the LAD with minor irregularities. * LCx: Patent stent in the proximal segment. Mild disease in the mid distal circumflex. OM1, medium size vessel, with no significant disease. * RCA: Minor irregularities in RCA and large sized PLV branch. Mild disease in the mid PDA. * Conclusion: Patent stent in the proximal LCx. No significant disease in the rest of coronary arteries. Conclusions 1. Patent stent in the proximal circumflex artery. No significant disease in the rest of the coronary arteries. Recommendations * Optimize medical management of CAD. Interventional RX Recommendation: none Diagnostic RX Recommendation: medical therapy and/or counseling Pressures Phase:Rest AO : 98 / 74 ( 86 ) @ 11:37:00 AM Clinical Evaluation EBL: 5mL-10mL Procedural Details Procedure Consent Obtained. Pre-Procedure Time Out. Identified patient by full name and date of as verbalized by the patient/guarantor. Does the consent match the physician's order: Yes. Accurate & Complete Informed Consent: Yes. Inpatient/Outpatient History & Physical on Chart: Yes. If H&P is completed, is and addenduem needed: No; If yes, is the addendum complete: N/A. Visualize and Verify Site with Patient/Guarantor: N/A. Relevant Radiology Images available: N/A. Pre-op teaching completed and patient verbalized understanding. The risks, benefits, and alternatives of sedation and/or procedure were discussed by physician. The patient agrees to continue. Procedure started. [facility] Clinical Fraility Score: 3: Managing Well. Worship Leader Indications: Other, unstable angina. Chest Pain Symptom Assessment: Typical Angina Symptoms. Cardiovascular Instability: No. Correct patient, site and procedure confirmed by cath team. IV Site on Arrival: 20 gauge in the right anticubital. IV Fluids: 0.9% NaCl at KVO. 0 mL infused prior to dental laboratory technology teacher. Oxygen started at 2liters/min via nasal canula. right groin was prepped with chloroprep then draped in the usual sterile fashion. right radial was prepped with chloroprep then draped in the usual sterile fashion. Baseline sample Acquired. HR: 77 BPM. Physician notified. Equipment: 6F - Radial. Cardiac Cath Pack. ACIST Manifold Kit Model BT 2000. Heparinized Saline (2 units/mL), 1000 mL bag. Physician arrived. Physician scrubbed in. Immediate Pre-Procedure Time Out. Correct Patient: Yes; Correct Procedure: Yes; Correct Site: Yes; Correct Patient Position: Yes; Correct Supplies: Yes; Dried Flammable Prep: Yes; Blood Products Available: N/A;. Lidocaine 1% infiltrated to the right radial. Arterial access obtained. A 5 [place] JL4 catheter in over wire. Catheter removed over the exchange wire. A 5 [place] JL3.5 catheter in over wire. Multiple views taken of left coronary artery. Catheter removed over the exchange wire. A 5 [place] JR4 catheter in over wire. Multiple views taken of right coronary artery. Catheter removed over the exchange wire. Physician scrubbed out. A TR Band was successful obtaining hemostatsis at the Right Radial artery insertion site. TR band placed. Hemostasis obtained. Post Procedure: Pulses reassessed and unchanged. PERRLA. Strong, equal hand radio adjuster bilaterally. No VTE prophylaxis required. Post-op diagnosis: patent stent. Contrast type used: Visipaque 320 mgI/mL, 500 mL bottle. Complications: none. Estimated blood loss: 5mL-10mL. Responsiveness - Normal response to verbal stimuli; alert and oriented, PERRLA. Airway - Unaffected, no intervention required; spontaneous ventilation. Circulation: W/N/L, pulses unchanged. Nausea/Vomiting: No. Medication's Wasted: Nitro = 49.9 mg. Medication's Wasted: Lidocaine 1% = 18 mL. Total IV fluids: 30 mL. Procedure completed. Patient transferred by bed to 1st floor. Vital chart was stopped. Access Site Site: Right Radial artery Sheath Size: 6 Fr Hemostasis Method: TR Band Hemostasis Success: Successful Complication Findings: None. Procedure Medications Start: 10:14 AM Stop: 10:14 AM Medication: Benadryl Amount: 50 mg Route: I.V. Start: 10:23 AM Stop: 10:23 AM Medication: Versed Amount: 1 mg Route: I.V. Start: 10:23 AM Stop: 10:23 AM Medication: Fentanyl Amount: 50 mcg Route: I.V. Start: 10:26 AM Stop: 10:26 AM Medication: Versed Amount: 1 mg Route: I.V. Start: 10:30 AM Stop: 10:30 AM Medication: Nitrogylcerin Amount: 100 mcg Route: I.A. Start: 10:38 AM Stop: 10:38 AM Medication: Fentanyl Amount: 25 mcg Route: I.V. I, the attending physician, have reviewed and verified all procedure medications. Yes, all medications given per verbal order History/Risk Factors Hypertension: Yes Dyslipidemia: Yes Peripheral Arterial Disease (PAD): No Myocardial Infarction ([place]): No Obesity: Yes Renal Disease: No Prior Interventions PCI: Yes CABG: No Valve Surgery: No Report Signatures Finalized by Giovanny Kebede MD on 08/22/2024 11:07 AM
--- NOTE | 2024-08-22 09:50 | PC.NURSE ---
per physician to keep patient NPO
[2024-08-22] MEDS: acetaminophen 325 mg Tablet 650 MG PO (10:46)
--- NOTE | 2024-08-22 12:33 | PM.DCS ---
Discharge Providers Date of Admission: 08/21/24 13:23 Date of Discharge: August 22, 2024 Attending Provider at Admission: Mamadou Overton MD Attending Provider at Discharge: Mamadou Overton MD Primary Care Provider: Samanta Kapoor DO Diagnoses at Discharge Discharge Diagnosis (1) Atherosclerotic heart disease of [place] coronary artery with other forms of angina pectoris: Status: Acute (2) Aortic valve stenosis: Status: Acute Qualifiers: Cardiac valve disease etiology: nonrheumatic Qualified Code(s): I35.0 - Nonrheumatic aortic (valve) stenosis (3) Benign hypertension: Status: Acute (4) Diastolic heart failure: Status: Acute Qualifiers: Heart failure chronicity: acute Qualified Code(s): I50.31 - Acute diastolic (congestive) heart failure (5) Dyslipidemia: Status: Acute (6) Vaping nicotine dependence, tobacco product: Status: Acute (7) Carotid bruit: Status: Acute Qualifiers: Laterality: left Qualified Code(s): R09.89 - Other specified symptoms and signs involving the circulatory and respiratory systems Reason for Visit Reason for Visit: sent from heart care, chest pain Hospital Course Hospital Course Rosenda Yusuf is a 59 year old female with a past medical history of CAD, recent history of balloon angioplasty and stenting to left circumflex, hypertension, hyperlipidemia, is compliant with aspirin Plavix, who presents to [facility] for chest pain. Patient was seen by cardiology today, she has been complaining of chest pain and shortness of breath, she was in the emergency room on 615 for similar symptoms, she was given Lasix, reports chest pain, radiating to the back, she is taken 2 nitroglycerin this morning with aspirin 325 with improvement of her systems, but currently the emergency room she continues to have episodes of chest pain, requiring nitroglycerin, currently alert oriented x 3, following all commands, blood pressure 158/65, she is 93% on room air, heart rate 80s Patient was admitted to [facility] for chest pain -Management aspirin, statin, Plavix, heparin drip -With persistent chest pain underwent cardiac catheterization Diagnostic Findings * Left main: Mild 20% distal left main disease. * LAD: Mild 20-30% diffuse disease in the mid segment. Rest of the LAD with minor irregularities. * LCx: Patent stent in the proximal segment. Mild disease in the mid distal circumflex. OM1, medium size vessel, with no significant disease. * RCA: Minor irregularities in RCA and large sized PLV branch. Mild disease in the mid PDA. * Conclusion: Patent stent in the proximal LCx. No significant disease in the rest of coronary arteries. Conclusions 1. Patent stent in the proximal circumflex artery. No significant disease in the rest of the coronary arteries. CTA CT/CT angio chest PE protcl [id number] IMPRESSION: 1. No evidence of pulmonary embolus. 2. Lungs are well aerated. No acute pulmonary infiltrates. 3. No other acute findings -Patient was discharged on aspirin, Plavix, statin, home Imdur, ranolazine with a close follow-up with cardiology as outpatient If any recurrent chest pain go to the emergency room Physical Exam Const: COMMON NORMALS: no acute distress and patient oriented x3 Resp: COMMON NORMALS: normal respiratory effort, No retractions, No use of accessory muscles and clear to auscultation bilaterally AUSCULTATION: clear to auscultation bilaterally Cardio: COMMON NORMALS: regular rate, regular rhythm, S1 normal heart sound present and S2 normal heart sound present RATE: regular rate RHYTHM: regular rhythm HEART SOUNDS: S1 normal heart sound present and S2 normal heart sound present GI: COMMON NORMALS: Normal to inspection, nondistended, normoactive bowel sounds present and non-tender Extremity: COMMON NORMALS: no pedal edema Neuro: COMMON NORMALS: patient oriented x3 Psych: COMMON NORMALS: mental status grossly normal Discharge Data Studies Completed and Pending Completed Studies During Hospitalization Category Date Time Status CTA chest [CT angio chest PE protcl [id number]] Stat Cat Scan 08/21/24 11:40 Completed [employer] request for service Routine Exams 08/22/24 09:43 Completed XR chest 1V portable [id number] Stat Exams 08/21/24 11:17 Completed CV. echo limited [id number] Routine Ultrasound 08/21/24 15:08 Completed Pending at discharge Category Date Time Status Basic Metabolic Panel AM LABS Lab 08/23/24 04:00 Ordered Basic Metabolic Panel AM LABS Lab 08/24/24 04:00 Ordered Complete Blood Count w/Auto AM LABS Lab 08/23/24 04:00 Ordered Complete Blood Count w/Auto AM LABS Lab 08/24/24 04:00 Ordered CV carotid duplex BI* [id number] Routine Ultrasound 08/21/24 20:58 Taken Radiology Impressions Chest X-Ray 08/21/24 11:17 Impression: Negative chest. Chest CTA 08/21/24 11:40 IMPRESSION: 1. No evidence of pulmonary embolus. 2. Lungs are well aerated. No acute pulmonary infiltrates. 3. No other acute findings Laboratory Results WBC 8.48 10^3/uL (3.29-11.43) 08/22/24 02:53 RBC 4.50 10^6/uL (3.85-5.65) 08/22/24 02:53 Hgb 13.00 g/dL (11.27-16.99) 08/22/24 02:53 Hct 39.9 % (36-47) 08/22/24 02:53 MCV 88.7 fl (85-98) 08/22/24 02:53 MCH 28.9 pg (27-33) 08/22/24 02:53 MCHC 32.6 g/dL (30-55) 08/22/24 02:53 RDW 12.9 % (12.1-15.1) 08/22/24 02:53 Plt Count 390 10^3/cmm (157-399) 08/22/24 02:53 MPV 8.9 fL (7.4-10.4) 08/22/24 02:53 Neut % (Auto) 57.5 % 08/22/24 02:53 Lymph % (Auto) 28.1 % 08/22/24 02:53 Johnston % (Auto) 10.4 % 08/22/24 02:53 Eos % (Auto) 2.8 % 08/22/24 02:53 Baso % (Auto) 0.7 % 08/22/24 02:53 Neut # (Auto) 4.88 10^3/uL (1.8-7.7) 08/22/24 02:53 Lymph # (Auto) 2.4 10^3/uL (0.8-4.8) 08/22/24 02:53 Johnston # (Auto) 0.9 10^3/uL (0.2-0.9) 08/22/24 02:53 Eos # (Auto) 0.2 10^3/uL (0.0-0.8) 08/22/24 02:53 Baso # (Auto) 0.1 10^3/uL (0.0-0.1) 08/22/24 02:53 Nucleated RBC % (auto) 0 % 08/22/24 02:53 Nucleated RBCs # 0.0 /100WBC 08/22/24 02:53 PT 12.30 SECONDS (12.1-14.9) 08/21/24 11:50 INR 0.86 (0.8-1.2) 08/21/24 11:50 APTT 68.2 SECONDS (23.9-36.7) H 08/22/24 02:53 Sodium 139 mmol/L (136-145) 08/22/24 02:53 Potassium 3.8 mmol/L (3.5-5.1) 08/22/24 02:53 Chloride 102 mmol/L (98-107) 08/22/24 02:53 Carbon Dioxide 25 mmol/L (22-29) 08/22/24 02:53 Anion Gap 15.8 (5-19) 08/22/24 02:53 BUN 21 mg/dL (8-23) 08/22/24 02:53 Creatinine 1.2 mg/dL (0.5-0.9) H 08/22/24 02:53 GFR Calculation 45.8 mL/min (90-130) L 08/22/24 02:53 Glucose 103 mg/dL (65-115) 08/22/24 02:53 POC Glucose 143 mg/dL (70-110) H 08/21/24 20:47 Calculated Osmolality 291 mOsm/kg (285-295) 08/22/24 02:53 Calcium 9.3 mg/dL (8.5-10.5) 08/22/24 02:53 Total Bilirubin 0.5 mg/dL (0.15-1.2) 08/21/24 11:50 AST 17 U/L (0-32) 08/21/24 11:50 ALT 18 U/L (0-33) 08/21/24 11:50 Alkaline Phosphatase 105 U/L (35-105) 08/21/24 11:50 Troponin T Baseline < 6 ng/L (0-10) 08/21/24 11:50 Troponin T 120 Minute < 6.0 ng/L (0-10) 08/21/24 13:50 Delta Troponin T 0 ABS# (0-10) 08/21/24 13:50 Troponin T Hi Sens 6Hr < 6.0 ng/L (0-10) 08/21/24 17:39 Troponin T Hi Sens 6Hr Delta 0 ng/L (0-12) 08/21/24 17:39 NT-Pro-B Natriuret Pep 65 pg/mL (0-125) 08/21/24 11:50 Total Protein 7.4 g/dL (6.6-8.7) 08/21/24 11:50 Albumin 4.7 g/dL (3.5-5.2) 08/21/24 11:50 Globulin 2.7 g/dL (1.3-4.6) 08/21/24 11:50 Triglycerides 119 mg/dL (0-150) 08/21/24 11:50 Cholesterol 220 mg/dL (0-200) H 08/21/24 11:50 LDL Cholesterol, Calc 146 mg/dL (50-129) H 08/21/24 11:50 HDL Cholesterol 50 mg/dL (60-100) L 08/21/24 11:50 LDL/HDL Ratio 2.92 RATIO (0.00-3.22) 08/21/24 11:50 Cholesterol/HDL Ratio 4.40 mg/dL (0.0-4.40) 08/21/24 11:50 Lipase 39 U/L (13-60) 08/21/24 11:50 Vitals Last Vital Signs Temp 98.3 F 08/22/24 11:00 Pulse 83 08/22/24 11:00 Resp 16 08/22/24 11:00 BP 146/89 08/22/24 11:00 Pulse Ox 94 08/22/24 11:00 O2 Del Method Room Air 08/22/24 11:00 O2 Flow Rate 2 08/22/24 07:58 Discharge Plan Discharge Patient Disposition: Home Condition: Stable Prescriptions: Continued fluoxetine [Prozac] 40 mg capsule 40 mg PO DAILY ezetimibe [Zetia] 10 mg tablet 10 mg PO QPM nitroglycerin 0.4 mg tablet, sublingual 0.4 mg sublingual Q5M PRN (Reason: chest pain) Qty: 25 2RF Rx Instructions: do not exceed 3 doses per episode rizatriptan 10 mg tablet See Rx Instructions .ROUTE .COMPLEX Qty: 9 1RF Dose Instruction: TAKE 1 TAB AT ONSET OF HEADACHE IF NO RELIEF MAY REPEAT 1 TAB AFTER AT LEAST 2 HRS MAX3 TABS/24 HRS Rx Instructions: TAKE 1 TABLET AT ONSET OF HEADACHE, IF NO RELIEF MAY REPEAT 1 TABLET AFTER AT LEAST 2 HRS MAX3 TABS/24 HRS. ranolazine 500 mg tablet extended release 12 hr 500 mg PO BID Qty: 180 3RF atorvastatin [Lipitor] 40 mg tablet 40 mg PO QPM Qty: 90 3RF isosorbide mononitrate 60 mg tablet extended release 24 hr 60 mg PO DAILY Qty: 30 0RF aspirin 81 mg tablet,delayed release (DR/EC) 81 mg PO DAILY Qty: 30 0RF losartan 100 mg tablet 100 mg PO BEDTIME albuterol sulfate 2.5 mg /3 mL (0.083 %) solution for nebulization 2.5 mg continuous nebulization Q6H PRN (Reason: Shortness Of Breath) albuterol sulfate 90 mcg/actuation Hfa Aerosol Inhaler 2 puff INHALATION 6XD PRN (Reason: Shortness Of Breath Or Wheezing) clopidogrel 75 mg Tablet 75 mg PO DAILY Qty: 90 3RF benzonatate 100 mg capsule 100 mg PO BID PRN (Reason: Cough) potassium chloride 20 mEq tablet extended release 20 meq PO DAILY amlodipine 10 mg tablet 10 mg PO DAILY hydroxyzine HCl 25 mg tablet 25 mg PO BEDTIME PRN (Reason: Sleep) topiramate 100 mg tablet 100 mg PO BID aripiprazole 2 mg tablet 2 mg PO DAILY tizanidine 4 mg tablet 4 mg PO Q12H PRN (Reason: muscle spasticity) Rx Instructions: do not exceed 3 doses per 24 hrs fluticasone propionate 50 mcg/actuation spray,suspension 2 spray INTRANASAL DAILY PRN (Reason: allergies) furosemide 20 mg tablet 40 mg PO DAILY Qty: 30 3RF Discontinued meloxicam 15 mg tablet 7.5 mg PO BID PRN (Reason: Pain) Discharge Orders: Discharge Order (Routine); Ordered 08/22/24 Ordered By: Mamadou Overton Referrals: Samanta Kapoor DO [Primary Care Provider, DRUPAL ARCHITECT] - 08/28/24 11:15 am Sandra Hernandez FNP [Nurse Practitioner, Cardiology] - 09/02/24 1:30 pm Discharge Diet: Cardiac Discharge Activity: Resume usual activity Patient Instructions: Costochondritis (DC), Opioid Safety, Post Angiogram Home Care Instructions Discharge Attestations Time Spent in Discharge Care*: greater than 30 min Quality Metrics Clinical Quality Measures [ No reported AMI, CVA or VTE this stay] Coding Level of Care Code 47731 Total time (in minutes) for Discharge: 45 Diagnoses Atherosclerotic heart disease of [place] coronary artery with other forms of angina pectoris I25.118 Nonrheumatic aortic valve stenosis I35.0 Cardiac valve disease etiology: nonrheumatic Benign hypertension I10 Acute diastolic heart failure I50.31 Heart failure chronicity: acute Dyslipidemia E78.5 Vaping nicotine dependence, tobacco product F17.290 Bruit of left carotid artery R09.89 Laterality: left
[2024-08-22] MEDS: morphine 4 mg/mL SDV 1 mL 2 MG IVP (12:39)
== END 2024-08-22 15:52 | disposition home or self-care (01) | DRG 287 ==
LOC: ER 13:05 → CSU 13:24
PROVIDERS: Internal Medicine Cardiovascular Disease; Admitting Provider Family Medicine; Emergency Provider Emergency Medicine; PCP Family Medicine; Visit Provider Family Medicine
PROC: B211YZZ Fluoroscopy of Multiple Coronary Arteries using Other Contrast (ICD-10-PCS; principal; 2024-08-22 10:30)
DX: I25.118 Atherosclerotic heart disease of native coronary artery with other forms of angina pectoris (principal); I50.32 Chronic diastolic (congestive) heart failure; I35.0 Nonrheumatic aortic (valve) stenosis; I11.0 Hypertensive heart disease with heart failure; E78.5 Hyperlipidemia, unspecified; F17.290 Nicotine dependence, other tobacco product, uncomplicated; G47.33 Obstructive sleep apnea (adult) (pediatric); G43.711 Chronic migraine without aura, intractable, with status migrainosus; I51.3 Intracardiac thrombosis, not elsewhere classified; Z79.82 Long term (current) use of aspirin; Z79.02 Long term (current) use of antithrombotics/antiplatelets
CPT/HCPCS: 36415; 36416; 71045; 71275; 80048; 80053; 80061; 82962; 83690; 83880; 84484; 85025; 85610; 85730; 93005; 93308; 93880; 96374; 96375; 96376; 99152; 99153; 99285; C1769; C1887; C1894; J1200; J1644; J1938; J2250; J2270; J2405; J2470; J3010; J3490; J7030; J9999; Q9967

== ENCOUNTER 2024-10-01 18:25 | Emergency (ER) | payer BC, SELFPAY ==
[2024-10-01 18:31] VITALS: BP 142/69; PULSE 85; RESP 14; TEMP 36.7; O2SAT 96
--- OUTSIDE RECORDS SUMMARY | 2024-10-01 18:31 | XMS_ITS | Encounter Summary ---
Author Organization [facility] Address [address] [place] [address] Care Team Providers Care Embossograph Operator Name Role Phone Unavailable Primary Care Provider Unavailabl e Encounter Details Date Type Department Care Team (Late st Contact Info) Description 09/24/2024 External Device Data [facility]STRACTION Provider, Abstract NO ADDRESS ON FILE Social History Tobacco Use Types Packs/Day Years Used Date Smoking Tobacco: Former Smokeless Tobacco: Current Alcohol Use Standard Drinks/Week Comments Not Currently 0 (1 standard drink = 0.6 oz pur e alcohol) Comments Unknown Sex and Gender Information Value Date Recorded Sex Assigned at Not on file 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
--- OUTSIDE RECORDS SUMMARY | 2024-10-01 18:31 | XMS_ITS | Clinical Summary ---
Author Organization [facility] Address [address] [place] [address] Care Team Providers Care Supervisor Press Room Name Role Phone Unavailable Primary Care Provider Unavailabl e Allergies Active Allergy Reactions Criticality Noted Date Comments Cephalexin Unknown High 06/04/2024 Ciprofloxacin Unknown High 06/04/2024 Erythromycin Unknown High 06/04/2024 Ondansetron Hcl Unknown High 06/04/2024 Penicillins Unknown High 06/04/2024 Medications ARIPiprazole (ABILIFY) 1 mg/mL solution Take by mouth daily. Active albuterol (PROVENTIL,VENTOL IN) 2.5 mg /3 mL (0.083 %) Solution for Nebulization Active FLUoxetine (PROzac) 40 mg capsule Take 1 Capsule by mouth daily. Active fluticasone propionate (FLONASE) 50 mcg/spray [place], Suspension nasal inhaler Administer 2 Sprays in each nostril daily. Active hydrOXYzine HCL (ATARAX) 25 mg tablet take 1 tablet by mouth every day at bedtime as needed Active loratadine (CLARITIN) 10 mg tablet Take 10 mg by mouth daily. Active losartan (COZAAR) 100 mg tablet Take 100 mg by mouth daily. Active semaglutide 14 mg Tablet Take by mouth. Activ e simvastatin (ZOCOR) 40 mg tablet Take 40 mg by mouth daily with supper. Active tiZANidine (ZANAFLEX) 4 mg Tablet Take 1 Tablet by mouth 2 times daily. 5 Active topiramate (TOPAMAX) 100 mg tablet Take 100 mg by mouth 2 times daily. Active ranolazine ER (RANEXA) 500 mg Extended Release 12 hour tablet Active traMADoL (ULTRAM) 50 mg tablet Active Active Problems Problem Noted Date Diagnosed Date Generalized abdominal pain 06/04/2024 Acute maxillary sinusitis 06/04/2024 Arthralgia of right ankle 06/04/2024 Generalized anxiety disorder 06/04/2024 Aortic mural thrombus 06/04/2024 Asthma exacerbation 06/04/2024 Atypical chest pain 06/04/2024 Cat bite 06/04/2024 Breast pain 06/04/2024 Chronic migraine w/o aura w/ o status migrainosus, not intractable 06/04/2024 Depression 06/04/2024 Dizziness 06/04/2024 Shortness of breath 06/04/2024 Heart murmur, systolic 06/04/2024 Herpes simplex 06/04/2024 Hypertension 06/04/2024 Hyperlipemia 06/04/2024 Myalgia 06/04/2024 Obstructive sleep apnea syndrome 06/04/2024 Primary osteoarthritis of left knee 06/04/2024 Type II diabetes mellitus 06/04/2024 Lyme disease 06/04/2024 Encounters Date Type Department Care Team Description 09/24/2024 External Device Data [facility] ABSTRACTION Provider, Abstract 09/18/2024 External Device Data [facility] ABSTRACTION Provider, Abstract 09/17/2024 External Device Data [facility] ABSTRACTION Provider, Abstract 08/20/2024 External Device Data [facility] ABSTRACTION Provider, Abstract from Last 3 Months Family History Medical History Relation Name Comments Hypertension Father Anxiety Mother Depression Mother Heart Disease Mother Hypertension Mother Kidney Disease Mother Lung/ Respirayory Mother Migraines Mother Depression Sister Relation Name Status Comments Father Mother Sister Social History Tobacco Use Types Packs/Day Years Used Date Smoking Tobacco: Former Smokeless Tobacco: Current Tobacco Cessation:Ready to Q uit: Not Asked Alcohol Use Standard Drinks/Week Comments Not Currently 0 (1 standard drink = 0.6 oz pur e alcohol) Comments Unknown Sex and Gender Information Value Date Recorded Sex Assigned at Not on file 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 Gender Identity Not on file Sexual Orientation Not on file Last Filed Vital Signs Vital Sign Reading Time Taken Comments Blood Pressure 142/76 06/05/2024 9:48 AM CDT Pulse 84 06/05/2024 9:48 AM CDT Temperature - - Respiratory Rate - - Oxygen Saturation 97% 06/05/2024 9:48 AM CDT Inhaled Oxygen Concentration - - Weight 103.9 kg (229 lb) 06/05/2024 9:48 AM CDT Height 158.8 cm (5' 2.5 ) 06/05/2024 9:48 AM CDT Body Mass Index 41.22 06/05/2024 9:48 AM CDT Plan of Treatment Health Maintenance Due Date Last Done Comments DIABETES ANNUAL FOOT EXAM 1982 DIABETES HBA1C Q 6 MONTHS 1982 DIABETES MICROALBUMIN ANNUAL SCREEN 1982 LDL CHOLESTEROL ANNUAL 1982 DTAP/TDAP/TD VACCINES (1 - Tdap) 1983 BREAST CANCER SCREENING 2004 COLORECTAL SCREENING 2009 Colorectal Cancer Screening 2009 FIT-DNA Q 3 years 2009 FIT/FOBT Q 1 year 2009 Flex Sig/CT Colonography Q 5 years 2009 ZOSTER VACCINE (1 of 2) 2014 DIABETES ANNUAL RETINAL EXAM 01/22/2022 01/22/2021, 01/22/2021, 01/22/2021, Additional history exists COVID-19 Vaccine (3 - 2023- season) 2023 06/29/2020, 06/08/2020 RSV VACCINE (60+ or ) (1 - Risk 60-74 years 1-dose series) 2024 INFLUENZA VACCINE (#1) 2024 HEPATITIS B VACCINES Aged Out No long er eligible based on patient's age to complete this topic [place] [place] [address] BLUE ACCESS/TRUE BLUE PPO
[2024-10-01 18:50] LABS: Glucose Urine UA Negative (Normal); Nitrate Urine Negative (Negative); Specific Gravity, Urine 1.024 (1.005-1.030)
[2024-10-01 18:55] LABS: Add Urine Microscopic? YES
[2024-10-01 19:02] LABS: Hematocrit 40.7 % (36-47); Hemoglobin 13.30 g/dL (11.27-16.99); Mean Corpuscular HGB Conc 32.7 g/dL (30-55); Mean Corpuscular Hemoglobin 28.5 pg (27-33); Mean Corpuscular Volume 87.3 fl (85-98); Nucleated Red Blood Cells % 0 %; Platelet Count 374 10^3/cmm (157-399); Red Blood Count 4.66 10^6/uL (3.85-5.65); White Blood Count 10.61 10^3/uL (3.29-11.43)
[2024-10-01 19:19] LABS: Alanine Aminotransferase 15 U/L (0-33); Albumin Level 4.4 g/dL (3.5-5.2); Alkaline Phosphatase 99 U/L (35-105); Anion Gap 17.1 (5-19); Aspartate Amino Transferase 14 U/L (0-32); Blood Urea Nitrogen 17 mg/dL (8-23); Calcium 9.3 mg/dL (8.5-10.5); Carbon Dioxide 21 mmol/L (22-29); Chloride 105 mmol/L (98-107); Creatinine Clr Calc Pharmacy 61.1708; Globulin 2.7 g/dL (1.3-4.6); Glucose 150 mg/dL (65-115); Lipase 37 U/L (13-60); Osmolality Calculated 292 mOsm/kg (285-295); Potassium 4.1 mmol/L (3.5-5.1); Sodium 139 mmol/L (136-145); Total Protein 7.1 g/dL (6.6-8.7)
[2024-10-01] MEDS: LORazepam 1 MG/0.5 ML injection 0.5 MG IVP (21:23)
[2024-10-01] MEDS: diphenhydrAMINE 50 mg/mL SDV 1mL IVP (21:24)
--- NOTE | 2024-10-01 21:25 | W.ED.HA ---
HPI - Headache General: Chief Complaint: Headache Stated Complaint: Headache\Kidney Pain Time Seen by Provider: 10/01/24 20:15 History of Present Illness: Patient is 5-year-old female that awoke this morning at approximately 6 AM with a headache. She went to urgent care, was given Toradol, dexamethasone, promethazine, and advised to take Benadryl when she went home. She woke back up at 2 pm today with return of BERMUDEZ. She did not take her blood pressure. Blood pressure here is 168/68. She states that she did take her amlodipine losartan, Ranexa, and isosorbide this morning. She states this is similar to previous headaches, global, with photophobia. No other auras. Associated symptoms: Deny chest pain, fever(s), nausea, rash or vomiting Related Data Home Medications ?Medication ?Instructions ?Recorded ?Confirmed losartan 100 mg tablet 100 mg PO BEDTIME 04/05/21 10/01/24 fluoxetine 40 mg capsule (Prozac) 40 mg PO DAILY 06/11/23 10/01/24 amlodipine 10 mg tablet 10 mg PO DAILY 04/02/24 10/01/24 aripiprazole 2 mg tablet 2 mg PO DAILY 04/02/24 10/01/24 hydroxyzine HCl 25 mg tablet 25 mg PO BEDTIME PRN Sleep 04/02/24 10/01/24 topiramate 100 mg tablet 100 mg PO BID 04/02/24 10/01/24 albuterol sulfate 2.5 mg/3 mL 2.5 mg continuous nebulization Q6H 06/04/24 10/01/24 (0.083 %) solution for nebulization PRN Shortness Of Breath ezetimibe 10 mg tablet (Zetia) 10 mg PO QPM 07/02/24 10/01/24 albuterol sulfate 90 mcg/actuation 2 puff inhalation 6XD PRN 07/08/24 10/01/24 aerosol inhaler Shortness Of Breath Or Wheezing fluticasone propionate 50 2 spray intranasal DAILY PRN 07/14/24 10/01/24 mcg/actuation nasal allergies spray,suspension tizanidine 4 mg tablet 4 mg PO Q12H PRN muscle spasticity 07/14/24 10/01/24 benzonatate 100 mg capsule 100 mg PO BID PRN Cough 08/21/24 10/01/24 Previous Rx's ?Medication ?Instructions ?Recorded rizatriptan 10 mg tablet See Rx Instructions .Route 11/15/21 .COMPLEX #9 tabs ranolazine 500 mg tablet,extended 500 mg PO BID #180 tabs 05/24/24 release,12 hr nitroglycerin 0.4 mg sublingual 0.4 mg sublingual Q5M PRN chest 07/02/24 tablet pain #25 tabs clopidogrel 75 mg tablet 75 mg PO DAILY #90 tabs 07/10/24 atorvastatin 40 mg tablet (Lipitor) 40 mg PO QPM #90 tabs 08/02/24 isosorbide mononitrate 60 mg 60 mg PO DAILY #30 tabs 08/19/24 tablet,extended release 24 hr furosemide 40 mg tablet 40 mg PO DAILY PRN edema #180 tabs 09/02/24 aspirin 81 mg tablet,delayed 81 mg PO DAILY #90 tabs 09/16/24 release potassium chloride 20 mEq 20 meq PO DAILY #90 tabs 09/16/24 tablet,extended release Allergies Allergy/AdvReac Type Severity Reaction Status Date / Time cephalexin (From Keflex) Allergy ADR-Itching Verified 10/01/24 18:34 ciprofloxacin (From Cipro) Allergy ALGY-Difficulty Verified 10/01/24 18:34 Breathing erythromycin base Allergy ALGY-Difficulty Verified 10/01/24 18:34 Breathing Penicillins Allergy ALGY-Difficulty Verified 10/01/24 18:34 Breathing Review of Systems General: Reports: 10 or more systems reviewed and unremarkable except in HPI and below Const: Denies: fever(s) or chills Eyes: Reports: photophobia; Denies: change in vision or blurry vision ENMT: Denies: throat pain Card: Denies: chest pain or palpitations GI: Denies: abdominal pain, nausea or vomiting : Denies: flank pain or dysuria Skin/Breast: Denies: rash or pruritus Neuro: Reports: headache(s); Denies: numbness in extremities or weakness in extremities Psych: Denies: anxiety or depression Endo: Denies: polyuria Alfonso/Lymph: Denies: easy bruising or easy bleeding All/Imm: Denies: urticaria or throat swelling PFS ED PFSH: Medical History (Updated 10/01/24 @ 21:37 by KARYN Carrillo) Aortic aneurysm Heart murmur, systolic Obstructive sleep apnea Chronic migraine without aura, intractable, with status migrainosus Social History Smoking and tobacco/nicotine status: never used tobacco/nicotine Alcohol intake: never Physical Exam Const: COMMON NORMALS: patient oriented x3 and alert HENMT: COMMON NORMALS: normocephalic and atraumatic HEAD & SCALP: normocephalic and atraumatic Neck/C-Spine: COMMON NORMALS: full ROM, no lymphadenopathy and supple Lymph: LYMPHATIC: no lymphadenopathy noted Chest: COMMONS NORMALS: normal inspection of the chest and normal palpation of entire chest wall Resp: COMMON NORMALS: normal respiratory effort, No retractions and No use of accessory muscles Cardio: COMMON NORMALS: regular rate and regular rhythm RATE: regular rate RHYTHM: regular rhythm GI: COMMON NORMALS: Normal to inspection, nondistended, normoactive bowel sounds present and Soft to palpation PALPATION: Yes Soft to palpation : COMMON NORMALS: Yes no CVA tenderness BLADDER/KIDNEY EXAM: Yes no CVA tenderness Back/Pelvis: COMMON NORMALS: no CVA tenderness Extremity: COMMON NORMALS: normal to inspection, full ROM and capillary refill normal Neuro: REECE COMA SCALE: document GCS findings COMMON NORMALS: patient oriented x3, CN's II-XII intact bilaterally, moves all extremities and no sensory deficits noted SENSORIUM/ORIENTATION: Yes alert Psych: COMMON NORMALS: mental status grossly normal, Normal thought process present and cooperative THOUGHT PROCESS: Normal thought process present Skin: COMMON NORMALS: no rashes or lesions noted and no wounds GENERAL SKIN EXAM: no rashes or lesions noted Course Vital Signs: Vital signs: Vital Signs Temperature 98.0 F 10/01/24 18:31 Pulse Rate 88 10/01/24 22:33 Respiratory Rate 17 10/01/24 21:31 Blood Pressure 135/65 10/01/24 22:33 Pulse Oximetry 94 10/01/24 22:33 Oxygen Delivery Me thod Room Air 10/01/24 21:31 MDM - Headache Medical Decision Making Patient is a 5-year-old female with headache, global, photophobia, similar to as she awoke this morning. Creatinine is mildly elevated at 1.1, CO2 is 21, mildly decreased. Her glucoses at 150, although even notes nondiabetic, she had dexamethasone this morning. Will give a liter of IV fluids, and lorazepam, Benadryl, Compazine. Lab Data 10/01/24 18:52 10/01/24 18:52 Laboratory Results WBC 10.61 10^3/uL (3.29-11.43) 10/01/24 18:52 RBC 4.66 10^6/uL (3.85-5.65) 10/01/24 18:52 Hgb 13.30 g/dL (11.27-16.99) 10/01/24 18:52 Hct 40.7 % (36-47) 10/01/24 18:52 MCV 87.3 fl (85-98) 10/01/24 18:52 MCH 28.5 pg (27-33) 10/01/24 18:52 MCHC 32.7 g/dL (30-55) 10/01/24 18:52 RDW 12.7 % (12.1-15.1) 10/01/24 18:52 Plt Count 374 10^3/cmm (157-399) 10/01/24 18:52 MPV 9.0 fL (7.4-10.4) 10/01/24 18:52 Neut % (Auto) 91.4 % 10/01/24 18:52 Lymph % (Auto) 7.0 % 10/01/24 18:52 [place] % (Auto) 0.8 % 10/01/24 18:52 Eos % (Auto) 0.0 % 10/01/24 18:52 Baso % (Auto) 0.3 % 10/01/24 18:52 Neut # (Auto) 9.71 10^3/uL (1.8-7.7) H 10/01/24 18:52 Lymph # (Auto) 0.7 10^3/uL (0.8-4.8) L 10/01/24 18:52 [place] # (Auto) 0.1 10^3/uL (0.2-0.9) L 10/01/24 18:52 Eos # (Auto) 0.0 10^3/uL (0.0-0.8) 10/01/24 18:52 Baso # (Auto) 0.0 10^3/uL (0.0-0.1) 10/01/24 18:52 Nucleated RBC % (auto) 0 % 10/01/24 18:52 Nucleated RBCs # 0.0 /100WBC 10/01/24 18:52 Sodium 139 mmol/L (136-145) 10/01/24 18:52 Potassium 4.1 mmol/L (3.5-5.1) 10/01/24 18:52 Chloride 105 mmol/L (98-107) 10/01/24 18:52 Carbon Dioxide 21 mmol/L (22-29) L 10/01/24 18:52 Anion Gap 17.1 (5-19) 10/01/24 18:52 BUN 17 mg/dL (8-23) 10/01/24 18:52 Creatinine 1.1 mg/dL (0.5-0.9) H 10/01/24 18:52 GFR Calculation 50.7 mL/min (90-130) L 10/01/24 18:52 Glucose 150 mg/dL (65-115) H 10/01/24 18:52 Calculated Osmolality 292 mOsm/kg (285-295) 10/01/24 18:52 Calcium 9.3 mg/dL (8.5-10.5) 10/01/24 18:52 Total Bilirubin 0.4 mg/dL (0.15-1.2) 10/01/24 18:52 AST 14 U/L (0-32) 10/01/24 18:52 ALT 15 U/L (0-33) 10/01/24 18:52 Alkaline Phosphatase 99 U/L (35-105) 10/01/24 18:52 Total Protein 7.1 g/dL (6.6-8.7) 10/01/24 18:52 Albumin 4.4 g/dL (3.5-5.2) 10/01/24 18:52 Globulin 2.7 g/dL (1.3-4.6) 10/01/24 18:52 Lipase 37 U/L (13-60) 10/01/24 18:52 Urine Color Yellow (Yellow) 10/01/24 18:39 Urine Appearance Clear (CLEAR) 10/01/24 18:39 Urine pH 7.5 (5-7) 10/01/24 18:39 Ur Specific [place] 1.024 (1.005-1.030) 10/01/24 18:39 Urine Protein Negative (Negative) 10/01/24 18:39 Urine Glucose (UA) Negative (Normal) 10/01/24 18:39 Urine Ketones Trace (Negative) 10/01/24 18:39 Urine Blood Negative (Negative) 10/01/24 18:39 Urine Nitrate Negative (Negative) 10/01/24 18:39 Urine Bilirubin Negative (Negative) 10/01/24 18:39 Urine Urobilinogen 1.0 mg/dL (Negative) 10/01/24 18:39 Ur Leukocyte Esterase Negative (Negative) 10/01/24 18:39 Urine RBC 0-2 /hpf (0-2) 10/01/24 18:39 Urine WBC 0-5 /hpf (0-5) 10/01/24 18:39 Ur Squamous Epith Cells 0-5 /hpf (0-5) 10/01/24 18:39 Amorphous Sediment Not Reportable 10/01/24 18:39 Urine Bacteria None seen /hpf (NONE) 10/01/24 18:39 Hyaline Casts 2.46 /lpf 10/01/24 18:39 No radiology studies performed this visit Discharge Plan Discharge Patient Disposition: Home Clinical Impression: Migraine Qualifiers: Migraine type: migraine (< 15 days per month) with aura Status migrainosus presence: with status migrainosus Intractability: intractable Qualified Code(s): G43.111 - Migraine with aura, intractable, with status migrainosus Condition: Stable Prescriptions: No Action furosemide 40 mg tablet 40 mg PO DAILY PRN (Reason: edema) Qty: 180 3RF Rx Instructions: may add 20mg at 2PM if needed for swelling fluoxetine [Prozac] 40 mg capsule 40 mg PO DAILY ezetimibe [Zetia] 10 mg tablet 10 mg PO QPM nitroglycerin 0.4 mg tablet, sublingual 0.4 mg sublingual Q5M PRN (Reason: chest pain) Qty: 25 2RF Rx Instructions: do not exceed 3 doses per episode rizatriptan 10 mg tablet See Rx Instructions .ROUTE .COMPLEX Qty: 9 1RF Dose Instruction: TAKE 1 TAB AT ONSET OF HEADACHE IF NO RELIEF MAY REPEAT 1 TAB AFTER AT LEAST 2 HRS MAX3 TABS/24 HRS Rx Instructions: TAKE 1 TABLET AT ONSET OF HEADACHE, IF NO RELIEF MAY REPEAT 1 TABLET AFTER AT LEAST 2 HRS MAX3 TABS/24 HRS. ranolazine 500 mg tablet extended release 12 hr 500 mg PO BID Qty: 180 3RF atorvastatin [Lipitor] 40 mg tablet 40 mg PO QPM Qty: 90 3RF isosorbide mononitrate 60 mg tablet extended release 24 hr 60 mg PO DAILY Qty: 30 0RF potassium chloride 20 mEq tablet extended release 20 meq PO DAILY Qty: 90 4RF aspirin 81 mg tablet,delayed release (DR/EC) 81 mg PO DAILY Qty: 90 4RF losartan 100 mg tablet 100 mg PO BEDTIME albuterol sulfate 2.5 mg /3 mL (0.083 %) solution for nebulization 2.5 mg continuous nebulization Q6H PRN (Reason: Shortness Of Breath) albuterol sulfate 90 mcg/actuation Hfa Aerosol Inhaler 2 puff INHALATION 6XD PRN (Reason: Shortness Of Breath Or Wheezing) clopidogrel 75 mg Tablet 75 mg PO DAILY Qty: 90 3RF benzonatate 100 mg capsule 100 mg PO BID PRN (Reason: Cough) amlodipine 10 mg tablet 10 mg PO DAILY hydroxyzine HCl 25 mg tablet 25 mg PO BEDTIME PRN (Reason: Sleep) topiramate 100 mg tablet 100 mg PO BID aripiprazole 2 mg tablet 2 mg PO DAILY tizanidine 4 mg tablet 4 mg PO Q12H PRN (Reason: muscle spasticity) Rx Instructions: do not exceed 3 doses per 24 hrs fluticasone propionate 50 mcg/actuation spray,suspension 2 spray INTRANASAL DAILY PRN (Reason: allergies) Discharge Orders: Discharge ED (Routine); Ordered 10/01/24 Ordered By: Wandy Greenwood Referrals: Samanta Kapoor DO [Primary Care Provider, [employer] REP] Discharge Diet: Low Salt Patient Instructions: Acute Headache (ED), DASH Eating Plan (ED), Patient Portal & Farrah Instructions Activity Restrictions/Additional Instructions: Follow a low-salt diet Take your blood pressure daily, and take the log to your follow-up with you Take Benadryl 50 mg every 6-8 hours as needed for headache. Obtain liquid Benadryl [id number] Call your primary care doctor in the morning for follow-up. Print Language: Icelandic Coding Level of Care Code ED Clay Stain Mixer for Annette Cordova
[2024-10-01 21:27] VITALS: BP 161/68; PULSE 85; O2SAT 92
[2024-10-01 21:31] VITALS: BP 139/65; PULSE 89; RESP 17; O2SAT 93
[2024-10-01 22:33] VITALS: BP 135/65; PULSE 88; O2SAT 94
== END 2024-10-01 22:34 | disposition home or self-care (01) ==
PROVIDERS: Emergency Medicine; Emergency Provider Physician Assistant; PCP Family Medicine
DX: G43.111 Migraine with aura, intractable, with status migrainosus (principal); Z79.82 Long term (current) use of aspirin; Z79.02 Long term (current) use of antithrombotics/antiplatelets
CPT/HCPCS: 36415; 80053; 81001; 83690; 85025; 96361; 96374; 96375; 99284; J0780; J1200; J2060; J7030

== ENCOUNTER 2024-10-22 18:07 | Emergency (ER) | payer BC, SELFPAY ==
--- OUTSIDE RECORDS SUMMARY | 2024-10-22 18:18 | XMS_ITS | Clinical Summary ---
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 Active fluticasone propionate (FLONASE) 50 mcg/spray [place], Suspension nasal inhaler Administer 2 Sprays in [...] Encounters Date Type Department Care Team Description 10/09/2024 External Device Data [facility]STRACTION Provider, Abstract 09/24/2024 External Device Data [facility] Provider, [...] on file Legal Sex Female 9:38 AM [employer] Gender Identity Not on file Sexual Orientation [...] patient's age to complete this topic Insurance BS BLUE ACCESS/TRUE BLUE PPO
[2024-10-22 18:24] VITALS: BP 133/74; PULSE 86; TEMP 36.7; O2SAT 95; BMI 41.1
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
[2024-10-22 20:09] VITALS: BP 136/70; PULSE 78; O2SAT 97
[2024-10-22 20:30] LABS: Add Urine Microscopic? NO
[2024-10-22 20:35] LABS: Hematocrit 45.3 % (36-47); Hemoglobin 14.90 g/dL (11.27-16.99); Mean Corpuscular HGB Conc 32.9 g/dL (30-55); Mean Corpuscular Hemoglobin 28.2 pg (27-33); Mean Corpuscular Volume 85.6 fl (85-98); Nucleated Red Blood Cells % 0 %; Platelet Count 418 10^3/cmm (157-399); Red Blood Count 5.29 10^6/uL (3.85-5.65); White Blood Count 11.01 10^3/uL (3.29-11.43)
[2024-10-22 20:38] LABS: Glucose Urine UA Negative (Normal); Nitrate Urine Negative (Negative); Specific Gravity, Urine 1.015 (1.005-1.030)
[2024-10-22 20:51] LABS: Charge for UA Resulting for Rev
[2024-10-22] MEDS: orphenadrine 30 mg/mL Inj 2 mL 60 MG IM (20:55)
[2024-10-22 21:00] LABS: INR 1.39 (0.8-1.2); Prothrombin Time 18.00 SECONDS (12.1-14.9)
[2024-10-22 21:01] LABS: Alanine Aminotransferase 17 U/L (0-33); Albumin Level 4.8 g/dL (3.5-5.2); Alkaline Phosphatase 111 U/L (35-105); Anion Gap 14.8 (5-19); Aspartate Amino Transferase 16 U/L (0-32); Blood Urea Nitrogen 16 mg/dL (8-23); Calcium 9.6 mg/dL (8.5-10.5); Carbon Dioxide 24 mmol/L (22-29); Chloride 103 mmol/L (98-107); Creatinine Clr Calc Pharmacy 74.3836; Globulin 2.9 g/dL (1.3-4.6); Glucose 93 mg/dL (65-115); Osmolality Calculated 287 mOsm/kg (285-295); Potassium 3.8 mmol/L (3.5-5.1); Sodium 138 mmol/L (136-145); Total Protein 7.7 g/dL (6.6-8.7)
[2024-10-22 21:23] VITALS: BP 149/76; PULSE 80; O2SAT 94
== END 2024-10-22 21:23 | disposition home or self-care (01) ==
PROVIDERS: Emergency Provider Physician Assistant; PCP Family Medicine
DX: S13.4XXA Sprain of ligaments of cervical spine, initial encounter (principal); S39.012A Strain of muscle, fascia and tendon of lower back, initial encounter; Z79.82 Long term (current) use of aspirin; Z79.02 Long term (current) use of antithrombotics/antiplatelets; I25.10 Atherosclerotic heart disease of native coronary artery without angina pectoris; V89.2XXA Person injured in unspecified motor-vehicle accident, traffic, initial encounter
CPT/HCPCS: 36415; 70450; 72125; 72128; 72131; 80053; 81003; 85025; 85610; 96372; 99284; J1885; J2360

== ENCOUNTER 2024-11-12 17:09 | Emergency (ER) | payer BC, SELFPAY ==
--- NOTE | 2024-11-12 17:10 | ECG_ITS ---
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 Measurements Intervals Douglas Rate: 78 P: 43 MT: 152 QRS: 64 QRSD: 90 T: 45 QT: 393 QTc: 449 Interpretive Statements SINUS RHYTHM LOW QRS VOLTAGE IN PRECORDIAL LEADS [QRS DEFLECTION < 1.0 mV IN CHEST LEADS] Compared to ECG 08/21/2024 18:03:51 Low QRS voltage now present T-wave abnormality no longer present Electronically Signed On 11-13-2024 21:07:06 CDT by Jordon Reza M.D. [email or web address] [id number]
--- OUTSIDE RECORDS SUMMARY | 2024-11-12 17:13 | XMS_ITS | Encounter Summary ---
Author Organization [facility] Address 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 Name Role Phone Unavailable Primary Care Provider Unavailabl e Encounter Details Date Type Department Care Team (Late st Contact Info) Description 11/05/2024 External Device Data [facility]CTION Provider, Abstract NO ADDRESS ON FILE Social History Tobacco Use Types Packs/Day Years Used Date Smoking Tobacco: Former Smokeless Tobacco: Current Alcohol Use Standard Drinks/Week Comments Not Currently 0 (1 standard drink = 0.6 oz pur e alcohol) Comments Unknown Sex and Gender Information Value Date Recorded Sex Assigned at Not on file 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
--- OUTSIDE RECORDS SUMMARY | 2024-11-12 17:13 | XMS_ITS | Clinical Summary ---
Author Organization [facility] Address [address] [place] [address] Care Team Providers Care Test Data Developer Name Role Phone Unavailable Primary Care Provider [...] daily. 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
[2024-11-12 17:15] VITALS: BP 144/62; PULSE 86; RESP 18; O2SAT 96; BMI 47.2
--- NOTE | 2024-11-12 17:18 | XRR_ITS ---
PROCEDURE INFORMATION: Exam: XR Chest Exam date and time: 11/12/2024 5:19 PM Age: 59 years old Clinical indication: Shortness of breath; Prior surgery; Surgery date: 1-6 months; Surgery type: Cardiac stents; Additional info: SOB, edema TECHNIQUE: Imaging protocol: Radiologic exam of the chest. Views: 1 view. Total images: 4 COMPARISON: 1. CT angio chest PE protcl [id number] 08/21/2024 12:02 PM 2. CR XR chest 1V portable [id number] 08/21/2024 11:23 AM 3. CR XR chest 1V portable [id number] 08/18/2024 1:[address] thoracic spin wo con* [id number] 10/22/2024 7:42 PM FINDINGS: Lungs: Unremarkable. No consolidation. Lungs are well-aerated without focal pathologic pulmonary parenchymal process. Pleural spaces: No significant pleural effusion. No pneumothorax. Heart/Mediastinum: The heart is not enlarged. Bones/joints: Mild generalized degenerative changes of the vertebral column characterized primarily by multilevel osteophyte formation, and degenerative facet arthrosis commensurate with patient's age. Acromioclavicular joint mild chronic degenerative arthrosis. XR/XR chest 1V portable [id number] IMPRESSION: 1. No acute cardiopulmonary disease or adverse interval change radiographically. 2. Generalized mild skeletal degenerative and other chronic/nonacute findings as described above.
[2024-11-12 17:19] VITALS: TEMP 36.7
--- NOTE | 2024-11-12 17:19 | W.ED.SOB ---
HPI - SOB/Dyspnea General: Chief Complaint: Shortness of Breath/Dyspnea Stated Complaint: chest pain and sob Time Seen by Provider: 11/12/24 17:14 History of Present Illness: HPI Narrative: 59-year-old female with history of diastolic heart failure, aortic aneurysm, obstructive sleep apnea, migraines who presents emergency room with worsening swelling and some shortness of breath. She also says she has a migraine. She said she did increase her Lasix to 60 mg but swelling has continued to worsen. She has had some exertional dyspnea. She also started feeling some tightness in her chest. She also complains of a migraine that is typical for her migraines. No focal motor deficits. No nausea or vomiting. No abdominal pain. Related Data Home Medications ?Medication ?Instructions ?Recorded ?Confirmed losartan 100 mg tablet 100 mg PO BEDTIME 04/05/21 11/05/24 amlodipine 10 mg tablet 10 mg PO DAILY 04/02/24 11/05/24 aripiprazole 2 mg tablet 2 mg PO DAILY 04/02/24 11/05/24 hydroxyzine HCl 25 mg tablet 25 mg PO BEDTIME PRN Sleep 04/02/24 11/05/24 topiramate 100 mg tablet 100 mg PO BID 04/02/24 11/05/24 albuterol sulfate 2.5 mg/3 mL 2.5 mg continuous nebulization Q6H 06/04/24 11/05/24 (0.083 %) solution for nebulization PRN Shortness Of Breath ezetimibe 10 mg tablet (Zetia) 10 mg PO QPM 07/02/24 11/05/24 albuterol sulfate 90 mcg/actuation 2 puff inhalation 6XD PRN 07/08/24 11/05/24 aerosol inhaler Shortness Of Breath Or Wheezing fluticasone propionate 50 2 spray intranasal DAILY PRN 07/14/24 11/05/24 mcg/actuation nasal allergies spray,suspension tizanidine 4 mg tablet 4 mg PO Q12H PRN muscle spasticity 07/14/24 11/05/24 Previous Rx's ?Medication ?Instructions ?Recorded rizatriptan 10 mg tablet See Rx Instructions .Route 11/15/21 .COMPLEX #9 tabs ranolazine 500 mg tablet,extended 500 mg PO BID #180 tabs 05/24/24 release,12 hr nitroglycerin 0.4 mg sublingual 0.4 mg sublingual Q5M PRN chest 07/02/24 tablet pain #25 tabs clopidogrel 75 mg tablet 75 mg PO DAILY #90 tabs 07/10/24 atorvastatin 40 mg tablet (Lipitor) 40 mg PO QPM #90 tabs 08/02/24 isosorbide mononitrate 60 mg 60 mg PO DAILY #30 tabs 08/19/24 tablet,extended release 24 hr aspirin 81 mg tablet,delayed 81 mg PO DAILY #90 tabs 09/16/24 release potassium chloride 20 mEq 20 meq PO DAILY #90 tabs 09/16/24 tablet,extended release methocarbamol 500 mg tablet 500 mg PO Q8H PRN muscle spasm #30 10/22/24 tabs citalopram 40 mg tablet (Celexa) 40 mg PO DAILY #30 tabs 11/05/24 trazodone 50 mg tablet 100 mg (2 x 50 mg) PO .HS PRN 11/05/24 insomnia #60 tabs furosemide 40 mg tablet (Lasix) 80 mg (2 x 40 mg) PO QAM 5 days 11/12/24 #10 tabs Allergies Allergy/AdvReac Type Severity Reaction Status Date / Time cephalexin (From Keflex) Allergy ADR-Itching Verified 11/05/24 15:53 ciprofloxacin (From Cipro) Allergy ALGY-Difficulty Verified 11/05/24 15:53 Breathing erythromycin base Allergy ALGY-Difficulty Verified 11/05/24 15:53 Breathing Penicillins Allergy ALGY-Difficulty Verified 11/05/24 15:53 Breathing Review of Systems Narrative: Constitutional symptoms: Negative except as documented in HPI. Skin symptoms: Negative except as documented in HPI. Eye symptoms: Negative except as documented in HPI. ENMT symptoms: Negative except as documented in HPI. Respiratory symptoms: Negative except as documented in HPI. Cardiovascular symptoms: Negative except as documented in HPI. Gastrointestinal symptoms: Negative except as documented in HPI. Genitourinary symptoms: Negative except as documented in HPI. Musculoskeletal symptoms: Negative except as documented in HPI. Neurologic symptoms: Negative except as documented in HPI. Psychiatric symptoms: Negative except as documented in HPI. Endocrine symptoms: Negative except as documented in HPI. [facility] ED PFSH: Medical History (Updated 11/12/24 @ 18:52 by Deb Dowling MD) Psychiatric care Aortic aneurysm Heart murmur, systolic Obstructive sleep apnea Chronic migraine without aura, intractable, with status migrainosus Social History Smoking and tobacco/nicotine status: never used tobacco/nicotine Alcohol intake: never Physical Exam Narrative: EXAM NARRATIVE: General: Alert, no acute distress. Skin: Warm, dry. Head: Normocephalic, atraumatic. Neck: Supple, trachea midline. Eye: Extraocular movements are intact. Ears, nose, mouth and throat: mucosa moist. Cardiovascular: Regular, Normal peripheral perfusion. 2-3+ pedal edema Respiratory: Lungs are clear to auscultation, respirations are non-labored, breath sounds are equal, Symmetrical chest wall expansion. Gastrointestinal: Soft, Nontender, Non distended Musculoskeletal: Normal ROM, no deformity. Neurological: Alert and oriented, No focal neurological deficit observed. Psychiatric: Cooperative, appropriate mood & affect. Course Vital Signs: Vital signs: Vital Signs Temperature 98.0 F 11/12/24 17:19 Pulse Rate 86 11/12/24 17:15 Respiratory Rate 19 H 11/12/24 18:48 Blood Pressure 119/54 11/12/24 18:48 Pulse Oximetry 96 11/12/24 18:48 Oxygen Delivery Me thod Room Air 11/12/24 17:15 MDM - SOB/Dyspnea Medical Decision Making Medical decision making: Differential diagnosis including but not limited to and based on the above HPI, review of systems and physical exam: for patient with edema: Congestive heart failure. Kidney failure. DVT / Pulmonary embolism. Protein malnutrition. Cirrhosis. Orders placed to evaluate differential diagnosis based on the above differential, HPI and physical exam EKG: Time 1710. Rate 78. Normal sinus rhythm, No ST-T changes, no ectopy, normal MT & QRS intervals, This was reviewed and interpreted by myself the ER physician at 1715 Lab Review: Laboratory results were reviewed and interpreted by myself the emergency room physician. No leukocytosis. No anemia. Stable chronic renal insufficiency with a creatinine of 1.1 today. Chest x-ray: No acute process. No infiltrate. No pneumothorax. This was reviewed and interpreted by myself the emergency room physician. I also reviewed the radiology report. I reviewed the patient's medical record. Reexamination: Patient remained stable. No increased work of breathing. No altered mental status. No focal motor deficits. No oxygen requirements. No increased work of breathing. Assessment and plan: Diastolic congestive heart failure Edema Noncardiac chest pain Migraine ? IV Lasix 80 mg ? IV Reglan, Benadryl, Zofran and Norflex in the emergency room for the migraine headache - Discharged home - Discussed plan with patient. Answered any questions. - Evaluation and treatment of this problem were appropriate in the emergency setting. Lab Data 11/12/24 17:23 11/12/24 17:23 Labs/Radiology: Radiology Impressions Chest X-Ray 11/12/24 17:18 IMPRESSION: 1. No acute cardiopulmonary disease or adverse interval change radiographically. 2. Generalized mild skeletal degenerative and other chronic/nonacute findings as described above. Laboratory Results WBC 8.93 10^3/uL (3.29-11.43) 11/12/24 17:23 RBC 4.46 10^6/uL (3.85-5.65) 11/12/24 17:23 Hgb 12.60 g/dL (11.27-16.99) 11/12/24 17:23 Hct 38.3 % (36-47) 11/12/24 17:23 MCV 85.9 fl (85-98) 11/12/24 17:23 MCH 28.3 pg (27-33) 11/12/24 17:23 MCHC 32.9 g/dL (30-55) 11/12/24 17:23 RDW 12.9 % (12.1-15.1) 11/12/24 17:23 Plt Count 307 10^3/cmm (157-399) 11/12/24 17:23 MPV 8.9 fL (7.4-10.4) 11/12/24 17:23 Neut % (Auto) 63.0 % 11/12/24 17:23 Lymph % (Auto) 23.6 % 11/12/24 17:23 [place] % (Auto) 9.6 % 11/12/24 17:23 Eos % (Auto) 2.6 % 11/12/24 17:23 Baso % (Auto) 0.8 % 11/12/24 17:23 Neut # (Auto) 5.62 10^3/uL (1.8-7.7) 11/12/24 17:23 Lymph # (Auto) 2.1 10^3/uL (0.8-4.8) 11/12/24 17:23 [place] # (Auto) 0.9 10^3/uL (0.2-0.9) 11/12/24 17:23 Eos # (Auto) 0.2 10^3/uL (0.0-0.8) 11/12/24 17:23 Baso # (Auto) 0.1 10^3/uL (0.0-0.1) 11/12/24 17:23 Nucleated RBC % (auto) 0 % 11/12/24 17:23 Nucleated RBCs # 0.0 /100WBC 11/12/24 17:23 Sodium 143 mmol/L (136-145) 11/12/24 17:23 Potassium 4.1 mmol/L (3.5-5.1) 11/12/24 17:23 Chloride 110 mmol/L (98-107) H 11/12/24 17:23 Carbon Dioxide 24 mmol/L (22-29) 11/12/24 17:23 Anion Gap 13.1 (5-19) 11/12/24 17:23 BUN 17 mg/dL (8-23) 11/12/24 17:23 Creatinine 1.1 mg/dL (0.5-0.9) H 11/12/24 17:23 GFR Calculation 50.7 mL/min (90-130) L 11/12/24 17:23 Glucose 99 mg/dL (65-115) 11/12/24 17:23 Calculated Osmolality 298 mOsm/kg (285-295) H 11/12/24 17:23 Calcium 9.0 mg/dL (8.5-10.5) 11/12/24 17:23 Total Bilirubin 0.2 mg/dL (0.15-1.2) 11/12/24 17:23 AST 15 U/L (0-32) 11/12/24 17:23 ALT 15 U/L (0-33) 11/12/24 17:23 Alkaline Phosphatase 99 U/L (35-105) 11/12/24 17:23 Troponin T Baseline < 6 ng/L (0-10) 11/12/24 17:23 NT-Pro-B Natriuret Pep 171 pg/mL (0-125) H 11/12/24 17:23 Total Protein 6.6 g/dL (6.6-8.7) 11/12/24 17:23 Albumin 4.3 g/dL (3.5-5.2) 11/12/24 17:23 Globulin 2.3 g/dL (1.3-4.6) 11/12/24 17:23 All radiology interpretation(s) finalized by discharge Discharge Plan Discharge Patient Disposition: Home Clinical Impression: Edema, Diastolic congestive heart failure, Non-cardiac chest pain, Migraine headache Condition: Stable Prescriptions: New furosemide [Lasix] 40 mg tablet 80 mg PO QAM 5 Days Qty: 10 0RF No Action trazodone 50 mg tablet 100 mg PO .HS PRN (Reason: insomnia) Qty: 60 2RF citalopram [Celexa] 40 mg tablet 40 mg PO DAILY Qty: 30 2RF ezetimibe [Zetia] 10 mg tablet 10 mg PO QPM nitroglycerin 0.4 mg tablet, sublingual 0.4 mg sublingual Q5M PRN (Reason: chest pain) Qty: 25 2RF Rx Instructions: do not exceed 3 doses per episode rizatriptan 10 mg tablet See Rx Instructions .ROUTE .COMPLEX Qty: 9 1RF Dose Instruction: TAKE 1 TAB AT ONSET OF HEADACHE IF NO RELIEF MAY REPEAT 1 TAB AFTER AT LEAST 2 HRS MAX3 TABS/24 HRS Rx Instructions: TAKE 1 TABLET AT ONSET OF HEADACHE, IF NO RELIEF MAY REPEAT 1 TABLET AFTER AT LEAST 2 HRS MAX3 TABS/24 HRS. ranolazine 500 mg tablet extended release 12 hr 500 mg PO BID Qty: 180 3RF atorvastatin [Lipitor] 40 mg tablet 40 mg PO QPM Qty: 90 3RF isosorbide mononitrate 60 mg tablet extended release 24 hr 60 mg PO DAILY Qty: 30 0RF potassium chloride 20 mEq tablet extended release 20 meq PO DAILY Qty: 90 4RF aspirin 81 mg tablet,delayed release (DR/EC) 81 mg PO DAILY Qty: 90 4RF losartan 100 mg tablet 100 mg PO BEDTIME albuterol sulfate 2.5 mg /3 mL (0.083 %) solution for nebulization 2.5 mg continuous nebulization Q6H PRN (Reason: Shortness Of Breath) albuterol sulfate 90 mcg/actuation Hfa Aerosol Inhaler 2 puff INHALATION 6XD PRN (Reason: Shortness Of Breath Or Wheezing) clopidogrel 75 mg Tablet 75 mg PO DAILY Qty: 90 3RF amlodipine 10 mg tablet 10 mg PO DAILY hydroxyzine HCl 25 mg tablet 25 mg PO BEDTIME PRN (Reason: Sleep) topiramate 100 mg tablet 100 mg PO BID aripiprazole 2 mg tablet 2 mg PO DAILY tizanidine 4 mg tablet 4 mg PO Q12H PRN (Reason: muscle spasticity) Rx Instructions: do not exceed 3 doses per 24 hrs fluticasone propionate 50 mcg/actuation spray,suspension 2 spray INTRANASAL DAILY PRN (Reason: allergies) methocarbamol 500 mg tablet 500 mg PO Q8H PRN (Reason: muscle spasm) Qty: 30 0RF Discharge Orders: Discharge ED (Routine); Ordered 11/12/24 Ordered By: Deb Dowling Referrals: Samanta Kapoor DO [Primary Care Provider, [facility] [facility]] Discharge Diet: Usual diet Discharge Activity: Increase activity as tolerated Patient Instructions: Heart Failure (ED), Edema (ED), Opioid Safety, Pain Management, Patient Portal & Farrah Instructions Activity Restrictions/Additional Instructions: Thank you for choosing [facility] for your healthcare needs today. You have been screened and evaluated and felt safe for discharge. Health conditions do change or evolve sometimes and as such it is important that you follow up with your Primary Doctor to be re checked, 3-5 days is a general good time frame for follow up. You are always welcome to return to the ED for re assessment if your symptoms are worsening or you have new concerns Print Language: Greek Coding Level of Care Code ED Lead Ingot Molder for Annette Cordova
[2024-11-12 17:29] LABS: Hematocrit 38.3 % (36-47); Hemoglobin 12.60 g/dL (11.27-16.99); Mean Corpuscular HGB Conc 32.9 g/dL (30-55); Mean Corpuscular Hemoglobin 28.3 pg (27-33); Mean Corpuscular Volume 85.9 fl (85-98); Nucleated Red Blood Cells % 0 %; Platelet Count 307 10^3/cmm (157-399); Red Blood Count 4.46 10^6/uL (3.85-5.65); White Blood Count 8.93 10^3/uL (3.29-11.43)
[2024-11-12] MEDS: FUROsemide 10 mg/mL SDV 10mL 80 MG IVP (17:32)
[2024-11-12 17:52] LABS: Troponin(5th) Baseline < 6 ng/L (0-10)
[2024-11-12 18:07] LABS: Alanine Aminotransferase 15 U/L (0-33); Albumin Level 4.3 g/dL (3.5-5.2); Alkaline Phosphatase 99 U/L (35-105); Anion Gap 13.1 (5-19); Aspartate Amino Transferase 15 U/L (0-32); Blood Urea Nitrogen 17 mg/dL (8-23); Calcium 9.0 mg/dL (8.5-10.5); Carbon Dioxide 24 mmol/L (22-29); Chloride 110 mmol/L (98-107); Creatinine Clr Calc Pharmacy 68.5869; Globulin 2.3 g/dL (1.3-4.6); Glucose 99 mg/dL (65-115); NT Pro B Type Natriuretic Pept 171 pg/mL (0-125); Osmolality Calculated 298 mOsm/kg (285-295); Potassium 4.1 mmol/L (3.5-5.1); Sodium 143 mmol/L (136-145); Total Protein 6.6 g/dL (6.6-8.7)
[2024-11-12] MEDS: acetaminophen 1,000 MG/100 ML PIGGYBACK 400 MG IV (18:28)
[2024-11-12 18:48] VITALS: BP 119/54; RESP 19; O2SAT 96
[2024-11-12] MEDS: ondansetron 2 mg/ML SDV 2 mL 4 MG IVP (19:05)
[2024-11-12] MEDS: metoclopramide 5 mg/mL SDV 2 mL 10 MG IVP (19:07)
[2024-11-12] MEDS: diphenhydrAMINE 50 mg/mL SDV 1mL IVP (19:25)
[2024-11-12] MEDS: orphenadrine 30 mg/mL Inj 2 mL 60 MG IVP (19:29)
== END 2024-11-12 20:10 | disposition home or self-care (01) ==
PROVIDERS: Emergency Provider Emergency Medicine; PCP Family Medicine
DX: R60.0 Localized edema (principal); I50.30 Unspecified diastolic (congestive) heart failure; R07.89 Other chest pain; G43.909 Migraine, unspecified, not intractable, without status migrainosus; Z79.02 Long term (current) use of antithrombotics/antiplatelets
CPT/HCPCS: 36415; 71045; 80053; 83880; 84484; 85025; 93005; 96365; 96375; 99285; J0131; J1200; J1938; J2360; J2405; J2765

== ENCOUNTER 2024-11-22 19:52 | Emergency (ER) | payer BC, SELFPAY ==
--- NOTE | 2024-11-22 19:53 | ECG_ITS ---
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 Measurements Intervals [place] Rate: 88 P: 54 DC: 142 QRS: 65 QRSD: 91 T: 48 QT: 373 QTc: 452 Interpretive Statements SINUS RHYTHM Compared to ECG 11/12/2024 17:10:42 No significant changes Electronically Signed On 11-23-2024 13:04:12 CDT by Dariusz English M.D. [id number]
--- OUTSIDE RECORDS SUMMARY | 2024-11-22 19:56 | XMS_ITS | Clinical Summary ---
Author Organization [facility] Address [address] [place] [address] Care Team Providers Care Start Up Specialist Name Role Phone Unavailable Primary Care Provider [...] daily. 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
[2024-11-22 20:00] VITALS: BP 130/58; PULSE 87; RESP 18; TEMP 36.4; O2SAT 94
[2024-11-22 20:48] LABS: Hematocrit 38.7 % (36-47); Hemoglobin 12.80 g/dL (11.27-16.99); Mean Corpuscular HGB Conc 33.1 g/dL (30-55); Mean Corpuscular Hemoglobin 28.3 pg (27-33); Mean Corpuscular Volume 85.6 fl (85-98); Platelet Count 317 10^3/cmm (157-399); Red Blood Count 4.52 10^6/uL (3.85-5.65); White Blood Count 9.48 10^3/uL (3.29-11.43)
[2024-11-22 21:07] LABS: Troponin(5th) Baseline 7 ng/L (0-10)
[2024-11-22 21:09] LABS: Alanine Aminotransferase 14 U/L (0-33); Albumin Level 4.3 g/dL (3.5-5.2); Alkaline Phosphatase 91 U/L (35-105); Anion Gap 16.0 (5-19); Aspartate Amino Transferase 13 U/L (0-32); Blood Urea Nitrogen 15 mg/dL (8-23); Calcium 9.1 mg/dL (8.5-10.5); Carbon Dioxide 22 mmol/L (22-29); Chloride 105 mmol/L (98-107); Creatinine Clr Calc Pharmacy 76.0223; Globulin 2.1 g/dL (1.3-4.6); Glucose 119 mg/dL (65-115); Osmolality Calculated 290 mOsm/kg (285-295); Potassium 4.0 mmol/L (3.5-5.1); Sodium 139 mmol/L (136-145); Total Protein 6.4 g/dL (6.6-8.7)
[2024-11-22 22:12] LABS: Absolute Segmented Neutrophil 5.4 10/cmm (1.6-7.1); Band Neutrophils Absolute 0.0 10^3/cmm (0.0-1.2); Slide Review Slide Review Perform; Total Cells Counted 100 (0-100)
[2024-11-22 22:13] LABS: Atypical Lymphs 8.0 % (0-5)
== END 2024-11-22 21:50 | disposition left against medical advice (07) ==
PROVIDERS: Student in an Organized Health Care Education/Training Program; Emergency Provider Emergency Medicine; PCP Family Medicine
DX: Z01.89 Encounter for other specified special examinations (principal); Z53.21 Procedure and treatment not carried out due to patient leaving prior to being seen by health care provider
CPT/HCPCS: 36415; 80053; 84484; 85007; 85025; 93005; 99285

== ENCOUNTER 2024-12-25 08:26 | Emergency (ER) | payer BC, SELFPAY ==
[2024-12-25 08:38] VITALS: BP 146/74; PULSE 84; RESP 16; TEMP 36.4; O2SAT 97; BMI 40.7
--- OUTSIDE RECORDS SUMMARY | 2024-12-25 08:41 | XMS_ITS | Encounter Summary ---
Author Organization [facility] Address [address] [place] [address] Care Team Providers Care Commercial Loan Officer Name Role Phone Unavailable Primary Care Provider Unavailabl e Encounter Details Date Type Department Care Team (Late st Contact Info) Description 12/24/2024 External Device Data [facility] ABSTRACTION Provider, Abstract NO ADDRESS ON FILE Social History Tobacco Use Types Packs/Day Years Used Date Smoking Tobacco: Former Smokeless Tobacco: Current Alcohol Use Standard Drinks/Week Comments Not Currently 0 (1 standard drink = 0.6 oz pur e alcohol) Comments Unknown Sex and Gender Information Value Date Recorded Sex Assigned at Not on file 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
--- OUTSIDE RECORDS SUMMARY | 2024-12-25 08:41 | XMS_ITS | Clinical Summary ---
Author Organization [facility] Address [address] [place] [address] Care Team Providers Care Cash Posting Specialist Name Role Phone Unavailable Primary Care [...] daily. 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
--- NOTE | 2024-12-25 09:33 | ECG_ITS ---
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 Measurements Intervals [place] Rate: 79 P: 47 [place]: 137 QRS: 70 QRSD: 96 T: 17 QT: 396 QTc: 454 Interpretive Statements SINUS RHYTHM Compared to ECG 11/22/2024 19:58:06 No significant changes Electronically Signed On 12-25-2024 16:56:03 CDT by Dawit Walls M.D. [id number]
--- NOTE | 2024-12-25 09:33 | W.ED.HA ---
HPI - Headache General: Chief Complaint: Headache Stated Complaint: headache, high bp 202/74 Time Seen by Provider: 12/25/24 09:23 History of Present Illness: 59-year-old female who presents to the emergency room presents emergency room with complaints of elevated blood pressure headache and shortness of breath. She has has a history of hypertension she reports her blood pressure at home was 202/74 she complained of little bit of chest discomfort and shortness of breath while with she had any fever sweats chills. Nonproductive cough. No recent medication changes. She does have a history of coronary artery disease and previously had angiography with stenting Associated symptoms: Deny chest pain, fever(s) or rash Related Data Home Medications ?Medication ?Instructions ?Recorded ?Confirmed losartan 100 mg tablet 100 mg PO BEDTIME 04/05/21 12/29/24 amlodipine 10 mg tablet 10 mg PO DAILY 04/02/24 12/29/24 hydroxyzine HCl 25 mg tablet 25 mg PO BEDTIME PRN Sleep 04/02/24 12/29/24 topiramate 100 mg tablet 100 mg PO BID 04/02/24 12/29/24 albuterol sulfate 2.5 mg/3 mL 2.5 mg continuous nebulization Q6H 06/04/24 12/29/24 (0.083 %) solution for nebulization PRN Shortness Of Breath ezetimibe 10 mg tablet (Zetia) 10 mg PO QPM 07/02/24 12/29/24 fluticasone propionate 50 2 spray intranasal DAILY PRN 07/14/24 12/29/24 mcg/actuation nasal allergies spray,suspension tizanidine 4 mg tablet 4 mg PO Q12H PRN muscle spasticity 07/14/24 12/29/24 furosemide 40 mg tablet 40 mg PO DAILY 12/25/24 12/29/24 levalbuterol tartrate 45 2 puff inhalation Q6H PRN 12/25/24 12/29/24 mcg/actuation aerosol inhaler Shortness Of Breath Or Wheezing Previous Rx's ?Medication ?Instructions ?Recorded ranolazine 500 mg tablet,extended 500 mg PO BID #180 tabs 05/24/24 release,12 hr nitroglycerin 0.4 mg sublingual 0.4 mg sublingual Q5M PRN chest 07/02/24 tablet pain #25 tabs clopidogrel 75 mg tablet 75 mg PO DAILY #90 tabs 07/10/24 atorvastatin 40 mg tablet (Lipitor) 40 mg PO QPM #90 tabs 08/02/24 isosorbide mononitrate 60 mg 60 mg PO DAILY #30 tabs 08/19/24 tablet,extended release 24 hr aspirin 81 mg tablet,delayed 81 mg PO DAILY #90 tabs 09/16/24 release potassium chloride 20 mEq 20 meq PO DAILY #90 tabs 09/16/24 tablet,extended release aripiprazole 2 mg tablet 2 mg PO DAILY #30 tabs 12/04/24 citalopram 40 mg tablet (Celexa) 40 mg PO DAILY #30 tabs 12/04/24 trazodone 100 mg tablet 200 mg (2 x 100 mg) PO .HS PRN 12/04/24 insomnia #60 tabs Allergies Allergy/AdvReac Type Severity Reaction Status Date / Time cephalexin (From Keflex) Allergy ADR-Itching Verified 12/29/24 12:18 ciprofloxacin (From Cipro) Allergy ALGY-Difficulty Verified 12/29/24 12:18 Breathing erythromycin base Allergy ALGY-Difficulty Verified 12/29/24 12:18 Breathing Penicillins Allergy ALGY-Difficulty Verified 12/29/24 12:18 Breathing Review of Systems Const: Denies: fever(s) or chills Card: Denies: chest pain Resp: Denies: dyspnea GI: Denies: abdominal pain : Denies: dysuria, urinary frequency or urinary urgency Musc: Denies: neck pain or back pain Skin/Breast: Denies: rash Neuro: Reports: headache(s) PFS ED PFSH: Medical History Psychiatric care Aortic aneurysm Heart murmur, systolic Obstructive sleep apnea Chronic migraine without aura, intractable, with status migrainosus Social History Smoking and tobacco/nicotine status: former use of tobacco/nicotine Alcohol intake: never Physical Exam Const: GENERAL APPEARANCE: cooperative ORIENTATION/CONSCIOUSNESS: Yes awake, Yes oriented to person, Yes oriented to place and Yes oriented to time HENMT: COMMON NORMALS: normocephalic, atraumatic and hearing grossly normal bilaterally HEAD & SCALP: normocephalic and atraumatic Resp: COMMON NORMALS: normal respiratory effort, No retractions, No use of accessory muscles and clear to auscultation bilaterally AUSCULTATION: clear to auscultation bilaterally Cardio: COMMON NORMALS: regular rate and regular rhythm RATE: regular rate RHYTHM: regular rhythm HEART SOUNDS: Murmur heart sound present systolic Location: left sternal border Intensity: II/ GI: COMMON NORMALS: Soft to palpation and No hepatosplenomegaly present AUSCULTATION: Yes normoactive bowel sounds PALPATION: Yes Soft to palpation, No Tenderness to palpation present (GI), No Guarding due to palpation present (GI) and Yes No hepatosplenomegaly present Extremity: COMMON NORMALS: normal to inspection, capillary refill normal, no clubbing, cyanosis or edema, no calf tenderness and no pedal edema Neuro: SENSORIUM/ORIENTATION: Yes oriented to person, Yes oriented to place and Yes oriented to time Skin: COMMON NORMALS: no rashes or lesions noted GENERAL SKIN EXAM: no rashes or lesions noted Course Vital Signs: Vital signs: Vital Signs Temperature 97.6 F 12/25/24 08:38 Pulse Rate 77 12/25/24 13:50 Respiratory Rate 14 12/25/24 13:50 Blood Pressure 135/66 12/25/24 13:50 Pulse Oximetry 95 12/25/24 13:50 Oxygen Delivery Me thod Room Air 12/25/24 12:03 MDM - Headache Medical Decision Making Patient seen initially lab work ordered including CT head there are no neurologic deficits. Differential diagnosis includes accelerated hypertension, benign essential hypertension TIA, and headache migraine hypertension induced headache. Blood pressure normalized CT head was negative. Laboratory work unremarkable reviewed findings with the patient. Troponins negative. EKGs did not have any significant changes. Will discharge home no change medications monitor blood pressure continue currently prescribed medications and follow-up with her primary care within the week. Medical Records I reviewed the patient's medical records. Lab Data I reviewed the patient's lab results. 12/25/24 09:45 12/25/24 09:[address] 12/25/24 10:57 IMPRESSION: 1. No evidence of intracranial hemorrhage or mass effect. 2. No acute intracranial findings. Laboratory Results WBC 9.12 10^3/uL (3.29-11.43) 12/25/24 09:45 RBC 4.79 10^6/uL (3.85-5.65) 12/25/24 09:45 Hgb 13.50 g/dL (11.27-16.99) 12/25/24 09:45 Hct 41.4 % (36-47) 12/25/24 09:45 MCV 86.4 fl (85-98) 12/25/24 09:45 MCH 28.2 pg (27-33) 12/25/24 09:45 MCHC 32.6 g/dL (30-55) 12/25/24 09:45 RDW 13.2 % (12.1-15.1) 12/25/24 09:45 Plt Count 336 10^3/cmm (157-399) 12/25/24 09:45 MPV 8.9 fL (7.4-10.4) 12/25/24 09:45 Neut % (Auto) 67.6 % 12/25/24 09:45 Lymph % (Auto) 19.4 % 12/25/24 09:45 Treasure % (Auto) 8.6 % 12/25/24 09:45 Eos % (Auto) 3.1 % 12/25/24 09:45 Baso % (Auto) 0.8 % 12/25/24 09:45 Neut # (Auto) 6.17 10^3/uL (1.8-7.7) 12/25/24 09:45 Lymph # (Auto) 1.8 10^3/uL (0.8-4.8) 12/25/24 09:45 Treasure # (Auto) 0.8 10^3/uL (0.2-0.9) 12/25/24 09:45 Eos # (Auto) 0.3 10^3/uL (0.0-0.8) 12/25/24 09:45 Baso # (Auto) 0.1 10^3/uL (0.0-0.1) 12/25/24 09:45 Nucleated RBC % (auto) 0 % 12/25/24 09:45 Nucleated RBCs # 0.0 /100WBC 12/25/24 09:45 Sodium 140 mmol/L (136-145) 12/25/24 09:45 Potassium 3.9 mmol/L (3.5-5.1) 12/25/24 09:45 Chloride 102 mmol/L (98-107) 12/25/24 09:45 Carbon Dioxide 24 mmol/L (22-29) 12/25/24 09:45 Anion Gap 17.9 (5-19) 12/25/24 09:45 BUN 21 mg/dL (8-23) 12/25/24 09:45 Creatinine 0.9 mg/dL (0.5-0.9) 12/25/24 09:45 GFR Calculation 63.9 mL/min (90-130) L 12/25/24 09:45 Glucose 107 mg/dL (65-115) 12/25/24 09:45 Calculated Osmolality 293 mOsm/kg (285-295) 12/25/24 09:45 Calcium 9.1 mg/dL (8.5-10.5) 12/25/24 09:45 Total Bilirubin 0.4 mg/dL (0.15-1.2) 12/25/24 09:45 AST 13 U/L (0-32) 12/25/24 09:45 ALT 15 U/L (0-33) 12/25/24 09:45 Alkaline Phosphatase 97 U/L (35-105) 12/25/24 09:45 Troponin T Baseline 7 ng/L (0-10) 12/25/24 09:45 Troponin T 120 Minute < 6.0 ng/L (0-10) 12/25/24 11:47 Delta Troponin T -1.65265 ABS# (0-10) L 12/25/24 11:47 Total Protein 7.0 g/dL (6.6-8.7) 12/25/24 09:45 Albumin 4.5 g/dL (3.5-5.2) 12/25/24 09:45 Globulin 2.5 g/dL (1.3-4.6) 12/25/24 09:45 All radiology interpretation(s) finalized by discharge EKG Data EKG 1: I personally reviewed and interpreted this EKG as follows: EKG interpretation date: 12/31/24 Prior EKG tracings: available for review Interpretation: EKG 12/26/2024 9:36 AM normal sinus rhythm rate 79 parable 137 QTc 454. No acute EKG changes noted EKG compared to 11/22/2024 no significant change EKG 2: I personally reviewed and interpreted this EKG as follows: Prior EKG tracings: available for review Interpretation: EKG 12/25/2024 10:43 AM sinus rhythm rate of 73. KS interval 147 QTc 438. Compared to EKG done earlier same day no changes. No acute changes ST noted on either EKG Discharge Plan Discharge Patient Disposition: Home Clinical Impression: Hypertension, Headache Condition: Stable Prescriptions: No Action ezetimibe [Zetia] 10 mg tablet 10 mg PO QPM nitroglycerin 0.4 mg tablet, sublingual 0.4 mg sublingual Q5M PRN (Reason: chest pain) Qty: 25 2RF Rx Instructions: do not exceed 3 doses per episode trazodone 100 mg tablet 200 mg PO .HS PRN (Reason: insomnia) Qty: 60 2RF aripiprazole 2 mg tablet 2 mg PO DAILY Qty: 30 2RF citalopram [Celexa] 40 mg tablet 40 mg PO DAILY Qty: 30 2RF ranolazine 500 mg tablet extended release 12 hr 500 mg PO BID Qty: 180 3RF atorvastatin [Lipitor] 40 mg tablet 40 mg PO QPM Qty: 90 3RF isosorbide mononitrate 60 mg tablet extended release 24 hr 60 mg PO DAILY Qty: 30 0RF potassium chloride 20 mEq tablet extended release 20 meq PO DAILY Qty: 90 4RF aspirin 81 mg tablet,delayed release (DR/EC) 81 mg PO DAILY Qty: 90 4RF losartan 100 mg tablet 100 mg PO BEDTIME albuterol sulfate 2.5 mg /3 mL (0.083 %) solution for nebulization 2.5 mg continuous nebulization Q6H PRN (Reason: Shortness Of Breath) clopidogrel 75 mg Tablet 75 mg PO DAILY Qty: 90 3RF amlodipine 10 mg tablet 10 mg PO DAILY hydroxyzine HCl 25 mg tablet 25 mg PO BEDTIME PRN (Reason: Sleep) topiramate 100 mg tablet 100 mg PO BID tizanidine 4 mg tablet 4 mg PO Q12H PRN (Reason: muscle spasticity) Rx Instructions: do not exceed 3 doses per 24 hrs fluticasone propionate 50 mcg/actuation spray,suspension 2 spray INTRANASAL DAILY PRN (Reason: allergies) furosemide 40 mg tablet 40 mg PO DAILY levalbuterol tartrate 45 mcg/actuation HFA aerosol inhaler 2 puff INHALATION Q6H PRN (Reason: Shortness Of Breath Or Wheezing) Discharge Orders: Discharge ED (Routine); Ordered 12/25/24 Ordered By: Ayaan Maldonado Referrals: Samanta Kapoor DO [Primary Care Provider, VIDEO TECHNICIAN] Discharge Diet: Usual diet Discharge Activity: Increase activity as tolerated Patient Instructions: Opioid Safety, Pain Management, Patient Portal & Farrah Instructions Activity Restrictions/Additional Instructions: [facility]. It is very important that you follow up as instructed or that you return to the Emergency Department should you have concerns or if your condition changes or worsens in any way. Emergency department visits are focused on emergent conditions, in some cases you may require further evaluation on an outpatient basis. You were seen in the emergency room reporting elevated blood pressure with headache. Headache improved with medications given your blood pressure had normalized by the time you arrived in the emergency room do not recommend any changes at this time continue to take your current prescribed medications and follow-up with your doctor sometime within the next week to reevaluate. If you have worsening or change symptoms you are welcome to return to the emergency room anytime. (Please note that included in your discharge packet is information concerning opioid safety and pain management. This information is given to all patients were discharged from the ER regardless of their discharge diagnosis or the medicines they usually take or are prescribed.) Print Language: Portuguese Coding Level of Care Code ED Transportation Operations Manager for Annette Cordova
[2024-12-25 09:54] LABS: Hematocrit 41.4 % (36-47); Hemoglobin 13.50 g/dL (11.27-16.99); Mean Corpuscular HGB Conc 32.6 g/dL (30-55); Mean Corpuscular Hemoglobin 28.2 pg (27-33); Mean Corpuscular Volume 86.4 fl (85-98); Nucleated Red Blood Cells % 0 %; Platelet Count 336 10^3/cmm (157-399); Red Blood Count 4.79 10^6/uL (3.85-5.65); White Blood Count 9.12 10^3/uL (3.29-11.43)
[2024-12-25 10:12] LABS: Alanine Aminotransferase 15 U/L (0-33); Albumin Level 4.5 g/dL (3.5-5.2); Alkaline Phosphatase 97 U/L (35-105); Anion Gap 17.9 (5-19); Aspartate Amino Transferase 13 U/L (0-32); Blood Urea Nitrogen 21 mg/dL (8-23); Calcium 9.1 mg/dL (8.5-10.5); Carbon Dioxide 24 mmol/L (22-29); Chloride 102 mmol/L (98-107); Creatinine Clr Calc Pharmacy 76.7838; Globulin 2.5 g/dL (1.3-4.6); Glucose 107 mg/dL (65-115); Osmolality Calculated 293 mOsm/kg (285-295); Potassium 3.9 mmol/L (3.5-5.1); Sodium 140 mmol/L (136-145); Total Protein 7.0 g/dL (6.6-8.7)
[2024-12-25 10:13] LABS: Troponin(5th) Baseline 7 ng/L (0-10)
--- NOTE | 2024-12-25 10:57 | CT_ITS ---
WS: [id number] CT HEAD TECHNIQUE: Noncontrast CT of the head obtained from the skullbase to the vertex. CLINICAL INFORMATION: New onset headache COMPARISON: 10/22/2024 DLP: 1075.[address] scans at [facility] use at least one of these dose optimization techniques: automated exposure control; mA and/or kV adjustment per patient size (includes targeted exams where dose is matched to clinical indication); or iterative reconstruction. FINDINGS: No evidence of intracranial hemorrhage or mass effect. Ventricular system and basal cisterns are patent. Mild small vessel changes with no significant parenchymal volume loss. No extra-axial fluid collections. No evidence of mass or mass effect. Normal hernandez-white differentiation. Low-lying cerebellar tonsils likely incidental and unchanged. Paranasal sinuses and mastoid air cells are well aerated. .Normal visualized soft tissues. CT/CT head wo con* [id number] IMPRESSION: 1. No evidence of intracranial hemorrhage or mass effect. 2. No acute intracranial findings.
[2024-12-25 10:58] VITALS: BP 135/59; O2SAT 94
--- NOTE | 2024-12-25 11:33 | ECG_ITS ---
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 Measurements Intervals [place] Rate: 73 P: 48 WI: 147 QRS: 70 QRSD: 87 T: 9 QT: 397 QTc: 438 Interpretive Statements SINUS RHYTHM Compared to ECG 12/25/2024 09:36:10 No significant changes Electronically Signed On 12-25-2024 22:58:48 CDT by Dawit Walls M.D. [email or web address]
[2024-12-25 12:03] VITALS: BP 135/59; PULSE 80; RESP 17; O2SAT 94
[2024-12-25 12:26] LABS: Troponin 5 2HR < 6.0 ng/L (0-10)
[2024-12-25 12:36] LABS: Troponin 5 2HR Delta -1.00001 ABS# (0-10)
[2024-12-25 13:50] VITALS: BP 135/66; PULSE 77; RESP 14; O2SAT 95
== END 2024-12-25 13:49 | disposition home or self-care (01) ==
PROVIDERS: Emergency Provider Family Medicine; PCP Family Medicine
DX: I10 Essential (primary) hypertension (principal); R51.9 Headache, unspecified; Z79.82 Long term (current) use of aspirin; Z79.02 Long term (current) use of antithrombotics/antiplatelets; Z87.891 Personal history of nicotine dependence
CPT/HCPCS: 36415; 70450; 80053; 84484; 85025; 93005; 96374; 96375; 99285; J0780; J1885

== ENCOUNTER 2024-12-29 13:09 | Emergency (ER) | payer BC, SELFPAY ==
--- NOTE | 2024-12-29 13:13 | ECG_ITS ---
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
--- NOTE | 2024-12-29 13:13 | XRR_ITS ---
PROCEDURE INFORMATION: Exam: XR Chest Exam date and time: 12/29/2024 2:01 PM Age: 59 years old Clinical indication: Pain; Chest pressure; Additional info: Cp TECHNIQUE: Imaging protocol: Radiologic exam of the chest. Views: 1 view. COMPARISON: CR (CHEST, ) 11/12/2024 5:19 PM FINDINGS: Lungs: Unremarkable. No consolidation. Pleural spaces: Unremarkable. No pleural effusion. No pneumothorax. Heart/Mediastinum: Unremarkable. No cardiomegaly. Bones/joints: Thoracic spondylosis. Mild bilateral degenerative changes of the shoulder joints. XR/XR chest 1V portable [id number] IMPRESSION: No acute findings.
--- OUTSIDE RECORDS SUMMARY | 2024-12-29 13:13 | XMS_ITS | Encounter Summary ---
Author Organization [employer] Address 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
--- OUTSIDE RECORDS SUMMARY | 2024-12-29 13:13 | XMS_ITS | Clinical Summary ---
Author Organization [facility] Address [address] [place] [address] Care Team Providers Care Protective Service Specialist Name Role Phone Unavailable Primary Care [...] daily. 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
[2024-12-29 13:19] VITALS: BP 146/73; PULSE 80; RESP 18; TEMP 36.5; O2SAT 97
--- NOTE | 2024-12-29 13:58 | W.ED.CHESTPA ---
HPI - Chest Pain General: Chief Complaint: Chest Pain Stated Complaint: chest pain sob and swelling in both legs and hands Time Seen by Provider: 12/29/24 13:46 Source: patient Mode of arrival: ambulatory Limitations: no limitations History of Present Illness: 59-year-old female states that she has a history of CHF is on Lasix 60 mg a day states she feels like she is been retaining some fluid states she has had some weight gain along with extremity swelling. She states that over the last 2 days she has had some mild chest pains with some slight dyspnea she denies any fevers she states her chest pain is currently a 1 out of 10 denies any worse or improving factors. Associated symptoms: Reports dyspnea Related Data Home Medications ?Medication ?Instructions ?Recorded ?Confirmed losartan 100 mg tablet 100 mg PO BEDTIME 04/05/21 12/29/24 amlodipine 10 mg tablet 10 mg PO DAILY 04/02/24 12/29/24 hydroxyzine HCl 25 mg tablet 25 mg PO BEDTIME PRN Sleep 04/02/24 12/29/24 topiramate 100 mg tablet 100 mg PO BID 04/02/24 12/29/24 albuterol sulfate 2.5 mg/3 mL 2.5 mg continuous nebulization Q6H 06/04/24 12/29/24 (0.083 %) solution for nebulization PRN Shortness Of Breath ezetimibe 10 mg tablet (Zetia) 10 mg PO QPM 07/02/24 12/29/24 fluticasone propionate 50 2 spray intranasal DAILY PRN 07/14/24 12/29/24 mcg/actuation nasal allergies spray,suspension tizanidine 4 mg tablet 4 mg PO Q12H PRN muscle spasticity 07/14/24 12/29/24 furosemide 40 mg tablet 40 mg PO DAILY 12/25/24 12/29/24 levalbuterol tartrate 45 2 puff inhalation Q6H PRN 12/25/24 12/29/24 mcg/actuation aerosol inhaler Shortness Of Breath Or Wheezing Previous Rx's ?Medication ?Instructions ?Recorded ranolazine 500 mg tablet,extended 500 mg PO BID #180 tabs 05/24/24 release,12 hr nitroglycerin 0.4 mg sublingual 0.4 mg sublingual Q5M PRN chest 07/02/24 tablet pain #25 tabs clopidogrel 75 mg tablet 75 mg PO DAILY #90 tabs 07/10/24 atorvastatin 40 mg tablet (Lipitor) 40 mg PO QPM #90 tabs 08/02/24 isosorbide mononitrate 60 mg 60 mg PO DAILY #30 tabs 08/19/24 tablet,extended release 24 hr aspirin 81 mg tablet,delayed 81 mg PO DAILY #90 tabs 09/16/24 release potassium chloride 20 mEq 20 meq PO DAILY #90 tabs 09/16/24 tablet,extended release aripiprazole 2 mg tablet 2 mg PO DAILY #30 tabs 12/04/24 citalopram 40 mg tablet (Celexa) 40 mg PO DAILY #30 tabs 12/04/24 trazodone 100 mg tablet 200 mg (2 x 100 mg) PO .HS PRN 12/04/24 insomnia #60 tabs Allergies Allergy/AdvReac Type Severity Reaction Status Date / Time cephalexin (From Keflex) Allergy ADR-Itching Verified 12/29/24 12:18 ciprofloxacin (From Cipro) Allergy ALGY-Difficulty Verified 12/29/24 12:18 Breathing erythromycin base Allergy ALGY-Difficulty Verified 12/29/24 12:18 Breathing Penicillins Allergy ALGY-Difficulty Verified 12/29/24 12:18 Breathing Review of Systems Card: Reports: chest pain Resp: Reports: dyspnea PFSH ED PFSH: Medical History Psychiatric care Aortic aneurysm Heart murmur, systolic Obstructive sleep apnea Chronic migraine without aura, intractable, with status migrainosus Social History Smoking and tobacco/nicotine status: former use of tobacco/nicotine Alcohol intake: never Physical Exam Const: COMMON NORMALS: patient oriented x3 HENMT: COMMON NORMALS: normocephalic and atraumatic HEAD & SCALP: normocephalic and atraumatic Neck/C-Spine: COMMON NORMALS: full ROM and supple Chest: COMMONS NORMALS: normal inspection of the chest Resp: COMMON NORMALS: normal respiratory effort, No retractions, No use of accessory muscles and clear to auscultation bilaterally AUSCULTATION: clear to auscultation bilaterally Cardio: COMMON NORMALS: regular rate, regular rhythm and No murmurs present (Cardio) RATE: regular rate RHYTHM: regular rhythm GI: COMMON NORMALS: Normal to inspection, nondistended, normoactive bowel sounds present, Soft to palpation, non-tender and no masses PALPATION: Yes Soft to palpation Extremity: COMMON NORMALS: full ROM NARRATIVE EXTREMITY EXAM: 2+ edema ble Neuro: COMMON NORMALS: patient oriented x3, moves all extremities and no focal motor deficits Psych: COMMON NORMALS: mental status grossly normal, Normal thought process present and cooperative THOUGHT PROCESS: Normal thought process present Skin: COMMON NORMALS: no rashes or lesions noted and no wounds GENERAL SKIN EXAM: no rashes or lesions noted Course Vital Signs: Vital signs: Vital Signs Temperature 97.7 F 12/29/24 13:19 Pulse Rate 85 12/29/24 16:00 Respiratory Rate 16 12/29/24 15:35 Blood Pressure 142/53 12/29/24 16:00 Pulse Oximetry 96 12/29/24 16:00 Oxygen Delivery Me thod Room Air 12/29/24 13:19 MDM - Chest Pain Medical Decision Making Patient presents here with lower extreme edema along with some chest pain. Differential includes CHF exacerbation, pulmonary emboli, ACS. Patient is been well-appearing here has been pain-free here currently. She has had no shortness of breath here and pulse ox and vitals been normal. Her BNP here was normal did review her chest x-ray showed no acute abnormalities her initial repeat troponins are normal with no signs of ACS. Her EKG showed normal sinus rhythm heart rate [address] elevation QRS 90 QTc 432 interpreted by me. She does have some slight lower extreme edema did give her an IV dose of Lasix here. She has no signs of pulm edema or CHF exacerbation. I feel she is stable for discharge she is to continue her Lasix and follow-up with her telephone installer. I did go over her imaging labs and EKG and she is stable for discharge she understands agrees with plan. Medical Records I reviewed the patient's medical records. Lab Data I reviewed the patient's lab results. 12/29/24 13:50 12/29/24 13:50 Radiology Impressions Chest X-Ray 12/29/24 13:13 IMPRESSION: No acute findings. Laboratory Results WBC 10.02 10^3/uL (3.29-11.43) 12/29/24 13:50 RBC 4.35 10^6/uL (3.85-5.65) 12/29/24 13:50 Hgb 12.30 g/dL (11.27-16.99) 12/29/24 13:50 Hct 38.2 % (36-47) 12/29/24 13:50 MCV 87.8 fl (85-98) 12/29/24 13:50 MCH 28.3 pg (27-33) 12/29/24 13:50 MCHC 32.2 g/dL (30-55) 12/29/24 13:50 RDW 13.7 % (12.1-15.1) 12/29/24 13:50 Plt Count 334 10^3/cmm (157-399) 12/29/24 13:50 MPV 8.9 fL (7.4-10.4) 12/29/24 13:50 Neut % (Auto) 64.7 % 12/29/24 13:50 Lymph % (Auto) 22.5 % 12/29/24 13:50 [place] % (Auto) 9.3 % 12/29/24 13:50 Eos % (Auto) 2.4 % 12/29/24 13:50 Baso % (Auto) 0.7 % 12/29/24 13:50 Neut # (Auto) 6.49 10^3/uL (1.8-7.7) 12/29/24 13:50 Lymph # (Auto) 2.3 10^3/uL (0.8-4.8) 12/29/24 13:50 [place] # (Auto) 0.9 10^3/uL (0.2-0.9) 12/29/24 13:50 Eos # (Auto) 0.2 10^3/uL (0.0-0.8) 12/29/24 13:50 Baso # (Auto) 0.1 10^3/uL (0.0-0.1) 12/29/24 13:50 Nucleated RBC % (auto) 0 % 12/29/24 13:50 Nucleated RBCs # 0.0 /100WBC 12/29/24 13:50 PT 12.50 SECONDS (12.1-14.9) 12/29/24 13:50 INR 0.87 (0.8-1.2) 12/29/24 13:50 Sodium 141 mmol/L (136-145) 12/29/24 13:50 Potassium 3.8 mmol/L (3.5-5.1) 12/29/24 13:50 Chloride 104 mmol/L (98-107) 12/29/24 13:50 Carbon Dioxide 22 mmol/L (22-29) 12/29/24 13:50 Anion Gap 18.8 (5-19) 12/29/24 13:50 BUN 17 mg/dL (8-23) 12/29/24 13:50 Creatinine 1.0 mg/dL (0.5-0.9) H 12/29/24 13:50 GFR Calculation 56.6 mL/min (90-130) L 12/29/24 13:50 Glucose 87 mg/dL (65-115) 12/29/24 13:50 Calculated Osmolality 293 mOsm/kg (285-295) 12/29/24 13:50 Calcium 8.9 mg/dL (8.5-10.5) 12/29/24 13:50 Total Bilirubin 0.5 mg/dL (0.15-1.2) 12/29/24 13:50 AST 26 U/L (0-32) 12/29/24 13:50 ALT 31 U/L (0-33) 12/29/24 13:50 Alkaline Phosphatase 91 U/L (35-105) 12/29/24 13:50 Troponin T Baseline 7 ng/L (0-10) 12/29/24 13:50 Troponin T 120 Minute 7.69 ng/L (0-10) 12/29/24 15:24 Delta Troponin T 0.69 ABS# (0-10) 12/29/24 15:24 NT-Pro-B Natriuret Pep 123 pg/mL (0-125) 12/29/24 13:50 Total Protein 6.7 g/dL (6.6-8.7) 12/29/24 13:50 Albumin 4.5 g/dL (3.5-5.2) 12/29/24 13:50 Globulin 2.2 g/dL (1.3-4.6) 12/29/24 13:50 All radiology interpretation(s) finalized by discharge EKG Data EKG 1: I personally reviewed and interpreted this EKG as follows: EKG interpretation date: 12/29/24 EKG interpretation time: 13:15 Interpretation: nsr hr [address] elevation qrs 90 qtc 432 EKG 2: I personally reviewed and interpreted this EKG as follows: EKG interpretation date: 12/29/24 EKG interpretation time: 15:30 Interpretation: nsr hr [address] elevation qrs 97 qtc 344 Discharge Plan Discharge Patient Disposition: Home Clinical Impression: Atypical chest pain, Bilateral edema of lower extremity Condition: Stable Prescriptions: No Action ezetimibe [Zetia] 10 mg tablet 10 mg PO QPM nitroglycerin 0.4 mg tablet, sublingual 0.4 mg sublingual Q5M PRN (Reason: chest pain) Qty: 25 2RF Rx Instructions: do not exceed 3 doses per episode trazodone 100 mg tablet 200 mg PO .HS PRN (Reason: insomnia) Qty: 60 2RF aripiprazole 2 mg tablet 2 mg PO DAILY Qty: 30 2RF citalopram [Celexa] 40 mg tablet 40 mg PO DAILY Qty: 30 2RF ranolazine 500 mg tablet extended release 12 hr 500 mg PO BID Qty: 180 3RF atorvastatin [Lipitor] 40 mg tablet 40 mg PO QPM Qty: 90 3RF isosorbide mononitrate 60 mg tablet extended release 24 hr 60 mg PO DAILY Qty: 30 0RF potassium chloride 20 mEq tablet extended release 20 meq PO DAILY Qty: 90 4RF aspirin 81 mg tablet,delayed release (DR/EC) 81 mg PO DAILY Qty: 90 4RF losartan 100 mg tablet 100 mg PO BEDTIME albuterol sulfate 2.5 mg /3 mL (0.083 %) solution for nebulization 2.5 mg continuous nebulization Q6H PRN (Reason: Shortness Of Breath) clopidogrel 75 mg Tablet 75 mg PO DAILY Qty: 90 3RF amlodipine 10 mg tablet 10 mg PO DAILY hydroxyzine HCl 25 mg tablet 25 mg PO BEDTIME PRN (Reason: Sleep) topiramate 100 mg tablet 100 mg PO BID tizanidine 4 mg tablet 4 mg PO Q12H PRN (Reason: muscle spasticity) Rx Instructions: do not exceed 3 doses per 24 hrs fluticasone propionate 50 mcg/actuation spray,suspension 2 spray INTRANASAL DAILY PRN (Reason: allergies) furosemide 40 mg tablet 40 mg PO DAILY levalbuterol tartrate 45 mcg/actuation HFA aerosol inhaler 2 puff INHALATION Q6H PRN (Reason: Shortness Of Breath Or Wheezing) Discharge Orders: Discharge ED (Routine); Ordered 12/29/24 Ordered By: Erinn Oscar Referrals: Samanta Kapoor DO [Primary Care Provider, SENIOR MECHANICAL DEVELOPMENT ENGINEER] Discharge Diet: Advance as tolerated Discharge Activity: Resume usual activity Patient Instructions: Chest Pain (ED), Leg Edema (ED) Print Language: Romansh Coding Level of Care Code ED Insurance Sales Specialist for Chg Fwd Heart Score HEART Score Components History: Slightly Suspicous EKG: Normal Age: 45-64 yrs Risk Factors: 1 or 2 Risk Factors Troponin: Baseline Trop <16 ng/L HEART Score RESULT HEART Score: 2
[2024-12-29 14:03] LABS: Hematocrit 38.2 % (36-47); Hemoglobin 12.30 g/dL (11.27-16.99); Mean Corpuscular HGB Conc 32.2 g/dL (30-55); Mean Corpuscular Hemoglobin 28.3 pg (27-33); Mean Corpuscular Volume 87.8 fl (85-98); Nucleated Red Blood Cells % 0 %; Platelet Count 334 10^3/cmm (157-399); Red Blood Count 4.35 10^6/uL (3.85-5.65); White Blood Count 10.02 10^3/uL (3.29-11.43)
[2024-12-29 14:18] LABS: INR 0.87 (0.8-1.2); Prothrombin Time 12.50 SECONDS (12.1-14.9)
[2024-12-29 14:28] LABS: Troponin(5th) Baseline 7 ng/L (0-10)
[2024-12-29 14:38] LABS: Alanine Aminotransferase 31 U/L (0-33); Albumin Level 4.5 g/dL (3.5-5.2); Alkaline Phosphatase 91 U/L (35-105); Anion Gap 18.8 (5-19); Aspartate Amino Transferase 26 U/L (0-32); Blood Urea Nitrogen 17 mg/dL (8-23); Calcium 8.9 mg/dL (8.5-10.5); Carbon Dioxide 22 mmol/L (22-29); Chloride 104 mmol/L (98-107); Creatinine Clr Calc Pharmacy 72.0184; Globulin 2.2 g/dL (1.3-4.6); Glucose 87 mg/dL (65-115); NT Pro B Type Natriuretic Pept 123 pg/mL (0-125); Osmolality Calculated 293 mOsm/kg (285-295); Potassium 3.8 mmol/L (3.5-5.1); Sodium 141 mmol/L (136-145); Total Protein 6.7 g/dL (6.6-8.7)
--- NOTE | 2024-12-29 15:13 | ECG_ITS ---
[facility] Date: 2024-12-29 Pat Name: Rosenda Yusuf Department: Room: Gender: Female Day Habilitation Specialist: : [id number] Requested By: Erinn Oscar Order Number: [id number] Reading MD: MISTY CROWLEY Measurements Intervals Allen Rate: 77 P: 45 MS: 156 QRS: 59 QRSD: 97 T: 4 QT: 313 QTc: 354 Interpretive Statements SINUS RHYTHM NONSPECIFIC T-WAVE ABNORMALITY Compared to ECG 12/29/2024 13:15:23 No significant changes Electronically Signed On 12-29-2024 22:27:56 CDT by MISTY CROWLEY [email or web address]
[2024-12-29] MEDS: FUROsemide 10 mg/mL SDV 10mL 80 MG IVP (15:14)
[2024-12-29 15:35] VITALS: BP 142/53; PULSE 86; RESP 16; O2SAT 95
[2024-12-29 15:48] LABS: Troponin 5 2HR 7.69 ng/L (0-10); Troponin 5 2HR Delta 0.69 ABS# (0-10)
[2024-12-29 16:00] VITALS: BP 142/53; PULSE 85; O2SAT 96
== END 2024-12-29 16:07 | disposition home or self-care (01) ==
PROVIDERS: Emergency Provider Emergency Medicine; PCP Family Medicine
DX: R07.89 Other chest pain (principal); R60.0 Localized edema; Z79.82 Long term (current) use of aspirin; Z79.02 Long term (current) use of antithrombotics/antiplatelets; Z87.891 Personal history of nicotine dependence
CPT/HCPCS: 36415; 71045; 80053; 83880; 84484; 85025; 85610; 93005; 96374; 99285; J1938

== ENCOUNTER 2025-01-01 11:37 | Outpatient (CLI) | payer BC, SELFPAY ==
--- NOTE | 2025-01-01 11:44 | XR_ITS ---
WS: [id number] Exam: XR shoulder LT min 2V* [id number] Date/Time of Exam: 01/01/2025 11:45 AM Reason For Exam: PAIN IN L SHOULDER DLP: No fracture. Arthrosis and bony spurring at the AC joint. Mild DJD of the glenohumeral joint. Normal soft tissues. XR/XR shoulder LT min 2V* [id number] IMPRESSION: 1. Degenerative changes. No fracture.
== END 2025-01-01 11:38 | disposition home or self-care (01) ==
PROVIDERS: PCP Family Medicine; Visit Provider Family Medicine
DX: M25.512 Pain in left shoulder (principal); M19.012 Primary osteoarthritis, left shoulder
CPT/HCPCS: 73030

== ENCOUNTER 2025-02-11 14:46 | Outpatient (CLI) | payer BC, SELFPAY ==
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
== END 2025-02-11 14:47 | disposition home or self-care (01) ==
LOC: RAD 14:48
PROVIDERS: PCP Family Medicine; Visit Provider Orthopaedic Surgery
DX: M25.512 Pain in left shoulder (principal)
CPT/HCPCS: 73221